=== PATIENT | male | born 1945 | race Caucasian/White ===

== ENCOUNTER 2017-04-07 12:24 | Emergency (ER) | payer MEDICARE, OTHER ==
[~2017-04-07] VITALS: Ht 180.3 cm; Wt 127.0 kg
[~2017-04-07 12:24] MED LIST: ASPIR 8181 MG PO; ASPIRIN325 MG PO; B COMPLEX1 EACH PO; BENICAR20 MG PO; CALCIUM600 MG PO; CARVEDILOL25 MG PO; CENTRUM SILVER1 EAC1 PO; COZAAR50 MG PO; DILTIAZEM 24HR180 M1 PO; ELIQUIS5 MG PO; FISH OIL500 MG PO; GLUCOSAM-CHOND1 EACH PO; GLUCOSAMINE &1 EAC1 PO; ISOSORBIDE MONO30 MG PO; LIPITOR40 MG PO; METHOCARBAMOL750 MG PO; MS CONTIN15 MG PO; NORCO 7.5-3251 EACH PO; OCUVITE TABLET1 EAC1 PO; OXYCODONE HCL10 MG PO; SAW PALMETTO450 MG PO; TRAMADOL HCL50 MG PO; ULTRAM50 MG PO; VITAMIN C1000 MG PO; ZETIA10 MG PO
== END 2017-04-07 14:58 | disposition home or self-care (01) ==
LOC: ED 12:24
DX: S63.92XA Sprain of unspecified part of left wrist and hand, initial encounter (principal); S00.91XA Abrasion of unspecified part of head, initial encounter; I10 Essential (primary) hypertension; E78.00 Pure hypercholesterolemia, unspecified; Z79.899 Other long term (current) drug therapy; Z98.890 Other specified postprocedural states; Z79.82 Long term (current) use of aspirin; W01.0XXA Fall on same level from slipping, tripping and stumbling without subsequent striking against object, initial encounter
CPT/HCPCS: 70450; 73110; 90471; 90715; 99284

== ENCOUNTER 2019-12-07 23:00 | Emergency (ER) | payer MEDICARE, OTHER ==
--- NOTE | 2019-12-08 07:51 | EKG ---
[facility] [address] [facility] [place] [address] Signed Accelerated Junctional rhythm with occasional premature ventricular complexes Low voltage QRS Cannot rule out Anterior infarct , age undetermined Abnormal ECG No previous ECGs available Confirmed by GRACE TATUM MD ([id number]) on 12/08/2019 7:51:31 AM Electronically Signed By: GRACE TATUM MD 12/08/19 0751 PATIENT NAME: GIOVANNI PEDERSEN AARON Electrocardiogram DATE OF : 47 PHYSICIAN: GRACE TATUM MD REPORT #: [id number] REPORT IS CONFIDENTIAL AND NOT TO BE RELEASED WITHOUT AUTHORIZATION
--- NOTE | 2019-12-08 07:51 | EKG ---
[facility] [address] [facility] [place] [address] Signed Undetermined rhythm Left axis deviation Nonspecific intraventricular conduction delay Marked ST abnormality, possible inferior subendocardial injury Marked ST abnormality, possible anterolateral subendocardial injury Abnormal ECG When compared with ECG of 07-DEC-2019 23:10, (Unconfirmed) Current undetermined rhythm precludes rhythm comparison, needs review Questionable change in QRS duration Confirmed by GRACE TATUM MD ([id number]) on 12/08/2019 7:51:42 AM Electronically Signed By: GRACE TATUM MD 12/08/19 0751 PATIENT NAME: GIOVANNI PEDERSEN Electrocardiogram DATE OF : 47 PHYSICIAN: GRACE TATUM MD REPORT #: [id number] REPORT IS CONFIDENTIAL AND NOT TO BE RELEASED WITHOUT AUTHORIZATION
--- NOTE | 2019-12-08 07:52 | EKG ---
[facility] [address] [place] [place] [address] Signed Atrial flutter with variable AV block with premature ventricular or aberrantly conducted complexes Low voltage QRS Cannot rule out Anterior infarct , age undetermined Abnormal ECG When compared with ECG of 07-DEC-2019 23:24, (Unconfirmed) Previous ECG has undetermined rhythm, needs review Questionable change in QRS duration Confirmed by GRACE TATUM MD ([id number]) on 12/08/2019 7:51:53 AM Electronically Signed By: GRACE TATUM MD 12/08/19 0752 PATIENT NAME: GIOVANNI PEDERSEN Electrocardiogram DATE OF : 47 PHYSICIAN: GRACE TATUM MD REPORT #: [id number] REPORT IS CONFIDENTIAL AND NOT TO BE RELEASED WITHOUT AUTHORIZATION
== END 2019-12-08 00:30 | disposition home or self-care (01) ==
LOC: ED 23:00
DX: I47.1 Supraventricular tachycardia (principal); I10 Essential (primary) hypertension; E78.00 Pure hypercholesterolemia, unspecified; Z88.8 Allergy status to other drugs, medicaments and biological substances; Z79.899 Other long term (current) drug therapy
CPT/HCPCS: 71045; 85610; 93005; 93010; 99285-25

== ENCOUNTER 2019-12-10 00:15 | Emergency (ER) | payer MEDICARE, OTHER ==
[~2019-12-10] VITALS: Ht 180.3 cm; Wt 115.7 kg
--- OUTSIDE RECORDS SUMMARY | ~2019-12-10 | XMS | Encounter Summary ---
Demographics + + + | Address | [address] | | | [place] [address] | + + + | Home Phone | | + + + | Preferred Language | Unknown | + + + | Marital Status | | + + + | Scientology Affiliation | 1041 | + + + | Race | Unknown | + + + | Ethnic Group | Unknown | + + + Author + + + | Author | [facility] | | | and [place] | + + + | Organization | [facility] | | | and [place] | + + + | Address | Unknown | + + + | Phone | Unavailable | + + + Support + + + + + | Name | Relationship | Address | Phone | + + + + + | Dax Yeboah | ECON | Unknown | | + + + + + | Sangeetha Yeboah | ECON | [address] | | | | | [place] | | | | | [address] | | + + + + + Care Team Providers + +------+ + | Care Signal Apprentice Name | Role | Phone | + +------+ + | No, Physician | PCP | Unavailable | + +------+ + Encounter Details +--------+ + + + + | Date | Type | Department | Care Team | Description | +--------+ + + + + | 12/21/ | Orders Only | [facility] | Juan Merritt MD | | | 2015 | | CARDIOLOGY [place] | [address] | | | | | [address] | [place] [address] | | | | | [place], [place] | [phone] | | | | | [address] | | | | | | [phone] | | | +--------+ + + + + Social History + +-------+ +--------+------+ | Tobacco Use | Types | Packs/Day | Years | Date | | | | | Used | | + +-------+ +--------+------+ | Never Assessed | | | | | + +-------+ +--------+------+ + + + | Sex Assigned at | Date Recorded | | | | + + + | Not on file | | + + + documented as of this encounter Plan of Treatment +--------+---------+ + + + | Date | Type | Specialty | Care Team | Description | +--------+---------+ + + + | 01/09/ | Office | Cardiology | Juan Merritt MD | | | 2019 | Visit | | [address] | | | | | | [place] [address] | | | | | | [phone] | | | | | | | | +--------+---------+ + + + documented as of this encounter Procedures + +--------+ + + + | Procedure Name | Priori | Date/Time | Associated Diagnosis | Comments | | | ty | | | | + +--------+ + + + | ECHO COMPLETE W | Routin | 12/21/2014 | | Results for this | | CONTRAST | e | 1:51 PM | | procedure are in the | | | | PDT | | results section. | + +--------+ + + + documented in this encounter Results ECHO Complete w Contrast (12/21/2014 1:51 PM PDT) + + | Specimen | + + | | + + + + + | Impressions | Performed At | + + + | 1. Atrial fibrillation. 2. Overall left ventricular systolic | | | function is mildly impaired with, an EF between 45 - 50 %. 3. There | | | is trace mitral regurgitation. 4. The right ventricular systolic | | | pressure (pulmonary artery systolic pressure), as measured by Doppler, | | | is 34.29mmHg. | | + + + + + + | Narrative | Performed At | + + + | Patient Name: GIOVANNI YEBOAH Date of : 1945 | | | Performing Physician: Juan Merritt MD | | | | | | INDICATIONS CAD with 2 stents, A-fib CONCLUSIONS | | | 1. Atrial fibrillation. 2. Overall left ventricular | | | systolic function is mildly impaired with, an EF between 45 - 50 %. | | | 3. There is trace mitral regurgitation. 4. The right ventricular | | | systolic pressure (pulmonary artery systolic pressure), as measured by | | | Doppler, is 34.29mmHg. FINDINGS -------- ECG rhythm: Atrial | | | fibrillation. Study: A 2-dimensional transthoracic echocardiogram | | | with m-mode, spectral and color flow Doppler was perfomed. Study: | | | Definity contrast agent was used to better delineate the left | | | ventricular wall segments. Study: This was a technically difficult | | | study with suboptimal views. Left Ventricle: Overall left ventricular | | | systolic function is mildly impaired with, an EF between 45 - 50 %. | | | Left Ventricle: The left ventricle cavity size is normal. Left | | | Ventricle: Left ventricular wall thickness is normal. Right | | | Ventricle: The right ventricle is normal in size. Right Ventricle: | | | The right ventricular systolic function is impaired. Left Atrium: The | | | left atrium is normal in size. Right Atrium: The right atrium is | | | mildly enlarged Right Atrium: , and the RA measures 5.7cm. Aortic | | | Valve: The aortic valve is trileaflet and appears structurally normal. | | | Aortic Valve: The aortic valve is mildly calcified. Aortic Valve: | | | There is no evidence of aortic regurgitation. Aortic Valve: There is | | | no evidence of aortic stenosis. Mitral Valve: The mitral valve is | | | normal. Mitral Valve: There is trace mitral regurgitation. Tricuspid | | | Valve: The tricuspid valve appears structurally normal. Tricuspid | | | Valve: Trace tricuspid regurgitation present. Tricuspid Valve: There | | | is no evidence of pulmonary hypertension. Tricuspid Valve: The right | | | ventricular systolic pressure (pulmonary artery systolic pressure), as | | | measured by Doppler, is 34.29mmHg. Pulmonic Valve: The pulmonic | | | valve is normal. Pulmonic Valve: Trace pulmonic regurgitation. | | | Pericardium: There is no pericardial effusion. IVC/Hepatic Veins: The | | | IVC is normal size (1.5-2.5cm) and collapses >50% with sniff, | | | consistent with central venous pressures of 5-10mmHg. Aorta: The | | | aortic root, ascending aorta and aortic arch are normal. Mass: No | | | mass visualized Thrombus: No clot visualized Thrombus: No vegetation | | | visualized. Septum: No ASD observed. Septum: No VSD observed. | | | MEASUREMENTS Ao asc: 3.79 cm IVC: 1.98 cm LA | | | Major: 5.06 cm EDV(Teich): 140.66 ml IVSd: 0.78 cm LVIDd: | | | 5.38 cm LVPWd: 0.92 cm LVOT Area: 4.85 cm2 LVOT Diam: | | | 2.48 cm %FS: 19.44 % EF(Teich): 39.59 % ESV(Teich): 84.96 | | | ml LVIDs: 4.34 cm SV(Teich): 55.70 ml RA Major: 5.72 cm | | | RVIDd: 3.25 cm LVEF MOD A2C: 36.54 % SV MOD A2C: 34.12 ml | | | LVEF MOD A4C: 44.13 % SV MOD A4C: 35.94 ml EF Biplane: | | | 40.48 % LVEDV MOD BP: 72.39 ml LVESV MOD BP: 43.08 ml LVEDV | | | MOD A2C: 93.38 ml LVLd A2C: 7.92 cm LVEDV MOD A4C: 81.43 ml | | | LVLd A4C: 7.62 cm LVESV MOD A2C: 59.25 ml LVLs A2C: 7.57 | | | cm LVESV MOD A4C: 45.48 ml LVLs A4C: 6.75 cm LAESV(A-L): | | | 66.17 ml LAESV Index (A-L): 27.68 ml/m2 LAAs A2C: 19.62 cm2 | | | LAESV A-L A2C: 63.90 ml LALs A2C: 5.11 cm LAAs A4C: 20.31 | | | cm2 LAESV A-L A4C: 67.40 ml LALs A4C: 5.19 cm Ao Diam: | | | 3.64 cm LA Diam: 4.64 cm LA/Ao: 1.27 AV maxP.14 mmHg | | | AV meanP.51 mmHg AV Vmax: 1.33 m/s AV Vmean: 0.87 m/s | | | AV VTI: 24.70 cm CAMILLE Vmax: 3.03 cm2 CAMILLE (VTI): 2.76 cm2 | | | LVOT maxP.78 mmHg LVOT meanP.18 mmHg LVSI Dopp: | | | 28.57 ml/m2 LVSV Dopp: 68.29 ml LVOT Vmax: 0.83 m/s LVOT | | | Vmean: 0.50 m/s LVOT VTI: 14.07 cm IVRT: 96.88 ms MV A | | | Terrell: 0.02 m/s MV Dec Baldwin: 5.99 m/s2 MV DecT: 188.02 ms | | | MV E Terrell: 1.12 m/s MV E/A Ratio: 48.40 MV PHT: 54.52 ms | | | MVA By PHT: 4.03 cm2 Septal e': 0.07 m/s Septal E/e': 15.39 | | | Lateral e': 0.10 m/s Lateral E/e': 11.23 RAP: 5 mmHg | | | RVSP: 34.29 mmHg TR maxP.29 mmHg TR Vmax: 2.70 m/s | | | Acid Bath Mixer: BABAR Authenticated by: Juan Merritt MD Report Date/Time: | | | 12-22-2014 17:02:08 | | + + + + + | Procedure Note | + + | Jerome, Rad Conversion - 01/21/2019 11:07 PM PDT Patient Name: Viviana YEBOAH of | | : 1945 Performing Physician: Juan Merrtit | | INDICATIONS C | | AD with 2 stents, A-fib CONCLUSIONS 1. Atrial fibrillation.2. Overall left | | ventricular systolic function is mildly impaired with, an EF between 45 - 50 %.3. There | | is trace mitral regurgitation.4. The right ventricular systolic pressure (pulmonary | | artery systolic pressure), as measured by Doppler, is 34.29mmHg. FINDINGS--------ECG | | rhythm: Atrial fibrillation.Study: A 2-dimensional transthoracic echocardiogram with | | m-mode, spectral and color flow Doppler was perfomed.Study: Definity contrast agent was | | used to better delineate the left ventricular wall segments.Study: This was a | | technically difficult study with suboptimal views.Left Ventricle: Overall left | | ventricular systolic function is mildly impaired with, an EF between 45 - 50 %.Left | | Ventricle: The left ventricle cavity size is normal.Left Ventricle: Left ventricular | | wall thickness is normal.Right Ventricle: The right ventricle is normal in size.Right | | Ventricle: The right ventricular systolic function is impaired.Left Atrium: The left | | atrium is normal in size.Right Atrium: The right atrium is mildly enlargedRight Atrium: | | , and the RA measures 5.7cm.Aortic Valve: The aortic valve is trileaflet and appears | | structurally normal.Aortic Valve: The aortic valve is mildly calcified.Aortic Valve: | | There is no evidence of aortic regurgitation.Aortic Valve: There is no evidence of | | aortic stenosis.Mitral Valve: The mitral valve is normal.Mitral Valve: There is trace | | mitral regurgitation.Tricuspid Valve: The tricuspid valve appears structurally | | normal.Tricuspid Valve: Trace tricuspid regurgitation present.Tricuspid Valve: There is | | no evidence of pulmonary hypertension.Tricuspid Valve: The right ventricular systolic | | pressure (pulmonary artery systolic pressure), as measured by Doppler, is | | 34.29mmHg.Pulmonic Valve: The pulmonic valve is normal.Pulmonic Valve: Trace pulmonic | | regurgitation.Pericardium: There is no pericardial effusion.IVC/Hepatic Veins: The IVC | | is normal size (1.5-2.5cm) and collapses >50% with sniff, consistent with central venous | | pressures of 5-10mmHg.Aorta: The aortic root, ascending aorta and aortic arch are | | normal.Mass: No mass visualizedThrombus: No clot visualizedThrombus: No vegetation | | visualized.Septum: No ASD observed.Septum: No VSD observed. MEASUREMENTS Ao | | asc: 3.79 cmIVC: 1.98 cmLA Major: 5.06 cmEDV(Teich): 140.66 mlIVSd: 0.78 | | cmLVIDd: 5.38 cmLVPWd: 0.92 cmLVOT Area: 4.85 np5TIVR Diam: 2.48 cm%FS: 19.44 | | %EF(Teich): 39.59 %ESV(Teich): 84.96 mlLVIDs: 4.34 cmSV(Teich): 55.70 mlRA | | Major: 5.72 cmRVIDd: 3.25 cmLVEF MOD A2C: 36.54 %SV MOD A2C: 34.12 mlLVEF MOD | | A4C: 44.13 %SV MOD A4C: 35.94 mlEF Biplane: 40.48 %LVEDV MOD BP: 72.39 mlLVESV | | MOD BP: 43.08 mlLVEDV MOD A2C: 93.38 mlLVLd A2C: 7.92 cmLVEDV MOD A4C: 81.43 | | mlLVLd A4C: 7.62 cmLVESV MOD A2C: 59.25 mlLVLs A2C: 7.57 cmLVESV MOD A4C: 45.48 | | mlLVLs A4C: 6.75 cmLAESV(A-L): 66.17 mlLAESV Index (A-L): 27.68 ml/m2LAAs A2C: | | 19.62 [id number] A-L A2C: 63.90 mlLALs A2C: 5.11 cmLAAs A4C: 20.31 [id number] A-L A4C: | | 67.40 mlLALs A4C: 5.19 cmAo Diam: 3.64 cmLA Diam: 4.64 cmLA/Ao: 1.27AV maxPG: | | 7.14 mmHgAV meanP.51 mmHgAV Vmax: 1.33 m/Carrie Vmean: 0.87 m/Carrie VTI: 24.70 | | cmAVA Vmax: 3.03 cm2AVA (VTI): 2.76 [id number] maxP.78 mmHgLVOT meanP.18 | | mmHgLVSI Dopp: 28.57 ml/m2LVSV Dopp: 68.29 mlLVOT Vmax: 0.83 m/sLVOT Vmean: 0.50 | | m/sLVOT VTI: 14.07 cmIVRT: 96.88 msMV A Terrell: 0.02 m/sMV Dec Baldwin: 5.99 m/s2MV | | DecT: 188.02 msMV E Terrell: 1.12 m/sMV E/A Ratio: 48.40MV PHT: 54.52 msMVA By PHT: | | 4.03 qf1Sdvvsw e': 0.07 m/sSeptal E/e': 15.39Lateral e': 0.10 m/sLateral E/e': | | 11.23RAP: 5 mmHgRVSP: 34.29 mmHgTR maxP.29 mmHgTR Vmax: 2.70 m/s | | Acid Bath Mixer: DHAuthenticated by: Juan [facility] Date/Time: 12-22-2014 17:02:08 | | IMPRESSION: 1. Atrial fibrillation.2. Overall left ventricular systolic function is | | mildly impaired with, an EF between 45 - 50 %.3. There is trace mitral regurgitation.4. | | The right ventricular systolic pressure (pulmonary artery systolic pressure), as | | measured by Doppler, is 34.29mmHg. | |Septum: No VSD observed. | | | |MEASUREMENTS | | | |Ao asc: 3.79 cm | |IVC: 1.98 cm | |LA Major: 5.06 cm | |EDV(Teich): 140.66 ml | |IVSd: 0.78 cm | |LVIDd: 5.38 cm | |LVPWd: 0.92 cm | |LVOT Area: 4.85 cm2 | |LVOT Diam: 2.48 cm | |%FS: 19.44 % | |EF(Teich): 39.59 % | |ESV(Teich): 84.96 ml | |LVIDs: 4.34 cm | |SV(Teich): 55.70 ml | |RA Major: 5.72 cm | |RVIDd: 3.25 cm | |LVEF MOD A2C: 36.54 % | |SV MOD A2C: 34.12 ml | |LVEF MOD A4C: 44.13 % | |SV MOD A4C: 35.94 ml | |EF Biplane: 40.48 % | |LVEDV MOD BP: 72.39 ml | |LVESV MOD BP: 43.08 ml | |LVEDV MOD A2C: 93.38 ml | |LVLd A2C: 7.92 cm | |LVEDV MOD A4C: 81.43 ml | |LVLd A4C: 7.62 cm | |LVESV MOD A2C: 59.25 ml | |LVLs A2C: 7.57 cm | |LVESV MOD A4C: 45.48 ml | |LVLs A4C: 6.75 cm | |LAESV(A-L): 66.17 ml | |LAESV Index (A-L): 27.68 ml/m2 | |LAAs A2C: 19.62 cm2 | |LAESV A-L A2C: 63.90 ml | |LALs A2C: 5.11 cm | |LAAs A4C: 20.31 cm2 | |LAESV A-L A4C: 67.40 ml | |LALs A4C: 5.19 cm | |Ao Diam: 3.64 cm | |LA Diam: 4.64 cm | |LA/Ao: 1.27 | |AV maxP.14 mmHg | |AV meanP.51 mmHg | |AV Vmax: 1.33 m/s | |AV Vmean: 0.87 m/s | |AV VTI: 24.70 cm | |CAMILLE Vmax: 3.03 cm2 | |CAMILLE (VTI): 2.76 cm2 | |LVOT maxP.78 mmHg | |LVOT meanP.18 mmHg | |LVSI Dopp: 28.57 ml/m2 | |LVSV Dopp: 68.29 ml | |LVOT Vmax: 0.83 m/s | |LVOT Vmean: 0.50 m/s | |LVOT VTI: 14.07 cm | |IVRT: 96.88 ms | |MV A Terrell: 0.02 m/s | |MV Dec Baldwin: 5.99 m/s2 | |MV DecT: 188.02 ms | |MV E Terrell: 1.12 m/s | |MV E/A Ratio: 48.40 | |MV PHT: 54.52 ms | |MVA By PHT: 4.03 cm2 | |Septal e': 0.07 m/s | |Septal E/e': 15.39 | |Lateral e': 0.10 m/s | |Lateral E/e': 11.23 | |RAP: 5 mmHg | |RVSP: 34.29 mmHg | |TR maxP.29 mmHg | |TR Vmax: 2.70 m/s | | | |Acid Bath Mixer: DH | |Authenticated by: Juan Merritt MD | |Report Date/Time: 12-22-2014 17:02:08 | | | |IMPRESSION: | |1. Atrial fibrillation. | |2. Overall left ventricular systolic function is mildly impaired with, an EF between 45 - 5 0 %. | |3. There is trace mitral regurgitation. | |4. The right ventricular systolic pressure (pulmonary artery systolic pressure), as measure d by Doppler, is 34.29mmHg. | + + documented in this encounter Visit Diagnoses Not on filedocumented in this encounter"
--- OUTSIDE RECORDS SUMMARY | ~2019-12-10 | XMS | Encounter Summary ---
Demographics + + + | Address | [address] | | | [place] [address] | + + + | Home Phone | | + + + | Preferred Language | Unknown | + + + | Marital Status | | + + + | Judaism Affiliation | 1041 | + + + | Race | Unknown | + + + | Ethnic Group | Unknown | + + + Author + + + | Author | [facility] | | | and [place] | + + + | Organization | [facility] | | | and [...] + | Sangeetha Yeboah | ECON | [address] | | | | | [place] | | | | | [address] | | + + + + + Care Team Providers + +------+ + | Care Cash Management Associate Name | Role | Phone | + [...] | | | [address] | [place] [address] | | | | | [place] [address] | | | | | | [phone] | | | +--------+ + + + [...] | Juan Merritt MD | | | 2020 | Visit | | [address] | | | | | | [place] [address] | | | | | | [phone] | | | | | | | | +--------+---------+ + + + documented as of this encounter Procedures + +--------+ + + + | Procedure Name | Priori | Date/Time | Associated Diagnosis | Comments | | | ty | | | | + +--------+ + + + | XR KNEE BILATERAL AP | Routin | 01/30/2018 | | Results for this | | STANDING | e | 9:25 AM | | procedure are in the | | | | PDT | | results section. | + +--------+ + + + documented in this encounter Results XR Knee Bilateral AP Standing (01/30/2018 9:25 AM PDT) + + | Specimen | [...]
--- OUTSIDE RECORDS SUMMARY | ~2019-12-10 | XMS | Encounter Summary ---
Demographics + + + | Address | [address] | | | [place] [address] | + + + | Home Phone | | + + + | Preferred Language | Unknown | + + + | Marital Status | | + + + | Uatsdin Affiliation | 1041 | + + + | Race | Unknown | + + + | Ethnic Group | Unknown | + + + Author + + + | Author | [facility] | | | and [place] | + + + | Organization | [facility] | | | and [...] + | Sangeetha Yeboah | ECON | [address] | | | | | [place] | | | | | [address] | | + + + + + Care Team Providers + +------+ + | Care Cop Breaker Name | Role | Phone | + [...] | | | [address] | [place] [address] | | | | | [place] [address] | | | | | | [phone] | | | +--------+ + + + [...] [address] | | | | | | [place] [address] | | | | | | [phone] | | | | | | | | +--------+---------+ + + + documented as of this encounter Procedures + +--------+ + + + | Procedure Name | Priori | Date/Time | Associated Diagnosis | Comments | | | ty | | | | + +--------+ + + + | MRI KNEE RIGHT WO | Routin | 02/10/2018 | | Results for this | | CONTRAST | e | 9:25 AM | | procedure are in the | | | | PDT | | results section. | + +--------+ + + + documented in this encounter Results MRI Knee Right wo Contrast (02/10/2018 9:25 AM PDT) + + | Specimen [...]
--- OUTSIDE RECORDS SUMMARY | ~2019-12-10 | XMS | Encounter Summary ---
Demographics + + + | Address | [address] | | | [place] [address] | + + + | Home Phone | | + + + | Preferred Language | Unknown | + + + | Marital Status | | + + + | Nondenominational Affiliation | 1041 | + + + | Race | Unknown | + + + | Ethnic Group | Unknown | + + + Author + + + | Author | [facility] | | | and [place] | + + + | Organization | [facility] | | [...] + | Sangeetha Yeboah | ECON | [address] | | | | | [place] | | | | | [address] | | + + + + + Care Team Providers + +------+ + | Care Principal Consulting Engineer Name | Role | Phone | + +------+ + | No, Physician | PCP | Unavailable | + +------+ + Reason for Visit + +--------+ + | Reason | Onset | Comments | | | Date | | + +--------+ + | Symptom Management | 08/22/ | | | | 2020 | | + +--------+ + Encounter Details +--------+ + + + + | Date | Type | Department | Care Team | Description | +--------+ + + + + | 08/22/ | Telephone | [facility] | Juan Merritt MD | Symptom Management | | 2019 | | CARDIOLOGY [place] | [address] | | | | | [address] | [place] [address] | | | | | [place], [place] | [phone] | | | | | [address] | | | | | | [phone] | | | +--------+ + + + + Social History + +-------+ +--------+------+ | Tobacco Use | Types | Packs/Day | Years | Date | | | | | Used | | + +-------+ +--------+------+ | Never Smoker | | | | | + +-------+ +--------+------+ + + + | Sex Assigned at | Date Recorded | | | | + + + | Not on file | | + + + documented as of this encounter Miscellaneous Notes Telephone Encounter - Gianfranco Jesus, Ethanol Quality Leader - 08/24/2019 1:57 PM PDTPt brantley d stating on 08/18/19 he woke up in the middle of the night having what he describes as anxi ety attack that start mild to extreme. He also was sweating profusely for about 5 minutes. H is decided to give him a nitro (even though he didn't have chest pain, tightness or pre ssure) and with in 3-4 minutes he felt better. He did have diarrhea the next day but no othe r episodes of this and he also has lost some weight. Per Dr. Merritt if he has another episode then he will need to have a follow up visit but if no more episodes then he wouldn't be overly worried about the 1 episode. I called pt and advised him of this and he will keep in touch if any other episodes or if h e's blood pressure starts to drop with his weight loss. documented in this encounter Plan of Treatment +--------+---------+ + + + | Date | Type | Specialty | Care Team | Description | +--------+---------+ + + + | 01/09/ | Office | Cardiology | Juan Merritt MD | | | 2020 | Visit | | [address] | | | | | | [place] [address] | | | | | | [phone] | | | | | | | | +--------+---------+ + + + documented as of this encounter Visit Diagnoses Not on filedocumented in this encounter"
--- OUTSIDE RECORDS SUMMARY | ~2019-12-10 | XMS | Clinical Summary ---
Demographics + + + | Address | [address] | | | [place] [address] | + + + | Home Phone | | + + + | Preferred Language | Unknown | + + + | Marital Status | | + + + | Synagogue Affiliation | 1041 | + + + | Race | Unknown | + + + | Ethnic Group | Unknown | + + + Author + + + | Author | [facility] | | | and [place] | + + + | Organization | [facility] | | | [...] + | Sangeetha Yeboah | ECON | [address] | | | | | [place] | | | | | [phone] | | + + + + + Care Team Providers + +------+ + | Care Medical Certification Specialist Name | Role | Phone | + +------+ + | No, Physician | PCP | Unavailable | + +------+ + Allergies No Known Allergies Medications + + + +---------+------+------+-------+ | Medication | Sig | Dispensed | Refills | Star | End | Statu | | | | | | t | Date | s | | | | | | Date | | | + + + +---------+------+------+-------+ | Ascorbic Acid | Take 1,000 mg by | | 0 | | | Activ | | (VITAMIN C) 1000 MG | mouth. | | | | | e | | tablet | | | | | | | + + + +---------+------+------+-------+ | aspirin 81 mg EC | Take 81 mg by mouth. | | 0 | | | Activ | | tablet | | | | | | e | + + + +---------+------+------+-------+ | atorvaSTATin | Take 80 mg by mouth. | | 0 | 09/0 | | Activ | | (LIPITOR) 80 MG | | | | 6/20 | | e | | tablet | | | | 18 | | | + + + +---------+------+------+-------+ | B complex vitamins | Take 1 tablet by | | 0 | | | Activ | | tablet | mouth. | | | | | e | + + + +---------+------+------+-------+ | carvedilol (COREG) | Take 25 mg by mouth. | | 0 | 09/0 | | Activ | | 25 mg tablet | | | | 6/20 | | e | | | | | | 18 | | | + + + +---------+------+------+-------+ | cholecalciferol | Take 1,000 Units by | | 0 | | | Activ | | (CHOLECALCIFEROL) | mouth. | | | | | e | | 1000 units TABS | | | | | | | + + + +---------+------+------+-------+ | Coenzyme Q10 | Take 1 capsule by | | 0 | | | Activ | | (COQ-10) 100 MG CAPS | mouth. | | | | | e | + + + +---------+------+------+-------+ | | Take 1 capsule by | | 0 | | | Activ | | Glucosamine-Chondroi | mouth. | | | | | e | | t-Vit C-Mn | | | | | | | | (GLUCOSAMINE 1500 | | | | | | | | COMPLEX) CAPS | | | | | | | + + + +---------+------+------+-------+ | Krill Oil 1000 MG | Take 1 capsule by | | 0 | | | Activ | | CAPS | mouth. | | | | | e | + + + +---------+------+------+-------+ | losartan (COZAAR) | Take 50 mg by mouth. | | 0 | 09/0 | | Activ | | 50 mg tablet | | | | 6/20 | | e | | | | | | 18 | | | + + + +---------+------+------+-------+ | MAGNESIUM PO | Take 1 capsule by | | 0 | | | Activ | | | mouth. | | | | | e | + + + +---------+------+------+-------+ | Multiple Vitamin | Take 1 tablet by | | 0 | | | Activ | | (MULTIVITAMIN) | mouth. | | | | | e | | tablet | | | | | | | + + + +---------+------+------+-------+ | Multiple | Take 1 tablet by | | 0 | | | Activ | | Vitamins-Minerals | mouth. | | | | | e | | (OCUVITE EXTRA) TABS | | | | | | | + + + +---------+------+------+-------+ | nitroglycerin | Place 0.4 mg under | | 0 | 03/1 | | Activ | | (NITROSTAT) 0.4 mg | the tongue. | | | 3/20 | | e | | SL tablet | | | | 18 | | | + + + +---------+------+------+-------+ | Beto Bowers 450 | Take 2 capsules by | | 0 | | | Activ | | MG CAPS | mouth. | | | | | e | + + + +---------+------+------+-------+ | Turmeric Curcumin | Take 1 capsule by | | 0 | | | Activ | | 500 MG CAPS | mouth. | | | | | e | + + + +---------+------+------+-------+ | | Take 2 tablets by | 40 | 0 | 09/2 | | Activ | | HYDROcodone-acetamin | mouth every 6 hours | tablet | | 0/20 | | e | | ophen (NORCO) 5-325 | as needed for Pain. | | | 18 | | | | mg per tablet | | | | | | | + + + +---------+------+------+-------+ | aspirin 325 mg | Take 1 tablet by | | 0 | | | Activ | | tablet | mouth daily (with | | | | | e | | | breakfast). | | | | | | + + + +---------+------+------+-------+ | Multiple | multivitamin | | 0 | | | Activ | | Vitamins-Minerals | 1 daily | | | | | e | | (MULTIVITAMIN ADULT | | | | | | | | PO) | | | | | | | + + + +---------+------+------+-------+ | Multiple | Ocuvite | | 0 | | | Activ | | Vitamins-Minerals | 1 po daily | | | | | e | | (OCUVITE PO) | | | | | | | + + + +---------+------+------+-------+ | [place]-3 Fatty | Take 1 capsule by | | 0 | | | Activ | | Acids (OMEGA-3 FISH | mouth Once a week. | | | | | e | | OIL PO) | omego-3 fatty | | | | | | | | acids-fish oil 300 | | | | | | | | mg-1,000 mg capsule | | | | | | + + + +---------+------+------+-------+ | atorvaSTATin | Take 1 tablet by | | 0 | | | Activ | | (LIPITOR) 80 MG | mouth every evening. | | | | | e | | tablet | | | | | | | + + + +---------+------+------+-------+ | carvedilol (COREG) | Take 2 tablets by | | 0 | | | Activ | | 25 mg tablet | mouth 2 times daily. | | | | | e | | | With meals | | | | | | + + + +---------+------+------+-------+ | Saw [place] 450 | 1 capsule Daily. | | 0 | | | Activ | | MG CAPS | | | | | | e | + + + +---------+------+------+-------+ | SAW PALMETTO, | Take 1 capsule by | | 0 | | | Activ | | SERENOA REPENS, PO | mouth 2 times daily. | | | | | e | + + + +---------+------+------+-------+ | apixaban (ELIQUIS) | Take 1 tablet by | 180 | 3 | 02/01 | | Activ | | 5 mg tablet | mouth 2 times daily. | tablet | | 10/19 | | e | | | | | | 19 | | | + + + +---------+------+------+-------+ Active Problems + + + | Problem | Noted Date | + + + | Coronary atherosclerosis | 12/29/2018 | + + + | Coronary arteriosclerosis | 12/29/2018 | + + + | HTN (hypertension) | 12/29/2018 | + + + | History of hypertension | 12/29/2018 | + + + | Hyperlipidemia | 12/29/2018 | + + + | Obesity | 12/29/2018 | + + + | Persistent atrial fibrillation | 11/27/2016 | + + + | Atrial tachycardia | 10/31/2014 | + + + | Sleep apnea | 10/14/2013 | + + + Family History + + +------+ + | Medical History | Relation | Name | Comments | + + +------+ + | Coronary artery | Maternal | | | | disease | Grandmoth | | | | | er | | | + + +------+ + + +------+ + + | Relation | Name | Status | Comments | + +------+ + + | Maternal Grandfather | | | | + +------+ + + | Maternal Grandmother | | | | + +------+ + + | Maternal Grandmother | | | | + +------+ + + | Mother | | | | + +------+ + + Social History + +-------+ +--------+------+ [...] on file | | + + + Last Filed Vital Signs + + + + + | Vital Sign | Reading | Time Taken | Comments | + + + + + | Blood Pressure | 108/68 | 01/14/2019 3:09 PM | | | | | PDT | | + + + + + | Pulse | 66 | 01/14/2019 3:09 PM | | | | | PDT | | + + + + + | Temperature | 36.9 C (98.4 F) | 02/19/2018 9:15 AM | | | | | PDT | | + + + + + | Respiratory Rate | 18 | 01/14/2019 3:09 PM | | | | | PDT | | + + + + + | Oxygen Saturation | 97% | 02/19/2018 10:45 AM | | | | | PDT | | + + + + + | Inhaled Oxygen | - | - | | | Concentration | | | | + + + + + | Weight | 128.8 kg (284 lb) | 01/14/2019 3:09 PM | | | | | PDT | | + + + + + | Height | 180.3 cm (5' 11") | 01/14/2019 3:09 PM | | | | | PDT | | + + + + + | Body Mass Index | 39.61 | 01/14/2019 3:09 PM | | | | | PDT | | + + + + + Plan of Treatment +--------+---------+ + + + | Date | Type | Specialty | Care Team | Description | +--------+---------+ + + + | 01/09/ | Office | Cardiology | Juan Merritt MD | | | 2020 | Visit | | [address] | | | | | | [place] [address] | | | | | | [phone] | | | | | | | | +--------+---------+ + + + + + +-------+ + | Health Maintenance | Due Date | Last | Comments | | | | Done | | + + +-------+ + | Hepatitis C | | | | | Screening | 7 | | | + + +-------+ + | Vaccine: | | | | | Dtap/Tdap/Td (1 - | 6 | | | | Tdap) | | | | + + +-------+ + | Colorectal Cancer | | | | | Screening | 7 | | | | (Colonoscopy) | | | | + + +-------+ + | Vaccine: Zoster (1 | | | | | of 2) | 7 | | | + + +-------+ + | Vaccine: | | | | | Pneumococcal 65+ (1 | 2 | | | | of 1 - PPSV23) | | | | + + +-------+ + | Adult Annual | | | | | Wellness Visit | 9 | | | + + +-------+ + | Vaccine: Influenza | | | | | (#1) | 0 | | | + + +-------+ + Results Not on filefrom Last 3 Months Insurance + +--------+ +--------+ +---------+--------+ | Payer | Benefi | Subscriber | Effect | Phone | Address | Type | | | t Plan | ID | isis | | | | | | / | | Dates | | | | | | Group | | | | | | + +--------+ +--------+ +---------+--------+ | [employer] [place] | [id number] | | | | Indemn | | | COMMUN | | 018-Pr | | | ity | | | ITY | | esent | | | | | | CARE | | | | | | + +--------+ +--------+ +---------+--------+ | MEDICARE | RAILRO | [id number] | 06/02/19 | [phone] | | Medica | | | AD | | 12-Pre | 5 | | re | | | MEDICA | | sent | | | | | | RE | | | | | | + +--------+ +--------+ +---------+--------+ | MEDICARE | [facility]ILRO | [id number] | 07/03/19 | [phone] | | Medica | | | AD | | 12-Pre | 5 | | re | | | MEDICA | | sent | | | | | | RE | | | | | | + +--------+ +--------+ +---------+--------+ | [employer] | MUTUAL | [id number] | 07/03/19 | [phone] | | Indemn | | | AND | | 18-Pre | 0 | | ity | | | [place] | | sent | | | | | | [employer] [place] | | | | | | | | MDCR | | | | | | | | SUPPL | | | | | | + +--------+ +--------+ +---------+--------+ + +--------+ +--------+ + + | Guarantor Name | Accoun | Relation to | Date | Phone | Billing Address | | | t Type | Patient | of | | | | | | | | | | + +--------+ +--------+ + + | Iain Yeboah | Person | Self | [birth year] | [address] | | | al/Fam | | 1946 | [phone] | [place], [place] | | | avni | | | 0 (Home) | [phone] | + +--------+ +--------+ + + | Iain Yeboah | Person | Self | [birth year] | [address] | | | al/Fam | | 1946 | [phone] | [place], [place] | | | avni | | | 7 (Home) | [phone] | + +--------+ +--------+ + + Advance Directives + + + + + | Type | Date Recorded | 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
--- OUTSIDE RECORDS SUMMARY | ~2019-12-10 | XMS | Encounter Summary ---
Demographics + + + | Address | [address] | | | [place] [address] | + + + | Home Phone | | + + + | Preferred Language | Unknown | + + + | Marital Status | | + + + | Taoism Affiliation | 1041 | + + + [...] + | [place]eth[place] | ECON | [address] | | | | | [place] | | | | | [address] | | + + + + + Care Team Providers + +------+ + | Care Natural Gas Shothole Driller Name | Role | Phone | + +------+ + | No, Physician | PCP | Unavailable | + +------+ + Encounter Details +--------+ + + + + | Date | Type | Department | Care Team | Description | +--------+ + + + + | 12/31/ | Orders Only | [facility] | Juan Merritt MD | | | 2017 | | CARDIOLOGY [facility] | [address] | | | | | [address] | [place] [address] | | | | | [place], [place] | [phone] | | | | | [address] | | | | | | [phone] | | | +--------+ + + + [...] [address] | | | | | | [place] [address] | | | | | | [phone] | | | | | | | [...] | maxP.63 mmHg TR Vmax: 3.02 m/s Chainer: MORE | | | Authenticated by: Juan Merritt MD Report Date/Time: 12-31-2016 | | | 20:10:08 | | + + + + + | Procedure Note | + + | Jerome, Rad Conversion - 01/21/2019 5:59 PM PDT Patient [...] cmLVPWd: | | 1.00 cmLVOT Area: 4.19 [id number] Diam: 2.31 cm%FS: 25.04 %EF(Teich): 48.77 | [...] 91.98 mlLVLs A4C: 8.23 cmLAAs A4C: 18.19 [id number] A-L A4C: | | 51.45 mlLALs A4C: 5.45 cmRAAs: 23.11 [id number] A-L: 78.41 mlRAESV MOD: 74.17 | | mlRALs: 5.78 cmTAPSE: 2.00 cmAV maxP.79 mmHgAV meanP.35 mmHgAV Vmax: | | 1.39 m/Carrie Vmean: 0.97 m/Carrie VTI: 28.91 cmAVA Vmax: 3.29 cm2AVA (VTI): 3.50 | | [id number] (Vmax): 0.00 cm2/m2AVAI (VTI): 0.00 cm2/m2LVOT maxP.80 [...] maxP.63 | | mmHgTR Vmax: 3.02 m/s Chainer: DBSAuthenticated by: Juan VENCESeport | | Date/Time: [...] |TR Vmax: 3.02 m/s | | | |Chainer: DBS | |Authenticated by: Juan Merritt MD [...]
--- OUTSIDE RECORDS SUMMARY | ~2019-12-10 | XMS | Encounter Summary ---
Demographics + + + | Address | [address] | | | [place] [address] | + + + | Home Phone | | + + + | Preferred Language | Unknown | + + + | Marital Status | | + + + | Buddhist Affiliation | 1041 | + + + | Race | Unknown | + + + | Ethnic Group | Unknown | + + + Author + + + | Author | [facility] | | | and [place] | + + + | Organization | [facility] | | | and [...] + | Sangeetha Yeboah | ECON | [address] | | | | | [place] | | | | | [address] | | + + + + + Care Team Providers + +------+ + | Care Twister Tender Paper Name | Role | Phone | + +------+ + | No, Physician | PCP | Unavailable | + +------+ + Reason for Visit Auth/Cert +--------+--------+ + + + + | Status | Reason | Specialty | Diagnoses / | Referred By | Referred To | | | | | Procedures | Contact | Contact | +--------+--------+ + + + + | | | | Diagnoses | | | | | | | | | | | | | | Degenerative | | | | | | | tear of | | | | | | | posterior | | | | | | | horn of | | | | | | | medial | | | | | | | meniscus of | | | | | | | right knee | | | | | | | Degenerative | | | | | | | tear of | | | | | | | posterior | | | | | | | horn of | | | | | | | medial | | | | | | | meniscus of | | | | | | | right knee | | | | | | | [M23.321] | | | | | | | Procedures | | | | | | | [facility] | | | | | | | KNE SURG | | | | | | | W/MENISCECTO | | | | | | | MY MED/LAT | | | | | | | W/SHVG | | | | | | | Right Knee | | | | | | | Scope, | | | | | | | Medial | | | | | | | Meniscectomy | | | +--------+--------+ + + + + Encounter Details +--------+ + + + + | Date | Type | Department | Care Team | Description | +--------+ + + + + | 02/19/ | Hospital | [facility] | Epi Gutierrez | | | 2018 | Encounter | [facility] | J, DO [address] | | | | | [address] | [address] [place], [place] | | | | | [place], [place] | [address] | | | | | [address] | [phone] | | | | | [phone] | | | +--------+ + + + [...] + + documented as of this encounter Last Filed Vital Signs + + + + + | Vital Sign | Reading | Time Taken | Comments | + + + + + | Blood Pressure | 122/70 | 02/19/2018 10:30 AM | | | | | PDT | | + + + + + | Pulse | 83 | 02/19/2018 10:45 AM | | | | | PDT | | + + + + + | Temperature | 36.9 C (98.4 F) | 02/19/2018 9:15 AM | | | | | PDT | | + + + + + | Respiratory Rate | 18 | 02/19/2018 10:45 AM | | | | | PDT | | + + + + + | Oxygen Saturation | 97% | 02/19/2018 10:45 AM | | | | | PDT | | + + + + + | Inhaled Oxygen | - | - | | | Concentration | | | | + + + + + | Weight | 133.1 kg (293 lb 6.9 | 02/19/2018 6:42 AM | | | | oz) | PDT | | + + + + + | Height | 180.3 cm (5' 11") | 02/19/2018 6:42 AM | | | | | PDT | | + + + + + | Body Mass Index | 40.93 | 02/19/2018 6:42 AM | | | | | PDT | | + + + + + documented in this encounter Discharge Instructions Instructions Nathalia Bond RN - 02/17/2018Formatting of this note might be different fr om the original. Your post-op appointment is scheduled for March 03 at 8:30 am After Knee Arthroscopy After surgery, your joint may be swollen, painful, and stiff. Your recovery time will depen d on what was done. Your surgeon will tell you when to resume activity and weight bearing. I f you had meniscal cartilage or loose bodies removed, you may be told to bear weight early o n. Discharge Instructions for Arthroscopic knee surgery You have undergone arthroscopic anterior cruciate ligament surgery. Here are some instructi ons to follow once at home: Home Care 1. Take your pain medicine as directed by your doctor. Generally a scheduled narcotic will be prescribed (such as Vicodin or Percocet) to be taken every 4-6 hours routinely as needed. These have acetomeniphen (tylenol or APAP) which limits their use to every 4 hours. 2. Please call the office for questions or if the narcotics are not helping. You may shower after 2 days but do not bathe or immerse the incision, carefully wash you r incision with soap and water. Rinse the incision well. Then gently pat it dry. Don t rub the incision, or apply creams or lotions. Do not get incision wet if there is any drainage. Take pain medication as directed by your doctor. Moving Safely Don t drive while you are taking narcotic pain medications as this can alter you padilla lity to think clearly. Other Precautions Avoid soaking your knee in water (no hot tubs, bathtubs, swimming pools) until your doct or says it s okay. Arrange your household to keep the items you need handy. Keep everything else out of the way. Remove items that may cause you to fall, such as throw rugs and electrical cords. Prevent infection. Ask your doctor for instructions if you haven t already received th em. Any infection will need to be treated immediately with antibiotics. Call your doctor rig ht away if you think you might have an infection Follow-Up You have a follow-up appointment already scheduled at [facility]. You will need to have your sutures removed at that visit. Please call if you have any question s. When to Seek Medical Attention Call [phone] right awayif you have: Chest pain. Shortness of breath. Any pain or tenderness in your calf. Otherwise, call your doctor immediately if you have: Fever of 100.4Fhigher, or shaking chills. Stiffness, or inability to move the knee. Increased swelling in your leg. Increased redness, tenderness, or swelling in or around the knee incision. Drainage from the knee incision. Increased knee pain. You may be told to ride an exercise bike daily. This will help restore your knee's motion a nd strength. At Home Follow your surgeon s guidelines for healing: Elevate your knee as much as possible and ice your knee frequently during the day. Keep your knee bandaged according to your surgeon's instructions. Take pain medication as directed. Contact your surgeon right away if you experience any of the following: Fever Chills Persistent warmth or redness around the kne Persistent or increased pain Significant swelling in your knee Increasing pain in your calf muscle These instructions supercede any instructions that you may receive from the hospital, nurse s, family members, friends, co-workers, clergy members, your video player mechanic, Dr. Dao, Gertrude, Dr. Nuñez, sports heroes or any other person. documented in this encounter Medications at Time of Discharge + + + +---------+ + + | Medication | Sig | Dispensed | Refills | Start | End Date | | | | | | Date | | + + + +---------+ + + | Ascorbic Acid | Take 1,000 mg by | | 0 | | | | (VITAMIN C) 1000 MG | mouth. | | | | | | tablet | | | | | | + + + +---------+ + + | aspirin 81 mg EC | Take 81 mg by mouth. | | 0 | | | | tablet | | | | | | + + + +---------+ + + | atorvaSTATin | Take 80 mg by mouth. | | 0 | 02/06/20 | | | (LIPITOR) 80 MG | | | | 18 | | | tablet | | | | | | + + + +---------+ + + | B complex vitamins | Take 1 tablet by | | 0 | | | | tablet | mouth. | | | | | + + + +---------+ + + | carvedilol (COREG) | Take 25 mg by mouth. | | 0 | 02/06/20 | | | 25 mg tablet | | | | 18 | | + + + +---------+ + + | cholecalciferol | Take 1,000 Units by | | 0 | | | | (CHOLECALCIFEROL) | mouth. | | | | | | 1000 units TABS | | | | | | + + + +---------+ + + | Coenzyme Q10 | Take 1 capsule by | | 0 | | | | (COQ-10) 100 MG CAPS | mouth. | | | | | + + + +---------+ + + | | Take 1 capsule by | | 0 | | | | Glucosamine-Chondroi | mouth. | | | | | | t-Vit C-Mn | | | | | | | (GLUCOSAMINE 1500 | | | | | | | COMPLEX) CAPS | | | | | | + + + +---------+ + + | | Take 2 tablets by | 40 | 0 | 09/20/20 | | | HYDROcodone-acetamin | mouth every 6 hours | tablet | | 18 | | | ophen (NORCO) 5-325 | as needed for Pain. | | | | | | mg per tablet | | | | | | + + + +---------+ + + | Krill Oil 1000 MG | Take 1 capsule by | | 0 | | | | CAPS | mouth. | | | | | + + + +---------+ + + | losartan (COZAAR) | Take 50 mg by mouth. | | 0 | 02/06/20 | | | 50 mg tablet | | | | 18 | | + + + +---------+ + + | MAGNESIUM PO | Take 1 capsule by | | 0 | | | | | mouth. | | | | | + + + +---------+ + + | Multiple Vitamin | Take 1 tablet by | | 0 | | | | (MULTIVITAMIN) | mouth. | | | | | | tablet | | | | | | + + + +---------+ + + | Multiple | Take 1 tablet by | | 0 | | | | Vitamins-Minerals | mouth. | | | | | | (OCUVITE EXTRA) TABS | | | | | | + + + +---------+ + + | nitroglycerin | Place 0.4 mg under | | 0 | 08/13/19 | | | (NITROSTAT) 0.4 mg | the tongue. | | | 18 | | | SL tablet | | | | | | + + + +---------+ + + | [place] 450 | Take 2 capsules by | | 0 | | | | MG CAPS | mouth. | | | | | + + + +---------+ + + | Turmeric Curcumin | Take 1 capsule by | | 0 | | | | 500 MG CAPS | mouth. | | | | | + + + +---------+ + + | apixaban (ELIQUIS) | Take 5 mg by mouth. | | 0 | | | | 5 mg tablet | | | | | 9 | + + + +---------+ + + documented as of this encounter H&P Notes Epi Gutierrez DO - 02/19/2018 8:13 AM PDTSURGICAL INTERIM HISTORY & PHYSICAL UPDATE Pt. Name/Age/: Giovanni Yeboah 72 y.o. 1945 Date of admission: 02/19/2018 The current H&P was reviewed. The patient was reexamined. Re-evaluation of the patient co nfirms the necessity for the scheduled procedure. No change has occurred in the patient s condition since the H&P was completed less than 30 days ago. VERIFICATION OF CONSENT (PARQ) The patient was counseled regarding the procedure, its indications, risks, potential compli cations and alternatives. Any questions were answered. Consent was obtained. Electronically signed by: Epi Gutierrez DO, 02/19/2018 8:13 [facility] DO at 0 02/19/2018 8:14 AM Matthew Davila PA-C - 02/17/2018 2:41 PM PDTSubjective F/u Right Knee; MRI Results [facility] History of Present Illness Giovanni is a 72 year old male,originally referred by the [facility] for right knee pain who I rece ntly evaluated and asked to have an MRI to further evaluate for a meniscus tear. He reminds me he initially injured his knee approximately 2 years ago when he stepped wrong. He was anni luated by Dr. Tim and given a knee brace to wear. He states his knee did improve and was fe eling good up until around the beginning of November 2017 when he was sitting in a car for a coco d trip with his knee bent for long periods of time. He complains of constant pain in the kne e, mostly localized to the medial aspect of the knee, that he describes as aching or burning . His pain can wake him from sleep at night. He is currently taking Aleve for pain. Aggravat ing factors include walking, moving from a sitting to a standing position, and laying on his left side, which applies pressure to the inside of the right knee. He states the knee feels like it wants to give out and he occasionally experiences catching in the knee. He has not had any therapeutic injections or physical therapy. He has not worn a knee brace since the i njury that occurred two years ago. He brought radiographic images on a disk with him from [facility] and a bilateral flexion weight bearing view was obtained at [facility]. He is retired. Here to day to discuss the results of his MRI. Review of Systems Constitutional: no fever and no chills. . The patient presents with complaints of right knee pain. Integumentary: no rashes and no skin lesions. 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) History of Coronary arteriosclerosis (I25.10) History of atrial fibrillation (Z86.79) History of diverticulosis (Z87.19) History of hearing loss (Z86.69) History of hyperlipidemia (Z86.39) History of myocardial infarction (I25.2) History of Hypertension, essential, benign (I10) Family History Mother Family history of lung cancer (Z80.1) Brother Family history of Back problem Family history of cerebrovascular accident (CVA) (Z82.3) Current Meds Ascorbic Acid 500 MG Oral Tablet; Therapy: (Recorded:[id number]) to Recorded Aspirin 81 MG TABS; Therapy: (Recorded:[id number]) to Recorded Atorvastatin Calcium 80 MG Oral Tablet; Therapy: (Recorded:[id number]) to Recorded Carvedilol 25 MG Oral Tablet; Therapy: (Recorded:17Apr2010) to Recorded Centrum Silver TABS; Therapy: (Recorded:[id number]) to Recorded Clear Eyes for Dry Eyes SOLN; Therapy: (Recorded:72Ohw2277) to Recorded Coenzyme Q-10 TABS; Therapy: (Recorded:10Gzt5563) to Recorded Eliquis 5 MG Oral Tablet; Therapy: (Recorded:58Xnp2108) to Recorded Glucosamine Chondroitin TABS; Therapy: (Recorded:[id number]) to Recorded Krill Oil CAPS; Therapy: (Recorded:93Oar9582) to Recorded Losartan Potassium 50 MG Oral Tablet; Therapy: (Recorded:04Epi9867) to Recorded Magnesium 500 MG Oral Tablet; Therapy: (Recorded:[id number]) to Recorded PreserVision AREDS CAPS; Therapy: (Recorded:16Gkd4744) to Recorded Turmeric CAPS; Therapy: (Recorded:25Wmh0133) to Recorded Vitamin B Complex CAPS; Therapy: (Recorded:[id number]) to Recorded Vitamin D3 2000 UNIT Oral Tablet; Therapy: (Recorded:20Tpl6053) to Recorded Allergies No Known Drug Allergies Physical Exam Giovanni remains obese 72yo male seen alone today Neurologic: Mental status:. the patient was oriented to person, place and time. Memory: short term memory intact and remote memory intact. Attention: the attention span was normal and normal concentrating ability. Observed mood and affect was appropriate. Cranial Nerves:. the cranial nerves were intact. Sensory exam:. the sensory exam was normal. light touch was intact. Coordination: balance was intact. gait abnormal. posture is normal. Biceps: right 2+, left 2+. Triceps: right 2+, left 2+. Brachioradialis: right 2+, left 2+. Patella: right 2+, left 2+. Ankle Jerk: right 2+, left 2+. RIGHT KNEE Appearance: no deformity, no ecchymosis, no erythema, no joint hypertrophy, swelling and no skin lesions Palpation/Tenderness undersurface of the patella, but effusion grade II, not over the later al joint line, medial joint line, not the popliteal fossa, no crepitus, warmth, no masses ROM: Full. Flexion: restricted active range of motion 120 deg, painful and 4/5 flexion. Extension: restricted active range of motion 10 deg, painful and 4/5 extension. Patellofemoral Joint: negative patellar grind and negative patellofemoral apprehension test . Meniscal: equivocal lateral Ned test, but positive Bounce Home test and positive media l Ned test. Ligamentous Laxity: negative Anterior Drawer sign, negative dial test, negative Finesse's t est, negative Posterior Drawer sign, no laxity on Valgus Stress and no laxity on Varus Stres s. Knee Society Score :. LEFT KNEE no deformity, erythema, ecchymosis, edema, or tenderness, flexion and extension within norm al limits, strength within normal limits in all planes and no evidence of laxity or instabil ity. HEART: Regular. LUNGS: Clear. ABDOMEN: Soft. Nontender, nondistended. Positive bowel tones x4. NEURO: Intact without lateralizing deficits. Results/Data Results [id number] 10:08AM MR - hip or knee or ankle w/o [id number] MR - Lower joint; hip or knee or ankle without: RADIOLOGY REPORT DATE OF EXAM: 02/10/2018 PATIENT NAME: GIOVANNI YEBOAH DATE OF : 1945 MR#: [id number] ORDERING PHYSICIAN: Epi Gutierrez CLINICAL INDICATION: Pain. TECHNIQUE: Multiplanar, multisequence MRI images of the rightknee were obtained. FINDINGS: MENISCI Medial meniscus: Tear within the posterior horn of the medial meniscus that extends to the inferior articular surface. Lateral meniscus: Normal. LIGAMENTS Cruciate ligaments: Normal anterior and posterior cruciate ligaments. Medial collateral ligament: Laxity within the medial collateral ligament complex, concerni ng for partial tear. Lateral collateral ligament complex: Intact. Posterolateral corner structures: Intact, without edema. EXTENSOR MECHANISM Extensor mechanism: The distal quadriceps and patellar tendons are intact. The patella is normally positioned within the femoral groove. There is no patellar retinacular disruption. FLUID: Small joint effusion. No popliteal cyst. OSSEOUS AND ARTICULAR STRUCTURES Bones, No fracture, stress reaction or osseous lesion is noted. There is a small area of b one marrow edema associated with the origin of the anterior cruciate ligament Patellofemoral compartment: Intact articular cartilage. Medial compartment: Findings concerning for Anterior Medial aspect of themedial femoral co ndyle. Best visualized sagittal image 24. Lateral compartment: Intact articular cartilage. [facility] [address] [facility] [place] [address] PH: 1 Other findings: None. IMPRESSION: Tear within the posterior horn of the medial meniscus that extends to the infe rior articular surface. Laxity within the medial collateral ligament complex, concerning for partial tear. Findings concerning for Anterior Medial aspect of themedial femoral condyle. Best visuali zed sagittal image 24. There is a small area of bone marrow edema associated with the origin of the anterior cruc iate ligament. ELECTRONICALLY SIGNED BY DELFINO MARTINEZ MD 02/10/2018 05:[address] [facility] [address] [facility] [place] [address] PH: 2 10Feb2018 09:12AM X-ray - Sinuses tobar view [id number] X-ray - Sinuses-partial (tobar): CLINICAL DATA: Encounter for screening for other disorde r EXAMINATION: TOBAR VW OF SINUSES TECHNIQUE: Leti' view of the sinuses was performed. COMPARISON: None. FINDINGS: No metallic foreign bodies project over the orbits. Visualized paranasal sinuses are clear. Osseous structures are intact. IMPRESSION: Cleared for MRI. ELECTRONICALLY SIGNED BY DELFINO MARTINEZ MD 02/10/2018 09:[address] [facility] RADIOLOGY REPORT [address] [place] [address] Exam Date: 02/10/2018 09:00:00 AM Referring Physician: EPI GUTIERREZ Views: complete shoulder series of both knees. mild joint space narrowing Findings: Exam description: right knee MRI. medial meniscus tear, medial compartment OA, moderate xrays and MRI reviewed again today Assessment Right knee pain (M25.561) Derangement of posterior horn of medial meniscus of right knee (M23.321) Osteoarthritis, localized, knee (M17.10) Plan Giovanni has asked that we perform knee scope with medial meniscectomy. He understands that th is will do nothing for the OA component of his knee pain This is scheduled for later this month Stop Eliquis and aspirin now and Losartan the day of surgery We discussed the risks and benefits of the surgery as well as alternatives to surgery. Thes e include, but are not limited to, bleeding; infection; blood clots; breathing difficulty; p ulmonary embolism; need for more surgery; damage to nerves, blood vessels, muscles and other anatomic structures; complications associated with anesthesia, up to and including . T he patient understands that orthopedic implants may be used during the surgery. The patient understands these risks and understands the proposed surgery and has had their questions ans wered. CS-Active Problems 1. Actinic keratosis (L57.0) 2. Benign neoplasm of neck (D36.7) 3. Benign neoplasm of skin of lower limb, including hip (D23.70) 4. 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 Encounter for imaging to screen for metal prior to MRI (Z13.89) 7. Lentigo (L81.4) 8. Right knee pain (M25.561) 9. Seborrheic keratosis (L82.1) 10. Tattoo (L81.8) 11. Telangiectasia 12. Xerosis cutis (L85.3) Signatures Electronically signed by : Epi Gutierrez D.O.; Feb 13 2018 10:19AM PST (Author) documented in this encounter Miscellaneous Notes Op Note - Epi Gutierrez DO - 02/19/2018 9:06 AM [facility] Epi Gutierrez Pt. Name/Age/: Giovanni Yeboah 72 y.o. 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 POSTOPERATIVE DIAGNOSIS: right Knee plica band rubbing on medial femoral condyle, medial a nd lateral meniscal tear and chondromalacia. PROCEDURE PERFORMED: right knee arthroscopy with plica resection, partial medial and later al menisectomies and shaving chondroplasty. ANESTHESIA: Choice DESCRIPTION OF PROCEDURE: Patient was brought to the Operating Room and placed supine on t he OR table. Anesthesia was administered by the Anesthesia staff. A well-padded tourniquet was placed on the right lower extremity. The extremity was placed in an arthroscopic leg ho lder. The extremity was then prepped and draped in the usual sterile manner. The Esmarch ban dage was utilized to exsanguinate the lower extremity and the tourniquet was inflated to 25 0 mm of mercury, at which point the arthroscopic portals were made with an #11 blade in the standard manner. The arthroscope was introduced into the knee and all compartments were sys tematically examined. 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 plica resection and chondroplasty was performed Next, the arthroscope was introduced into the intercondylar notch where the anterior cruciate ligament was noted to be normal The arthroscope was introduced into the lateral compartment where there was noted to be an anterior horn tear. The articular surface of the lateral compartment was noted to have chond romalacia of the lateral femoral condyle and tibial plateau Grade I. A partial lateral menis ectomy was performed leaving a smooth stable rim in the lateral compartment. The arthroscope was then introduced into the medial compartment where there was noted to be a complex tear of posterior horn. The articular surfaces of the medial compartment were no marisa to have chondromalacia of the medial tibial plateau Grade III-IV. A partial medial meni sectomy and shaving chondroplasty was performed in the medial compartment. There was a plica present. An excision of plica was performed. The knee was lavaged with fl uid. The procedure was terminated and the arthroscopic instruments were removed. The tourniquet was released, and the tourniquet time was 19 minutes. The arthroscopy wounds were closed wit h 4-0 vicryl and steri-strips. Portals were infiltrated with 10cc of 0.5% Marcaine without e pinephrine. The knee was injected intra-articularly with 20cc of 0.5% Marcaine with epinephr ine mixed with Morphine. A dry sterile dressing was applied. The patient was awakened and br ought to the Recovery Room in good condition, having tolerated the entire procedure well. SPECIMEN: None ESTIMATED BLOOD LOSS: Minimal COMPLICATION: 5ml Electronically Signed by: Epi Gutierrez, 02/19/2018 9:06 [facility] documented in this encounter Plan of Treatment +--------+---------+ + + + | Date | Type | Specialty | Care Team | Description | +--------+---------+ + + + | 01/09/ | Office | Cardiology | Juan Merritt MD | | | 2020 | Visit | | [address] | | | | | | [place] [address] | | | | | | [phone] | | | | | | | | +--------+---------+ + + + documented as of this encounter Procedures + +--------+ + + + | Procedure Name | Priori | Date/Time | Associated Diagnosis | Comments | | | ty | | | | + +--------+ + + + | ARTHROSCOPY KNEE | | 02/19/2018 | Degenerative tear | | | | | 8:36 AM | of posterior horn of | | | | | PDT | medial meniscus of | | | | | | right knee | | + +--------+ + + + | ECG 12 LEAD | Routin | 02/19/2018 | | Results for this | | | e | 8:03 AM | | procedure are in the | | | | PDT | | results section. | + +--------+ + + + | CBC WITH | Routin | 02/19/2018 | | Results for this | | DIFFERENTIAL | e | 7:46 AM | | procedure are in the | | | | PDT | | results section. | + +--------+ + + + | COMPREHENSIVE | Routin | 02/19/2018 | | Results for this | | METABOLIC PANEL | e | 7:46 AM | | procedure are in the | | | | PDT | | results section. | + +--------+ + + + | LABS - EXTERNAL SCAN | | 08/28/2017 | | Results for this | | | | 12:00 AM | | procedure are in the | | | | PDT | | results section. | + +--------+ + + + documented in this encounter Results ECG 12 lead (02/19/2018 8:03 AM PDT) + + + + + + | Component | Value | Ref Range | Performed | Pathologist | | | | | At | Signature | + + + + + + | VENTRICULAR | 77 | BPM | [facility] | | | RATE EKG | | | | | + + + + + + | ATRIAL RATE | 241 | BPM | [facility] | | + + + + + + | QRS | 82 | ms | [facility] | | | DURATION | | | | | + + + + + + | Q-T | 394 | ms | [facility] | | | INTERVAL | | | | | + + + + + + | Q-T | 445 | ms | [facility] | | | INTERVAL | | | | | | (CORRECTED) | | | | | + + + + + + | P WAVE AXIS | 99 | degrees | [facility] | | + + + + + + | QRS AXIS | 32 | degrees | [facility] | | + + + + + + | T AXIS | -38 | degrees | [facility] | | + + + + + + | INTERPRETAT | Atrial flutter with | | [facility] | | | ION TEXT | variable AV block with | | | | | | premature ventricular or | | | | | | aberrantly conducted | | | | | | complexesLow voltage | | | | | | QRSNonspecific ST | | | | | | abnormalityAbnormal | | | | | | ECGNo previous ECGs | | | | | | availableConfirmed by | | | | | | JULIO ULLOA MD ([id number]) | | | | | | on 02/19/2018 9:23:01 AM | | | | + + + + + + + + | Specimen | + + | | + + + + + | Narrative | Performed At | + + + | | | + + + + +---------+ + + | Performing | Address | City/State/Zipcode | Phone Number | | Organization | | | | + +---------+ + + | [facility] | | | | + +---------+ + + Comprehensive Metabolic Panel (02/19/2018 7:46 AM PDT) + + + + + + | Component | Value | Ref Range | Performed | Pathologist | | | | | At | Signature | + + + + + + | Na | 139 | 136 - 149 | [facility] | | | | | mmol/L | [facility] | | | | | | [facility] | | | | | | [facility] - | | | | | | LABORATORY | | + + + + + + | K | 4.2 | 3.5 - 5.1 | [facility] | | | | | mmol/L | [facility] | | | | | | [facility] | | | | | | [facility] - | | | | | | LABORATORY | | + + + + + + | Cl | 105 | 98 - 109 mmol/L | [facility] | | | | | | [facility] | | | | | | [facility] | | | | | | [facility] - | | | | | | LABORATORY | | + + + + + + | CO2 | 25 | 24 - 31 mmol/L | [facility] | | | | | | [facility] | | | | | | [facility] | | | | | | [facility] - | | | | | | LABORATORY | | + + + + + + | Anion Gap | 9 | 3 - 16 mmol/L | [facility] | | | | | | [facility] | | | | | | [facility] | | | | | | [facility] - | | | | | | LABORATORY | | + + + + + + | Glucose | 118 (H) | 70 - 109 mg/dL | [facility] | | | | | | [facility] | | | | | | [facility] | | | | | | [facility] - | | | | | | LABORATORY | | + + + + + + | BUN | 16 | 7 - 18 mg/dL | [facility] | | | | | | [facility] | | | | | | [facility] | | | | | | [facility] - | | | | | | LABORATORY | | + + + + + + | Creatinine | 1.03 | 0.60 - 1.30 | [facility] | | | | | mg/dL | [facility] | | | | | | [facility] | | | | | | [facility] - | | | | | | LABORATORY | | + + + + + + | eGFR if not | >60Comment: GLOMERULAR | >=60 | [facility] | | | | FILTRATION | mL/min/1.73m2 | [facility] | | | [place] | RATE,ESTIMATED | | MEDICAL | | | | mL/min/1.53y3Pvqs than | | CENTER - | | | | 60 Chronic kidney | | LABORATORY | | | | disease,if found over a | | | | | | 3-month period.Less than | | | | | | 15 Kidney failureFor | | | | | | | | | | | | Americans,multiply the | | | | | | calculated GFR by 1.21. | | | | | | | | | | + + + + + + | Calcium | 8.8 | 8.3 - 10.5 | [facility] | | | | | mg/dL | [facility] | | | | | | [facility] | | | | | | CENTER - | | | | | | LABORATORY | | + + + + + + | Albumin | 3.9 | 3.2 - 5.0 g/dL | [facility] | | | | | | [facility] | | | | | | [facility] | | | | | | CENTER - | | | | | | LABORATORY | | + + + + + + | Bilirubin | 1.1 | 0.1 - 1.5 mg/dL | [facility] | | | Total | | | [facility] | | | | | | [facility] | | | | | | CENTER - | | | | | | LABORATORY | | + + + + + + | Total | 7.0 | 6.0 - 7.8 g/dL | [facility] | | | Protein | | | [facility] | | | | | | [facility]ICAL | | | | | | CENTER - | | | | | | LABORATORY | | + + + + + + | AST | 31 | 10 - 42 U/L | [facility] | | | | | | [facility] | | | | | | [facility] | | | | | | CENTER - | | | | | | LABORATORY | | + + + + + + | ALT | 23 | 6 - 45 U/L | [facility] | | | | | | [facility] | | | | | | [facility] | | | | | | CENTER - | | | | | | LABORATORY | | + + + + + + | Alkaline | 65 | 40 - 110 U/L | [facility] | | | Phosphatase | | | [facility] | | | | | | [facility] | | | | | | CENTER - | | | | | | LABORATORY | | + + + + + + | Globulin | 3.1 | 2.1 - 3.8 g/dL | [facility] | | | | | | [facility] | | | | | | [facility] | | | | | | CENTER - | | | | | | LABORATORY | | + + + + + + | Albumin/Shelly | 1.3 | 0.8 - 2.0 | [facility] | | | bulin Ratio | | | [facility] | | | | | | [facility] | | | | | | CENTER - | | | | | | LABORATORY | | + + + + + + | BUN/Creatin | 15.5 | | [facility] | | | ine Ratio | | | [facility] | | | | | | [facility] | | | | | | CENTER - | | | | | | LABORATORY | | + + + + + + + + | Specimen | + + | Blood | + + + + + + + | Performing | Address | City/State/Zipcode | Phone Number | | Organization | | | | + + + + + | [facility] | [address] | [place] | [phone] | | [facility] | | [address] | | | - LABORATORY | | | | + + + + + CBC with Differential (02/19/2018 7:46 AM PDT) + +-------+ + + + | Component | Value | Ref Range | Performed | Pathologist | | | | | At | Signature | + +-------+ + + + | White Blood | 5.5 | 4.0 - 11.0 K/uL | [facility] | | | Cells | | | [facility] | | | | | | [facility] | | | | | | CENTER - | | | | | | LABORATORY | | + +-------+ + + + | Red Blood | 4.51 | 4.30 - 5.70 | [facility] | | | Cells | | M/uL | [facility] | | [facility] | | [facility] | | | | | | [facility] - | | | | | | LABORATORY | | + +-------+ + + + | Hemoglobin | 14.4 | 13.5 - 18.0 | [facility] | | | | | g/dL | [facility] | | | | | | MEDICAL | | | | | | CENTER - | | | | | | LABORATORY | | + +-------+ + + + | Hematocrit | 41.3 | 40.0 - 51.0 % | [facility] | | | | | | [facility] | | | | | | [facility] | | | | | | CENTER - | | | | | | LABORATORY | | + +-------+ + + + | MCV | 91.6 | 83.0 - 101.0 fL | [facility] | | | | | | [facility] | | | | | | [facility] | | | | | | CENTER - | | | | | | LABORATORY | | + +-------+ + + + | MCH | 31.9 | 28.0 - 35.0 pg | [facility] | | | | | | [facility] | | | | | | [facility] | | | | | | C[facility] - | | | | | | LABORATORY | | + +-------+ + + + | MCHC | 34.8 | 32.0 - 36.0 | [facility] | | | | | g/dL | [facility] | | | | | | MEDICAL | | | | | | CENTER - | | | | | | LABORATORY | | + +-------+ + + + | RDW-CV | 14.4 | <15.0 % | [facility] | | | | | | [facility] | | | | | | [facility] | | | | | | CENTER - | | | | | | LABORATORY | | + +-------+ + + + | Platelet | 208 | 140 - 440 K/uL | [facility] | | | Count | | | [facility] | | | | | | [facility] | | | | | | CENTER - | | | | | | LABORATORY | | + +-------+ + + + | MPV | 9.3 | fL | [facility] | | | | | | [facility] | | | | | | [facility] | | | | | | CENTER - | | | | | | LABORATORY | | + +-------+ + + + | % | 61.1 | 45.0 - 82.0 % | [facility] | | | Neutrophils | | | [facility] | | | | | | MEDICAL | | | | | | CENTER - | | | | | | LABORATORY | | + +-------+ + + + | % | 24.5 | 20.0 - 45.0 % | [facility] | | | Lymphocytes | | | [facility] | | | | | | [facility] | | | | | | CENTER - | | | | | | LABORATORY | | + +-------+ + + + | % Monocytes | 11.4 | 4.0 - 12.0 % | [facility] | | | | | | [facility] | | | | | | [facility] | | | | | | CENTER - | | | | | | LABORATORY | | + +-------+ + + + | % | 2.0 | 0.0 - 5.0 % | [facility] | | | Eosinophils | | | [facility] | | | | | | [facility] | | | | | | CENTER - | | | | | | LABORATORY | | + +-------+ + + + | % Basophils | 1.0 | 0.0 - 1.0 % | [facility] | | | | | | [facility] | | | | | | [facility] | | | | | | CENTER - | | | | | | LABORATORY | | + +-------+ + + + | Absolute | 3.40 | 1.80 - 8.50 | [facility] | | | Neutrophils | | K/uL | [facility] | | | | | [facility] | | | | | | C[facility] - | | | | | | LABORATORY | | + +-------+ + + + | Absolute | 1.40 | 0.60 - 3.20 | [facility] | | | Lymphocytes | | K/uL | [facility] | | | | | | [facility] | | | | | | CENTER - | | | | | | LABORATORY | | + +-------+ + + + | Absolute | 0.60 | 0.00 - 1.00 | [facility] | | | Monocytes | | K/uL | [facility] | | | | | | [facility] | | | | | | CENTER - | | | | | | LABORATORY | | + +-------+ + + + | Absolute | 0.10 | 0.00 - 0.40 | [facility] | | | Eosinophils | | K/uL | [facility] | | | | | | [facility] | | | | | | CENTER - | | | | | | LABORATORY | | + +-------+ + + + | Absolute | 0.10 | 0.00 - 0.10 | [facility] | | | Basophils | | K/uL | [facility] | [facility] | [facility] | | | | | | [facility] - | | | | | | LABORATORY | | + +-------+ + + + + + | Specimen | + + | Blood | + + + + + + + | Performing | Address | City/State/Zipcode | Phone Number | | Organization | | | | + + + + + | [facility] | [address] | [place] | [phone] | | [facility] | | [address] | | | - LABORATORY | | | | + + + + + LABS - EXTERNAL SCAN (08/28/2017 12:00 AM PDT) + + + | Narrative | Performed At | + + + | Ordered by an | | | unspecified provider. | | + + + documented in this encounter Visit Diagnoses Not on filedocumented in this encounter Administered Medications + +--------+ + +------+------+ | Medication Order | MAR | Action | Dose | Rate | Site | | | Action | Date | | | | + +--------+ + +------+------+ | acetaminophen (TYLENOL) tablet | Given | 02/20/20 | 1,000 mg | | | | 1,000 mg 1,000 mg, Oral, ONCE, | | 18 8:00 | | | | | Terra 02/19/18 at 0815, For 1 dose, | | AM PDT | | | | | Pre-op | | | | | | + +--------+ + +------+------+ + +---+ | | | + +---+ | albuterol 2.5 mg/3 mL nebulizer | | | solution 2.5 mg 2.5 mg, | | | Nebulization, ONCE PRN, Wheezing, | | | Starting Terra 02/19/18 at 0908, | | | For 1 dose, Notify anesthesia if | | | patient is wheezing and does not | | | have a history of asthma or COPD | | | or current smoking., | | | Recovery/Phase I | | + +---+ | | | + +---+ | albuterol-ipratropium 2.5-0.5 | | | mg/3 mL nebulizer solution 3 mL | | | 3 mL, Nebulization, ONCE PRN, | | | Wheezing, Starting Terra 02/19/18 at | | | 0745, For 1 dose, Pre-op | | + +---+ | | | + +---+ | dextrose 50% injection 12.5-25 | | | g 12.5-25 g, Intravenous, EVERY | | | 15 MIN PRN, Low Blood Sugar, Give | | | 12.5g (25 mL) IV if blood | | | glucose 50-69 mg/dL. Give 25g | | | (50 mL) IV if blood glucose < 50, | | | Starting Terra 02/19/18 at 0745, | | | Repeat in 15 min if blood glucose | | | remains < 70 mg/dL. Repeat | | | blood glucose in 30 min once | | | blood glucose > 70., Pre-op | | + +---+ | | | + +---+ | dextrose 50% injection 12.5-25 | | | g 12.5-25 g, Intravenous, EVERY | | | 15 MIN PRN, Low Blood Sugar, For | | | hypoglycemia. Give 12.5g (25ml) | | | IV if blood glucose 50-69 | | | mg/dL. Give 25g (50ml) IV if | | | blood glucose < 50, Starting Terra | | | 02/19/18 at 0908, Give over 2 min. | | | Repeat in 15 min if blood | | | glucose remains < 70 mg/dL. | | | Repeat blood glucose in 30 min | | | once blood glucose > 70., | | | Recovery/Phase I | | + +---+ | | | + +---+ | ePHEDrine 50 mg/mL injection 5 | | | mg 5 mg, Intravenous, EVERY 5 | | | MIN PRN, if SBP <90., Starting | | | Terra 02/19/18 at 0908, Hold if HR > | | | 100. Maximum total dose 20mg., | | | Recovery/Phase I | | + +---+ | | | + +---+ | fentaNYL (PF) injection 25-50 | | | mcg 25-50 mcg, Intravenous, | | | EVERY 5 MIN PRN, Pain, Starting | | | Terra 02/19/18 at 0908, Maximum | | | total dose 250 mcg. PACU IV | | | Narcotic Priority: Only use | | | fentanyl for immediate post-op | | | pain (one dose) or breakthrough | | | pain when any other IV narcotics | | | ordered have been ineffective (if | | | ordered). If both morphine and | | | hydromorphone are ordered, use | | | morphine first, and use | | | hydromorphone if morphine | | | ineffective., Recovery/Phase I | | + +---+ | | | + +---+ | hydrALAZINE (APRESOLINE) | | | injection 5 mg 5 mg, | | | Intravenous, EVERY 20 MINUTES | | | PRN, For SBP > 180, DBP > 100, | | | Starting Terra 02/19/18 at 0908, | | | Hold if HR > 100. Maximum total | | | dose 40 mg. Use labetalol first | | | if available., Recovery/Phase I | | + +---+ | | | + +---+ | HYDROmorphone (DILAUDID) | | | injection 0.2-0.5 mg 0.2-0.5 mg, | | | Intravenous, EVERY 5 MIN PRN, | | | Pain, Starting Terra 02/19/18 at | | | 0908, Maximum total dose 4 mg. | | | PACU IV Narcotic Priority: Only | | | use fentanyl for immediate | | | post-op pain (one dose) or | | | breakthrough pain when any other | | | IV narcotics ordered have been | | | ineffective (if ordered). If | | | both morphine and hydromorphone | | | are ordered, use morphine first, | | | and use hydromorphone if morphine | | | ineffective., Recovery/Phase I | | + +---+ | | | + +---+ | labetalol (TRANDATE) 5 mg/mL | | | injection 5 mg 5 mg, | | | Intravenous, EVERY 5 MIN PRN, For | | | SBP > 180, DBP > 100, Starting | | | Terra 02/19/18 at 0908, Hold if HR < | | | 60. Notify anesthesia if patient | | | requires more than 50mg., | | | Recovery/Phase I | | + +---+ | | | + +---+ + +---------+ +--------+ +---+ | lactated ringers (LR) infusion | New Bag | 02/20/20 | 1,000 | 25 mL/hr | | | at 25 mL/hr, Intravenous, | | 18 10:01 | mLs | | | | CONTINUOUS, Starting Terra 02/19/18 | | AM PDT | | | | | at 0830, Pre-op | | | | | | + +---------+ +--------+ +---+ +---------+ +---+ +---+ | New Bag | 02/20/20 | | | | | | 18 8:30 | | | | | | AM PDT | | | | +---------+ +---+ +---+ | New Bag | 02/20/20 | | 25 mL/hr | | | | 18 7:56 | | | | | | AM PDT | | | | +---------+ +---+ +---+ + +---+ | | | + +---+ | ondansetron (ZOFRAN) injection | | | 4 mg 4 mg, Intravenous, ONCE | | | PRN, Nausea, Starting Terra 02/19/18 | | | at 0908, For 1 dose, | | | Recovery/Phase I | | + +---+ | | | + +---+ + +-------+ +------+---+---+ | oxyCODONE (ROXICODONE) tablet | Given | 02/20/20 | 5 mg | | | | 2.5-10 mg 2.5-10 mg, Oral, EVERY | | 18 10:44 | | | | | 3 HOURS PRN, Pain, Starting Terra | | AM PDT | | | | | 02/19/18 at 1032, First dose must | | | | | | | be the lowest dose, can titrate | | | | | | | to effective dose by repeat of | | | | | | | lowest dose every 60 minutes prn | | | | | | | pain, may not exceed maximum dose | | | | | | | ordered per interval. Use Pasero | | | | | | | Sedation Scale., Post-op/Phase | | | | | | | II | | | | | | + +-------+ +------+---+---+ +---+---+ | | | +---+---+ documented in this encounter
--- OUTSIDE RECORDS SUMMARY | ~2019-12-10 | XMS | Encounter Summary ---
Demographics + + + | Address | [address] | | | [place] [address] | + + + | Home Phone | | + + + | Preferred Language | Unknown | + + + | Marital Status | | + + + | Rastafarian Affiliation | [id number] | + + + | Race | Unknown | + + + | Ethnic Group | Unknown | + + + Author + + + | Author | [facility] | | | and [place] | + + + | Organization | [facility] | | | and [...] + | [facility] | ECON | [address] | | | | | [place] | | | | | [address] | | + + + + + Care Team Providers + +------+ + | Care Warehouse Logistics Manager Name | Role | Phone | + +------+ + PCP | Unavailable | + +------+ + Encounter Details +--------+ + + + + | Date | Type | Department | Care Team | Description | +--------+ + + + + | 08/02/ | Hospital | [facility] | Juan Ferreira MD | Other Chest Pain | | 2009 | Encounter | [facility] | [address] | | | | | CLINICAL DECISION | [place] [address] | | | | | [address] | [phone] | | | | | [place], [place] | | | | | | [address] | | | | | | [phone] | | | +--------+ + + + [...] [address] | | | | | | [place] [address] | | | | | | [phone] | | | | | | | | +--------+---------+ + + + documented as of this encounter Procedures + +--------+ + + + | Procedure Name | Priori | Date/Time | Associated Diagnosis | Comments | | | ty | | | | + +--------+ + + + | CV CARDIAC PROCEDURE | Routin | 08/02/2009 | | Results for this | | | e | 12:35 PM | | procedure are in the | | | | PST | | results section. | + +--------+ + + + documented in this encounter Results CV CARDIAC PROCEDURE (08/02/2009 12:35 PM PST) + + | Specimen | + + | | + + + + + | Narrative | Performed At | + + + | [facility] | | | [facility] [address] | | | , | | | [id number]/[id number] Patient Name: GIOVANNI YEBOAH Date of : | | | 1945 Medical Record: [id number] Account: [id number] | | | OPS/CDU [id number]/ Exam Date/Time: 08/02/2009 | | | 11:30 A Ordering Provider: JUAN FERREIRA Order Detail: [id number] / / | | | HCL Exam Description: CCL HEART CATH LT RETRO PERC | | | | | | INDICATIONS This is a 64-year-old with coronary artery disease, | | | status post stenting of mid LAD when he presented with acute coronary | | | syndrome, who presented with recurrent chest discomfort and was | | | referred for repeated coronary angiography. For details regarding his | | | presentation, kindly refer to my H and P. PROCEDURES 1. Left | | | heart catheterization with left ventriculogram. 2. Selective coronary | | | angiography. ESTIMATED BLOOD LOSS Less than 50 mL. | | | DESCRIPTION OF PROCEDURE The patient was brought to the | | | catheterization lab in the fasting state. The patient was prepped and | | | draped in the usual sterile fashion. The right groin was | | | anesthetized with 1% lidocaine. A 6-Kuwaiti arterial sheath was placed | | | in the right femoral artery, and a 6-Kuwaiti JL4 catheter was | | | advanced under fluoroscopic guidance and engaged with the ostium of | | | the left main coronary artery, and multiple projections of the left | | | coronary system were done with the use of contrast injections. The | | | catheter was then exchanged for a 6-Kuwaiti JR4 catheter which was | | | engaged with the ostium of the right coronary artery, and multiple | | | projections of the right coronary system were obtained with the use of | | | contrast injections. The catheter was then exchanged for a 6-Kuwaiti | | | pigtail catheter which was advanced into the left ventricle, and | | | projections of left ventricular function were done with the use of | | | contrast injections. All equipment was then removed and hemostasis was | | | obtained by applying Perclose device. FINDINGS CORONARY | | | ANGIOGRAPHY The coronary system was codominant. 1. Left main | | | bifurcated into the LAD and left circumflex. Left main was short | | | and free of disease. 2. Left anterior descending artery had | | | jdqb-pc-owopettl atherosclerosis proximally before the implanted | | | stent. The stent itself was widely patent. After the stent there | | | is a segment of atherosclerosis with stenosis estimated to be | | | around 30% to 40%. 3. Left circumflex coronary artery was a | | | codominant vessel. It gives rise to 2 large marginal branches. | | | The first marginal branch has sequential 50% stenoses. The rest | | | of the vessel was free of disease. 4. Right coronary artery was a | | | codominant vessel as only PDA originated from the RCA. There is a | | | 50% mid-PDA stenosis. LEFT VENTRICULOGRAM Left ventriculogram in | | | the MCGUIRE view showed normally rosy left ventricle except for | | | mild hypokinesis of the anterior wall. Ejection fraction estimated to | | | be around 50%. CONCLUSION/RECOMMENDATIONS 1. Three-vessel | | | coronary artery disease, mild to moderate. 2. Widely patent stent in | | | the mid left anterior descending artery. 3. Mild hypokinesis of the | | | anterior wall with ejection fraction of 50%. 4. Recommend medical | | | therapy as his anatomy has not changed compared with his initial | | | presentation. Read by JUAN FERREIRA MD 08/02/2009 03:50 P | | | Electronically Signed by JUAN FERREIRA MD 08/08/2009 08:25 P DD: | | | 08/02/2009 03:50 P A GINA/evelina/[id number]/ cc: | | | MD SAVANNAH VACA MD | | + + + + + | Procedure Note | + + | Matthew Cano - 01/24/2019 7:51 PM PDT | | [facility] | | [facility] [address] | | , | | | | [id number]/CARDIOLOGY | | | | Patient Name: GIOVANNI YEBOAH | | Date of : 1945 | | Medical Record: [id number] | | Account: [id number] | | OPS/CDU [id number]/ | | | | | | Exam Date/Time: 08/02/2009 11:30 A | | Ordering Provider: JUAN FERREIRA | | Order Detail: [id number] / / HCL | | Exam Description: CCL HEART CATH LT RETRO PERC | | | | INDICATIONS | | This is a 64-year-old with coronary artery disease, status post stenting | | of mid LAD when he presented with acute coronary syndrome, who presented | | with recurrent chest discomfort and was referred for repeated coronary | | angiography. For details regarding his presentation, kindly refer to my | | H and P. | | | | PROCEDURES | | 1. Left heart catheterization with left ventriculogram. | | 2. Selective coronary angiography. | | | | ESTIMATED BLOOD LOSS | | Less than 50 mL. | | | | DESCRIPTION OF PROCEDURE | | The patient was brought to the catheterization lab in the fasting state. | | The patient was prepped and draped in the usual sterile fashion. The | | right groin was anesthetized with 1% lidocaine. A 6-Kuwaiti arterial | | sheath was placed in the right femoral artery, and a 6-Kuwaiti JL4 | | catheter was advanced under fluoroscopic guidance and engaged with the | | ostium of the left main coronary artery, and multiple projections of the | | left coronary system were done with the use of contrast injections. The | | catheter was then exchanged for a 6-Kuwaiti JR4 catheter which was | | engaged with the ostium of the right coronary artery, and multiple | | projections of the right coronary system were obtained with the use of | | contrast injections. The catheter was then exchanged for a 6-Kuwaiti | | pigtail catheter which was advanced into the left ventricle, and | | projections of left ventricular function were done with the use of | | contrast injections. All equipment was then removed and hemostasis was | | obtained by applying Perclose device. | | | | FINDINGS | | | | CORONARY ANGIOGRAPHY | | The coronary system was codominant. | | 1. Left main bifurcated into the LAD and left circumflex. Left main was | | short and free of disease. | | 2. Left anterior descending artery had ukvy-as-cajnztab atherosclerosis | | proximally before the implanted stent. The stent itself was widely | | patent. After the stent there is a segment of atherosclerosis with | | stenosis estimated to be around 30% to 40%. | | 3. Left circumflex coronary artery was a codominant vessel. It gives | | rise to 2 large marginal branches. The first marginal branch has | | sequential 50% stenoses. The rest of the vessel was free of disease. | | | | 4. Right coronary artery was a codominant vessel as only PDA originated | | from the RCA. There is a 50% mid-PDA stenosis. | | | | LEFT VENTRICULOGRAM | | Left ventriculogram in the MCGUIRE view showed normally rosy left | | ventricle except for mild hypokinesis of the anterior wall. Ejection | | fraction estimated to be around 50%. | | | | CONCLUSION/RECOMMENDATIONS | | 1. Three-vessel coronary artery disease, mild to moderate. | | 2. Widely patent stent in the mid left anterior descending artery. | | 3. Mild hypokinesis of the anterior wall with ejection fraction of 50%. | | | | 4. Recommend medical therapy as his anatomy has not changed compared | | with his initial presentation. | | | | | | Read by | | JUAN FERREIRA MD 08/02/2009 03:50 P | | Electronically Signed by | | JUAN FERREIRA MD 08/08/2009 08:25 P | | | | P | | A | | /[id number]/ | | cc: JUAN FERREIRA MD | | SAVANNAH TILLMAN MD | + + documented in this encounter Visit Diagnoses + + | Diagnosis | + + | Other chest pain | + + documented in this encounter"
--- OUTSIDE RECORDS SUMMARY | ~2019-12-10 | XMS | Encounter Summary ---
Demographics + + + | Address | [address] | | | [place] [address] | + + + | Home Phone | | + + + | Preferred Language | Unknown | + + + | Marital Status | | + + + | Jewish Affiliation | 1041 | + + + | Race | Unknown | + + + | Ethnic Group | Unknown | + + + Author + + + | Author | [facility] | | | and [place] | + + + | Organization | [facility] | | | and [...] + | Sangeetha Yeboah | ECON | [address] | | | | | [place] | | | | | [address] | | + + + + + Care Team Providers + +------+ + | Care Solar Project Engineer Name | Role | Phone | + +------+ + PCP | Unavailable | + +------+ + Encounter Details +--------+ + + + + | Date | Type | Department | Care Team | Description | +--------+ + + + + | 01/05/ | Hospital | [facility] | | | | 1996 - | Encounter | MED CTR GENERIC OP | | | | | | CONV DEPT [address] | | | | 05/29/ | | [place], | | | | 1996 | | [place] [address] | | | | | | [phone] | | | +--------+ + + + [...] [address] | | | | | | [place] [address] | | | | | | [phone] | | | | | | | | +--------+---------+ + + + documented as of this encounter Visit Diagnoses Not on filedocumented in this encounter"
--- OUTSIDE RECORDS SUMMARY | ~2019-12-10 | XMS | Encounter Summary ---
Demographics + + + | Address | [address] | | | [place] [address] | + + + | Home Phone | | + + + | Preferred Language | Unknown | + + + | Marital Status | | + + + | Anabaptism Affiliation | 1041 | + + + | Race | Unknown | + + + | Ethnic Group | Unknown | + + + Author + + + | Author | [facility] | | | and [place] | + + + | Organization | [facility] | | | [...] + | Sangeetha Yeboah | ECON | [address] | | | | | [place] | | | | | [address] | | + + + + + Care Team Providers + +------+ + | Care Electrical Line Mechanic Name | Role | Phone | + +------+ + | No, Physician | PCP | Unavailable | + +------+ + Reason for Visit + +--------+ + | Reason | Onset | Comments | | | Date | | + +--------+ + | Medication Refill | 02/24/ | | | | 2019 | | + +--------+ + Encounter Details +--------+--------+ + + + | Date | Type | Department | Care Team | Description | +--------+--------+ + + + | 02/24/ | Refill | [facility] | Juan Merritt MD | Medication Refill | | 2019 | | [facility] [place] | [address] | | | | | [address] | [place] [address] | | | | | [place], [place] | [phone] | | | | | [address] | | | | | | [phone] | | | +--------+--------+ + + + Social History + +-------+ [...] | | | | | [place] [address] | | | | | | [phone] | | | | | | | | +--------+---------+ + + + documented as of this encounter Visit Diagnoses Not on filedocumented in this encounter"
--- OUTSIDE RECORDS SUMMARY | ~2019-12-10 | XMS | Encounter Summary ---
Demographics + + + | Address | [address] | | | [place] [address] | + + + | Home Phone | | + + + | Preferred Language | Unknown | + + + | Marital Status | | + + + | Sabianism Affiliation | 1041 | + + + | Race | Unknown | + + + | Ethnic Group | Unknown | + + + Author + + + | Author | [facility] | | | and [place] | + + + | Organization | [facility] | | [...] + | Sangeetha Yeboah | ECON | [address] | | | | | [place] | | | | | [address] | | + + + + + Care Team Providers + +------+ + | Care Monorail Operator Name | Role | Phone | + +------+ + PCP | Unavailable | + +------+ + Encounter Details +--------+ + + + + | Date | Type | Department | Care Team | Description | +--------+ + + + + | 03/20/ | Hospital | [facility] | Juan Ferreira MD | 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 | | | | [address] | [place] [address] | | | 03/21/ | | [place], [place] | [phone] | | | 2010 | | [address] | | | | | | [phone] | | | +--------+ + + + [...] [address] | | | | | | [place] [address] | | | | | | [phone] | | | | | | | [...] Performed At | + + + | [facility] [id number] Ph: | | | Patient Name: GIOVANNI YEBOAH Date of : | | | 1945 Medical Record: [id number] Account: [id number] | | | Exam Date/Time: 03/20/2011 14:00 [...] groin was anesthetized with 1% lidocaine. A 6-Somali arterial | | | sheath was placed in the right femoral artery, and a 6-Somali JL4 | | | catheter was advanced under fluoroscopic guidance and engaged with the | | | ostium of the left main coronary artery, and multiple projections of | | | the left coronary system were done with the use of contrast | | | injections. The catheter was then exchanged for a 6-Somali JR4 | | | catheter which was engaged with the ostium of the right coronary | | | artery, and multiple projections of the right coronary system were | | | obtained with the use of contrast injections. The catheter was then | | | exchanged for a 6-Somali pigtail catheter which was advanced into the [...] | | started with advancing a pressure wire/[place] into the LAD after | | | [...] | | | 03/22/2011 08:56 A P GINA/[id number] | | | Read by JUAN FERREIRA MD 03/22/2011 08:56 A | | + + + + + | Procedure Note | + + | Matthew Cano Conversion - 01/23/2019 4:21 PM PDT | | [facility] | | [facility] [address] | | | | | | Patient Name: GIOVANNI YEBOAH | | Date of : 1945 | | Medical Record: [id number] | | Account: [id number] | | | | | | Exam [...] groin was anesthetized with 1% lidocaine. A 6-Somali arterial | | sheath was placed in the right femoral artery, and a 6-Somali JL4 | | catheter was advanced under fluoroscopic guidance and engaged with the | | ostium of the left main coronary artery, and multiple projections of the | | left coronary system were done with the use of contrast injections. The | | catheter was then exchanged for a 6-Somali JR4 catheter which was | | engaged with the ostium of the right coronary artery, and multiple | | projections of the right coronary system were obtained with the use of | | contrast injections. The catheter was then exchanged for a 6-Somali | | pigtail catheter which was advanced [...] given. I started with advancing a pressure wire/[place] into the LAD | | after normalizing [...] | A | | P | | [id number]//[id number]/ | | | | Read by | | JUAN FERREIRA MD 03/22/2011 08:56 A | | | | | + + CV CARDIAC PROCEDURE (03/20/2011 1:58 PM PDT) + + | Specimen | + + | | + + + + + | Narrative | Performed At | + + + | [facility] [id number] Ph: | | | Patient Name: GIOVANNI YEBOAH Date of : | | | 1945 Medical Record: [id number] Account: [id number] | | | Exam Date/Time: 03/20/2011 14:00 [...] groin was anesthetized with 1% lidocaine. A 6-Somali arterial | | | sheath was placed in the right femoral artery, and a 6-Somali JL4 | | | catheter was advanced under fluoroscopic guidance and engaged with the | | | ostium of the left main coronary artery, and multiple projections of | | | the left coronary system were done with the use of contrast | | | injections. The catheter was then exchanged for a 6-Somali JR4 | | | catheter which was engaged with the ostium of the right coronary | | | artery, and multiple projections of the right coronary system were | | | obtained with the use of contrast injections. The catheter was then | | | exchanged for a 6-Somali pigtail catheter which was advanced into the [...] | | started with advancing a pressure wire/[place] into the LAD after | | | [...] | | | 03/22/2011 08:56 A P //[id number]/ | | | Read by JUAN FERREIRA MD 03/22/2011 08:56 A | | + + + + + | Procedure Note | + + | Matthew Cano Conversion - 01/23/2019 4:21 PM PDT | | [facility] | | [facility] [address] | | | | | | Patient Name: GIOVANNI YEBOAH | | Date of : 1945 | | Medical Record: [id number] | | Account: [id number] | | | | | | Exam [...] groin was anesthetized with 1% lidocaine. A 6-Somali arterial | | sheath was placed in the right femoral artery, and a 6-Somali JL4 | | catheter was advanced under fluoroscopic guidance and engaged with the | | ostium of the left main coronary artery, and multiple projections of the | | left coronary system were done with the use of contrast injections. The | | catheter was then exchanged for a 6-Somali JR4 catheter which was | | engaged with the ostium of the right coronary artery, and multiple | | projections of the right coronary system were obtained with the use of | | contrast injections. The catheter was then exchanged for a 6-Somali | | pigtail catheter which was advanced [...] given. I started with advancing a pressure wire/[place] into the LAD | | after normalizing [...] | A | | P | | //[id number]/ | | | | Read by | | JUAN FERREIRA MD 03/22/2011 08:56 A | | | | | + + CV CARDIAC PROCEDURE (03/20/2011 1:58 PM PDT) + + | Specimen | + + | | + + + + + | Narrative | Performed At | + + + | [facility] [id number] Ph: | | | Patient Name: GIOVANNI YEBOAH Date of : | | | 1945 Medical Record: [id number] Account: [id number] | | | Exam Date/Time: 03/20/2011 10:30 Ordering | | | Physician: JUAN FERREIRA Order Detail: [id number] Exam Description: | | | [facility] CORONARY ANGIO | | | | [...] groin was anesthetized with 1% lidocaine. A 6-Somali arterial | | | sheath was placed in the right femoral artery, and a 6-Somali JL4 | | | catheter was advanced under fluoroscopic guidance and engaged with the | | | ostium of the left main coronary artery, and multiple projections of | | | the left coronary system were done with the use of contrast | | | injections. The catheter was then exchanged for a 6-Somali JR4 | | | catheter which was engaged with the ostium of the right coronary | | | artery, and multiple projections of the right coronary system were | | | obtained with the use of contrast injections. The catheter was then | | | exchanged for a 6-Somali pigtail catheter which was advanced into the [...] | | started with advancing a pressure wire/[place] into the LAD after | | | [...] | | | 03/22/2011 08:56 A P //[id number]/ | | | Read by JUAN FERREIRA MD 03/22/2011 08:56 A | | + + + + + | Procedure Note | + + | Matthew Cano - 01/23/2019 4:21 PM PDT | | [facility] | | [facility] [address] | | | | | | Patient Name: GIOVANNI YEBOAH | | Date of : 1945 | | Medical Record: [id number] | | Account: [id number] | | | | | | Exam Date/Time: 03/20/2011 10:30 | | Ordering Physician: JUAN FERREIRA | | Order Detail: [id number] | | Exam Description: [facility] CORONARY ANGIO | | | | [...] groin was anesthetized with 1% lidocaine. A 6-Somali arterial | | sheath was placed in the right femoral artery, and a 6-Somali JL4 | | catheter was advanced under fluoroscopic guidance and engaged with the | | ostium of the left main coronary artery, and multiple projections of the | | left coronary system were done with the use of contrast injections. The | | catheter was then exchanged for a 6-Somali JR4 catheter which was | | engaged with the ostium of the right coronary artery, and multiple | | projections of the right coronary system were obtained with the use of | | contrast injections. The catheter was then exchanged for a 6-Somali | | pigtail catheter which was advanced [...] given. I started with advancing a pressure wire/[place] into the LAD | | after normalizing [...] | A | | P | | //[id number]/ | | | | Read by | | JUAN FERREIRA MD 03/22/2011 08:56 A | | | | | + + CV CARDIAC PROCEDURE (03/20/2011 1:58 PM PDT) + + | Specimen | + + | | + + + + + | Narrative | Performed At | + + + | [facility] [id number] Ph: | | | Patient Name: GIOVANNI YEBOAH Date of : | | | 1945 Medical Record: [id number] Account: [id number] | | | Exam Date/Time: 03/20/2011 14:00 [...] groin was anesthetized with 1% lidocaine. A 6-Somali arterial | | | sheath was placed in the right femoral artery, and a 6-Somali JL4 | | | catheter was advanced under fluoroscopic guidance and engaged with the | | | ostium of the left main coronary artery, and multiple projections of | | | the left coronary system were done with the use of contrast | | | injections. The catheter was then exchanged for a 6-Somali JR4 | | | catheter which was engaged with the ostium of the right coronary | | | artery, and multiple projections of the right coronary system were | | | obtained with the use of contrast injections. The catheter was then | | | exchanged for a 6-Somali pigtail catheter which was advanced into the [...] | | started with advancing a pressure wire/[place] into the LAD after | | | [...] | | | 03/22/2011 08:56 A P //[id number]/ | | | Read by JUAN FERREIRA MD 03/22/2011 08:56 A | | + + + + + | Procedure Note | + + | Matthew Cano Conversion - 01/23/2019 4:21 PM PDT | | [facility] | | [facility] [address] | | | | | | Patient Name: GIOVANNI YEBOAH | | Date of : 1945 | | Medical Record: [id number] | | Account: [id number] | | | | | | Exam [...] groin was anesthetized with 1% lidocaine. A 6-Somali arterial | | sheath was placed in the right femoral artery, and a 6-Somali JL4 | | catheter was advanced under fluoroscopic guidance and engaged with the | | ostium of the left main coronary artery, and multiple projections of the | | left coronary system were done with the use of contrast injections. The | | catheter was then exchanged for a 6-Somali JR4 catheter which was | | engaged with the ostium of the right coronary artery, and multiple | | projections of the right coronary system were obtained with the use of | | contrast injections. The catheter was then exchanged for a 6-Somali | | pigtail catheter which was advanced [...] given. I started with advancing a pressure wire/[place] into the LAD | | after normalizing [...] | A | | P | | [id number]//[id number]/ | | | | Read by | | JUAN FERREIRA MD 03/22/2011 08:56 A | | | | | + + documented in this encounter Visit Diagnoses + + | Diagnosis | + + | Old myocardial infarct Old myocardial infarction | + + documented in this encounter"
--- OUTSIDE RECORDS SUMMARY | ~2019-12-10 | XMS | Encounter Summary ---
Demographics + + + | Address | [address] | | | [place] [address] | + + + | Home Phone | | + + + | Preferred Language | Unknown | + + + | Marital Status | | + + + | Yazidi Affiliation | 1041 | + + + | Race | Unknown | + + + | Ethnic Group | Unknown | + + + Author + + + | Author | [facility] | | | and [place] | + + + | Organization | [facility] | | | [...] + | Sangeetha Y[place] | ECON | [address] | | | | | [place] | | | | | [address] | | + + + + + Care Team Providers + +------+ + | Care Journeyman Level Acoustic Analyst Name | Role | Phone | [...] | | | [address] | [place] [address] | | | | | [place] [address] | | | | | | [phone] | | | +--------+ + + + [...] [address] | | | | | | [place] [address] | | | | | | [phone] | | | | | | | | +--------+---------+ + + + documented as of this encounter Procedures + +--------+ + + + | Procedure Name | Priori | Date/Time | Associated Diagnosis | Comments | | | ty | | | | + +--------+ + + + | XR KNEE RIGHT 3 VW | Routin | 01/12/2018 | | Results for this | | | e | 10:25 AM | | procedure are in the | | | | PDT | | results section. | + +--------+ + + + documented in this encounter Results XR Knee Right 3 Vw (01/12/2018 10:25 AM PDT) + + | Specimen | [...]
--- OUTSIDE RECORDS SUMMARY | ~2019-12-10 | XMS | Encounter Summary ---
Demographics + + + | Address | [address] | | | [place] [address] | + + + | Home Phone | | + + + | Preferred Language | Unknown | + + + | Marital Status | | + + + | Restoration Affiliation | 1041 | + + + | Race | Unknown | + + + | Ethnic Group | Unknown | + + + Author + + + | Author | [facility] | | | and [place] | + + + | Organization | [facility] | | [...] + | [place]eth[place] | ECON | [address] | | | | | [place] | | | | | [address] | | + + + + + Care Team Providers + +------+ + | Care Oyster Shipper Name | Role | Phone | + +------+ + | No, Physician | PCP | Unavailable | + +------+ + Encounter Details +--------+ + + + + | Date | Type | Department | Care Team | Description | +--------+ + + + + | 11/10/ | Orders Only | [facility] | Juan Merritt MD | | | 2019 | | [address] | [address] | | | | | [place], [place] | [place] [address] | | | | | [address] | [phone] | | | | | [phone] | | | +--------+ + + + [...] [address] | | | | | | [place] [address] | | | | | | [phone] | | | | | | | | +--------+---------+ + + + documented as of this encounter Procedures + +--------+ + + + | Procedure Name | Priori | Date/Time | Associated Diagnosis | Comments | | | ty | | | | + +--------+ + + + | EXTERNAL LAB: [facility] | Routin | 11/10/2018 | | Results for this | | | e | 8:35 AM | | procedure are in the | | | | PDT | | results section. | + +--------+ + + + | LIPID PANEL | Routin | 11/10/2018 | | Results for this | | | e | 8:35 AM | | procedure are in the | | | | PDT | | results section. | + +--------+ + + + | BASIC METABOLIC | Routin | 11/10/2018 | | Results for this | | PANEL | e | 8:35 AM | | procedure are in the | | | | PDT | | results section. | + +--------+ + + + documented in this encounter Results External Lab: [facility] (11/10/2018 8:35 AM PDT) + + + + + + | Component | Value | Ref Range | Performed | Pathologist | | | | | At | Signature | + + + + + + | WBC | 5.66 | 3.80 - 11.00 | EXTERNAL | | | | | 10*3/uL | LAB | | + + + + + + | Non- | 3.34 (L) | 4.20 - 5.70 | EXTERNAL | | | Red Blood | | 10*6/uL | LAB | | | Cells | | | | | | Counted | | | | | + + + + + + | Hemoglobin | 11.2 (L) | 13.2 - 17.0 | EXTERNAL | | | | | g/dL | LAB | | + + + + + + | Hematocrit, | 31.8 (L) | 39.0 - 50.0 % | EXTERNAL | | | POC | | | LAB | | + + + + + + | MCV | 95.3 | 80.0 - 100.0 fL | EXTERNAL | | | | | | LAB | | + + + + + + | MCH | 33.5 | 27.0 - 34.0 pg | EXTERNAL | | | | | | LAB | | + + + + + + | MCHC | 35.1 | 32.0 - 35.5 | EXTERNAL | | | | | g/dL | LAB | | + + + + + + | RDW-CV | 43.8 | 37 - 53 fL | EXTERNAL | | | | | | LAB | | + + + + + + | Platelet | 208 | 150 - 400 | EXTERNAL | | | Count | | 10*3/uL | LAB | | | Plasma | | | | | + + + + + + | MPV | 9.2 | fL | EXTERNAL | | | | | | LAB | | + + + + + + | Differentia | AUTOMATED | | EXTERNAL | | | l Type | | | LAB | | + + + + + + | % Segmented | 62.02 | % | EXTERNAL | | | | | | LAB | | | Neutrophils | | | | | + + + + + + | % | 25.36 | % | EXTERNAL | | | Lymphocytes | | | LAB | | + + + + + + | % Monocytes | 9.97 | % | EXTERNAL | | | | | | LAB | | + + + + + + | % | 1.79 | % | EXTERNAL | | | Eosinophils | | | LAB | | + + + + + + | % Basophils | 0.86 | % | EXTERNAL | | | | | | LAB | | + + + + + + | Absolute | 3.51 | 1.90 - 7.40 | EXTERNAL | | | Segmented | | 10*3/uL | LAB | | | Neutrophils | | | | | + + + + + + | Absolute | 1.44 | 1.00 - 3.90 | EXTERNAL | | | Lymphocytes | | 10*3/uL | LAB | | + + + + + + | Absolute | 0.56 | 0.00 - 0.80 | EXTERNAL | | | Monocytes | | 10*3/uL | LAB | | + + + + + + | Absolute | 0.10 | 0.00 - 0.50 | EXTERNAL | | | Eosinophils | | 10*3/uL | LAB | | + + + + + + | Absolute | 0.05 | 0.00 - 0.10 | EXTERNAL | | | Basophils | | 10*3/uL | LAB | | + + + + + + + + | Specimen | + + | Blood specimen | | (specimen) | + + + +---------+ + + | Performing | Address | City/State/Zipcode | Phone Number | | Organization | | | | + +---------+ + + | EXTERNAL LAB | | | | + +---------+ + + Lipid Panel (11/10/2018 8:35 AM PDT) + +---------+ + + + | Component | Value | Ref Range | Performed | Pathologist | | | | | At | Signature | + +---------+ + + + | Cholesterol | 126 | mg/dL | EXTERNAL | | | | | | LAB | | + +---------+ + + + | Triglycerid | 163 (H) | mg/dL | EXTERNAL | | | es | | | LAB | | + +---------+ + + + | HDL | 38 (L) | mg/dL | EXTERNAL | | | | | | LAB | | + +---------+ + + + | LDL, | 55 | mg/dL | EXTERNAL | | | Calculated | | | LAB | | + +---------+ + + + + + | Specimen | + + | Blood specimen | | (specimen) | + + + +---------+ + + | Performing | Address | City/State/Zipcode | Phone Number | | Organization | | | | + +---------+ + + | EXTERNAL LAB | | | | + +---------+ + + Basic Metabolic Panel (11/10/2018 8:35 AM PDT) + + + + + + | Component | Value | Ref Range | Performed | Pathologist | | | | | At | Signature | + + + + + + | Na | 142 | 135 - 145 | EXTERNAL | | | | | mmol/L | LAB | | + + + + + + | K | 4.5 | 3.5 - 4.9 | EXTERNAL | | | | | mmol/L | LAB | | + + + + + + | Cl | 108 | 99 - 109 mmol/L | EXTERNAL | | | | | | LAB | | + + + + + + | CO2 | 27 | 23 - 32 mmol/L | EXTERNAL | | | | | | LAB | | + + + + + + | Anion Gap | 12 | 5 - 20 mmol/L | EXTERNAL | | | | | | LAB | | + + + + + + | Glucose, | 100 (H) | 65 - 99 mg/dL | EXTERNAL | | | Fasting | | | LAB | | + + + + + + | BUN | 21 | 8 - 25 mg/dL | EXTERNAL | | | | | | LAB | | + + + + + + | Creatinine | 1.0 | 0.70 - 1.30 | EXTERNAL | | | | | mg/dL | LAB | | + + + + + + | BUN/Creatin | 21 | | EXTERNAL | | | ine Ratio | | | LAB | | + + + + + + | Calcium | 8.8 | 8.5 - 10.5 | EXTERNAL | | | | | mg/dL | LAB | | + + + + + + | Estimated | >60Comment: GFR <60: | mL/min/1.73_m2 | EXTERNAL | | | GFR | CHRONIC KIDNEY DISEASE, | | LAB | | | | IF FOUND OVER A 3 MONTH | | | | | | PERIOD. GFR <15: KIDNEY | | | | | | FAILURE. FOR | | | | | | AMERICANS, MULTIPLY THE | | | | | | CALCULATED GFR BY 1.210. | | | | | | This eGFR is calculated | | | | | | using the MDRD IDMS | | | | | | traceable equation. | | | | + + + + + + + + | Specimen | + + | Blood specimen | | (specimen) | + + + +---------+ + + | Performing | Address | City/State/Zipcode | Phone Number | | Organization | | | | + +---------+ + + | EXTERNAL LAB | | | | + +---------+ + + documented in this encounter Visit Diagnoses Not on filedocumented in this encounter"
--- OUTSIDE RECORDS SUMMARY | ~2019-12-10 | XMS | Encounter Summary ---
Demographics + + + | Address | [address] | | | [place] [address] | + + + | Home Phone | | + + + | Preferred Language | Unknown | + + + | Marital Status | | + + + | Congregational Affiliation | 1041 | + + + | Race | Unknown | + + + | Ethnic Group | Unknown | + + + Author + + + | Author | [facility] | | | and [place] | + + + | Organization | [facility] | | | [...] + | Sangeetha Yeboah | ECON | [address] | | | | | [place] | | | | | [address] | | + + + + + Care Team Providers + +------+ + | Care Leasing Assistant Name | Role | Phone | + [...] | | | | | | | MO ARTHRS | | | | | | [...] + + + + | 02/19/ | Anesthesia | SHAHID GARCIA | Sanjuan[place], | | | 2018 | Event | [facility] | Eron Temple MD | | | | | [address] | [address] | | | | | [place], [place] | [place], [place] | | | | | [address] | [id number] | | | | | [phone] | | | | | | | Aubrey Shultz, | | | | | | [address] | | | | | | [place], [place] | | | | | | [address] | | | | | | | | +--------+ + + + + Anesthesia Record + + + + + | Procedure Name | Responsible | Anesthesia Start | Anesthesia Stop Time | | | Anesthesiologist | Time | | + + + + + | right knee | Eron Temple | 02/19/1835 | 02/19/18 0918 | | arthrocopy, medial | Sanjuanita MD | | | | and lateral | | | | | meniscectomy, | | | | | synovectomy (Right | | | | | Knee) | | | | + + + + + +----+---+ + + | Da | T | Event | Comment | | te | i | | | | | m | | | | | e | | | +----+---+ + + | 09 | 0 | | | | /2 | 8 | | | | 0/ | 2 | | | | 20 | 7 | | | | 18 | | | | +----+---+ + + | | 0 | An Checkout | Pre-use anesthesia machine/equipment checkout. | | | 8 | | | | | 3 | | | | | 4 | | | +----+---+ + + | | 0 | An Start | Reassessment prior to anesthesia induction/procedure. | | | 8 | | | | | 3 | | | | | 6 | | | +----+---+ + + | | 0 | Preoxygenat | | | | 8 | ed | | | | 4 | | | | | 2 | | | +----+---+ + + | | 0 | Antibiotic | | | | 8 | Given | | | | 4 | | | | | 2 | | | +----+---+ + + | | 0 | An | | | | 8 | Induction | | | | 4 | | | | | 2 | | | +----+---+ + + | | 0 | An | | | | 8 | Intubation | | | | 4 | | | | | 2 | | | +----+---+ + + | | 0 | AN Bite | | | | 8 | Block | | | | 4 | | | | | 4 | | | +----+---+ + + | | 0 | an melvin now | Patient took his beta sushant in preop. | | | 8 | | | | | 4 | | | | | 7 | | | +----+---+ + + | | 0 | Pre-Procedu | | | | 8 | ral Timeout | | | | 4 | Completed | | | | 9 | | | +----+---+ + + | | 0 | [place] | | | | 8 | 43-degrees | | | | 4 | | | | | 9 | | | +----+---+ + + | | 0 | First | | | | 8 | Inc/Proc St | | | | 5 | | | | | 0 | | | +----+---+ + + | | 0 | An Tourn | | | | 8 | Inflated | | | | 5 | | | | | 0 | | | +----+---+ + + | | 0 | An Tourn | | | | 9 | Deflated | | | | 0 | | | | | 9 | | | +----+---+ + + | | 0 | [place] off | | | | 9 | | | | | 1 | | | | | 0 | | | +----+---+ + + | | 0 | Breathing | | | | 9 | Spontaneous | | | | 1 | ly | | | | 4 | | | +----+---+ + + | | 0 | an stop | | | | 9 | data | | | | 1 | | | | | 4 | | | +----+---+ + + | | 0 | An Stop | Patient handed off to recovery nurse. | | | 1 | | | | | 8 | | | +----+---+ + + +------+ | Meds | +------+ + + + | Name | Total | + + + | lidocaine 2% | 40 mg | + + + | fentaNYL | 200 mcg | + + + | propofol | 250 mg | + + + | propofol | 139.76 mg | + + + | ondansetron | 4 mg | + + + | dexamethasone (PF) injection 10 | 10 mg | | mg/mL | | + + + | ceFAZolin (ANCEF, KEFZOL) 100 | 2 g | | mg/mL IV syringe 2 g | | + + + | esmolol | 30 mg | + + + | lactated ringers (LR) infusion | 900 mL | + + + + + | Name | + + | N2O Flow Rate (L/Min) | + + | O2 Flow Rate (L/Min) | + + | Insp O2 | + + | Exp SEV | + + | Air Flow Rate (L/Min) | + + + + | No blood administrations on file. | + + +--------+ + + + | Type | Details | Placement | Removal | +--------+ + + + | Periph | 02/19/18; 0756; Left; Hand; | 02/19/18 0756 by | 02/19/18 1120 by | | eral | [id number] catheter system; | Sol Jack RN | Nathalia Bond RN | | IV | 20 gauge, 1 1/4 in length; | | | | | Hematology, Chemistry; | | | | | distraction, intradermal | | | | | injection, tolerated well; no | | | | | longer indicated; 02/19/18; 1120 | | | +--------+ + + + | Airway | Placement Date: 02/19/18; | 02/19/18841 by | 02/19/18 09 by | | | Placement Time: 841 (created via | Eron Temple | Kuldeep Conroy RN | | | procedure documentation); Mask | MD Sanjuanita | | | | Ventilation: EZ; Attempts: 1; | | | | | Airway Type: laryngeal mask; | | | | | Size: 4; Trauma: none; Placement | | | | | Check: bilateral chest rise, | | | | | breath sounds equal bilaterally; | | | | | Removal: per protocol, removed by | | | | | RN; Removal Date: 02/19/18; | | | | | Removal Time: 925 | | | +--------+ + + + | Read | 02/19/18; 0852; Right; leg; | 02/19/18 0852 by | 08/25/18 1342 by | | only - | 08/25/18 (Completed/Removed by | Den Sinclair RN | User Epic | | | Utility); 1342 (Completed/Removed | | | | Incisi | by Utility) | | | | on | | | | +--------+ + + + documented in this encounter Social History + +-------+ +--------+------+ | Tobacco [...] + + documented as of this encounter OR Notes Anesthesia Postprocedure Evaluation - Eron Gann MD - 02/19/2018 10:32 AM PDTF ormatting of this note might be different from the original. ANESTHESIA POSTANESTHESIA EVALUATION Iain Yeboah 72 y.o. male 1945 [id number] Procedure(s) right knee arthrocopy, medial and lateral meniscectomy, synovectomy (Right Kn ee) Cooperates? Yes Mental Status Performs simple tasks. Respiratory Satisfactory - Airway patent (self maintained). Cardiovascular Satisfactory - Blood pressure and heart rate acceptable Temperature Satisfactory Pain Satisfactory N/V Control Satisfactory Hydration Satisfactory - No signs of dehydration Complications None apparent Vitals: 02/19/18 0950 02/19/18 0955 02/19/18 1000 BP: 117/70 111/62 112/59 Pulse: 67 74 77 Temp: Resp: 12 16 16 SpO2: 98% 97% 93% Electronically signed by Eron Gann MD 02/19/2018 10:32 [facility] nesthesia Procedure Notes - Eron Gann MD - 02/20/20 8:49 AM PDTAssociated Order(s): ANE AIRWAY NOTEAnesthesia Airway Placement 02/19/2018 8:42 Preprocedure check: patient identified, suction, airway equipment checked, oxygen, airway a ssessed and patient reassessment prior to induction Mask ventilation: easy Attempts: 1 Airway type: laryngeal mask Size: 4 Cuffed: cuffed Route, reference point: center of mouth Tube secured with: adhesive tape Trauma: none Tube placement verification: bilateral chest rise and equal bilateral breath sounds Performing provider: ERON GANN Electronically Signed by: Eron Gann MD ESi date/t wilber: 02/19/2018 8:49 nesthesia Pre procedure Evaluation - Eron Gann MD - 02/18/2018 2:56 PM PDTFormatting of thi s note might be different from the original. ANESTHESIA PREANESTHESIA EVALUATION Iain Yeboah 72 y.o. male 1945 [id number] Procedure(s): Right Knee Scope, Medial Meniscectomy (Right Knee) Medical history, anesthesia, medications, allergy, NPO status verified histories reviewed. ECG reviewed. Labs reviewed. Review of Systems / Med History Anesthesia History No anesthesia complications. Cardiovascular TTE 2017 Result Impression 1. Atrial fibrillation. 2. This was a technically difficult study with suboptimal apical views. 3. Overall left ventricular systolic function is low-normal with, an EF between 50 - 55 %. CAD s/p stents afib on eliquis . (+) hypertension, CAD, past ID(-) angina (+) Dysrhythmias: atrial fibrillation , Exercise t olerance >4 METS Pulmonary (+) sleep apnea: known Neurology (-) seizures, TIA, CVA Endocrine (-) Diabetes.(+) obesity: Other (-) coagulopathy Physical Exam Airway MP III, TM >3 FB, Mouth opening >2 FB. Neck: full ROM, extends >30 degrees. Jaw protru vesna normal. CV Rhythm regular. (-) murmur. Pulm Clear to auscultation bilaterally. Anesthesia Plan ASA 3 (CAD, afib on anticoag) Type: General. Induction: Intravenous. Potential problems: None anticipated. Monitors: Standard ASA monitors. Consent statement:Anesthetic plan, alternatives, risks and benefits discussed with patient. Risks discussed included (but were not limited to): sore throat, perioperative CV events, r espiratory events, nausea, dental injury, pain, . Consenting person understands and agrees to proceed. PARQ. documented in this encounter Plan of Treatment +--------+---------+ + + + | Date | Type | Specialty | Care Team | Description | +--------+---------+ + + + | 01/09/ | Office | Cardiology | Juan Merritt MD | | | 2019 | Visit | | [address] | | | | | | [place] [address] | | | | | | [phone] | | | | | | | | +--------+---------+ + + + documented as of this encounter Procedures + +--------+ + + + | Procedure Name | Priori | Date/Time | Associated Diagnosis | Comments | | | ty | | | | + +--------+ + + + | ANE AIRWAY NOTE | Routin | 02/19/2018 | | Results for this | | | e | 8:49 AM | | procedure are in the | | | | PDT | | results section. | + +--------+ + + + documented in this encounter Results Anesthesia Airway Note (02/19/2018 8:49 AM PDT) + + + | Narrative | Performed At | + + + | Eron Gann MD 02/19/2018 8:49 Anesthesia Airway | | | Placement 02/19/2018 8:42 Preprocedure check: patient identified, | | | suction, airway equipment checked, oxygen, airway assessed and | | | patient reassessment prior to induction Mask ventilation: easy | | | Attempts: 1 Airway type: laryngeal mask Size: 4 Cuffed: cuffed | | | Route, reference point: center of mouth Tube secured with: adhesive | | | tape Trauma: none Tube placement verification: bilateral chest rise | | | and equal bilateral breath sounds Performing provider: Adeel GANN | Adeel Temple Electronically Signed by: Eron Gann | | Adeel MELVIN ESig date/time: | | | 02/19/2018 8:49 | | + + + + + | Procedure Note | + + | Eron Gann MD - 02/19/2018 8:49 AM PDT Anesthesia Airway | | Placement02/19/2018 8:42Preprocedure check: patient identified, suction, airway equipment | | checked, oxygen, airway assessed and patient reassessment prior to inductionMask | | ventilation: easyAttempts: 1Airway type: laryngeal maskSize: 4Cuffed: cuffedRoute, | | reference point: center of mouthTube secured with: adhesive tapeTrauma: noneTube | | placement verification: bilateral chest rise and equal bilateral breath soundsPerforming | | provider: ERON GANN LElectronically Signed by: Eron Gann MD | | ESig date/time: 02/19/2018 8:49 | |Cuffed: cuffed | |Route, reference point: center of mouth | |Tube secured with: adhesive tape | |Trauma: none | |Tube placement verification: bilateral chest rise and equal bilateral breath sounds | |Performing provider: ERON GANN | | | | | |Electronically Signed by: Eron Gann MD ESig date/t wilber: 02/19/2018 8:49 | | | + + documented in this encounter Visit Diagnoses Not on filedocumented in this encounter Administered Medications + +--------+ +------+------+------+ | Medication Order | MAR | Action | Dose | Rate | Site | | | Action | Date | | | | + +--------+ +------+------+------+ | ceFAZolin (ANCEF, KEFZOL) 100 | Given | 02/20/20 | 2 g | | | | mg/mL IV syringe 2 g 2 g, | | 18 8:42 | | | | | Intravenous, Administer over 30 | | AM PDT | | | | | Minutes, Prior to Incision, | | | | | | | Starting [facility] 02/19/18 at 0158, For | | | | | | | 1 dose, Give within one hour | | | | | | | prior to incision., Pre-op, | | | | | | | Indications: Surgical Prophylaxis | | | | | | + +--------+ +------+------+------+ +---+---+ | | | +---+---+ + +-------+ +-------+---+---+ | dexamethasone (PF) 10 mg/mL | Given | 02/20/20 | 10 mg | | | | injection Intravenous, PRN, | | 18 8:42 | | | | | Starting [facility] 02/19/18 at 0842, | | AM PDT | | | | | Anesthesia Intra-op | | | | | | + +-------+ +-------+---+---+ +---+---+ | | | +---+---+ + +-------+ +-------+---+---+ | esmolol (BREVIBLOC) 10 mg/mL | Given | 02/20/20 | 30 mg | | | | injection Intravenous, PRN, | | 18 8:47 | | | | | Starting [facility] 02/19/18 at 0847, | | AM PDT | | | | | Anesthesia Intra-op | | | | | | + +-------+ +-------+---+---+ +---+---+ | | | +---+---+ + +-------+ +--------+---+---+ | fentaNYL (PF) injection | Given | 02/20/20 | 50 mcg | | | | Intravenous, PRN, Pain, Starting | | 18 8:55 | | | | | [facility] 02/19/18 at 0842, Anesthesia | | AM PDT | | | | | Intra-op | | | | | | + +-------+ +--------+---+---+ +-------+ +--------+---+---+ | Given | 02/20/20 | 50 mcg | | | | | 18 8:50 | | | | | | AM PDT | | | | +-------+ +--------+---+---+ | Given | 02/20/20 | 50 mcg | | | | | 18 8:46 | | | | | | AM PDT | | | | +-------+ +--------+---+---+ +---+---+ | | | +---+---+ + +---------+ +--------+ +---+ | lactated ringers [...] | | | | +---------+ +---+ +---+ +---+---+ | | | +---+---+ + +-------+ +-------+---+---+ | lidocaine (PF) 2% injection | Given | 02/20/20 | 40 mg | | | | Intravenous, PRN, Starting [facility] | | 18 8:42 | | | | | 02/19/18 at 0842, Anesthesia | | AM PDT | | | | | Intra-op | | | | | | + +-------+ +-------+---+---+ +---+---+ | | | +---+---+ + +-------+ +------+---+---+ | ondansetron (ZOFRAN) injection | Given | 02/20/20 | 4 mg | | | | Intravenous, PRN, Nausea, | | 18 8:47 | | | | | Vomiting, Starting [facility] 02/19/18 at | | AM PDT | | | | | 0847, Anesthesia Intra-op | | | | | | + +-------+ +------+---+---+ +---+---+ | | | +---+---+ + +-------+ +--------+---+---+ | propofol (DIPRIVAN) injection | Given | 02/20/20 | 250 mg | | | | Intravenous, PRN, Starting [facility] | | 18 8:42 | | | | | 02/19/18 at 0842, Anesthesia | | AM PDT | | | | | Intra-op | | | | | | + +-------+ +--------+---+---+ +---+---+ | | | +---+---+ + +---------+ + +-------+---+ | propofol (DIPRIVAN) injection | New Bag | 02/20/20 | 50 | 39.9 | | | Intravenous, CONTINUOUS PRN, | | 18 8:46 | mcg/kg/m | mL/hr | | | Starting [facility] 02/19/18 at 0846, | | AM PDT | in | | | | Anesthesia Intra-op | | | | | | + +---------+ + +-------+---+ +---+---+ | | | +---+---+ documented in this encounter"
--- OUTSIDE RECORDS SUMMARY | ~2019-12-10 | XMS | Encounter Summary ---
Demographics + + + | Address | [address] | | | [place] [address] | + + + | Home Phone | | + + + | Preferred Language | Unknown | + + + | Marital Status | | + + + | Druze Affiliation | 1041 | + + + | Race | Unknown | + + + | Ethnic Group | Unknown | + + + Author + + + | Author | [facility] | | | and [place] | + + + | Organization | [facility] | | [...] + | Sangeetha Yeboah | ECON | [address] | | | | | [place] | | | | | [address] | | + + + + + Care Team Providers + +------+ + | Care Inventory Associate Name | Role | Phone | + +------+ + PCP | Unavailable | + +------+ + Encounter Details +--------+ + + + + | Date | Type | Department | Care Team | Description | +--------+ + + + + | 05/05/ | Hospital | [facility] | Juan Ferreira MD | AMI NOS, Unspecified | | 2008 - | Encounter | [facility] | [address] | ([facility]) | | | | CARE FLOOR [address] | [place] [address] | | | 05/07/ | | [address] | [phone] | | | 2008 | | [place], [place] | | | | | | [address] | | | | | | [phone] | | | +--------+ + + + [...] | Juan Ferreira MD | | | 2020 | Visit | | [address] | | | | | | [place] [address] | | | | | | [phone] | | | | | | | | +--------+---------+ + + + documented as of this encounter Procedures + +--------+ + + + | Procedure Name | Priori | Date/Time | Associated Diagnosis | Comments | | | ty | | | | + +--------+ + + + | CV CARDIAC PROCEDURE | Routin | 05/05/2009 | | Results for this | | | e | 4:43 PM | | procedure are in the | | | | PST | | results section. | + +--------+ + + + | CV CARDIAC PROCEDURE | Routin | 05/05/2009 | | Results for this | | | e | 4:43 PM | | procedure are in the | | | | PST | | results section. | + +--------+ + + + documented in this encounter Results CV CARDIAC PROCEDURE (05/05/2009 4:43 PM PST) + + | Specimen | + + | | + + + + + | Narrative | Performed At | + + + | [id number] | | | Page 1 CARDIOLOGY | | | INT [id number]/ | | | [facility] | | | CENTER NAME: [place] [address] | | | | | | | | | DATE OF : 1945 ORDER NUMBER: | | | [id number] EXAM DATE/TIME: 05/05/2009 04:45 P ORDERING PHYSICIAN: | | | JUAN FERREIRA ORDER DETAIL: [id number] / / HCL EXAM DESCRIPTION: CCL | | | DE STENT INSERTION INITIAL | | | | | | INDICATIONS This is a 63-year-old gentleman who presented | | | to [facility] with substernal chest discomfort of 20 | | | to 30 minutes of duration. EKG suggested mild ST elevation in the | | | anterior wall. He was heparinized and transferred to [facility] | | | [facility] for further care. For details regarding his | | | presentation, kindly refer to my history and physical. PROCEDURES | | | 1. Left heart catheterization with left ventriculogram. 2. | | | Selective coronary angiography. 3. Percutaneous transluminal coronary | | | angioplasty of mid left anterior descending with 3.0 x 12 mm | | | Rialto balloon. 4. Stenting of mid left anterior descending with 3.5 x | | | 16 mm Taxus Liberte stent. ESTIMATED BLOOD LOSS Less than 50 | | | mL. DESCRIPTION OF PROCEDURE The patient was brought to the | | | catheterization lab in the fasting state and was prepped and draped | | | in the usual sterile fashion. Arterial access was obtained via right | | | femoral artery and a 6-Singaporean arterial sheath was placed. A 6-Singaporean | | | JL4 catheter was then advanced under fluoroscopic guidance and | | | engaged with the ostium of the left main coronary artery, and | | | multiple projections of the left coronary system were obtained with | | | the use of contrast injections. The catheter was then exchanged to a | | | 6-Singaporean JR4 catheter, which was advanced under fluoroscopic guidance | | | and engaged with the ostium of the right coronary artery, and | | | multiple projections of the right coronary artery were obtained with | | | the use of contrast injections. The catheter was then exchanged to a | | | 6-Singaporean pigtail catheter which was advanced into the left ventricle, | | | and projections of left ventricular function in the MCGUIRE view were | | | done with contrast injections. All equipment was then removed. | | | FINDINGS HEMODYNAMICS Pressures: Aortic pressure 141/82 with a | | | mean of 110. LV 128/17. Gradient: There was no gradient between the | | | LV and aorta. CORONARY ANGIOGRAPHY The coronary system was right | | | dominant. 1. The left main bifurcated into the LAD and left | | | circumflex. Left main was free of disease. 2. Left anterior | | | descending artery was moderately calcified. Proximally there is a | | | moderate lesion estimated to be around 30%. However, in the mid | | | vessel right at the bifurcation of the first diagonal branch | | | there is severe subtotal occlusion of the left anterior descending | | | artery estimated to be around 99%. The rest of the vessel was free | | | of significant disease, although was mildly and diffusely | | | diseased. The diagonal branch was a relatively small vessel with | | | the ostium lesion estimated to be around 40% to 50%. 3. Left | | | circumflex coronary artery has minimal atherosclerosis; however, | | | there is a second marginal branch which has 60% to 70% tandem | | | lesions. 4. The right coronary artery was co-dominant vessel. The PDA | | | has a 60% mid stenosis. The DALE arises from the co-dominant | | | circumflex. LEFT VENTRICULOGRAM The left ventriculogram in MCGUIRE | | | view showed hypokinetic apex, ejection fraction estimated to be | | | around 50%. DESCRIPTION OF INTERVENTIONAL TECHNIQUE The patient | | | presents with threatened acute anterior IL and, although he did have | | | MAMIE-3 flow at the time of presentation at [facility] | | | [place], he had an unstable-looking lesion in the mid LAD. Therefore, | | | coronary intervention was recommended. JL4 guider catheter was | | | advanced and engaged with the ostium of the left main and extra dose | | | of heparin and 2 doses of Integrilin were given. The BMW guidewire was | | | then threaded into the LAD and placed distally, followed by | | | angioplasty of the lesion with 3.0 x 12 mm balloon. Stenting was then | | | done with 3.5 x 16 mm Taxus Liberte stent. Projection of the vessel | | | showed excellent result. The patient tolerated the procedure well and | | | there were no immediate complications. CONCLUSION AND | | | RECOMMENDATIONS 1. Threatened acute myocardial infarction. 2. | | | Three-vessel coronary artery disease. 3. Status post stenting of left | | | anterior descending artery. 4. The patient will need periodic stress | | | test to follow on his circumflex and posterior descending artery | | | lesions. Read by JUAN FERREIRA MD 05/06/2009 07:44 A | | | Electronically Signed by JUAN FERREIRA MD 05/10/2009 10:58 A DD: | | | 05/06/2009 07:44 A A GINA/mario/[id number]/ cc: | | | JUAN FERREIRA MD | | + + + + + | Procedure Note | + + | Matthew Cano - 01/24/2019 9:58 PM PDT | | [id number] Page 1 | | CARDIOLOGY INT [id number]/ | | I/P | | [facility] NAME: GIOVANNI YEBOAH | | [place] [address] | | | | DATE OF : 1945 | | | | ORDER NUMBER: [id number] | | EXAM DATE/TIME: 05/05/2009 04:45 P | | ORDERING PHYSICIAN: JUAN FERREIRA | | ORDER DETAIL: [id number] / / HCL | | EXAM DESCRIPTION: CCL DE STENT INSERTION INITIAL | | | | INDICATIONS | | This is a 63-year-old gentleman who presented to [place] | | [facility] with substernal chest discomfort of 20 to 30 minutes of | | duration. EKG suggested mild ST elevation in the anterior wall. He was | | heparinized and transferred to [facility] for | | further care. For details regarding his presentation, kindly refer to my | | history and physical. | | | | PROCEDURES | | 1. Left heart catheterization with left ventriculogram. | | 2. Selective coronary angiography. | | 3. Percutaneous transluminal coronary angioplasty of mid left anterior | | descending with 3.0 x 12 mm Rialto balloon. | | 4. Stenting of mid left anterior descending with 3.5 x 16 mm Taxus | | Liberte stent. | | | | ESTIMATED BLOOD LOSS | | Less than 50 mL. | | | | DESCRIPTION OF PROCEDURE | | The patient was brought to the catheterization lab in the fasting state | | and was prepped and draped in the usual sterile fashion. Arterial access | | was obtained via right femoral artery and a 6-Singaporean arterial sheath was | | placed. A 6-Singaporean JL4 catheter was then advanced under fluoroscopic | | guidance and engaged with the ostium of the left main coronary artery, | | and multiple projections of the left coronary system were obtained with | | the use of contrast injections. The catheter was then exchanged to a | | 6-Singaporean JR4 catheter, which was advanced under fluoroscopic guidance | | and engaged with the ostium of the right coronary artery, and multiple | | projections of the right coronary artery were obtained with the use of | | contrast injections. The catheter was then exchanged to a 6-Singaporean | | pigtail catheter which was advanced into the left ventricle, and | | projections of left ventricular function in the MCGUIRE view were done with | | contrast injections. All equipment was then removed. | | | | FINDINGS | | | | HEMODYNAMICS | | Pressures: Aortic pressure 141/82 with a mean of 110. LV 128/17. | | Gradient: There was no gradient between the LV and aorta. | | | | CORONARY ANGIOGRAPHY | | The coronary system was right dominant. | | 1. The left main bifurcated into the LAD and left circumflex. Left main | | was free of disease. | | 2. Left anterior descending artery was moderately calcified. Proximally | | there is a moderate lesion estimated to be around 30%. However, in | | the mid vessel right at the bifurcation of the first diagonal branch | | there is severe subtotal occlusion of the left anterior descending | | artery estimated to be around 99%. The rest of the vessel was free of | | significant disease, although was mildly and diffusely diseased. The | | diagonal branch was a relatively small vessel with the ostium lesion | | estimated to be around 40% to 50%. | | 3. Left circumflex coronary artery has minimal atherosclerosis; however, | | there is a second marginal branch which has 60% to 70% tandem | | lesions. | | 4. The right coronary artery was co-dominant vessel. The PDA has a 60% | | mid stenosis. The DALE arises from the co-dominant circumflex. | | | | LEFT VENTRICULOGRAM | | The left ventriculogram in MCGUIRE view showed hypokinetic apex, ejection | | fraction estimated to be around 50%. | | | | DESCRIPTION OF INTERVENTIONAL TECHNIQUE | | The patient presents with threatened acute anterior IL and, although he | | did have MAMIE-3 flow at the time of presentation at [facility] | [facility], he had an unstable-looking lesion in the mid LAD. | | Therefore, coronary intervention was recommended. JL4 guider catheter | | was advanced and engaged with the ostium of the left main and extra dose | | of heparin and 2 doses of Integrilin were given. The BMW guidewire was | | then threaded into the LAD and placed distally, followed by angioplasty | | of the lesion with 3.0 x 12 mm balloon. Stenting was then done with 3.5 | | x 16 mm Taxus Liberte stent. Projection of the vessel showed excellent | | result. The patient tolerated the procedure well and there were no | | immediate complications. | | | | CONCLUSION AND RECOMMENDATIONS | | 1. Threatened acute myocardial infarction. | | 2. Three-vessel coronary artery disease. | | 3. Status post stenting of left anterior descending artery. | | 4. The patient will need periodic stress test to follow on his | | circumflex and posterior descending artery lesions. | | | | | | | | Read by | | JUAN FERREIRA MD 05/06/2009 07:44 A | | Electronically Signed by | | JUAN FERREIRA MD 05/10/2009 10:58 A | | | | A | | A | | GINA/mario/[id number]/ | | cc: JUAN FERREIRA MD | + + CV CARDIAC PROCEDURE (05/05/2009 4:43 PM PST) + + | Specimen | + + | | + + + + + | Narrative | Performed At | + + + | [id number] | | | Page 1 CARDIOLOGY | | | INT [id number]/ | | | [facility] | | | CENTER NAME: [place] [address] | | | | | | | | | DATE OF : 1945 ORDER NUMBER: | | | [id number] EXAM DATE/TIME: 05/05/2009 03:57 P ORDERING PHYSICIAN: | | | JUAN FERREIRA ORDER DETAIL: [id number] / / HCL EXAM DESCRIPTION: CCL | | | HEART CATH LT RETRO PERC | | | | | | INDICATIONS This is a 63-year-old gentleman who presented | | | to [facility] with substernal chest discomfort of 20 | | | to 30 minutes of duration. EKG suggested mild ST elevation in the | | | anterior wall. He was heparinized and transferred to [facility] for further care. For details regarding his | | | presentation, kindly refer to my history and physical. PROCEDURES | | | 1. Left heart catheterization with left ventriculogram. 2. | | | Selective coronary angiography. 3. Percutaneous transluminal coronary | | | angioplasty of mid left anterior descending with 3.0 x 12 mm | | | Rialto balloon. 4. Stenting of mid left anterior descending with 3.5 x | | | 16 mm Taxus Liberte stent. ESTIMATED BLOOD LOSS Less than 50 | | | mL. DESCRIPTION OF PROCEDURE The patient was brought to the | | | catheterization lab in the fasting state and was prepped and draped | | | in the usual sterile fashion. Arterial access was obtained via right | | | femoral artery and a 6-Singaporean arterial sheath was placed. A 6-Singaporean | | | JL4 catheter was then advanced under fluoroscopic guidance and | | | engaged with the ostium of the left main coronary artery, and | | | multiple projections of the left coronary system were obtained with | | | the use of contrast injections. The catheter was then exchanged to a | | | 6-Singaporean JR4 catheter, which was advanced under fluoroscopic guidance | | | and engaged with the ostium of the right coronary artery, and | | | multiple projections of the right coronary artery were obtained with | | | the use of contrast injections. The catheter was then exchanged to a | | | 6-Singaporean pigtail catheter which was advanced into the left ventricle, | | | and projections of left ventricular function in the MCGUIRE view were | | | done with contrast injections. All equipment was then removed. | | | FINDINGS HEMODYNAMICS Pressures: Aortic pressure 141/82 with a | | | mean of 110. LV 128/17. Gradient: There was no gradient between the | | | LV and aorta. CORONARY ANGIOGRAPHY The coronary system was right | | | dominant. 1. The left main bifurcated into the LAD and left | | | circumflex. Left main was free of disease. 2. Left anterior | | | descending artery was moderately calcified. Proximally there is a | | | moderate lesion estimated to be around 30%. However, in the mid | | | vessel right at the bifurcation of the first diagonal branch | | | there is severe subtotal occlusion of the left anterior descending | | | artery estimated to be around 99%. The rest of the vessel was free | | | of significant disease, although was mildly and diffusely | | | diseased. The diagonal branch was a relatively small vessel with | | | the ostium lesion estimated to be around 40% to 50%. 3. Left | | | circumflex coronary artery has minimal atherosclerosis; however, | | | there is a second marginal branch which has 60% to 70% tandem | | | lesions. 4. The right coronary artery was co-dominant vessel. The PDA | | | has a 60% mid stenosis. The DALE arises from the co-dominant | | | circumflex. LEFT VENTRICULOGRAM The left ventriculogram in MCGUIRE | | | view showed hypokinetic apex, ejection fraction estimated to be | | | around 50%. DESCRIPTION OF INTERVENTIONAL TECHNIQUE The patient | | | presents with threatened acute anterior IL and, although he did have | | | MAMIE-3 flow at the time of presentation at [facility] | | | Center, he had an unstable-looking lesion in the mid LAD. Therefore, | | | coronary intervention was recommended. JL4 guider catheter was | | | advanced and engaged with the ostium of the left main and extra dose | | | of heparin and 2 doses of Integrilin were given. The BMW guidewire was | | | then threaded into the LAD and placed distally, followed by | | | angioplasty of the lesion with 3.0 x 12 mm balloon. Stenting was then | | | done with 3.5 x 16 mm Taxus Liberte stent. Projection of the vessel | | | showed excellent result. The patient tolerated the procedure well and | | | there were no immediate complications. CONCLUSION AND | | | RECOMMENDATIONS 1. Threatened acute myocardial infarction. 2. | | | Three-vessel coronary artery disease. 3. Status post stenting of left | | | anterior descending artery. 4. The patient will need periodic stress | | | test to follow on his circumflex and posterior descending artery | | | lesions. Read by JUAN FERREIRA MD 05/06/2009 07:44 A | | | Electronically Signed by JUAN FERREIRA MD 05/10/2009 10:58 A DD: | | | 05/06/2009 07:44 A A GINA/mario/[id number]/ cc: | | | MD SAVANNAH VACA MD | | + + + + + | Procedure Note | + + | Matthew Cano - 01/24/2019 9:58 PM PDT | | [id number] Page 1 | | CARDIOLOGY INT [id number]/ | | I/P | | [facility] NAME: GIOVANNI YEBOAH John | | [place] [address] | | | | DATE OF : 1945 | | | | ORDER NUMBER: [id number] | | EXAM DATE/TIME: 05/05/2009 03:57 P | | ORDERING PHYSICIAN: JUAN FERREIRA | | ORDER DETAIL: [id number] / / HCL | | EXAM DESCRIPTION: CCL HEART CATH LT RETRO PERC | | | | INDICATIONS | | This is a 63-year-old gentleman who presented to [place] | | [facility] with substernal chest discomfort of 20 to 30 minutes of | | duration. EKG suggested mild ST elevation in the anterior wall. He was | | heparinized and transferred to [facility] for | | further care. For details regarding his presentation, kindly refer to my | | history and physical. | | | | PROCEDURES | | 1. Left heart catheterization with left ventriculogram. | | 2. Selective coronary angiography. | | 3. Percutaneous transluminal coronary angioplasty of mid left anterior | | descending with 3.0 x 12 mm Rialto balloon. | | 4. Stenting of mid left anterior descending with 3.5 x 16 mm Taxus | | Liberte stent. | | | | ESTIMATED BLOOD LOSS | | Less than 50 mL. | | | | DESCRIPTION OF PROCEDURE | | The patient was brought to the catheterization lab in the fasting state | | and was prepped and draped in the usual sterile fashion. Arterial access | | was obtained via right femoral artery and a 6-Singaporean arterial sheath was | | placed. A 6-Singaporean JL4 catheter was then advanced under fluoroscopic | | guidance and engaged with the ostium of the left main coronary artery, | | and multiple projections of the left coronary system were obtained with | | the use of contrast injections. The catheter was then exchanged to a | | 6-Singaporean JR4 catheter, which was advanced under fluoroscopic guidance | | and engaged with the ostium of the right coronary artery, and multiple | | projections of the right coronary artery were obtained with the use of | | contrast injections. The catheter was then exchanged to a 6-Singaporean | | pigtail catheter which was advanced into the left ventricle, and | | projections of left ventricular function in the MCGUIRE view were done with | | contrast injections. All equipment was then removed. | | | | FINDINGS | | | | HEMODYNAMICS | | Pressures: Aortic pressure 141/82 with a mean of 110. LV 128/17. | | Gradient: There was no gradient between the LV and aorta. | | | | CORONARY ANGIOGRAPHY | | The coronary system was right dominant. | | 1. The left main bifurcated into the LAD and left circumflex. Left main | | was free of disease. | | 2. Left anterior descending artery was moderately calcified. Proximally | | there is a moderate lesion estimated to be around 30%. However, in | | the mid vessel right at the bifurcation of the first diagonal branch | | there is severe subtotal occlusion of the left anterior descending | | artery estimated to be around 99%. The rest of the vessel was free of | | significant disease, although was mildly and diffusely diseased. The | | diagonal branch was a relatively small vessel with the ostium lesion | | estimated to be around 40% to 50%. | | 3. Left circumflex coronary artery has minimal atherosclerosis; however, | | there is a second marginal branch which has 60% to 70% tandem | | lesions. | | 4. The right coronary artery was co-dominant vessel. The PDA has a 60% | | mid stenosis. The DALE arises from the co-dominant circumflex. | | | | LEFT VENTRICULOGRAM | | The left ventriculogram in MCGUIRE view showed hypokinetic apex, ejection | | fraction estimated to be around 50%. | | | | DESCRIPTION OF INTERVENTIONAL TECHNIQUE | | The patient presents with threatened acute anterior IL and, although he | | did have MAMIE-3 flow at the time of presentation at [facility] | [facility], he had an unstable-looking lesion in the mid LAD. | | Therefore, coronary intervention was recommended. JL4 guider catheter | | was advanced and engaged with the ostium of the left main and extra dose | | of heparin and 2 doses of Integrilin were given. The BMW guidewire was | | then threaded into the LAD and placed distally, followed by angioplasty | | of the lesion with 3.0 x 12 mm balloon. Stenting was then done with 3.5 | | x 16 mm Taxus Liberte stent. Projection of the vessel showed excellent | | result. The patient tolerated the procedure well and there were no | | immediate complications. | | | | CONCLUSION AND RECOMMENDATIONS | | 1. Threatened acute myocardial infarction. | | 2. Three-vessel coronary artery disease. | | 3. Status post stenting of left anterior descending artery. | | 4. The patient will need periodic stress test to follow on his | | circumflex and posterior descending artery lesions. | | | | | | | | Read by | | JUAN FERREIRA MD 05/06/2009 07:44 A | | Electronically Signed by | | JUAN FERREIRA MD 05/10/2009 10:58 A | | | | A | | A | | GINA/mario/[id number]/ | | cc: JUAN FERREIRA MD | | SAVANNAH TILLMAN MD | + + documented in this encounter Visit Diagnoses + + | Diagnosis | + + | Acute myocardial infarction, unspecified site, episode of care unspecified | + + documented in this encounter"
--- OUTSIDE RECORDS SUMMARY | ~2019-12-10 | XMS | Encounter Summary ---
Demographics + + + | Address | [address] | | | [place] [address] | + + + | Home Phone | | + + + | Preferred Language | Unknown | + + + | Marital Status | | + + + | Uatsdin Affiliation | 1041 | + + + | Race | Unknown | + + + | Ethnic Group | Unknown | + + + Author + + + | Author | [facility] | | | and [place] | + + + | Organization | [facility] | | [...] + | Sangeetha Yebo[address] | ECON | [address] | | | | | [place] | | | | | [address] | | + + + + + Care Team Providers + +------+ + | Care Wheel Mill Operator Name | Role | Phone | + +------+ + | No, Physician | PCP | Unavailable | + +------+ + Encounter Details +--------+ + + + + | Date | Type | Department | Care Team | Description | +--------+ + + + + | 12/29/ | Orders Only | [facility] | Provider, | | | 2018 | | [facility] GENER[facility] OP | [address] | | | | | CONVERSION [address] | [address] [place] | | | | | [address] [place], [place] | [place] [address] | | | | | [address] | | | | | | [phone] | | | +--------+ + + + [...] [address] | | | | | | [place] [address] | | | | | | [phone] | | | | | | | | +--------+---------+ + + + documented as of this encounter Visit Diagnoses Not on filedocumented in this encounter"
--- OUTSIDE RECORDS SUMMARY | ~2019-12-10 | XMS | Encounter Summary ---
Demographics + + + | Address | [address] | | | [place] [address] | + + + | Home Phone | | + + + | Preferred Language | Unknown | + + + | Marital Status | | + + + | Yarsanism Affiliation | 1041 | + + + | Race | Unknown | + + + | Ethnic Group | Unknown | + + + Author + + + | Author | [facility] | | | and [place] | + + + | Organization | [facility] | | | [...] + | Sangeetha Yeboah | ECON | [address] | | | | | [place] | | | | | [address] | | + + + + + Care Team Providers + +------+ + | Care Manager Gallery Name | Role | Phone | + +------+ + | No, Physician | PCP | Unavailable | + +------+ + Reason for Visit + +--------+ + | Reason | Onset | Comments | | | Date | | + +--------+ + | Medication Refill | 02/08/ | | | | 2019 | | + +--------+ + Encounter Details +--------+--------+ + + + | Date | Type | Department | Care Team | Description | +--------+--------+ + + + | 02/08/ | Refill | [facility] | Sarah, | Medication Refill | | 2019 | | CARDIOLOGY FARNER | [address] | | | | | [address] | [facility] | | | | | [place], [place] | [place], [place] | | | | | [address] | [address] | | | | | [phone] | | | +--------+--------+ + + + [...] | | | | | [place] [address] | | | | | | [phone] | | | | | | | | +--------+---------+ + + + documented as of this encounter Visit Diagnoses Not on filedocumented in this encounter"
--- OUTSIDE RECORDS SUMMARY | ~2019-12-10 | XMS | Encounter Summary ---
Demographics + + + | Address | [address] | | | [place] [address] | + + + | Home Phone | | + + + | Preferred Language | Unknown | + + + | Marital Status | | + + + | Tenriism Affiliation | 1041 | + + + [...] + | Sangeetha Yeboah | ECON | [address] | | | | | [place] | | | | | [address] | | + + + + + Care Team Providers + +------+ + | Care Tandem Mill Roller Name | Role | Phone | + +------+ + PCP | Unavailable | + +------+ + Encounter Details +--------+ + + + + | Date | Type | Department | Care Team | Description | +--------+ + + + + | 04/20/ | Hospital | [facility] | | | | 1999 | Encounter | MED CTR EMERGENCY | | | | | | CENTER [address] | | | | | | [place] | | | | | | [address] | | | | | | [phone] | | | +--------+ + + + [...] | 2020 | Visit | | [address] | | | | | | [facility] [address] | | | | | | [phone] | | | | | | | | +--------+---------+ + + + documented as of this encounter Visit Diagnoses Not on filedocumented in this encounter"
--- OUTSIDE RECORDS SUMMARY | ~2019-12-10 | XMS | Encounter Summary ---
Demographics + + + | Address | [address] | | | [place] [address] | + + + | Home Phone | | + + + | Preferred Language | Unknown | + + + | Marital Status | | + + + | Mandaen Affiliation | 1041 | + + + | Race | Unknown | + + + | Ethnic Group | Unknown | + + + Author + + + | Author | [facility] | | | and [place] | + + + | Organization | [facility] | | | [...] + | Sangeetha Y[place] | ECON | [address] | | | | | [place] | | | | | [address] | | + + + + + Care Team Providers + +------+ + | Care Hotbed Transfer Operator Name | Role | Phone | [...] | | | [address] [place] | [place] [address] | | | | | [place] [address] | | | | | | [phone] | | | +--------+ + + + [...] [address] | | | | | | [place] [address] | | | | | | [phone] | | | | | | | [...]
--- OUTSIDE RECORDS SUMMARY | ~2019-12-10 | XMS | Encounter Summary ---
Demographics + + + | Address | [address] | | | [place] [address] | + + + | Home Phone | | + + + | Preferred Language | Unknown | + + + | Marital Status | | + + + | Church Affiliation | 1041 | + + + [...] + | Sangeetha Yeboah | ECON | [address] | | | | | [place] | | | | | [address] | | + + + + + Care Team Providers + +------+ + | Care Rollway Man Name | Role | Phone | + +------+ + PCP | Unavailable | + +------+ + Encounter Details +--------+ + + + + | Date | Type | Department | Care Team | Description | +--------+ + + + + | 12/01/ | Hospital | [facility] | Uli Hernandez MD | | | 2007 | Encounter | MED CTR MP INTRA OP | [address] | | | | | [address] | [place], [place] | | | | | [place], [place] | [address] | | | | | [address] | [phone] | | | | | [phone] | | | +--------+ + + + [...] [address] | | | | | | [facility] [address] | | | | | | [phone] | | | | | | | | +--------+---------+ + + + documented as of this encounter Visit Diagnoses Not on filedocumented in this encounter"
--- OUTSIDE RECORDS SUMMARY | ~2019-12-10 | XMS | Encounter Summary ---
Demographics + + + | Address | [address] | | | [place] [address] | + + + | Home Phone | | + + + | Preferred Language | Unknown | + + + | Marital Status | | + + + | Sikh Affiliation | 1041 | + + + [...] + | Sangeeth[place] | ECON | [address] | | | | | [place] | | | | | [address] | | + + + + + Care Team Providers + +------+ + | Care Janitorial Tech Name | Role | Phone | + [...] | | | | | | | [facility] | | | | | | [...] medial | | | | [address] | [place], [place] | and lateral | | | | [place], [place] | [address] | meniscectomy, | | | | [address] | [phone] | synovectomy | | | | [phone] | | | +--------+---------+ + + + [...] have a follow-up appointment already scheduled at [facility]. You will need to have your sutures removed at that visit. Please call if you have any question s. When to Seek Medical Attention Call [phone] right awayif you have: Chest pain. Shortness [...] family members, friends, co-workers, clergy members, your heavy equipment engine mechanic, Dr. Dao, Gertrude, Dr. Nuñez, sports [...] + + +---------+ + + | Beto [address] | Take 2 capsules by | [...] by: Epi Gutierrez DO, 02/19/2018 8:13 [facility] Epi Gutierrez DO at 0 02/19/2018 8:14 AM Matthew Davila PA-C - 02/17/2018 2:41 PM PDTSubjective F/u Right Knee; MRI Results [facility] History of Present Illness Giovanni is [...] images on a disk with him from [facility] and a bilateral flexion weight bearing view was obtained at [facility]. He is retired. Here to day [...] Ascorbic Acid 500 MG Oral Tablet; Therapy: (Recorded:30Jan2018) to Recorded Aspirin 81 MG TABS; Therapy: (Recorded:93Zhq2763) to Recorded Atorvastatin Calcium 80 MG Oral Tablet; Therapy: (Recorded:69Mvy0165) to Recorded Carvedilol 25 MG Oral Tablet; Therapy: (Recorded:17Apr2010) to Recorded Centrum Silver TABS; Therapy: (Recorded:67Zqb2281) to Recorded Clear Eyes for Dry Eyes SOLN; Therapy: (Recorded:54Ues3698) to Recorded Coenzyme Q-10 TABS; Therapy: (Recorded:31Jeb8291) to Recorded Eliquis 5 MG Oral Tablet; Therapy: (Recorded:01Ygd1827) to Recorded Glucosamine Chondroitin TABS; Therapy: (Recorded:93Twv0500) to Recorded Krill Oil CAPS; Therapy: (Recorded:50Uek8577) to Recorded Losartan Potassium 50 MG Oral Tablet; Therapy: (Recorded:72Okm8529) to Recorded Magnesium 500 MG Oral Tablet; Therapy: (Recorded:23Fmq5509) to Recorded PreserVision AREDS CAPS; Therapy: (Recorded:40Irg4845) to Recorded Turmeric CAPS; Therapy: (Recorded:61Dgm2627) to Recorded Vitamin B Complex CAPS; Therapy: (Recorded:55Hpc4760) to Recorded Vitamin D3 2000 UNIT Oral Tablet; Therapy: (Recorded:95Fhv4807) to Recorded Allergies No Known Drug Allergies [...] NEURO: Intact without lateralizing deficits. Results/Data Results 10Feb2018 10:08AM MR - hip or knee or ankle w/o 26091 MR - Lower joint; hip or knee or ankle without: RADIOLOGY REPORT DATE OF EXAM: 02/10/2018 PATIENT NAME: GIOVANNI YEBOAH DATE OF : 1945 MR#: [id number] ORDERING PHYSICIAN: Epi Gutierrez CLINICAL INDICATION: Pain. [...] image 24. Lateral compartment: Intact articular cartilage. [facility] [address] [facility] [place] [address] PH: 1 Other findings: None. IMPRESSION: Tear [...] BY DELFINO MARTINEZ MD 02/10/2018 05:44 PM [facility] [address] [place] [place] [address] PH: 2 10Feb2018 09:12AM X-ray - Sinuses tobar view 30237 X-ray - Sinuses-partial (tobar): CLINICAL DATA: Encounter for screening for other disorde r EXAMINATION: TOBAR VW OF SINUSES TECHNIQUE: Leti' view of the sinuses was performed. COMPARISON: None. FINDINGS: No metallic foreign bodies project over the orbits. Visualized paranasal sinuses are clear. Osseous structures are intact. IMPRESSION: Cleared for MRI. ELECTRONICALLY SIGNED BY DELFINO MARTINEZ MD 02/10/2018 09:[address] [facility] RADIOLOGY REPORT [address] [place] [address] Exam Date: 02/10/2018 09:00:00 AM Referring Physician: [...] Gutierrez DO - 02/19/2018 9:06 AM [facility] Epi Gutierrez Pt. Name/Age/: Giovanni Yeboah 72 y.o. 1945 CSN: [id number] DATE OF SURGERY: 02/19/2018 ATTENDING PHYSICIAN: Epi Gutierrez PERFORMED BY: Epi Gutierrez DO CRA OFFICER: Matthew Castorena PA-C PREOPERATIVE DIAGNOSIS: right knee [...] Signed by: Epi Gutierrez, 02/19/2018 9:06 [facility] documented in this encounter Plan of Treatment +--------+---------+ + + + | Date | Type | Specialty | Care Team | Description | +--------+---------+ + + + | 01/09/ Office | Cardiology | Juan Merritt MD | | | 2020 | Visit | | [address] | | | | | | [place] [address] | | | | | | [phone] | | | | | | | [...] | | | | JULIO ULLOA MD ([id number]) | | | | | | on [...] | | | | | mg/dL | [facility] | | | | | | MEDICAL | | | | | | CENTER - | | | | | | LABORATORY | | + + + + + + | eGFR if not | >60Comment: GLOMERULAR | >=60 | [facility] | | | | FILTRATION | mL/min/1.73m2 | [facility] | | | [place] | RATE,ESTIMATED | | MEDICAL | | | | mL/min/1.72e2Fand than | | CENTER - | | [...] + | [address] | [address] | [place] | [phone] | | [facility] | | [address] | | | - LABORATORY | | [...] | | | Cells | | | [facility] | | | | | | MEDICAL | | | | | | CENTER - | | | | | | LABORATORY | | + +-------+ + + + | Red Blood | 4.51 | 4.30 - 5.70 | [facility] | | | Cells | | M/uL | [facility] | | | | | [...] | Neutrophils | | K/uL | [facility] | [...] [address] | [place] | [phone] | | [facility] | | [address] | | | - LABORATORY | | [...] 8:51 | | | | | Starting [facility] 02/19/18 at 0851, | | [...] glucose < 50, | | | Starting [facility] 02/19/18 at 0745, | | [...]
--- OUTSIDE RECORDS SUMMARY | ~2019-12-10 | XMS | Encounter Summary ---
Demographics + + + | Address | [address] | | | [place] [address] | + + + | Home Phone | | + + + | Preferred Language | Unknown | + + + | Marital Status | | + + + | Temple Affiliation | 1041 | + + + | Race | Unknown | + + + | Ethnic Group | Unknown | + + + Author + + + | Author | [facility] | | | and [place] | + + + | Organization | [facility] | | | [...] + | Sangeetha [place] | ECON | [address] | | | | | [place] | | | | | [address] | | + + + + + Care Team Providers + +------+ + | Care Infection Control Manager Name | Role | Phone | + +------+ + | No, Physician | PCP | Unavailable | + +------+ + Encounter Details +--------+ + + + + | Date | Type | Department | Care Team | Description | +--------+ + + + + | 11/23/ | Orders Only | [facility] | Juan Merritt MD | | | 2019 | | CARDIOLOGY WH[place]ER | [address] | | | | | [address] | [place] [address] | | | | | [address] | [phone] | | | | | [place], [place] | | | | | | [address] | | | | | | [phone] | | | +--------+ + + + [...] | 2019 | Visit | | [address] | | | | | | [place] [address] | | | | | | [phone] | | | | | | | | +--------+---------+ + + + documented as of this encounter Procedures + +--------+ + + + | Procedure Name | Priori | Date/Time | Associated Diagnosis | Comments | | | ty | | | | + +--------+ + + + | NM MYOCARDIAL | Routin | 11/23/2018 | | Results for this | | PERFUSION MULT SPECT | e | 11:39 AM | | procedure are in the | | | | PDT | | results section. | + +--------+ + + + documented in this encounter Results NM Myocardial Perfusion Mult SPECT (11/23/2018 11:39 AM PDT) + + | Specimen | + + | | + + + + + | Impressions | Performed At | + + + | Overall this is a low-risk stress test.. Juan Merritt MD, | | | [facility] | | + + + + + + | Narrative | Performed At | + + + | [facility] [address], [place], [place] | | | [phone] NUCLEAR TREADMILL TEST WITH LEXISCAN INTERVENTION | | | TEST DATE: 11/23/2018 NAME: Iain Yeboah : 1945 MRN: | | | [id number] ORDERING MD: Juan Merritt MD INDICATION FOR TEST: 73 | | | year old male being evaluated for coronary artery diastase, Atrial | | | Fibrillation RISK FACTORS: hyperlipidemia, hypertension, obesity | | | PROCEDURE: Wil protocol. Rest dose- 11.5 mCi of Tc-99m Cardiolite | | | given intravenously. Injected 0.4 mg of Lexiscan given intravenously | | | over 10 seconds due to failure of achieving adequate peak heart rate. | | | Stress dose- At 5:46 minutes 35.8 mCi of Tc-99m Cardiolite given | | | intravenously. Effective Dose Equivalent: 23.4 mSv. The predicted | | | exercise time was 6:00 minutes. Patient's Predicted Maximum HR: 148 | | | bpm. Patient's Predicted 85% Max HR: 126 bpm. REST DATA: HR: 103 | | | bpm BP: 120/87. Rest EKG shows irregular rhythm consistent with | | | either a typical atrial flutter or atrial tachycardia with controlled | | | ventricular rate STRESS DATA: Exercise Time: 4:51 minutes, HR | | | achieved: 129 bpm, Max BP: 126/64. RPP: 14268. METS: 7.00. Symptoms | | | none.The test was terminated due to Lexiscan intervention for fatigue, | | | Walked to 87 MPHR. Stress EKG showed tachycardia with more organized | | | regular rhythm most consistent with a typical atrial flutter versus | | | atrial tachycardia. GATED IMAGES: Stress EDV: 172 mL Stress ESV: | | | 90 mL. EJECTION FRACTION: STRESS EF: 48%. IMAGIN. The | | | quality of the study is equipped. 2. SPECT images showed no | | | perfusion defect. (SSS: 0 SRS: 0 SDS: 0 TID: 0.84). 3. Gated | | | SPECT images showed moderate decreased left ventricular systolic | | | function during exercise. Images could not be gated at rest secondary | | | to the irregular rhythm. 4. Gated SPECT images showed normal wall | | | thickening. 5. The RV function appears appears to be enlarged. 6. | | | The Anderson Treadmill Score is 5. 7. Comparison with previous Nuclear | | | stress test from 01/2011 showed that the function capacity has | | | decreased however there is no significant perfusion defect. | | + + + + + | Procedure Note | + + | Jerome, Rad Conversion - 01/21/2019 12:45 PM [facility] [id number] | | , [place], [phone] NUCLEAR TREADMILL TEST WITH LEXISCAN | | INTERVENTIONTEST DATE: 11/23/2018NAME: Margaret YeboahB: 1945MRN: [id number] | | MD: Juan Merritt MD INDICATION FOR TEST: 73 year old male being evaluated for coronary | | artery diastase, Atrial Fibrillation RISK FACTORS: hyperlipidemia, hypertension, obesity | | PROCEDURE: Wil protocol. Rest dose- 11.5 mCi of Tc-99m Cardiolite given | | intravenously. Injected 0.4 mg of Lexiscan given intravenously over 10 seconds due to | | failure of achieving adequate peak heart rate. Stress dose- At 5:46 minutes 35.8 mCi of | | Tc-99m Cardiolite given intravenously. Effective Dose Equivalent: 23.4 mSv. The | | predicted exercise time was 6:00 minutes. Patient's Predicted Maximum HR: 148 bpm. | | Patient's Predicted 85% Max HR: 126 bpm. REST DATA: HR: 103 bpm BP: 120/87. Rest EKG | | shows irregular rhythm consistent with either a typical atrial flutter or atrial | | tachycardia with controlled ventricular rate STRESS DATA: Exercise Time: 4:51 minutes, | | HR achieved: 129 bpm, Max BP: 126/64. RPP: 98115. METS: 7.00. Symptoms none.The test was | | terminated due to Lexiscan intervention for fatigue, Walked to 87 MPHR. Stress EKG | | showed tachycardia with more organized regular rhythm most consistent with a typical | | atrial flutter versus atrial tachycardia. GATED IMAGES: Stress EDV: 172 mL Stress ESV: | | 90 mL. EJECTION FRACTION: STRESS EF: 48%. IMAGIN. The quality of the study is | | equipped.2. SPECT images showed no perfusion defect. (SSS: 0 SRS: 0 SDS: 0 TID: | | 0.84).3. Gated SPECT images showed moderate decreased left ventricular systolic | | function during exercise. Images could not be gated at rest secondary to the irregular | | rhythm.4. Gated SPECT images showed normal wall thickening.5. The RV function appears | | appears to be enlarged.6. The Anderson Treadmill Score is 5.7. Comparison with previous | | Nuclear stress test from 01/2011 showed that the function capacity has decreased | | however there is no significant perfusion defect. IMPRESSION: Overall this is a | | low-risk stress test.. Juan Merritt MD, FACC | |EJECTION FRACTION: STRESS EF: 48%. | | | |IMAGING: | |1. The quality of the study is equipped. | |2. SPECT images showed no perfusion defect. (SSS: 0 SRS: 0 SDS: 0 TID: 0.84). | |3. Gated SPECT images showed moderate decreased left ventricular systolic function during exercise. Images could not be gated at rest secondary to the irregular rhythm. | |4. Gated SPECT images showed normal wall thickening. | |5. The RV function appears appears to be enlarged. | |6. The Anderson Treadmill Score is 5. | |7. Comparison with previous Nuclear stress test from 01/2011 showed that the function guru rodriguez has decreased however there is no significant perfusion defect. | | | | | |IMPRESSION: | |Overall this is a low-risk stress test.. | | | | | |Juan Merritt MD, [facility] | | | | | + + documented in this encounter Visit Diagnoses Not on filedocumented in this encounter"
--- OUTSIDE RECORDS SUMMARY | ~2019-12-10 | XMS | Encounter Summary ---
Demographics + + + | Address | [address] | | | [place] [address] | + + + | Home Phone | | + + + | Preferred Language | Unknown | + + + | Marital Status | | + + + | Anglican Affiliation | 1041 | + + + | Race | Unknown | + + + | Ethnic Group | Unknown | + + + Author + + + | Author | [facility] | | | and [place] | + + + | Organization | [facility] | | | [...] + | S[place]eth[place] | ECON | [address] | | | | | [place] | | | | | [address] | | + + + + + Care Team Providers + +------+ + | Care Rural Route Carrier Name | Role | Phone | + +------+ + PCP | Unavailable | + +------+ + Encounter Details +--------+ + + + + | Date | Type | Department | Care Team | Description | +--------+ + + + + | 11/30/ | Hospital | [facility] | Ju Nguyen | | | 2007 | Encounter | MED CTR EMERGENCY | MD [address] | | | | | [place] [address] | [facility], | | | | | [place], [place] | [place] [address] | | | | | [address] | [phone] | | | | | [phone] | | | +--------+ + + + [...] [address] | | | | | | [place] [address] | | | | | | [phone] | | | | | | | | +--------+---------+ + + + documented as of this encounter Visit Diagnoses Not on filedocumented in this encounter"
--- OUTSIDE RECORDS SUMMARY | ~2019-12-10 | XMS | Encounter Summary ---
Demographics + + + | Address | [address] | | | [place] [address] | + + + | Home Phone | | + + + | Preferred Language | Unknown | + + + | Marital Status | | + + + | Gnosticism Affiliation | 1041 | + + + | Race | Unknown | + + + | Ethnic Group | Unknown | + + + Author + + + | Author | [facility] | | | and [place] | + + + | Organization | [facility] | | [...] + | Sangeetha Y[place]oah | ECON | [address] | | | | | [place] | | | | | [address] | | + + + + + Care Team Providers + +------+ + | Care Compressor Station Operator Name | Role | Phone | + +------+ + PCP | Unavailable | + +------+ + Encounter Details +--------+ + + + + | Date | Type | Department | Care Team | Description | +--------+ + + + + | 12/16/ | Hospital | [facility] | | | | 2008 | Encounter | MED CTR XRAY [address] | | | | | | [address] [place] | | | | | | [place] [address] | | | | | | [phone] | | | +--------+ + + + [...] [address] | | | | | | [place] [address] | | | | | | [phone] | | | | | | | | +--------+---------+ + + + documented as of this encounter Visit Diagnoses Not on filedocumented in this encounter"
[~2019-12-10 00:15] MED LIST changes: +SOTALOL AF120 MG PO
--- OUTSIDE RECORDS SUMMARY | 2019-12-10 00:18 | XMS ---
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 Norma has no Care Guidelines for this patient. William VISIT COUNT (12 MO.) [facility] TOTAL 2 NOTE: Visits indicate total known visits. ED/[facility] VISIT TRACKING (12 MO.) 12/10/2019 00:16 [facility] [place] TYPE: Emergency COMPLAINT: - RAPID HEART RATE 12/07/2019 23:00 [facility] [place] TYPE: Emergency COMPLAINT: - HIGH BP/ELEVATED HR INPATIENT VISIT TRACKING (12 MO.) No inpatient visits to display in this time frame [email or web address]
--- NOTE | 2019-12-11 09:12 | EKG ---
[facility] [address] [facility] [place] [address] Signed Atrial fibrillation with occasional premature ventricular complexes Nonspecific ST abnormality Abnormal ECG When compared with ECG of 07-DEC-2019 23:43, Sinus rhythm has replaced Atrial flutter Nonspecific T wave abnormality now evident in Inferior leads Confirmed by ALEISHA ALEXANDER MD ([id number]) on 12/11/2019 9:12:32 AM Electronically Signed By: ALEISHA ALEXANDER MD 12/11/19911 PATIENT NAME: NUVIAGIOVANNI AARON Electrocardiogram DATE OF : [birth year] PHYSICIAN: ALEISHA ALEXANDER MD REPORT #: [id number] REPORT IS CONFIDENTIAL AND NOT TO BE RELEASED WITHOUT AUTHORIZATION
== END 2019-12-10 03:07 | disposition short-term general hospital (02) ==
LOC: ED 00:15
DX: I48.92 Unspecified atrial flutter (principal); I10 Essential (primary) hypertension; E78.00 Pure hypercholesterolemia, unspecified; Z88.8 Allergy status to other drugs, medicaments and biological substances; Z79.899 Other long term (current) drug therapy
CPT/HCPCS: 71045; 80053; 83735; 84484; 85025; 85610; 93005; 93010; 96360; 99285-25; J7030

== ENCOUNTER 2019-12-13 12:35 | Emergency (ER) | payer MEDICARE, OTHER ==
[~2019-12-13] VITALS: Ht 180.3 cm; Wt 115.7 kg
--- OUTSIDE RECORDS SUMMARY | ~2019-12-13 | XMS | Encounter Summary ---
Demographics + + + | Address | [address] | | | [place] [address] | + + + | Home Phone | | + + + | Preferred Language | Unknown | + + + | Marital Status | | + + + | Restoration Affiliation | 1041 | + + + | Race | Unknown | + + + | Ethnic Group | Unknown | + + + Author + + + | Author | [facility] | | | and [place] | + + + | Organization | [facility] | | | and [...] + | Sangeeth[place] | ECON | [address] | | | | | [place] | | | | | [address] | | + + + + + Care Team Providers + +------+ + | Care Epoxy Coatings Installer Name | Role | Phone | + +------+ + PCP | Unavailable | + +------+ + Encounter Details +--------+ + + + + | Date | Type | Department | Care Team | Description | +--------+ + + + + | 02/16/ | Imaging | [facility] | Provider, | | | 2018 | Exam | [facility] | MD [address] | | | | | IMAGING [address] | [address]ie [address]reira. [place] | | | | | [address] | [place] [address] | | | | | [place] [address] | | | | | | [phone] | | | +--------+ + + + [...] as of this encounter Plan of Treatment +--------+ + + + + | Date | Type | Specialty | Care Team | Description | +--------+ + + + + | 12/15/ | Clinical | Cardiology | | | | 2019 | Support | | | | +--------+ + + + + | 01/09/ | Office | Cardiology | Juan Merritt MD | | | 2019 | Visit | | [address] | | | | | | [place] [address] | | | | | | [phone] | | | | | | | | +--------+ + + + + documented as of this encounter Procedures + +--------+ + + + | Procedure Name | Priori | Date/Time | Associated Diagnosis | Comments | | | ty | | | | + +--------+ + + + | XR SINUSES < 3 VW | Routin | 02/10/2018 | | Results for this | | | e | 9:05 AM | | procedure are in the | | | | PDT | | results section. | + +--------+ + + + documented in this encounter Results XR Sinuses < 3 Vw (02/10/2018 9:05 AM PDT) + + | Specimen | + + | | + + + + + | Narrative | Performed At | + + + | External films for comparison only | [facility] | | | | | No results will be in the chart. | | + + + + +---------+ + + | Performing | Address | City/State/Zipcode | Phone Number | | Organization | | | | + +---------+ + + | [facility] | | | | + +---------+ + + documented in this encounter Visit Diagnoses Not on filedocumented in this encounter"
--- OUTSIDE RECORDS SUMMARY | ~2019-12-13 | XMS | Encounter Summary ---
Demographics + + + | Address | [address] | | | [place] [address] | + + + | Home Phone | | + + + | Preferred Language | Unknown | + + + | Marital Status | | + + + | Cheondoism Affiliation | 1041 | + + + | Race | Unknown | + + + | Ethnic Group | Unknown | + + + Author + + + | Author | [facility] | | | and [place] | + + + | Organization | [facility] | | | and [...] + | [place] | ECON | [address] | | | | | [place] | | | | | [address] | | + + + + + Care Team Providers + +------+ + | Care Technology Support Analyst Name | Role | Phone | + +------+ + | No, Physician | PCP | Unavailable | + +------+ + Encounter Details +--------+ + + + + | Date | Type | Department | Care Team | Description | +--------+ + + + + | 12/31/ | Orders Only | [facility] | Juan Merritt MD | | | 2016 | | CARDIOLOGY [place] | [address] | | | | | ECHO [address] | [place] [address] | | | | | [place], [place] | [phone] | | | | | [address] | | | | | | [phone] | | | +--------+ + + + [...] Clinical | Cardiology | | | | 2020 | Support | | | | +--------+ + + + + | 01/09/ | Office | Cardiology | Juan Merritt MD | | | 2019 | Visit | | [address] | | | | | | [place] [address] | | | | | | [phone] | | | | | | | | +--------+ + + + + documented as of this encounter Procedures + +--------+ + + + | Procedure Name | Priori | Date/Time | Associated Diagnosis | Comments | | | ty | | | | + +--------+ + + + | ECHO COMPLETE W | Routin | 12/31/2016 | | Results for this | | CONTRAST | e | 3:49 PM | | procedure are in the | | | | PDT | | results section. | + +--------+ + + + documented in this encounter Results ECHO Complete w Contrast (12/31/2016 3:49 PM PDT) + + | Specimen | + + | | + + + + + | Impressions | Performed At | + + + | 1. Atrial fibrillation. 2. This was a technically difficult study | | | with suboptimal apical views. 3. Overall left ventricular systolic | | | function is low-normal with, an EF between 50 - 55 %. | | + + + + + + | Narrative | Performed At | + + + | Patient Name: GIOVANNI YEBOAH Date of : 1945 | | | Performing Physician: Juan Merritt MD | | | | | | INDICATIONS CAD S/P STENTS LAD, LT CIRC, PERSISTENT AFIB | | | CONCLUSIONS 1. Atrial fibrillation. 2. This was a | | | technically difficult study with suboptimal apical views. 3. Overall | | | left ventricular systolic function is low-normal with, an EF between | | | 50 - 55 %. FINDINGS -------- ECG rhythm: Atrial fibrillation. | | | Study: A 2-dimensional transthoracic echocardiogram with m-mode, | | | spectral and color flow Doppler was perfomed. Study: Definity | | | contrast agent was used to better delineate the left ventricular wall | | | segments. Study: This was a technically difficult study with | | | suboptimal apical views. Left Ventricle: Overall left ventricular | | | systolic function is low-normal with, an EF between 50 - 55 %. Left | | | Ventricle: The left ventricle cavity size is normal. Left Ventricle: | | | Left ventricular wall thickness is normal. Right Ventricle: The RV | | | was not well visualized. Left Atrium: The left atrium is mildly | | | enlarged. Right Atrium: The right atrium is mildly enlarged. Aortic | | | Valve: Aortic valve is trileaflet and is mildly thickened. Aortic | | | Valve: There is no evidence of aortic regurgitation. Aortic Valve: | | | There is no evidence of aortic stenosis. Mitral Valve: Mild mitral | | | regurgitation is present. Mitral Valve: Mild mitral annular | | | calcification present. Tricuspid Valve: The tricuspid valve was not | | | well visualized. Tricuspid Valve: Mild tricuspid regurgitation | | | present. Tricuspid Valve: The right ventricular systolic pressure | | | (pulmonary artery systolic pressure), as measured by Doppler, is | | | 41.63mmHg. Pulmonic Valve: Pulmonic valve appears structurally | | | normal. Pulmonic Valve: Trace pulmonic regurgitation. Pericardium: | | | There is no pericardial effusion. IVC/Hepatic Veins: The inferior | | | vena cava is normal in size and collapses > 50 % with sniff, | | | indicating normal central venous pressures. Aorta: The aortic root, | | | ascending aorta and aortic arch are normal. Contrast: Poor | | | visualization. Definity was used to opacify the left ventricular | | | chamber and improve delineation of the endocardial border. | | | MEASUREMENTS Ao sinus: 3.72 cm IVC: 1.65 cm LA | | | Diam: 3.74 cm EDV(Teich): 172.26 ml IVSd: 0.82 cm LVIDd: | | | 5.88 cm LVPWd: 1.00 cm LVOT Area: 4.19 cm2 LVOT Diam: | | | 2.31 cm %FS: 25.04 % EF(Teich): 48.77 % ESV(Teich): 88.24 | | | ml LVIDs: 4.41 cm SV(Teich): 84.01 ml LVEF MOD A2C: 48.45 | | | % SV MOD A2C: 54.68 ml LVEF MOD A4C: 49.49 % SV MOD A4C: | | | 90.15 ml EF Biplane: 49.96 % LVEDV MOD BP: 150.16 ml LVESV | | | MOD BP: 75.12 ml LVEDV MOD A2C: 112.87 ml LVLd A2C: 8.50 cm | | | LVEDV MOD A4C: 182.13 ml LVLd A4C: 9.42 cm LVESV MOD A2C: | | | 58.18 ml LVLs A2C: 7.71 cm LVESV MOD A4C: 91.98 ml LVLs A4C: | | | 8.23 cm LAAs A4C: 18.19 cm2 LAESV A-L A4C: 51.45 ml LALs | | | A4C: 5.45 cm RAAs: 23.11 cm2 RAESV A-L: 78.41 ml RAESV | | | MOD: 74.17 ml RALs: 5.78 cm TAPSE: 2.00 cm AV maxPG: | | | 7.79 mmHg AV meanP.35 mmHg AV Vmax: 1.39 m/s AV Vmean: | | | 0.97 m/s AV VTI: 28.91 cm CAMILLE Vmax: 3.29 cm2 CAMILLE (VTI): | | | 3.50 cm2 AVAI (Vmax): 0.00 cm2/m2 AVAI (VTI): 0.00 cm2/m2 | | | LVOT maxP.80 mmHg LVOT meanP.29 mmHg LVSI Dopp: | | | 41.08 ml/m2 LVSV Dopp: 101.47 ml LVOT Vmax: 1.09 m/s LVOT | | | Vmean: 0.88 m/s LVOT VTI: 24.20 cm MV E Terrell: 1.01 m/s MV | | | DecT: 203.89 ms Septal e': 0.06 m/s Septal E/e': 16.38 | | | Lateral e': 0.09 m/s Lateral E/e': 10.86 PV maxP.85 | | | mmHg PV Vmax: 0.84 m/s RAP: 5 mmHg RVSP: 41.63 mmHg TR | | | maxP.63 mmHg TR Vmax: 3.02 m/s Investor Relations Associate: MORE | | | Authenticated by: Juan Merritt MD Report Date/Time: 12-31-2016 | | | 20:10:08 | | + + + + + | Procedure Note | + + | Matthew Cano Conversion - 01/21/2019 5:59 PM PDT Patient Name: Viviana YEBOAH of | | : 1945 Performing Physician: Juan Merritt | | INDICATIONS C | | AD S/P STENTS LAD, LT CIRC, PERSISTENT AFIB CONCLUSIONS 1. Atrial | | fibrillation.2. This was a technically difficult study with suboptimal apical views.3. | | Overall left ventricular systolic function is low-normal with, an EF between 50 - 55 %. | | FINDINGS--------ECG rhythm: Atrial fibrillation.Study: A 2-dimensional transthoracic | | echocardiogram with m-mode, spectral and color flow Doppler was perfomed.Study: Definity | | contrast agent was used to better delineate the left ventricular wall segments.Study: | | This was a technically difficult study with suboptimal apical views.Left Ventricle: | | Overall left ventricular systolic function is low-normal with, an EF between 50 - 55 | | %.Left Ventricle: The left ventricle cavity size is normal.Left Ventricle: Left | | ventricular wall thickness is normal.Right Ventricle: The RV was not well | | visualized.Left Atrium: The left atrium is mildly enlarged.Right Atrium: The right | | atrium is mildly enlarged.Aortic Valve: Aortic valve is trileaflet and is mildly | | thickened.Aortic Valve: There is no evidence of aortic regurgitation.Aortic Valve: There | | is no evidence of aortic stenosis.Mitral Valve: Mild mitral regurgitation is | | present.Mitral Valve: Mild mitral annular calcification present.Tricuspid Valve: The | | tricuspid valve was not well visualized.Tricuspid Valve: Mild tricuspid regurgitation | | present.Tricuspid Valve: The right ventricular systolic pressure (pulmonary artery | | systolic pressure), as measured by Doppler, is 41.63mmHg.Pulmonic Valve: Pulmonic valve | | appears structurally normal.Pulmonic Valve: Trace pulmonic regurgitation.Pericardium: | | There is no pericardial effusion.IVC/Hepatic Veins: The inferior vena cava is normal in | | size and collapses > 50 % with sniff, indicating normal central venous pressures.Aorta: | | The aortic root, ascending aorta and aortic arch are normal.Contrast: Poor | | visualization. Definity was used to opacify the left ventricular chamber and improve | | delineation of the endocardial border. MEASUREMENTS Ao sinus: 3.72 cmIVC: | | 1.65 cmLA Diam: 3.74 cmEDV(Teich): 172.26 mlIVSd: 0.82 cmLVIDd: 5.88 cmLVPWd: | | 1.00 cmLVOT Area: 4.19 [id number] Diam: 2.31 cm%FS: 25.04 %EF(Teich): 48.77 | | %ESV(Teich): 88.24 mlLVIDs: 4.41 cmSV(Teich): 84.01 mlLVEF MOD A2C: 48.45 %SV | | MOD A2C: 54.68 mlLVEF MOD A4C: 49.49 %SV MOD A4C: 90.15 mlEF Biplane: 49.96 | | %LVEDV MOD BP: 150.16 mlLVESV MOD BP: 75.12 mlLVEDV MOD A2C: 112.87 mlLVLd A2C: | | 8.50 cmLVEDV MOD A4C: 182.13 mlLVLd A4C: 9.42 cmLVESV MOD A2C: 58.18 mlLVLs A2C: | | 7.71 cmLVESV MOD A4C: 91.98 mlLVLs A4C: 8.23 cmLAAs A4C: 18.19 [id number] A-L A4C: | | 51.45 mlLALs A4C: 5.45 cmRAAs: 23.11 [id number] A-L: 78.41 mlRAESV MOD: 74.17 | | mlRALs: 5.78 cmTAPSE: 2.00 cmAV maxP.79 mmHgAV meanP.35 mmHgAV Vmax: | | 1.39 m/Carrie Vmean: 0.97 m/Carrie VTI: 28.91 cmAVA Vmax: 3.29 cm2AVA (VTI): 3.50 | | dt2ZPVQ (Vmax): 0.00 cm2/m2AVAI (VTI): 0.00 cm2/m2LVOT maxP.80 mmHgLVOT | | meanP.29 mmHgLVSI Dopp: 41.08 ml/m2LVSV Dopp: 101.47 mlLVOT Vmax: 1.09 | | m/sLVOT Vmean: 0.88 m/sLVOT VTI: 24.20 cmMV E Terrell: 1.01 m/sMV DecT: 203.89 | | msSeptal e': 0.06 m/sSeptal E/e': 16.38Lateral e': 0.09 m/sLateral E/e': 10.86PV | | maxP.85 mmHgPV Vmax: 0.84 m/sRAP: 5 mmHgRVSP: 41.63 mmHgTR maxP.63 | | mmHgTR Vmax: 3.02 m/s Investor Relations Associate: DBSAuthenticated by: Juan VENCESeport | | Date/Time: 12-31-2016 20:10:08 IMPRESSION: 1. Atrial fibrillation.2. This was a | | technically difficult study with suboptimal apical views.3. Overall left ventricular | | systolic function is low-normal with, an EF between 50 - 55 %. | | | |Ao sinus: 3.72 cm | |IVC: 1.65 cm | |LA Diam: 3.74 cm | |EDV(Teich): 172.26 ml | |IVSd: 0.82 cm | |LVIDd: 5.88 cm | |LVPWd: 1.00 cm | |LVOT Area: 4.19 cm2 | |LVOT Diam: 2.31 cm | |%FS: 25.04 % | |EF(Teich): 48.77 % | |ESV(Teich): 88.24 ml | |LVIDs: 4.41 cm | |SV(Teich): 84.01 ml | |LVEF MOD A2C: 48.45 % | |SV MOD A2C: 54.68 ml | |LVEF MOD A4C: 49.49 % | |SV MOD A4C: 90.15 ml | |EF Biplane: 49.96 % | |LVEDV MOD BP: 150.16 ml | |LVESV MOD BP: 75.12 ml | |LVEDV MOD A2C: 112.87 ml | |LVLd A2C: 8.50 cm | |LVEDV MOD A4C: 182.13 ml | |LVLd A4C: 9.42 cm | |LVESV MOD A2C: 58.18 ml | |LVLs A2C: 7.71 cm | |LVESV MOD A4C: 91.98 ml | |LVLs A4C: 8.23 cm | |LAAs A4C: 18.19 cm2 | |LAESV A-L A4C: 51.45 ml | |LALs A4C: 5.45 cm | |RAAs: 23.11 cm2 | |RAESV A-L: 78.41 ml | |RAESV MOD: 74.17 ml | |RALs: 5.78 cm | |TAPSE: 2.00 cm | |AV maxP.79 mmHg | |AV meanP.35 mmHg | |AV Vmax: 1.39 m/s | |AV Vmean: 0.97 m/s | |AV VTI: 28.91 cm | |CAMILLE Vmax: 3.29 cm2 | |CAMILLE (VTI): 3.50 cm2 | |AVAI (Vmax): 0.00 cm2/m2 | |AVAI (VTI): 0.00 cm2/m2 | |LVOT maxP.80 mmHg | |LVOT meanP.29 mmHg | |LVSI Dopp: 41.08 ml/m2 | |LVSV Dopp: 101.47 ml | |LVOT Vmax: 1.09 m/s | |LVOT Vmean: 0.88 m/s | |LVOT VTI: 24.20 cm | |MV E Terrell: 1.01 m/s | |MV DecT: 203.89 ms | |Septal e': 0.06 m/s | |Septal E/e': 16.38 | |Lateral e': 0.09 m/s | |Lateral E/e': 10.86 | |PV maxP.85 mmHg | |PV Vmax: 0.84 m/s | |RAP: 5 mmHg | |RVSP: 41.63 mmHg | |TR maxP.63 mmHg | |TR Vmax: 3.02 m/s | | | |Investor Relations Associate: DBS | |Authenticated by: Juan Merritt MD | |Report Date/Time: 12-31-2016 20:10:08 | | | |IMPRESSION: | |1. Atrial fibrillation. | |2. This was a technically difficult study with suboptimal apical views. | |3. Overall left ventricular systolic function is low-normal with, an EF between 50 - 55 %. | + + documented in this encounter Visit Diagnoses Not on filedocumented in this encounter"
--- OUTSIDE RECORDS SUMMARY | ~2019-12-13 | XMS | Encounter Summary ---
Demographics + + + | Address | [address] | | | [place] [address] | + + + | Home Phone | | + + + | Preferred Language | Unknown | + + + | Marital Status | | + + + | Yarsani Affiliation | 1041 | + + + | Race | Unknown | + + + | Ethnic Group | Unknown | + + + Author + + + | Author | [facility] | | | and [place] | + + + | Organization | [facility] | | | [...] + | [place] | ECON | [address] | | | | | [place] | | | | | [address] | | + + + + + Care Team Providers + +------+ + | Care Assembly Repairer Name | Role | Phone | + +------+ + | No, Physician | PCP | Unavailable | + +------+ + Reason for Visit + +--------+ + | Reason | Onset | Comments | | | Date | | + +--------+ + | Symptom Management | 08/22/ | | | | 2019 | | + +--------+ + Encounter Details +--------+ + + + + | Date | Type | Department | Care Team | Description | +--------+ + + + + | 08/22/ | Telephone | [facility] | Juan Merritt MD | Symptom Management | | 2020 | | CARDIOLOGY [place] | [address] | | | | | [address] | [place] [address] | | | | | [place], [place] | [phone] | | | | | [address] | | | | | | [phone] | | | +--------+ + + + [...] Miscellaneous Notes Telephone Encounter - Gianfranco Jesus, Cnc Machinist 2Nd Shift - 08/24/2019 1:57 PM PDTPt brantley d [...] documented in this encounter Plan of Treatment +--------+ + [...] | | | | | [place] [address] | | | | | | [phone] | | | | | | | | +--------+ + + + + documented as of this encounter Visit Diagnoses Not on filedocumented in this encounter"
--- OUTSIDE RECORDS SUMMARY | ~2019-12-13 | XMS | Encounter Summary ---
Demographics + + + | Address | [address] | | | [place] [address] | + + + | Home Phone | | + + + | Preferred Language | Unknown | + + + | Marital Status | | + + + | Protestant Affiliation | 1041 | + + + | Race | Unknown | + + + | Ethnic Group | Unknown | + + + Author + + + | Author | [facility] | | | and [place] | + + + | Organization | [facility] | | | and [...] + | [place] | ECON | [address] | | | | | [place] | | | | | [address] | | + + + + + Care Team Providers + +------+ + | Care [employer] Team Member Name | Role | Phone | + +------+ + PCP | Unavailable | + +------+ + Encounter Details +--------+ + + + + | Date | Type | Department | Care Team | Description | +--------+ + + + + | 12/01/ | Hospital | [facility] | Uli Hernandez MD | | | 2007 | Encounter | [facility] | [address] | | | | | [address] | [place], [place] | | | | | [place], [place] | [address] | | | | | [address] | [phone] | | | | | [phone] | | | +--------+ + + + [...] | | | | | [place] [address] | | | | | | [phone] | | | | | | | | +--------+ + + + + documented as of this encounter Visit Diagnoses Not on filedocumented in this encounter"
--- OUTSIDE RECORDS SUMMARY | ~2019-12-13 | XMS | Encounter Summary ---
Demographics + + + | Address | [address] | | | [place] [address] | + + + | Home Phone | | + + + | Preferred Language | Unknown | + + + | Marital Status | | + + + | Protestant Affiliation | 1041 | + + + | Race | Unknown | + + + | Ethnic Group | Unknown | + + + Author + + + | Author | [facility] | | | and [place] | + + + | Organization | [facility] | | | and [place] | + + + | Address | Unknown | + + + | Phone | Unavailable | + + + Support + + + + + | Name | Relationship | Address | Phone | + + + + + | Dax Yebaoh | ECON | Unknown | | + + + + + | Sangeetha Yeboah | ECON | [address] | | | | | [place] | | | | | [address] | | + + + + + Care Team Providers + +------+ + | Care Horticulture Instructor Name | Role | Phone | + [...] | | | | | | | ME ARTHRS | | | | | | [...] +--------+--------+ + + + + Encounter Details +--------+---------+ + + + | Date | Type | Department | Care Team | Description | +--------+---------+ + + + | 02/19/ | Surgery | [facility] | Epi Gutierrez | right knee | | 2018 | | [facility] | J, DO [address] | arthrocopy, medial | | | | [address] | [address] [place], [place] | and lateral | | | | [place], [place] | [address] | meniscectomy, | | | | [address] | [phone] | synovectomy | | | | [phone] | | | +--------+---------+ + + + Social History + +-------+ [...] + + + + | Pulse | 97 | 02/19/2018 10:30 AM | | | | | PDT | | + + + + + | Temperature | 36.9 C (98.4 F) | 02/19/2018 9:15 AM | | | | | PDT | | + + + + + | Respiratory Rate | 16 | 02/19/2018 10:30 AM | | | | | PDT | | + + + + + | Oxygen Saturation | 96% | 02/19/2018 10:30 AM | | | [...] have a follow-up appointment already scheduled at [facility]. You will need to have your sutures removed at that visit. Please call if you have any question s. When to Seek Medical Attention Call [phone] right awayif you have: Chest pain. 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 Dao, Gertrude, Dr. Nuñez, sports [...] tablets by | 40 | 0 | 02/20/20 | | | HYDROcodone-acetamin | mouth every 6 hours | tablet | | 18 | | | ophen (NORCO) 5-325 | as needed for Pain. | | | | | | mg per tablet | | | | | | + + + +---------+ + + | losartan (COZAAR) | Take 50 mg by mouth | | 0 | 02/06/20 | | | 50 mg tablet | Daily . | | | 18 | | + + + +---------+ + + | MAGNESIUM PO | Take 400 mg by mouth | | 0 | | | | | Daily . | | | | | + + [...] MG | | | | 18 | 0 | | tablet | | | | | | + + + +---------+ + + | B complex vitamins | Take 1 tablet by | | 0 | | | | tablet | mouth. | | | | 0 | + + + +---------+ + + | carvedilol (COREG) | Take 25 mg by mouth. | | 0 | 02/06/20 | | | 25 mg tablet | | | | 18 | 0 | + + + +---------+ + + | Coenzyme Q10 | Take 2 capsules by | | 0 | | | | (COQ-10) 100 MG CAPS | mouth . | | | | 0 | + + + +---------+ + + | | Take 1 capsule by | | 0 | | | | Glucosamine-Chondroi | mouth. | | | | 0 | | t-Vit C-Mn | | | | | | | (GLUCOSAMINE 1500 | | | | | | | COMPLEX) CAPS | | | | | | + + + +---------+ + + | Krill Oil 1000 MG | Take 1 capsule by | | 0 | | | | CAPS | mouth. | | | | 0 | + + + +---------+ + + | Multiple Vitamin | Take 1 tablet by | | 0 | | | | (MULTIVITAMIN) | mouth. | | | | 0 | | tablet | | | | | | + + + +---------+ + + | Multiple | Take 1 tablet by | | 0 | | | | Vitamins-Minerals | mouth. | | | | 0 | | (OCUVITE EXTRA) TABS | | | | | | + + + +---------+ + + | Beto Bowers 450 | Take 2 capsules by | | 0 | | | | MG CAPS | mouth. | | | | 0 | + + + +---------+ + + | Turmeric Curcumin | Take 1 capsule by | | 0 | | | | 500 MG CAPS | mouth. | | | | 0 | + + + +---------+ + + [...] signed by: Epi Gutierrez DO, 02/19/2018 8:13 [facility] by Epi Gutierrez DO at 0 02/19/2018 8:14 AM Matthew Davila PA-C - 02/17/2018 2:41 PM PDTSubjective F/u Right Knee; MRI Results [facility] History of Present Illness Giovanni is a [...] images on a disk with him from [facility] and a bilateral flexion weight bearing view was obtained at [facility]. He is retired. Here to day to [...] Ascorbic Acid 500 MG Oral Tablet; Therapy: (Recorded:[id number]) to Recorded Aspirin 81 MG TABS; Therapy: (Recorded:87Mph5606) to Recorded Atorvastatin Calcium 80 MG Oral Tablet; Therapy: (Recorded:34Lpd0762) to Recorded Carvedilol 25 MG Oral Tablet; Therapy: (Recorded:17Apr2010) to Recorded Centrum Silver TABS; Therapy: (Recorded:75Rir2632) to Recorded Clear Eyes for Dry Eyes SOLN; Therapy: (Recorded:49Cbv3000) to Recorded Coenzyme Q-10 TABS; Therapy: (Recorded:58Tjn0031) to Recorded Eliquis 5 MG Oral Tablet; Therapy: (Recorded:06Qll4563) to Recorded Glucosamine Chondroitin TABS; Therapy: (Recorded:85Lbh7883) to Recorded Krill Oil CAPS; Therapy: (Recorded:55Oue8660) to Recorded Losartan Potassium 50 MG Oral Tablet; Therapy: (Recorded:42Iuh5984) to Recorded Magnesium 500 MG Oral Tablet; Therapy: (Recorded:24Vjd9399) to Recorded PreserVision AREDS CAPS; Therapy: (Recorded:53Upx1410) to Recorded Turmeric CAPS; Therapy: (Recorded:34Rbs0681) to Recorded Vitamin B Complex CAPS; Therapy: (Recorded:90Ewd2179) to Recorded Vitamin D3 2000 UNIT Oral Tablet; Therapy: (Recorded:67Uwr3633) to Recorded Allergies No Known Drug Allergies [...] NEURO: Intact without lateralizing deficits. Results/Data Results [id number] 10:08AM MR - hip or knee or ankle w/o [id number] MR - Lower joint; hip or knee or ankle without: RADIOLOGY REPORT DATE OF EXAM: 02/10/2018 PATIENT NAME: GIOVANNI YEBOAH DATE OF : 1945 MR#: [id number] ORDERING PHYSICIAN: Epi Gutierrez CLINICAL INDICATION: Pain. [...] image 24. Lateral compartment: Intact articular cartilage. [facility] [address] [place] [address] PH: 1 Other findings: None. IMPRESSION: Tear [...] BY DELFINO MARTINEZ MD 02/10/2018 05:44 PM [facility] [address] [place] [address] PH: 2 [id number] 09:12AM X-ray - Sinuses landeros view [id number] X-ray - Sinuses-partial (landeros): CLINICAL DATA: Encounter for screening for other disorde r EXAMINATION: LANDEROS VW OF SINUSES TECHNIQUE: Landeros' view of the sinuses was performed. COMPARISON: None. FINDINGS: No metallic foreign bodies project over the orbits. Visualized paranasal sinuses are clear. Osseous structures are intact. IMPRESSION: Cleared for MRI. ELECTRONICALLY SIGNED BY DELFINO MARTINEZ MD 02/10/2018 09:15 AM [facility] RADIOLOGY REPORT [address] [place] [address] Exam Date: 02/10/2018 09:00:00 AM Referring Physician: [...] Gutierrez DO - 02/19/2018 9:06 AM [facility] Epi Gutierrez Pt. Name/Age/: Giovanni Yeboah 72 y.o. 1945 CSN: [id number] DATE OF SURGERY: 02/19/2018 ATTENDING PHYSICIAN: Epi Gutierrez PERFORMED BY: Epi Gutierrez DO TOWBOAT ENGINEER: Matthew Castorena PA-C PREOPERATIVE DIAGNOSIS: right knee [...] Electronically Signed by: Epi Gutierrez, 02/19/2018 9:06 [facility] documented in this encounter Plan of Treatment [...] | 2019 | Visit | | [address] | | | | | | [place] [address] | | | | | | [phone] | | | | | | | [...] | | | | JULIO ULLOA MD ([id number]) | | | | | | on [...] [facility] | | [facility] - | | | | | | LABORATORY | | + + + + + + | Anion Gap | 9 | 3 - 16 mmol/L | [facility] | | [facility] | [facility] | | | [facility] - | | | | | | LABORATORY | | + + + + + + | Glucose | 118 (H) | 70 - 109 mg/dL | [facility] | [facility] | [facility] | | | | | | [facility] - | | | | | | LABORATORY | | + + + + + + | BUN | 16 | 7 - 18 mg/dL | [facility] | [facility] | | | | | | [facility] | | | | | | [facility] - | | | | | | LABORATORY | | + + + + + + | Creatinine | 1.03 | 0.60 - 1.30 | [facility] | | | | | mg/dL | [facility] | | | | | | [facility] | | | | | | CENTER - | | | | | | LABORATORY | | + + + + + + | eGFR if not | >60Comment: GLOMERULAR | >=60 | [facility] | | | | FILTRATION | mL/min/1.73m2 | [facility] | | | [place] | RATE,ESTIMATED | | MEDICAL | | | | mL/min/1.42q2Rtdt than | | CENTER - | | [...] | 8.8 | 8.3 - 10.5 | [facility] | | | | | mg/dL | [facility] | | [facility] | | | [facility] | | | | | | C[facility] - | | | | | | LABORATORY | | + + + + + + | Albumin | 3.9 | 3.2 - 5.0 g/dL | [facility] | | | | [...] | + + + + + | [facility] | [address] | [place] | [phone] | | [facility] | | [address] | | | - LABORATORY | | [...] | | | Cells | | | [facility] | | | | | | [facility] | | | | | | CENTER - | | | | | | LABORATORY | | + +-------+ + + + | Red Blood | 4.51 | 4.30 - 5.70 | [facility] | | | Cells | | M/uL | [facility] | | | | | | MEDICAL | | | | | | CENTER - | | | | | | LABORATORY | | + +-------+ + + + | Hemoglobin | 14.4 | 13.5 - 18.0 | [facility] | | | | | g/dL | [facility] | | | | [...] | | Neutrophils | | K/uL | [facility] | | | | | | MEDICAL | | | | | | CENTER - | | | | | | LABORATORY | | + +-------+ + + + | Absolute | 1.40 | 0.60 - 3.20 | [facility] | | | Lymphocytes | | K/uL | [facility] | | | | | | MEDICAL | | | | | | CENTER - | | | | | | LABORATORY | | + +-------+ + + + | Absolute | 0.60 | 0.00 - 1.00 | [facility] | | | Monocytes | | K/uL | [facility] | | | | | | MEDICAL | | | | | | CENTER - | | | | | | LABORATORY | | + +-------+ + + + | Absolute | 0.10 | 0.00 - 0.40 | [facility] | | | Eosinophils | | K/uL | [facility] | | | | | | MEDICAL | | | | | | CENTER - | | | | | | LABORATORY | | + +-------+ + + + | Absolute | 0.10 | 0.00 - 0.10 | [facility] | | | Basophils | | K/uL | [facility] | [...] + + | [facility] | [address] | [place] | [phone] | | [facility] | | [address] | | | - LABORATORY | | | | + + + + + LABS - EXTERNAL SCAN (08/28/2017 12:00 AM PDT) + + + | Narrative | Performed At | + + + | Ordered by an | | | unspecified provider. 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 02/19/18 at 0908, | | | For [...] ONCE PRN, | | | Wheezing, Starting [facility] 02/19/18 at | | | 0745, For 1 dose, Pre-op | | + +---+ | | | + +---+ + +-------+ +--------+---+---+ | bupivacaine 0.5%-EPINEPHrine | Given | 02/20/20 | 30 mLs | | | | 1:200,000 injection PRN, | | 18 8:51 | | | | | Starting [facility] 02/19/18 at 0851, | | AM PDT | | | | | Intra-op | | | | | | + +-------+ +--------+---+---+ + +---+ | | | + +---+ | dextrose 50% injection 12.5-25 | | | g 12.5-25 g, Intravenous, EVERY | | | 15 MIN PRN, Low Blood Sugar, Give | | | 12.5g (25 mL) IV if blood | | | glucose 50-69 mg/dL. Give 25g | | | (50 mL) IV if blood glucose < 50, | | | Starting [facility] 02/19/18 at 0745, | | | Repeat [...]
--- OUTSIDE RECORDS SUMMARY | ~2019-12-13 | XMS | Encounter Summary ---
Demographics + + + | Address | [address] | | | [place] [address] | + + + | Home Phone | | + + + | Preferred Language | Unknown | + + + | Marital Status | | + + + | Druze Affiliation | [id number] | + + + | Race | Unknown | + + + | Ethnic Group | Unknown | + + + Author + + + | Author | [facility] | | | and [place] | + + + | Organization | [facility] | | | [...] + | Sangeetha Yeboah | ECON | [address] | | | | | [place] | | | | | [phone] | | + + + + + Care Team Providers + +------+ + | Care Real Estate Assessor Name | Role | Phone | + +------+ + PCP | Unavailable | + +------+ + Encounter Details +--------+ + + + + | Date | Type | Department | Care Team | Description | +--------+ + + + + | 03/20/ | Hospital | [facility] | Juan Ferreira MD | 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 | | | | [address] | [place] [address] | | | 03/21/ | | [place], [place] | [phone] | | | 2010 | | [address] | | | | | | [phone] | | | +--------+ + + + [...] 01/09/ | Office | Cardiology | Juan Ferreira MD | | | 2019 | Visit | | [address] | | | | | | [place] [address] | | | | | | [phone] | | | | | | | | +--------+ + + + + documented as of this encounter Procedures + +--------+ + + + | Procedure Name | Priori | Date/Time | Associated Diagnosis | Comments | | | ty | | | | + +--------+ + + + | CV CARDIAC PROCEDURE | Routin | 03/20/2011 | | Results for this | | | e | 1:58 PM | | procedure are in the | | | | PDT | | results section. | + +--------+ + + + | CV CARDIAC PROCEDURE | Routin | 03/20/2011 | | Results for this | | | e | 1:58 PM | | procedure are in the | | | | PDT | | results section. | + +--------+ + + + | CV CARDIAC PROCEDURE | Routin | 03/20/2011 | | Results for this | | | e | 1:58 PM | | procedure are in the | | | | PDT | | results section. | + +--------+ + + + | CV CARDIAC PROCEDURE | Routin | 03/20/2011 | | Results for this | | | e | 1:58 PM | | procedure are in the | | | | PDT | | results section. | + +--------+ + + + documented in this encounter Results CV CARDIAC PROCEDURE (03/20/2011 1:58 PM PDT) + + | Specimen | + + | | + + + + + | Narrative | Performed At | + + + | [place] [id number] Ph: | | | Patient Name: GIOVANNI YEBOAH Date of : | | | 1945 Medical Record: [id number] Account: [id number] | | | Exam Date/Time: 03/20/2011 14:00 Ordering | | | Physician: JUAN FERREIRA Order Detail: [id number] Exam Description: | | | CCL WAVEMAP PRESS INITIAL VESSEL | | | | | | PROCEDURES 1. Left heart catheterization with left ventriculogram. | | | 2. Selective coronary angiography. 3. Fractional flow reserve study | | | on the left anterior descending artery. 4. Fractional flow reserve | | | study on the second marginal branch. 5. Intravascular ultrasound | | | study on the left anterior descending artery. 6. Stenting of mid | | | left circumflex with 2.75 x 24 mm Ion drug-eluting stent. 7. | | | Post-stenting intravascular ultrasound study on the left anterior | | | descending artery. ESTIMATED BLOOD LOSS Less than 50 mL. | | | INDICATIONS This is a 65-year-old gentleman with a history | | | of coronary artery disease and chest discomfort as well as | | | cardiomyopathy who was referred for coronary angiography and possible | | | coronary intervention. For details regarding his presentation, | | | kindly refer to my H and P. DESCRIPTION OF PROCEDURE The patient | | | was brought to the catheterization lab in the fasting state. The | | | patient was prepped and draped in the usual sterile fashion. The | | | right groin was anesthetized with 1% lidocaine. A 6-Cameroonian arterial | | | sheath was placed in the right femoral artery, and a 6-Cameroonian JL4 | | | catheter was advanced under fluoroscopic guidance and engaged with the | | | ostium of the left main coronary artery, and multiple projections of | | | the left coronary system were done with the use of contrast | | | injections. The catheter was then exchanged for a 6-Cameroonian JR4 | | | catheter which was engaged with the ostium of the right coronary | | | artery, and multiple projections of the right coronary system were | | | obtained with the use of contrast injections. The catheter was then | | | exchanged for a 6-Cameroonian pigtail catheter which was advanced into the | | | left ventricle, and projections of left ventricular function were | | | done with the use of contrast injections. FINDINGS | | | HEMODYNAMICS Pressures: Aortic pressure 136/82 with a mean of 107. LV | | | 136/16. Gradient: There was no gradient between the LV and aorta. | | | CORONARY ANGIOGRAPHY The coronary system was codominant with the | | | DALE branch coming from the circumflex but the PDA branch coming from | | | the RCA. 1. Left main bifurcated into the LAD and left circumflex. | | | Left main was free of disease. 2. Left anterior descending | | | artery has a moderate lesion proximally. There is after that a | | | stented segment with widely patent stent. Following the stent | | | there is 2 tandem lesions which appear to be moderate | | | angiographically. The LAD after that was mildly diseased. The | | | first diagonal branch was pinched with the stent but was very | | | small vessel. 3. Left circumflex coronary artery was codominant | | | vessel. The circumflex was free of significant disease. However, | | | the second marginal branch appears to have 2 tandem lesions of at | | | least moderate severity. 4. Right coronary artery was codominant | | | vessel with the PDA branch coming out it. There is only mild | | | disease in the RCA. LEFT VENTRICULOGRAM Left ventriculogram in | | | the MCGUIRE view showed moderate LV dysfunction with ejection fraction of | | | 40%. CORONARY INTERVENTION The patient has what appears to be | | | diffuse disease in the left anterior descending artery with at least | | | moderate lesions and widely patent stent. Furthermore there is a | | | large marginal branch which has 2 lesions which appear again to be at | | | least moderate and maybe severe. With that I sought further | | | studies of the LAD and the circumflex lesions to assure the need of | | | revascularization. Therefore a JL4 guider catheter was advanced and | | | engaged with the ostium of the left main and Angiomax was given. I | | | started with advancing a pressure wire/[place] into the LAD after | | | normalizing it in left main. Adenosine at 140 mcg/kg per minute was | | | started for 3 to 4 minutes. The distal FFR after the most distal | | | lesion dropped to 0.78. The pullback was then done and after passing | | | these 2 distal lesions, the FFR jumped to 0.91 including prior to the | | | more proximal LAD lesion. Therefore it appears that the 2 distal | | | lesions in the LAD were hemodynamically significant and not the more | | | proximal lesion. I then re-sent the wire into the second marginal | | | branch and placed it distally. The FFR in the marginal branch after | | | restarting adenosine at the same does was only 0.94, and therefore | | | the marginal branches lesions were thought not to be hemodynamically | | | significant. At that point I decided to proceed with stenting the | | | mid LAD and the pressure wire was re-sent into the LAD and placed | | | distally. IVUS study was then done to evaluate the lesions in the mid | | | LAD morphologically. There appears indeed to be a severe stenosis in | | | the mid LAD with fibrotic plaque. Although there appears to be also | | | lesion again in the proximal LAD, this lesion pressure wire study | | | showed a ratio of 0.91. Therefore I proceeded by stenting the mid | | | LAD and in a way overlapped with the previous stent with a 2.75 x 24 | | | mm Ion drug-eluting stent which was deployed with 14 atmospheres. The | | | new minimum surface area was 4.5 mm sq as studied again by the IVUS | | | catheter. There was no edge dissection and the position of the stent | | | was deemed to be adequate. There was a moderate lesion distal to the | | | new stent. All equipment were therefore removed. | | | CONCLUSION/RECOMMENDATIONS 1. Diffuse coronary artery disease | | | primarily in the left anterior descending artery and the second | | | marginal branch. 2. Ischemic cardiomyopathy with an ejection fraction | | | of 40%. 3. Widely patent stent in the mid left anterior descending | | | but the new distal lesions status post stenting with Ion | | | drug-eluting stent. 4. Status post fractional flow reserve study of | | | the proximal left anterior descending and the marginal branch | | | showing hemodynamically insignificant lesions. 5. The patient | | | will continue to need aggressive medical therapy. DD: | | | 03/22/2011 08:56 A P //[id number] | | | Read by JUAN FERREIRA MD 03/22/2011 08:56 A | | + + + + + | Procedure Note | + + | Matthew Cano Conversion - 01/23/2019 4:21 PM PDT | | [facility] | | [facility] [address] | | | | | | Patient Name: GIOVANNI YEBOAH | | Date of : 1945 | | Medical Record: [id number] | | Account: [id number] | | | | | | Exam Date/Time: 03/20/2011 14:00 | | Ordering Physician: JUAN FERREIRA | | Order Detail: [id number] | | Exam Description: CCL WAVEMAP PRESS INITIAL VESSEL | | | | PROCEDURES | | 1. Left heart catheterization with left ventriculogram. | | 2. Selective coronary angiography. | | 3. Fractional flow reserve study on the left anterior descending artery. | | | | 4. Fractional flow reserve study on the second marginal branch. | | 5. Intravascular ultrasound study on the left anterior descending | | artery. | | 6. Stenting of mid left circumflex with 2.75 x 24 mm Ion drug-eluting | | stent. | | 7. Post-stenting intravascular ultrasound study on the left anterior | | descending artery. | | | | ESTIMATED BLOOD LOSS | | Less than 50 mL. | | | | INDICATIONS | | This is a 65-year-old gentleman with a history of coronary | | artery disease and chest discomfort as well as cardiomyopathy who was | | referred for coronary angiography and possible coronary intervention. | | For details regarding his presentation, kindly refer to my H and P. | | | | DESCRIPTION OF PROCEDURE | | The patient was brought to the catheterization lab in the fasting state. | | The patient was prepped and draped in the usual sterile fashion. The | | right groin was anesthetized with 1% lidocaine. A 6-Cameroonian arterial | | sheath was placed in the right femoral artery, and a 6-Cameroonian JL4 | | catheter was advanced under fluoroscopic guidance and engaged with the | | ostium of the left main coronary artery, and multiple projections of the | | left coronary system were done with the use of contrast injections. The | | catheter was then exchanged for a 6-Cameroonian JR4 catheter which was | | engaged with the ostium of the right coronary artery, and multiple | | projections of the right coronary system were obtained with the use of | | contrast injections. The catheter was then exchanged for a 6-Cameroonian | | pigtail catheter which was advanced into the left ventricle, and | | projections of left ventricular function were done with the use of | | contrast injections. | | | | FINDINGS | | | | HEMODYNAMICS | | Pressures: Aortic pressure 136/82 with a mean of 107. LV 136/16. | | Gradient: There was no gradient between the LV and aorta. | | | | CORONARY ANGIOGRAPHY | | The coronary system was codominant with the DALE branch coming from the | | circumflex but the PDA branch coming from the RCA. | | 1. Left main bifurcated into the LAD and left circumflex. Left main was | | free of disease. | | 2. Left anterior descending artery has a moderate lesion proximally. | | There is after that a stented segment with widely patent stent. | | Following the stent there is 2 tandem lesions which appear to be | | moderate angiographically. The LAD after that was mildly diseased. | | The first diagonal branch was pinched with the stent but was very | | small vessel. | | 3. Left circumflex coronary artery was codominant vessel. The circumflex | | was free of significant disease. However, the second marginal branch | | appears to have 2 tandem lesions of at least moderate severity. | | 4. Right coronary artery was codominant vessel with the PDA branch | | coming out it. There is only mild disease in the RCA. | | | | LEFT VENTRICULOGRAM | | Left ventriculogram in the MCGUIRE view showed moderate LV dysfunction with | | ejection fraction of 40%. | | | | CORONARY INTERVENTION | | The patient has what appears to be diffuse disease in the left anterior | | descending artery with at least moderate lesions and widely patent | | stent. Furthermore there is a large marginal branch which has 2 lesions | | which appear again to be at least moderate and maybe severe. | | | | With that I sought further studies of the LAD and the circumflex lesions | | to assure the need of revascularization. Therefore a JL4 guider catheter | | was advanced and engaged with the ostium of the left main and Angiomax | | was given. I started with advancing a pressure wire/[place] into the LAD | | after normalizing it in left main. Adenosine at 140 mcg/kg per minute | | was started for 3 to 4 minutes. The distal FFR after the most distal | | lesion dropped to 0.78. The pullback was then done and after passing | | these 2 distal lesions, the FFR jumped to 0.91 including prior to the | | more proximal LAD lesion. Therefore it appears that the 2 distal lesions | | in the LAD were hemodynamically significant and not the more proximal | | lesion. | | | | I then re-sent the wire into the second marginal branch and placed it | | distally. The FFR in the marginal branch after restarting adenosine at | | the same does was only 0.94, and therefore the marginal branches lesions | | were thought not to be hemodynamically significant. | | | | At that point I decided to proceed with stenting the mid LAD and the | | pressure wire was re-sent into the LAD and placed distally. IVUS study | | was then done to evaluate the lesions in the mid LAD morphologically. | | There appears indeed to be a severe stenosis in the mid LAD with | | fibrotic plaque. Although there appears to be also lesion again in the | | proximal LAD, this lesion pressure wire study showed a ratio of 0.91. | | | | Therefore I proceeded by stenting the mid LAD and in a way overlapped | | with the previous stent with a 2.75 x 24 mm Ion drug-eluting stent which | | was deployed with 14 atmospheres. The new minimum surface area was 4.5 | | mm sq as studied again by the IVUS catheter. There was no edge | | dissection and the position of the stent was deemed to be adequate. | | There was a moderate lesion distal to the new stent. All equipment were | | therefore removed. | | | | CONCLUSION/RECOMMENDATIONS | | 1. Diffuse coronary artery disease primarily in the left anterior | | descending artery and the second marginal branch. | | 2. Ischemic cardiomyopathy with an ejection fraction of 40%. | | 3. Widely patent stent in the mid left anterior descending but the new | | distal lesions status post stenting with Ion drug-eluting stent. | | 4. Status post fractional flow reserve study of the proximal left | | anterior descending and the marginal branch showing hemodynamically | | insignificant lesions. | | 5. The patient will continue to need aggressive medical therapy. | | | | | | | | | | A | | P | | [id number] | | | | Read by | | JUAN FERREIRA MD 03/22/2011 08:56 A | | | | | + + CV CARDIAC PROCEDURE (03/20/2011 1:58 PM PDT) + + | Specimen | + + | | + + + + + | Narrative | Performed At | + + + | [facility] [address] Ph: | | | Patient Name: GIOVANNI YEBOHA Date of : | | | 1945 Medical Record: [id number] Account: [id number] | | | Exam Date/Time: 03/20/2011 14:00 Ordering | | | Physician: JUAN FERREIRA Order Detail: [id number] Exam Description: | | | CCL IVUS INITIAL VESSEL | | | | | | PROCEDURES 1. Left heart catheterization with left ventriculogram. | | | 2. Selective coronary angiography. 3. Fractional flow reserve study | | | on the left anterior descending artery. 4. Fractional flow reserve | | | study on the second marginal branch. 5. Intravascular ultrasound | | | study on the left anterior descending artery. 6. Stenting of mid | | | left circumflex with 2.75 x 24 mm Ion drug-eluting stent. 7. | | | Post-stenting intravascular ultrasound study on the left anterior | | | descending artery. ESTIMATED BLOOD LOSS Less than 50 mL. | | | INDICATIONS This is a 65-year-old gentleman with a history | | | of coronary artery disease and chest discomfort as well as | | | cardiomyopathy who was referred for coronary angiography and possible | | | coronary intervention. For details regarding his presentation, | | | kindly refer to my H and P. DESCRIPTION OF PROCEDURE The patient | | | was brought to the catheterization lab in the fasting state. The | | | patient was prepped and draped in the usual sterile fashion. The | | | right groin was anesthetized with 1% lidocaine. A 6-Cameroonian arterial | | | sheath was placed in the right femoral artery, and a 6-Cameroonian JL4 | | | catheter was advanced under fluoroscopic guidance and engaged with the | | | ostium of the left main coronary artery, and multiple projections of | | | the left coronary system were done with the use of contrast | | | injections. The catheter was then exchanged for a 6-Cameroonian JR4 | | | catheter which was engaged with the ostium of the right coronary | | | artery, and multiple projections of the right coronary system were | | | obtained with the use of contrast injections. The catheter was then | | | exchanged for a 6-Cameroonian pigtail catheter which was advanced into the | | | left ventricle, and projections of left ventricular function were | | | done with the use of contrast injections. FINDINGS | | | HEMODYNAMICS Pressures: Aortic pressure 136/82 with a mean of 107. LV | | | 136/16. Gradient: There was no gradient between the LV and aorta. | | | CORONARY ANGIOGRAPHY The coronary system was codominant with the | | | DALE branch coming from the circumflex but the PDA branch coming from | | | the RCA. 1. Left main bifurcated into the LAD and left circumflex. | | | Left main was free of disease. 2. Left anterior descending | | | artery has a moderate lesion proximally. There is after that a | | | stented segment with widely patent stent. Following the stent | | | there is 2 tandem lesions which appear to be moderate | | | angiographically. The LAD after that was mildly diseased. The | | | first diagonal branch was pinched with the stent but was very | | | small vessel. 3. Left circumflex coronary artery was codominant | | | vessel. The circumflex was free of significant disease. However, | | | the second marginal branch appears to have 2 tandem lesions of at | | | least moderate severity. 4. Right coronary artery was codominant | | | vessel with the PDA branch coming out it. There is only mild | | | disease in the RCA. LEFT VENTRICULOGRAM Left ventriculogram in | | | the MCGUIRE view showed moderate LV dysfunction with ejection fraction of | | | 40%. CORONARY INTERVENTION The patient has what appears to be | | | diffuse disease in the left anterior descending artery with at least | | | moderate lesions and widely patent stent. Furthermore there is a | | | large marginal branch which has 2 lesions which appear again to be at | | | least moderate and maybe severe. With that I sought further | | | studies of the LAD and the circumflex lesions to assure the need of | | | revascularization. Therefore a JL4 guider catheter was advanced and | | | engaged with the ostium of the left main and Angiomax was given. I | | | started with advancing a pressure wire/[place] into the LAD after | | | normalizing it in left main. Adenosine at 140 mcg/kg per minute was | | | started for 3 to 4 minutes. The distal FFR after the most distal | | | lesion dropped to 0.78. The pullback was then done and after passing | | | these 2 distal lesions, the FFR jumped to 0.91 including prior to the | | | more proximal LAD lesion. Therefore it appears that the 2 distal | | | lesions in the LAD were hemodynamically significant and not the more | | | proximal lesion. I then re-sent the wire into the second marginal | | | branch and placed it distally. The FFR in the marginal branch after | | | restarting adenosine at the same does was only 0.94, and therefore | | | the marginal branches lesions were thought not to be hemodynamically | | | significant. At that point I decided to proceed with stenting the | | | mid LAD and the pressure wire was re-sent into the LAD and placed | | | distally. IVUS study was then done to evaluate the lesions in the mid | | | LAD morphologically. There appears indeed to be a severe stenosis in | | | the mid LAD with fibrotic plaque. Although there appears to be also | | | lesion again in the proximal LAD, this lesion pressure wire study | | | showed a ratio of 0.91. Therefore I proceeded by stenting the mid | | | LAD and in a way overlapped with the previous stent with a 2.75 x 24 | | | mm Ion drug-eluting stent which was deployed with 14 atmospheres. The | | | new minimum surface area was 4.5 mm sq as studied again by the IVUS | | | catheter. There was no edge dissection and the position of the stent | | | was deemed to be adequate. There was a moderate lesion distal to the | | | new stent. All equipment were therefore removed. | | | CONCLUSION/RECOMMENDATIONS 1. Diffuse coronary artery disease | | | primarily in the left anterior descending artery and the second | | | marginal branch. 2. Ischemic cardiomyopathy with an ejection fraction | | | of 40%. 3. Widely patent stent in the mid left anterior descending | | | but the new distal lesions status post stenting with Ion | | | drug-eluting stent. 4. Status post fractional flow reserve study of | | | the proximal left anterior descending and the marginal branch | | | showing hemodynamically insignificant lesions. 5. The patient | | | will continue to need aggressive medical therapy. DD: | | | 03/22/2011 08:56 A P //[id number]/ | | | Read by JUAN FERREIRA MD 03/22/2011 08:56 A | | + + + + + | Procedure Note | + + | JeromeMatthew Conversion - 01/23/2019 4:21 PM PDT | | [facility] | | [facility] [address] | | | | | | Patient Name: GIOVANNI YEBOAH | | Date of : 1945 | | Medical Record: [id number] | | Account: [id number] | | | | | | Exam Date/Time: 03/20/2011 14:00 | | Ordering Physician: JUAN FERREIRA | | Order Detail: [id number] | | Exam Description: CCL IVUS INITIAL VESSEL | | | | PROCEDURES | | 1. Left heart catheterization with left ventriculogram. | | 2. Selective coronary angiography. | | 3. Fractional flow reserve study on the left anterior descending artery. | | | | 4. Fractional flow reserve study on the second marginal branch. | | 5. Intravascular ultrasound study on the left anterior descending | | artery. | | 6. Stenting of mid left circumflex with 2.75 x 24 mm Ion drug-eluting | | stent. | | 7. Post-stenting intravascular ultrasound study on the left anterior | | descending artery. | | | | ESTIMATED BLOOD LOSS | | Less than 50 mL. | | | | INDICATIONS | | This is a 65-year-old gentleman with a history of coronary | | artery disease and chest discomfort as well as cardiomyopathy who was | | referred for coronary angiography and possible coronary intervention. | | For details regarding his presentation, kindly refer to my H and P. | | | | DESCRIPTION OF PROCEDURE | | The patient was brought to the catheterization lab in the fasting state. | | The patient was prepped and draped in the usual sterile fashion. The | | right groin was anesthetized with 1% lidocaine. A 6-Cameroonian arterial | | sheath was placed in the right femoral artery, and a 6-Cameroonian JL4 | | catheter was advanced under fluoroscopic guidance and engaged with the | | ostium of the left main coronary artery, and multiple projections of the | | left coronary system were done with the use of contrast injections. The | | catheter was then exchanged for a 6-Cameroonian JR4 catheter which was | | engaged with the ostium of the right coronary artery, and multiple | | projections of the right coronary system were obtained with the use of | | contrast injections. The catheter was then exchanged for a 6-Cameroonian | | pigtail catheter which was advanced into the left ventricle, and | | projections of left ventricular function were done with the use of | | contrast injections. | | | | FINDINGS | | | | HEMODYNAMICS | | Pressures: Aortic pressure 136/82 with a mean of 107. LV 136/16. | | Gradient: There was no gradient between the LV and aorta. | | | | CORONARY ANGIOGRAPHY | | The coronary system was codominant with the DALE branch coming from the | | circumflex but the PDA branch coming from the RCA. | | 1. Left main bifurcated into the LAD and left circumflex. Left main was | | free of disease. | | 2. Left anterior descending artery has a moderate lesion proximally. | | There is after that a stented segment with widely patent stent. | | Following the stent there is 2 tandem lesions which appear to be | | moderate angiographically. The LAD after that was mildly diseased. | | The first diagonal branch was pinched with the stent but was very | | small vessel. | | 3. Left circumflex coronary artery was codominant vessel. The circumflex | | was free of significant disease. However, the second marginal branch | | appears to have 2 tandem lesions of at least moderate severity. | | 4. Right coronary artery was codominant vessel with the PDA branch | | coming out it. There is only mild disease in the RCA. | | | | LEFT VENTRICULOGRAM | | Left ventriculogram in the MCGUIRE view showed moderate LV dysfunction with | | ejection fraction of 40%. | | | | CORONARY INTERVENTION | | The patient has what appears to be diffuse disease in the left anterior | | descending artery with at least moderate lesions and widely patent | | stent. Furthermore there is a large marginal branch which has 2 lesions | | which appear again to be at least moderate and maybe severe. | | | | With that I sought further studies of the LAD and the circumflex lesions | | to assure the need of revascularization. Therefore a JL4 guider catheter | | was advanced and engaged with the ostium of the left main and Angiomax | | was given. I started with advancing a pressure wire/[place] into the LAD | | after normalizing it in left main. Adenosine at 140 mcg/kg per minute | | was started for 3 to 4 minutes. The distal FFR after the most distal | | lesion dropped to 0.78. The pullback was then done and after passing | | these 2 distal lesions, the FFR jumped to 0.91 including prior to the | | more proximal LAD lesion. Therefore it appears that the 2 distal lesions | | in the LAD were hemodynamically significant and not the more proximal | | lesion. | | | | I then re-sent the wire into the second marginal branch and placed it | | distally. The FFR in the marginal branch after restarting adenosine at | | the same does was only 0.94, and therefore the marginal branches lesions | | were thought not to be hemodynamically significant. | | | | At that point I decided to proceed with stenting the mid LAD and the | | pressure wire was re-sent into the LAD and placed distally. IVUS study | | was then done to evaluate the lesions in the mid LAD morphologically. | | There appears indeed to be a severe stenosis in the mid LAD with | | fibrotic plaque. Although there appears to be also lesion again in the | | proximal LAD, this lesion pressure wire study showed a ratio of 0.91. | | | | Therefore I proceeded by stenting the mid LAD and in a way overlapped | | with the previous stent with a 2.75 x 24 mm Ion drug-eluting stent which | | was deployed with 14 atmospheres. The new minimum surface area was 4.5 | | mm sq as studied again by the IVUS catheter. There was no edge | | dissection and the position of the stent was deemed to be adequate. | | There was a moderate lesion distal to the new stent. All equipment were | | therefore removed. | | | | CONCLUSION/RECOMMENDATIONS | | 1. Diffuse coronary artery disease primarily in the left anterior | | descending artery and the second marginal branch. | | 2. Ischemic cardiomyopathy with an ejection fraction of 40%. | | 3. Widely patent stent in the mid left anterior descending but the new | | distal lesions status post stenting with Ion drug-eluting stent. | | 4. Status post fractional flow reserve study of the proximal left | | anterior descending and the marginal branch showing hemodynamically | | insignificant lesions. | | 5. The patient will continue to need aggressive medical therapy. | | | | | | | | | | A | | P | | [id number] | | | | Read by | | JUAN FERREIRA MD 03/22/2011 08:56 A | | | | | + + CV CARDIAC PROCEDURE (03/20/2011 1:58 PM PDT) + + | Specimen | + + | | + + + + + | Narrative | Performed At | + + + | [facility] [address] Ph: | | | Patient Name: GIOVANNI YEBOAH Date of : | | | 1945 Medical Record: [id number] Account: [id number] | | | Exam Date/Time: 03/20/2011 10:30 Ordering | | | Physician: JUAN FERREIRA Order Detail: [id number] Exam Description: | | | [facility] CORONARY ANGIO | | | | | | PROCEDURES 1. Left heart catheterization with left ventriculogram. | | | 2. Selective coronary angiography. 3. Fractional flow reserve study | | | on the left anterior descending artery. 4. Fractional flow reserve | | | study on the second marginal branch. 5. Intravascular ultrasound | | | study on the left anterior descending artery. 6. Stenting of mid | | | left circumflex with 2.75 x 24 mm Ion drug-eluting stent. 7. | | | Post-stenting intravascular ultrasound study on the left anterior | | | descending artery. ESTIMATED BLOOD LOSS Less than 50 mL. | | | INDICATIONS This is a 65-year-old gentleman with a history | | | of coronary artery disease and chest discomfort as well as | | | cardiomyopathy who was referred for coronary angiography and possible | | | coronary intervention. For details regarding his presentation, | | | kindly refer to my H and P. DESCRIPTION OF PROCEDURE The patient | | | was brought to the catheterization lab in the fasting state. The | | | patient was prepped and draped in the usual sterile fashion. The | | | right groin was anesthetized with 1% lidocaine. A 6-Cameroonian arterial | | | sheath was placed in the right femoral artery, and a 6-Cameroonian JL4 | | | catheter was advanced under fluoroscopic guidance and engaged with the | | | ostium of the left main coronary artery, and multiple projections of | | | the left coronary system were done with the use of contrast | | | injections. The catheter was then exchanged for a 6-Cameroonian JR4 | | | catheter which was engaged with the ostium of the right coronary | | | artery, and multiple projections of the right coronary system were | | | obtained with the use of contrast injections. The catheter was then | | | exchanged for a 6-Cameroonian pigtail catheter which was advanced into the | | | left ventricle, and projections of left ventricular function were | | | done with the use of contrast injections. FINDINGS | | | HEMODYNAMICS Pressures: Aortic pressure 136/82 with a mean of 107. LV | | | 136/16. Gradient: There was no gradient between the LV and aorta. | | | CORONARY ANGIOGRAPHY The coronary system was codominant with the | | | DALE branch coming from the circumflex but the PDA branch coming from | | | the RCA. 1. Left main bifurcated into the LAD and left circumflex. | | | Left main was free of disease. 2. Left anterior descending | | | artery has a moderate lesion proximally. There is after that a | | | stented segment with widely patent stent. Following the stent | | | there is 2 tandem lesions which appear to be moderate | | | angiographically. The LAD after that was mildly diseased. The | | | first diagonal branch was pinched with the stent but was very | | | small vessel. 3. Left circumflex coronary artery was codominant | | | vessel. The circumflex was free of significant disease. However, | | | the second marginal branch appears to have 2 tandem lesions of at | | | least moderate severity. 4. Right coronary artery was codominant | | | vessel with the PDA branch coming out it. There is only mild | | | disease in the RCA. LEFT VENTRICULOGRAM Left ventriculogram in | | | the MCGUIRE view showed moderate LV dysfunction with ejection fraction of | | | 40%. CORONARY INTERVENTION The patient has what appears to be | | | diffuse disease in the left anterior descending artery with at least | | | moderate lesions and widely patent stent. Furthermore there is a | | | large marginal branch which has 2 lesions which appear again to be at | | | least moderate and maybe severe. With that I sought further | | | studies of the LAD and the circumflex lesions to assure the need of | | | revascularization. Therefore a JL4 guider catheter was advanced and | | | engaged with the ostium of the left main and Angiomax was given. I | | | started with advancing a pressure wire/[place] into the LAD after | | | normalizing it in left main. Adenosine at 140 mcg/kg per minute was | | | started for 3 to 4 minutes. The distal FFR after the most distal | | | lesion dropped to 0.78. The pullback was then done and after passing | | | these 2 distal lesions, the FFR jumped to 0.91 including prior to the | | | more proximal LAD lesion. Therefore it appears that the 2 distal | | | lesions in the LAD were hemodynamically significant and not the more | | | proximal lesion. I then re-sent the wire into the second marginal | | | branch and placed it distally. The FFR in the marginal branch after | | | restarting adenosine at the same does was only 0.94, and therefore | | | the marginal branches lesions were thought not to be hemodynamically | | | significant. At that point I decided to proceed with stenting the | | | mid LAD and the pressure wire was re-sent into the LAD and placed | | | distally. IVUS study was then done to evaluate the lesions in the mid | | | LAD morphologically. There appears indeed to be a severe stenosis in | | | the mid LAD with fibrotic plaque. Although there appears to be also | | | lesion again in the proximal LAD, this lesion pressure wire study | | | showed a ratio of 0.91. Therefore I proceeded by stenting the mid | | | LAD and in a way overlapped with the previous stent with a 2.75 x 24 | | | mm Ion drug-eluting stent which was deployed with 14 atmospheres. The | | | new minimum surface area was 4.5 mm sq as studied again by the IVUS | | | catheter. There was no edge dissection and the position of the stent | | | was deemed to be adequate. There was a moderate lesion distal to the | | | new stent. All equipment were therefore removed. | | | CONCLUSION/RECOMMENDATIONS 1. Diffuse coronary artery disease | | | primarily in the left anterior descending artery and the second | | | marginal branch. 2. Ischemic cardiomyopathy with an ejection fraction | | | of 40%. 3. Widely patent stent in the mid left anterior descending | | | but the new distal lesions status post stenting with Ion | | | drug-eluting stent. 4. Status post fractional flow reserve study of | | | the proximal left anterior descending and the marginal branch | | | showing hemodynamically insignificant lesions. 5. The patient | | | will continue to need aggressive medical therapy. DD: | | | 03/22/2011 08:56 A P //[id number] | | | Read by JUAN FERREIRA MD 03/22/2011 08:56 A | | + + + + + | Procedure Note | + + | Matthew Cano - 01/23/2019 4:21 PM PDT | | [facility] | | [facility] [address] | | | | | | Patient Name: GIOVANNI YEBOAH | | Date of : 1945 | | Medical Record: [id number] | | Account: [id number] | | | | | | Exam Date/Time: 03/20/2011 10:30 | | Ordering Physician: JUAN FERREIRA | | Order Detail: [id number] | | Exam Description: [facility] CORONARY ANGIO | | | | PROCEDURES | | 1. Left heart catheterization with left ventriculogram. | | 2. Selective coronary angiography. | | 3. Fractional flow reserve study on the left anterior descending artery. | | | | 4. Fractional flow reserve study on the second marginal branch. | | 5. Intravascular ultrasound study on the left anterior descending | | artery. | | 6. Stenting of mid left circumflex with 2.75 x 24 mm Ion drug-eluting | | stent. | | 7. Post-stenting intravascular ultrasound study on the left anterior | | descending artery. | | | | ESTIMATED BLOOD LOSS | | Less than 50 mL. | | | | INDICATIONS | | This is a 65-year-old gentleman with a history of coronary | | artery disease and chest discomfort as well as cardiomyopathy who was | | referred for coronary angiography and possible coronary intervention. | | For details regarding his presentation, kindly refer to my H and P. | | | | DESCRIPTION OF PROCEDURE | | The patient was brought to the catheterization lab in the fasting state. | | The patient was prepped and draped in the usual sterile fashion. The | | right groin was anesthetized with 1% lidocaine. A 6-Cameroonian arterial | | sheath was placed in the right femoral artery, and a 6-Cameroonian JL4 | | catheter was advanced under fluoroscopic guidance and engaged with the | | ostium of the left main coronary artery, and multiple projections of the | | left coronary system were done with the use of contrast injections. The | | catheter was then exchanged for a 6-Cameroonian JR4 catheter which was | | engaged with the ostium of the right coronary artery, and multiple | | projections of the right coronary system were obtained with the use of | | contrast injections. The catheter was then exchanged for a 6-Cameroonian | | pigtail catheter which was advanced into the left ventricle, and | | projections of left ventricular function were done with the use of | | contrast injections. | | | | FINDINGS | | | | HEMODYNAMICS | | Pressures: Aortic pressure 136/82 with a mean of 107. LV 136/16. | | Gradient: There was no gradient between the LV and aorta. | | | | CORONARY ANGIOGRAPHY | | The coronary system was codominant with the DALE branch coming from the | | circumflex but the PDA branch coming from the RCA. | | 1. Left main bifurcated into the LAD and left circumflex. Left main was | | free of disease. | | 2. Left anterior descending artery has a moderate lesion proximally. | | There is after that a stented segment with widely patent stent. | | Following the stent there is 2 tandem lesions which appear to be | | moderate angiographically. The LAD after that was mildly diseased. | | The first diagonal branch was pinched with the stent but was very | | small vessel. | | 3. Left circumflex coronary artery was codominant vessel. The circumflex | | was free of significant disease. However, the second marginal branch | | appears to have 2 tandem lesions of at least moderate severity. | | 4. Right coronary artery was codominant vessel with the PDA branch | | coming out it. There is only mild disease in the RCA. | | | | LEFT VENTRICULOGRAM | | Left ventriculogram in the MCGUIRE view showed moderate LV dysfunction with | | ejection fraction of 40%. | | | | CORONARY INTERVENTION | | The patient has what appears to be diffuse disease in the left anterior | | descending artery with at least moderate lesions and widely patent | | stent. Furthermore there is a large marginal branch which has 2 lesions | | which appear again to be at least moderate and maybe severe. | | | | With that I sought further studies of the LAD and the circumflex lesions | | to assure the need of revascularization. Therefore a JL4 guider catheter | | was advanced and engaged with the ostium of the left main and Angiomax | | was given. I started with advancing a pressure wire/[place] into the LAD | | after normalizing it in left main. Adenosine at 140 mcg/kg per minute | | was started for 3 to 4 minutes. The distal FFR after the most distal | | lesion dropped to 0.78. The pullback was then done and after passing | | these 2 distal lesions, the FFR jumped to 0.91 including prior to the | | more proximal LAD lesion. Therefore it appears that the 2 distal lesions | | in the LAD were hemodynamically significant and not the more proximal | | lesion. | | | | I then re-sent the wire into the second marginal branch and placed it | | distally. The FFR in the marginal branch after restarting adenosine at | | the same does was only 0.94, and therefore the marginal branches lesions | | were thought not to be hemodynamically significant. | | | | At that point I decided to proceed with stenting the mid LAD and the | | pressure wire was re-sent into the LAD and placed distally. IVUS study | | was then done to evaluate the lesions in the mid LAD morphologically. | | There appears indeed to be a severe stenosis in the mid LAD with | | fibrotic plaque. Although there appears to be also lesion again in the | | proximal LAD, this lesion pressure wire study showed a ratio of 0.91. | | | | Therefore I proceeded by stenting the mid LAD and in a way overlapped | | with the previous stent with a 2.75 x 24 mm Ion drug-eluting stent which | | was deployed with 14 atmospheres. The new minimum surface area was 4.5 | | mm sq as studied again by the IVUS catheter. There was no edge | | dissection and the position of the stent was deemed to be adequate. | | There was a moderate lesion distal to the new stent. All equipment were | | therefore removed. | | | | CONCLUSION/RECOMMENDATIONS | | 1. Diffuse coronary artery disease primarily in the left anterior | | descending artery and the second marginal branch. | | 2. Ischemic cardiomyopathy with an ejection fraction of 40%. | | 3. Widely patent stent in the mid left anterior descending but the new | | distal lesions status post stenting with Ion drug-eluting stent. | | 4. Status post fractional flow reserve study of the proximal left | | anterior descending and the marginal branch showing hemodynamically | | insignificant lesions. | | 5. The patient will continue to need aggressive medical therapy. | | | | | | | | | | A | | P | | [id number] | | | | Read by | | JUAN FERREIRA MD 03/22/2011 08:56 A | | | | | + + CV CARDIAC PROCEDURE (03/20/2011 1:58 PM PDT) + + | Specimen | + + | | + + + + + | Narrative | Performed At | + + + | [facility] [address] Ph: | | | Patient Name: GIOVANNI YEBOAH Date of : | | | 1945 Medical Record: [id number] Account: [id number] | | | Exam Date/Time: 03/20/2011 14:00 Ordering | | | Physician: JUAN FERREIRA Order Detail: [id number] Exam Description: | | | CCL DE STENT INSERTION INITIAL | | | | | | PROCEDURES 1. Left heart catheterization with left ventriculogram. | | | 2. Selective coronary angiography. 3. Fractional flow reserve study | | | on the left anterior descending artery. 4. Fractional flow reserve | | | study on the second marginal branch. 5. Intravascular ultrasound | | | study on the left anterior descending artery. 6. Stenting of mid | | | left circumflex with 2.75 x 24 mm Ion drug-eluting stent. 7. | | | Post-stenting intravascular ultrasound study on the left anterior | | | descending artery. ESTIMATED BLOOD LOSS Less than 50 mL. | | | INDICATIONS This is a 65-year-old gentleman with a history | | | of coronary artery disease and chest discomfort as well as | | | cardiomyopathy who was referred for coronary angiography and possible | | | coronary intervention. For details regarding his presentation, | | | kindly refer to my H and P. DESCRIPTION OF PROCEDURE The patient | | | was brought to the catheterization lab in the fasting state. The | | | patient was prepped and draped in the usual sterile fashion. The | | | right groin was anesthetized with 1% lidocaine. A 6-Cameroonian arterial | | | sheath was placed in the right femoral artery, and a 6-Cameroonian JL4 | | | catheter was advanced under fluoroscopic guidance and engaged with the | | | ostium of the left main coronary artery, and multiple projections of | | | the left coronary system were done with the use of contrast | | | injections. The catheter was then exchanged for a 6-Cameroonian JR4 | | | catheter which was engaged with the ostium of the right coronary | | | artery, and multiple projections of the right coronary system were | | | obtained with the use of contrast injections. The catheter was then | | | exchanged for a 6-Cameroonian pigtail catheter which was advanced into the | | | left ventricle, and projections of left ventricular function were | | | done with the use of contrast injections. FINDINGS | | | HEMODYNAMICS Pressures: Aortic pressure 136/82 with a mean of 107. LV | | | 136/16. Gradient: There was no gradient between the LV and aorta. | | | CORONARY ANGIOGRAPHY The coronary system was codominant with the | | | DALE branch coming from the circumflex but the PDA branch coming from | | | the RCA. 1. Left main bifurcated into the LAD and left circumflex. | | | Left main was free of disease. 2. Left anterior descending | | | artery has a moderate lesion proximally. There is after that a | | | stented segment with widely patent stent. Following the stent | | | there is 2 tandem lesions which appear to be moderate | | | angiographically. The LAD after that was mildly diseased. The | | | first diagonal branch was pinched with the stent but was very | | | small vessel. 3. Left circumflex coronary artery was codominant | | | vessel. The circumflex was free of significant disease. However, | | | the second marginal branch appears to have 2 tandem lesions of at | | | least moderate severity. 4. Right coronary artery was codominant | | | vessel with the PDA branch coming out it. There is only mild | | | disease in the RCA. LEFT VENTRICULOGRAM Left ventriculogram in | | | the MCGUIRE view showed moderate LV dysfunction with ejection fraction of | | | 40%. CORONARY INTERVENTION The patient has what appears to be | | | diffuse disease in the left anterior descending artery with at least | | | moderate lesions and widely patent stent. Furthermore there is a | | | large marginal branch which has 2 lesions which appear again to be at | | | least moderate and maybe severe. With that I sought further | | | studies of the LAD and the circumflex lesions to assure the need of | | | revascularization. Therefore a JL4 guider catheter was advanced and | | | engaged with the ostium of the left main and Angiomax was given. I | | | started with advancing a pressure wire/[place] into the LAD after | | | normalizing it in left main. Adenosine at 140 mcg/kg per minute was | | | started for 3 to 4 minutes. The distal FFR after the most distal | | | lesion dropped to 0.78. The pullback was then done and after passing | | | these 2 distal lesions, the FFR jumped to 0.91 including prior to the | | | more proximal LAD lesion. Therefore it appears that the 2 distal | | | lesions in the LAD were hemodynamically significant and not the more | | | proximal lesion. I then re-sent the wire into the second marginal | | | branch and placed it distally. The FFR in the marginal branch after | | | restarting adenosine at the same does was only 0.94, and therefore | | | the marginal branches lesions were thought not to be hemodynamically | | | significant. At that point I decided to proceed with stenting the | | | mid LAD and the pressure wire was re-sent into the LAD and placed | | | distally. IVUS study was then done to evaluate the lesions in the mid | | | LAD morphologically. There appears indeed to be a severe stenosis in | | | the mid LAD with fibrotic plaque. Although there appears to be also | | | lesion again in the proximal LAD, this lesion pressure wire study | | | showed a ratio of 0.91. Therefore I proceeded by stenting the mid | | | LAD and in a way overlapped with the previous stent with a 2.75 x 24 | | | mm Ion drug-eluting stent which was deployed with 14 atmospheres. The | | | new minimum surface area was 4.5 mm sq as studied again by the IVUS | | | catheter. There was no edge dissection and the position of the stent | | | was deemed to be adequate. There was a moderate lesion distal to the | | | new stent. All equipment were therefore removed. | | | CONCLUSION/RECOMMENDATIONS 1. Diffuse coronary artery disease | | | primarily in the left anterior descending artery and the second | | | marginal branch. 2. Ischemic cardiomyopathy with an ejection fraction | | | of 40%. 3. Widely patent stent in the mid left anterior descending | | | but the new distal lesions status post stenting with Ion | | | drug-eluting stent. 4. Status post fractional flow reserve study of | | | the proximal left anterior descending and the marginal branch | | | showing hemodynamically insignificant lesions. 5. The patient | | | will continue to need aggressive medical therapy. DD: | | | 03/22/2011 08:56 A P //[id number] | | | Read by JUAN FERREIRA MD 03/22/2011 08:56 A | | + + + + + | Procedure Note | + + | Matthew Cano Conversion - 01/23/2019 4:21 PM PDT | | [facility] | | [facility] [address] | | | | | | Patient Name: GIOVANNI YEBOAH | | Date of : 1945 | | Medical Record: [id number] | | Account: [id number] | | | | | | Exam Date/Time: 03/20/2011 14:00 | | Ordering Physician: JUAN FERREIRA | | Order Detail: [id number] | | Exam Description: CCL DE STENT INSERTION INITIAL | | | | PROCEDURES | | 1. Left heart catheterization with left ventriculogram. | | 2. Selective coronary angiography. | | 3. Fractional flow reserve study on the left anterior descending artery. | | | | 4. Fractional flow reserve study on the second marginal branch. | | 5. Intravascular ultrasound study on the left anterior descending | | artery. | | 6. Stenting of mid left circumflex with 2.75 x 24 mm Ion drug-eluting | | stent. | | 7. Post-stenting intravascular ultrasound study on the left anterior | | descending artery. | | | | ESTIMATED BLOOD LOSS | | Less than 50 mL. | | | | INDICATIONS | | This is a 65-year-old gentleman with a history of coronary | | artery disease and chest discomfort as well as cardiomyopathy who was | | referred for coronary angiography and possible coronary intervention. | | For details regarding his presentation, kindly refer to my H and P. | | | | DESCRIPTION OF PROCEDURE | | The patient was brought to the catheterization lab in the fasting state. | | The patient was prepped and draped in the usual sterile fashion. The | | right groin was anesthetized with 1% lidocaine. A 6-Cameroonian arterial | | sheath was placed in the right femoral artery, and a 6-Cameroonian JL4 | | catheter was advanced under fluoroscopic guidance and engaged with the | | ostium of the left main coronary artery, and multiple projections of the | | left coronary system were done with the use of contrast injections. The | | catheter was then exchanged for a 6-Cameroonian JR4 catheter which was | | engaged with the ostium of the right coronary artery, and multiple | | projections of the right coronary system were obtained with the use of | | contrast injections. The catheter was then exchanged for a 6-Cameroonian | | pigtail catheter which was advanced into the left ventricle, and | | projections of left ventricular function were done with the use of | | contrast injections. | | | | FINDINGS | | | | HEMODYNAMICS | | Pressures: Aortic pressure 136/82 with a mean of 107. LV 136/16. | | Gradient: There was no gradient between the LV and aorta. | | | | CORONARY ANGIOGRAPHY | | The coronary system was codominant with the DALE branch coming from the | | circumflex but the PDA branch coming from the RCA. | | 1. Left main bifurcated into the LAD and left circumflex. Left main was | | free of disease. | | 2. Left anterior descending artery has a moderate lesion proximally. | | There is after that a stented segment with widely patent stent. | | Following the stent there is 2 tandem lesions which appear to be | | moderate angiographically. The LAD after that was mildly diseased. | | The first diagonal branch was pinched with the stent but was very | | small vessel. | | 3. Left circumflex coronary artery was codominant vessel. The circumflex | | was free of significant disease. However, the second marginal branch | | appears to have 2 tandem lesions of at least moderate severity. | | 4. Right coronary artery was codominant vessel with the PDA branch | | coming out it. There is only mild disease in the RCA. | | | | LEFT VENTRICULOGRAM | | Left ventriculogram in the MCGUIRE view showed moderate LV dysfunction with | | ejection fraction of 40%. | | | | CORONARY INTERVENTION | | The patient has what appears to be diffuse disease in the left anterior | | descending artery with at least moderate lesions and widely patent | | stent. Furthermore there is a large marginal branch which has 2 lesions | | which appear again to be at least moderate and maybe severe. | | | | With that I sought further studies of the LAD and the circumflex lesions | | to assure the need of revascularization. Therefore a JL4 guider catheter | | was advanced and engaged with the ostium of the left main and Angiomax | | was given. I started with advancing a pressure wire/[place] into the LAD | | after normalizing it in left main. Adenosine at 140 mcg/kg per minute | | was started for 3 to 4 minutes. The distal FFR after the most distal | | lesion dropped to 0.78. The pullback was then done and after passing | | these 2 distal lesions, the FFR jumped to 0.91 including prior to the | | more proximal LAD lesion. Therefore it appears that the 2 distal lesions | | in the LAD were hemodynamically significant and not the more proximal | | lesion. | | | | I then re-sent the wire into the second marginal branch and placed it | | distally. The FFR in the marginal branch after restarting adenosine at | | the same does was only 0.94, and therefore the marginal branches lesions | | were thought not to be hemodynamically significant. | | | | At that point I decided to proceed with stenting the mid LAD and the | | pressure wire was re-sent into the LAD and placed distally. IVUS study | | was then done to evaluate the lesions in the mid LAD morphologically. | | There appears indeed to be a severe stenosis in the mid LAD with | | fibrotic plaque. Although there appears to be also lesion again in the | | proximal LAD, this lesion pressure wire study showed a ratio of 0.91. | | | | Therefore I proceeded by stenting the mid LAD and in a way overlapped | | with the previous stent with a 2.75 x 24 mm Ion drug-eluting stent which | | was deployed with 14 atmospheres. The new minimum surface area was 4.5 | | mm sq as studied again by the IVUS catheter. There was no edge | | dissection and the position of the stent was deemed to be adequate. | | There was a moderate lesion distal to the new stent. All equipment were | | therefore removed. | | | | CONCLUSION/RECOMMENDATIONS | | 1. Diffuse coronary artery disease primarily in the left anterior | | descending artery and the second marginal branch. | | 2. Ischemic cardiomyopathy with an ejection fraction of 40%. | | 3. Widely patent stent in the mid left anterior descending but the new | | distal lesions status post stenting with Ion drug-eluting stent. | | 4. Status post fractional flow reserve study of the proximal left | | anterior descending and the marginal branch showing hemodynamically | | insignificant lesions. | | 5. The patient will continue to need aggressive medical therapy. | | | | | | | | | | A | | P | | [id number]/ | | | | Read by | | JUAN FERREIRA MD 03/22/2011 08:56 A | | | | | + + documented in this encounter Visit Diagnoses + + | Diagnosis | + + | Old myocardial infarct Old myocardial infarction | + + documented in this encounter"
--- OUTSIDE RECORDS SUMMARY | ~2019-12-13 | XMS | Encounter Summary ---
Demographics + + + | Address | [address] | | | [place] [address] | + + + | Home Phone | | + + + | Preferred Language | Unknown | + + + | Marital Status | | + + + | [employer] Affiliation | [id number] | + + + | Race | Unknown | + + + | Ethnic Group | Unknown | + + + Author + + + | Author | [facility] | | | and [place] | + + + | Organization | [facility] | | | [...] + | [facility] | ECON | [address] | | | | | [place] | | | | | [phone] | | + + + + + Care Team Providers + +------+ + | Care Instructional Systems Designer Name | Role | Phone | + +------+ + PCP | Unavailable | + +------+ + Encounter Details +--------+ + + + + | Date | Type | Department | Care Team | Description | +--------+ + + + + | 11/30/ | Hospital | [facility] | [facility] | | | 2007 | Encounter | [facility] | MD [address] | | | | | [place] [address] | [facility], | | | | | [place] | [place] [address] | | | | | [address] | [phone] | | | | | [phone] | | | +--------+ + + + [...] | | | | | [place] [address] | | | | | | [phone] | | | | | | | | +--------+ + + + + documented as of this encounter Visit Diagnoses Not on filedocumented in this encounter"
--- OUTSIDE RECORDS SUMMARY | ~2019-12-13 | XMS | Encounter Summary ---
Demographics + + + | Address | [address] | | | [place] [address] | + + + | Home Phone | | + + + | Preferred Language | Unknown | + + + | Marital Status | | + + + | Methodist Affiliation | 1041 | + + + | Race | Unknown | + + + | Ethnic Group | Unknown | + + + Author + + + | Author | [facility] | | | and [place] | + + + | Organization | [facility] | | | [...] + | Sangeetha Yeboah | ECON | [address] | | | | | [place] | | | | | [address] | | + + + + + Care Team Providers + +------+ + | Care Branch Director Name | Role | Phone | + [...] | | | | | | | aflutter | | | +--------+--------+ + + + + Encounter Details +--------+ + + + + | Date | Type | Department | Care Team | Description | +--------+ + + + + | 12/09/ | Hospital | [facility] | Hercrenzo, Sallie, DO | [place] (ventricular | | 2020 - | Encounter | [facility] | [address] | tachycardia) (HCC) | | | | CARE FLOOR [address] | [place] [address] | (Primary Dx); Class | | 12/11/ | [address] | [phone] | II obesity; | | 2019 | | [place], [place] | | Paroxysmal atrial | | | | [phone] | Starr Allen MD | fibrillation (HCC); | | | | [phone] | [address] | 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 | | | | | | angina pectoris | | | | | | ([facility]); Atypical | | | | | | atrial flutter | | | | | | ([facility]); [place] | | | | | | (ventricular | | | | | | tachycardia) ([facility]) | +--------+ + + + + Social [...] + + + | Blood Pressure | 148/83 | 12/12/2019 11:46 AM | | | | | PDT | | + + + + + | Pulse | 54 | 12/12/2019 11:46 AM | | | | | PDT | | + + + + + | Temperature | 36.9 C (98.5 F) | 12/12/2019 11:46 AM | | | | | PDT | | + + + + + | Respiratory Rate | 16 | 12/12/2019 11:46 AM | | | | | PDT | | + + + + + | Oxygen Saturation | 96% | 12/12/2019 11:46 AM | | | | | PDT | | + + + + + | Inhaled Oxygen | - | - | | | Concentration | | | | + + + + + | Weight | 115.7 kg (255 lb) | 12/10/2019 4:13 AM | | | | | PDT | | + + + + + | Height | 180.3 cm (5' 11") | 12/10/2019 4:13 AM | | | | | PDT | | + + + + + | Body Mass Index | 35.57 | 12/10/2019 4:13 AM | | | | | PDT | | + + + + + documented in this encounter Discharge Instructions Instructions Akash Steele RN - 12/12/2019Stop diltiazem and carvedilol Sotalol 120 mg twice/day Avoid caffeine and alcohol ICD Discharge Instructions For Dr. Kenroy Gerardo You have just received an internal cardioverter defibrillator (ICD). You probably have a lo t of questions concerning your new implanted device. There are several things that you need to know and a few things that you must do that are very important, especially over the next four weeks. FOLLOW-UP APPOINTMENTS First, be sure to come for all of your post-operative check-ups. The first visit is usually to check that your incision is healing properly. You will be seen by the Nurse or Nurse Pra ctitioner in approximately 7-10 days after ICD implantation. The next visits are to check th at your ICD is functioning properly. You will be seen by a Nurse or Device Expert for these follow-up device clinic checks. At each visit, you will be instructed on how often your ICD will need to be checked either in the office or via your home monitoring system. During your check-ups, your ICD will be checked for proper functioning, battery status and optimized to settings that will best suit your heart. You can expect that your ICD battery (sometimes kn own as the generator ) will last from 7-10 years, depending on usage. Your appointments will be at the [facility] in [place] across from the formerly [facility]. The address is [address] [place] [address]. The office is located on the 3rd floor. This appointment should already be scheduled for you, but if not, please call [phone] to schedule your appointm ent. INCISION SITE CARE You may have a small to moderate amount of pain over the next 48 hours. You may take Tyleno l 650 mg every 4 hours for the first 24 hours while awake, then every 4-6 hours as needed fo r pain. DO NOT GET THIS INCISION OR THE DERMABOND WET FOR 7 DAYS AFTER SURGERY. Then, it is OK to take showers only. The Dermabond may start to peel and curl along the edges, but shoul d not be removed prior to your incision check with the Nurse. This aids in healing the incis ion properly. There are no stitches to be removed. There are stitches internally that will b e naturally absorbed by your body over time. FOR ALL INCISIONS After you go home from the hospital, you may sponge around the shoulder/ICD incision site w ith soap and water or a baby wipe. Please make sure that you DO NOT GET THE INCISION SITE WE T. Also, do not touch your incision directly or apply any creams, lotions, ointments, salves , alcohol or powder to the incision line. If you want to shower in the first seven days afte r the procedure, please cover the incision line with "Press and Seal" by GLAD prior to showe ring. Please remove this immediately after showering and pat the area dry with a towel. WHEN TO CALL OUR OFFICE If you have any questions about how the incision is healing or you are worried that the in cision is not healing properly, please call our office and ask to speak with the nurse at . There are certain signs of infection to watch for as your incision line is heali ng. Please call the office if your notice any green drainage, redness, splitting along the i ncision line, significant swelling or a bruise bigger than the palm of your hand, or if you start running a fever greater than 100.4 degrees. If you develop symptoms similar to those you had prior to ICD insertion (ie. Unusual fatigu e, dizziness, fainting or near fainting, palpitations, chest pain or difficulty breathing), please call our office. WHAT TO EXPECT You can expect the incision line and insertion site to be sore for the next 1-2 weeks. This is normal. You may take pain medicine, as needed. Women may wish to pad the incision site w ith a clean washcloth or handkerchief to keep the bra strap from irritating the incision. WHAT TO DO/WHAT NOT TO DO Do not lift anything heavier than 10 pounds with the arm on the side of your ICD insertion site for the next 1 WEEK. Do not lift your arm above your head or past shoulder height for t he next 1 WEEK. These two activity limitations are exceptionally important as the leads of t he ICD heal and secure into the heart tissue. Any excessive activity could dislodge the lead (or leads) that is in your heart connected to your ICD. DO NOT IMMOBILIZE YOUR ARM OR SHOUL ARYAN. Increase your activities slowly to return to your normal level of activity. Do not become h omebound. Try to live your life as normally as possible. Strenuous activity should be limite d for 1 week. You should be able to resume sexual activity when the incisions are healed in 2-4 days. Intimacy is a normal part of life. Although it is rare, your ICD could deliver a s hock during sexual activity. This will not hurt your partner. Driving restrictions will be determined based on the symptoms that you experienced and the stability of your heart rhythm prior to receiving your ICD. Some people continue to pass out during ICD shocks. If you are driving during this time, you are a potential risk to yoursel f and others. You should not drive until your doctor has specifically told you that it is sa fe to resume driving. You may use all of the appliances in your home, including microwaves, electric blankets, co mputers, TV/DVD players, and drills. Now that you have an ICD, singh hammering should be avoi ded. You should avoid the usage of arc welders. There may be interference with your ICD at the entrance/exit to most stores with surveillan ce equipment to prevent shoplifting. This equipment can temporarily disable the ICD. The bes t way to avoid interference is to not stand for a prolonged time in these entryways. Before you go home from the hospital, you will receive a temporary ID card and manual that has information about your new ICD and the physician who implanted it. You will receive a pe rmanent ID card in the mail, in approximately 4-6 weeks from the company that manufactured y our device. It is very important that you keep this card with you at ALL TIMES, especially i n the case of an emergency. You can travel and fly without restriction. You can go through [employer] detectors in the airpo rt; however, your ICD may trigger alarms. You should show your ID card to security personnel before going through the metal detector. SHOCKS FROM THE ICD The first time that your device gives you a shock, you should notify the office. Go to the Emergency Department after a shock IF you have severe chest pain, shortness of breath, dizzi ness, lightheadedness of loss of consciousness. If you have two or more shocks in one day, [place] call our office. If you receive a shock and become unconscious, bystanders should call 911 and immediately start CPR. We encourage all family members to learn CPR. We do recommend that you wear a Medic Alert bracelet or necklace disclosing that you have a n ICD. If you have any questions about your ICD once you are at home, please call the office at [phone]. Interim Guidance for Preventing the Spread of Coronavirus Disease 2019 (COVID-19) in Homes and Residential Communities Update: August 07, 2019 (This guidance provides clarification regarding evaluation for home isolation and a new sec tion with information regarding preventative steps for household members, intimate partners, and caregivers in a nonhealthcare setting of a person with symptomatic, laboratory-confirme d COVID-19.) This interim guidance is based on what is currently known about the epidemiology of COVID-1 9 and the transmission of other viral respiratory diseases. CDC will update this interim maritza dance as needed and as additional information becomes available. Coronaviruses are a large family of viruses, some causing illness in people and others that circulate among animals, including camels, cats, and bats. Rarely, animal coronaviruses can infect people exposed to infected animals, and then spread among people, as has been seen w ith MERS-CoV and SARS-CoV, and likely now with SARS-CoV-2, the virus that causes COVID-19. T his interim guidance may help prevent this virus from spreading among people in their homes and in other residential communities. Prevention steps for People with confirmed or suspected COVID-19 (including persons under investigation) who do not need to be hospitalized and People with confirmed COVID-19 who were hospitalized and determined to be medically stable to go home Your healthcare provider and public health staff will evaluate whether you can be cared for at home. If it is determined that you do not need to be hospitalized and can be isolated at home, you will be monitored by staff from your local or state health department. You should follow the prevention steps below until a healthcare provider or local or state health depa rtment says you can return to your normal activities. Stay home except to get medical care You should restrict activities outside your home, except for getting medical care. Do not g o to work, school, or public areas. Avoid using public transportation, ride-sharing, or taxi s. Separate yourself from other people and animals in your home People: As much as possible, you should stay in a specific room and away from other people in your home. Also, you should use a separate bathroom, if available. Animals: You should restrict contact with pets and other animals while you are sick with CO VID-19, just like you would around other people. Although there have not been reports of pet s or other animals becoming sick with COVID-19, it is still recommended that people sick wit h COVID-19 limit contact with animals until more information is known about the virus. When possible, have another member of your household care for your animals while you are sick. If you are sick with COVID-19, avoid contact with your pet, including petting, snuggling, bein g kissed or licked, and sharing food. If you must care for your pet or be around animals whi le you are sick, wash your hands before and after you interact with pets and wear a facemask . Call ahead before visiting your doctor If you have a medical appointment, call the healthcare provider and tell them that you have or may have COVID-19. This will help the healthcare provider s office take steps to keep other people from getting infected or exposed. Wear a facemask You should wear a facemask when you are around other people (e.g., sharing a room or vehicl e) or pets and before you enter a healthcare provider s office. If you are not able to wea r a facemask (for example, because it causes trouble breathing), then people who live with y ou should not stay in the same room with you, or they should wear a facemask if they enter y our room. Cover your coughs and sneezes Cover your mouth and nose with a tissue when you cough or sneeze. Throw used tissues in a l ined trash can; immediately wash your hands with soap and water for at least 20 seconds or c lean your hands with an alcohol-based hand tour operator that contains 60 to 95% alcohol, coveri ng all surfaces of your hands and rubbing them together until they feel dry. Soap and water should be used preferentially if hands are visibly dirty. Clean your hands often Wash your hands often with soap and water for at least 20 seconds or clean your hands with an alcohol-based hand tour operator that contains 60 to 95% alcohol, covering all surfaces of yo ur hands and rubbing them together until they feel dry. Soap and water should be used prefer entially if hands are visibly dirty. Avoid touching your eyes, nose, and mouth with unwashed hands. Avoid sharing personal household items You should not share dishes, drinking glasses, cups, eating utensils, towels, or bedding wi th other people or pets in your home. After using these items, they should be washed thoroug hly with soap and water. Clean all high-touch surfaces everyday High touch surfaces include counters, tabletops, doorknobs, bathroom fixtures, toilets, jian vinnie, keyboards, tablets, and bedside tables. Also, clean any surfaces that may have blood, s tool, or body fluids on them. Use a household cleaning spray or wipe, according to the label instructions. Labels contain instructions for safe and effective use of the cleaning produc t including precautions you should take when applying the product, such as wearing gloves an d making sure you have good ventilation during use of the product. Monitor your symptoms Seek prompt medical attention if your illness is worsening (e.g., difficulty breathing). Be fore seeking care, call your healthcare provider and tell them that you have, or are being e valuated for, COVID-19. Put on a facemask before you enter the facility. These steps will he lp the healthcare provider s office to keep other people in the office or waiting room fro m getting infected or exposed. Ask your healthcare provider to call the local health departm ent at [phone]. Persons who are placed under active monitoring or facilitated self-nicolas toring should follow instructions provided by their local health department or occupational health professionals, as appropriate. If you have a medical emergency and need to call 911, notify the dispatch personnel that yo u have, or are being evaluated for COVID-19. If possible, put on a facemask before emergency medical services arrive. Discontinuing home isolation Patients with confirmed COVID-19 should remain under home isolation precautions until the r isk of secondary transmission to others is thought to be low. The decision to discontinue ho me isolation precautions should be made on a [id number] basis, in consultation with health care providers and [facility] and local health departments. As of the current time, this require s confirmation negative results from both throat and nasopharyngeal swabs on two consecutive collections at least 24 hours apart. Recommended precautions for household members, intimate partners, and caregivers in a nonhe althcare setting1 of A patient with symptomatic laboratory-confirmed COVID-19 or A patient under investigation Household members, intimate partners, and caregivers in a nonhealthcare setting may have cl ose contact2 with a person with symptomatic, laboratory-confirmed COVID-19 or a person under investigation. Close contacts should monitor their health; they should call their healthcar e provider right away if they develop symptoms suggestive of COVID-19 (e.g., fever, cough, s hortness of breath) Close contacts should also follow these recommendations: ? Stay home unless otherwise directed by the local health department. ? Make sure that you understand and can help the patient follow their healthcare provider s instructions for medication(s) and care. You should help the patient with basic needs in the home and provide support for getting groceries, prescriptions, and other personal needs. ? Monitor the patient s symptoms. If the patient is getting sicker, call his or her [facility] provider and tell them that the patient has laboratory-confirmed COVID-19. This will h elp the healthcare provider s office take steps to keep other people in the office or wait ing room from getting infected. Ask the healthcare provider to call the local or [facility] hospital department for additional guidance. If the patient has a medical emergency and you need to call 911, notify the dispatch personnel that the patient has, or is being evaluated for COV ID-19. ? Household members should stay in another room or be from the patient as much as possible. Household members should use a separate bedroom and bathroom, if available. ? Prohibit visitors who do not have an essential need to be in the home. ? Household members should care for any pets in the home. Do not handle pets or other anima ls while sick. For more information, see COVID-19 and Animals. ? Make sure that shared spaces in the home have good air flow, such as by an air conditione r or an opened window, weather permitting. ? Perform hand hygiene frequently. Wash your hands often with soap and water for at least 2 0 seconds or use an alcohol-based hand tour operator that contains 60 to 95% alcohol, covering a ll surfaces of your hands and rubbing them together until they feel dry. Soap and water shou ld be used preferentially if hands are visibly dirty. ? Avoid touching your eyes, nose, and mouth with unwashed hands. ? You and the patient should wear a facemask if you are in the same room. ? Wear a disposable facemask and gloves when you touch or have contact with the patient s blood, stool, or body fluids, such as saliva, sputum, nasal mucus, vomit, urine. o Throw out disposable facemasks and gloves after using them. Do not reuse. o When removing personal protective equipment, first remove and dispose of gloves. Then, im mediately clean your hands with soap and water or alcohol-based hand tour operator. Next, remove and dispose of facemask, and immediately clean your hands again with soap and water or alco hol-based hand tour operator. ? Avoid sharing household items with the patient. You should not share dishes, drinking gla sses, cups, eating utensils, towels, bedding, or other items. After the patient uses these i tems, you should wash them thoroughly (see below Wash laundry thoroughly ). ? Clean all high-touch surfaces, such as counters, tabletops, doorknobs, bathroom fix tures, toilets, phones, keyboards, tablets, and bedside tables, every day. Also, clean any s urfaces that may have blood, stool, or body fluids on them. o Use a household cleaning spray or wipe, according to the label instructions. Labels conta in instructions for safe and effective use of the cleaning product including precautions you should take when applying the product, such as wearing gloves and making sure you have good ventilation during use of the product. ? Wash laundry thoroughly. o Immediately remove and wash clothes or bedding that have blood, stool, or body fluids on them. o Wear disposable gloves while handling soiled items and keep soiled items away from your b ian. Clean your hands (with soap and water or an alcohol-based hand tour operator) immediately a fter removing your gloves. o Read and follow directions on labels of laundry or clothing items and detergent. In gener al, using a normal laundry detergent according to washing machine instructions and dry thoro ughly using the warmest temperatures recommended on the clothing label. ? Place all used disposable gloves, facemasks, and other contaminated items in a lined cont ainer before disposing of them with other household waste. Clean your hands (with soap and w ater or an alcohol-based hand tour operator) immediately after handling these items. Soap and wa ter should be used preferentially if hands are visibly dirty. ? Discuss any additional questions with your state or local health department or healthcare provider. For more helpful tips visit our Coronavirus site Stay Informed [facility] and [employer] Techn[employer] [facility] documented in this encounter Medications at Time of Discharge + + + +---------+ + + | Medication | Sig | Dispensed | Refills | Start | End Date | | | | | | Date | | + + + +---------+ + + | apixaban (ELIQUIS) | Take 1 tablet by | 180 | 3 | 02/25/20 | | | 5 mg tablet | mouth 2 times daily. | tablet | | 19 | | + + + +---------+ + [...] | atorvaSTATin | Take 80 mg by mouth | | 0 | | | | (LIPITOR) 80 MG | every evening . | | | | | | tablet [...] + +---------+ + + | Multiple | multivitamin | | 0 | | | | Vitamins-Minerals | 1 daily | | | | | | (MULTIVITAMIN ADULT | | | | | | | PO) | | | | | | + + + +---------+ + + | nitroglycerin | Place 0.4 mg under | | 0 | 08/13/19 | | | (NITROSTAT) 0.4 mg | the tongue. | | | 18 | | | SL tablet | | | | | | + + + +---------+ + + | Benwood-3 Fatty | Take 1 capsule by | | 0 | | | | Acids (OMEGA-3 FISH | mouth Once a week. | | | | | | OIL PO) | omego-3 fatty | | | | | | | acids-fish oil 300 | | | | | | | mg-1,000 mg capsule | | | | | + + + +---------+ + + | pantoprazole | Take 1 tablet by | 30 | 0 | 12/13/19 | | | (PROTONIX) 40 mg | mouth every morning | tablet | | 20 | 0 | | tablet | (before breakfast) | | | | | | | for 30 days. | | | | | + + + +---------+ + + | sotalol (BETAPACE) | Take 1 tablet by | 60 | 0 | 12/12/19 | | | 120 mg tablet | mouth every 12 hours | tablet | | 20 | 0 | | | for 30 days. | | | | | + + + +---------+ + + documented as of this encounter Progress Notes Yarelis Asencio MD - 12/12/2019 8:44 AM PDTFormatting of this note might be different f rom the original. [facility] Service: Cardiology Progress Note Name of Ship'S Captain: Yarelis Asencio MD I have seen the patient on 12/12/2019, states post [facility] defibrillator implantation sec ondary to ventricular tachycardia. No shortness of breath on room air. SUBJECTIVE Denies any chest pain. Current Facility-Administered Medications: acetaminophen (TYLENOL) tablet 650 mg, 650 mg, Oral, Q4H PRN, Kenroy Gerardo MD acetaminophen (TYLENOL) tablet 650 mg, 650 mg, Oral, Q4H, Kenroy Gerardo MD, Stopped at 12/12/19 0000 aspirin EC tablet 81 mg, 81 mg, Oral, Daily, Kenroy Gerardo MD, 81 mg at 12/11/19 08 27 atorvaSTATin (LIPITOR) tablet 80 mg, 80 mg, Oral, Nightly, Kenroy Gerardo MD, 80 mg at 12/11/192011 calcium carbonate (TUMS) chewable tablet 1,000 mg, 1,000 mg, Oral, Q4H PRN, Kenroy Gerardo MD losartan (COZAAR) tablet 50 mg, 50 mg, Oral, BID, eKnroy Gerardo MD, 50 mg at 2011 nitroglycerin (NITROSTAT) SL tablet 0.4 mg, 0.4 mg, Sublingual, Q5 Min PRN, Kenroy Gerardo MD ondansetron (ZOFRAN) injection 4 mg, 4 mg, Intravenous, Q6H PRN, Kenroy Gerardo MD ondansetron (ZOFRAN) injection 4-8 mg, 4-8 mg, Intravenous, Q6H PRN, Kenroy Gerardo MD pantoprazole (PROTONIX) DR tablet 40 mg, 40 mg, Oral, QAM AC, Kenroy Gerardo MD, 40 mg at 12/11/19 0825 senna (SENOKOT) tablet 8.6 mg, 8.6 mg, Oral, BID PRN, Kenroy Gerardo MD sodium chloride 0.9% (NS) infusion, , Intravenous, Tubing Drier, Kenroy Gerardo MD sotalol (BETAPACE) tablet 120 mg, 120 mg, Oral, Q12H, Kenroy Gerardo MD, 120 mg at 0 12/11/192011 OBJECTIVE Vital Signs: BP 116/69 | Pulse 55 | Temp 36.8 C (98.2 F) (Oral) | Resp 16 | Ht 1.803 m (5' 11") | Wt 115.7 kg (255 lb) | SpO2 96% | BMI 35.57 kg/m Intake/Output Summary (Last 24 hours) at 12/12/2019 0844 Last data filed at 12/12/2019 0500 Gross per 24 hour Intake 450 ml Output Net 450 ml Cardiovascular: Regular rhythm, S1 normal and S2 normal. No murmur heard. Pulses: Radial pulses are 2+ on the right side, and 2+ on the left side. Pulmonary/Chest: Effort normal and breath sounds normal. No wheezes. No rales. Abdominal: Soft. No tenderness. Musculoskeletal: No edema. Neurological: Alert. No cranial nerve deficit. Skin: Warm and dry. DATA Recent Labs Lab 12/11/19 0517 NA 142 K 4.3 CO2 23 BUN 20 CREA 1.00 EGFR >60 CALCIUM 8.8 Recent Labs Lab 12/11/19 0517 WBC 6.91 HGB 13.7 HCT 41.6 MCV 91.2 PLT 177 No results for input(s): CKMB, TROPONINT, TSH, INR in the last 168 hours. Invalid input(s): CKTOTAL, CKMBINDEX, BRAIN NATRIURETIC PEPTIDE Lab Results Component Value Date CHOL 141 12/10/2019 CHOL 126 11/10/2018 TRIG 92 12/10/2019 LDL 81 12/10/2019 HDL 42 12/10/2019 GLUF 100 (H) 11/10/2018 EK12/10/2019 EKG is reviewed, noted to have atrial fibrillation, atrial tachycardia, supraventricular ta chycardia. Last Echo: 12/10/2019 Last stress test: 11/23/2018 Reported with normal perfusion however decreased ventricular function during exercise. Last cath: Carotid US: AAA screening: Lower extremity US: OTHERS ASSESSMENT & PLAN Patient is 74 y.o. the following medical problems: 1. Recurrent atrial arrhythmia currently flutter. CHADSVASc score of 3. 2. Wide-complex tachycardia evaluated by EP, ventricular tachycardia. 3. History of coronary artery disease previous PCI to LAD and mid left circumflex. 4. Obstructive sleep apnea on CPAP. 5. Mixed dyslipidemia. 6. Obesity. 7. Essential hypertension. Recommendations: Status post ICD defibrillator for ventricular tachycardia. Carvedilol was stopped and patient was started on sotalol 120 mg twice daily. Continue losartan 50 mg twice daily. Consider changing to ARNI with Sacubitril/Valsartan as an outpatient. Continue with anticoagulation with apixaban. Currently in normal sinus rhythm. Coronary angiogram to evaluate any obstructive disease will be discussed as an outpatient. Medical management by the hospitalist team. Code Status: Full Code Yarelis Asencio MD 12/12/2019 Starr Phoenix MD - 12/11/2019 7:59 PM PDT Service: Hospitalist Progress Note Hospital Day: LOS: 1 day Post-Op Day: 1 Day Post-Op Procedure: Procedure(s) (LRB): CV EP ICD SYSTEM IMPLANT (Bilateral) SUBJECTIVE Patient is status post ICD placement yesterday for ventricular tachycardia. Cardiology a nd Electro-physiology has been on board. On telemetry. Scheduled Medications acetaminophen 650 mg Oral Q4H aspirin 81 mg Oral Daily atorvaSTATin 80 mg Oral Nightly losartan 50 mg Oral BID pantoprazole 40 mg Oral QAM AC sotalol 120 mg Oral Q12H OBJECTIVE Vital Signs: Vitals with Comments 12/11/2019 12/11/2019 12/11/2019 12/11/2019 SYSTOLIC 119 123 - 125 DIASTOLIC 66 67 - 72 Pulse 52 51 54 56 Temp 97.9 97.4 - 97.7 Resp 16 16 - 18 Weight - - - - Height - - - - SPO2 99 100 99 95 BMI - - - - Patient is awake, alert, oriented to time, place and person Skin: Warm and supple Neck: No JVD Chest: Normal vesicular breath sounds, good air entry bilaterally CVS: S1S2 audible, no murmurs heard Abdomen: Soft, non tender, normal bowel sounds, no organomegaly Extremities: No pedal edema, clubbing or cyanosis Neurologic examination: No focal sensory or motor deficits Back examination: No CVA tenderness, no spinal tenderness REVIEW OF SYSTEMS: Denies any chest pain, shortness of breath, nausea, vomiting, diarrhea, dysuria. DATA CBC: Lab Results Component Value Date WBC 6.91 12/11/2019 RBC 4.56 12/11/2019 HGB 13.7 12/11/2019 HCT 41.6 12/11/2019 MCV 91.2 12/11/2019 PLT 177 12/11/2019 BMP: Lab Results Component Value Date NA 142 12/11/2019 K 4.3 12/11/2019 CL 111 (H) 12/11/2019 CO2 23 12/11/2019 BUN 20 12/11/2019 LABCREA 1.0 11/10/2018 CREA 1.00 12/11/2019 EGFR >60 12/11/2019 GLU 112 (H) 12/11/2019 Chest x-ray shows the following: *Cardiomegaly with mild pulmonary venous congestion. ICD device in-situ. *A thin white line along inferior aspect of the 4th rib appears bilaterally symmetric, similar to radiographs from earlier the same day, probably costal grooves. Differential consideration include small left apical pneumothorax, considered less likely. PROBLEM LIST Principal Problem: Paroxysmal atrial fibrillation Active Problems: Class II obesity Coronary atherosclerosis Essential hypertension Hyperlipidemia Sleep apnea Wide-complex tachycardia VT (ventricular tachycardia) Resolved Problems: * No resolved hospital problems. * ASSESSMENT & PLAN Principal problem: Paroxysmal atrial fibrillation With ventricular wide complex tachycardia status post ICD pl acement. Questionable small apical pneumothorax. Patient not hypoxic at this time. Vitals stable. Continue to monitor. Started on sotalol. Cardiology and EP on board. Secondary diagnosis: Hypertension: Continue with losartan. Hyperlipidemia: Continue with baby aspirin and statin. Morbid obesity due to excess calorie intake: Lifestyle modification and outpatient follow-u p recommended. PPI for GERD. SCDs for DVT prophylaxis. ANNA on CPAP. May need to stay of CPAP for a few days because of small pneumothorax. Disposition: Possible discharge in the next day or 2 if stable. Spoke with brother Jamie Roberts [phone] Code Status: Full Code Starr Allen MD 12/11/2019 7:59 PM PDT urry, Kenroy Deshpande MD - 12/11/2019 11:00 AM PDT [facility] PATIENT NAME: Giovanni Yeboah : 1945: AGE: 74 y.o. ADMISSION DATE: 12/10/2019 Hospital Day # 1 Date of Service: 12/11/2019 Principal Hospital Problem: Paroxysmal atrial fibrillation (HCC) Code Status: Full Code PRIMARY CARE: No Physician on file ELECTROPHYSIOLOGY HOSPITAL FOLLOW UP Events since last note: A tiny pneumothorax was noted postoperatively following his ICD imp lant. This morning, the chest x-ray shows that the pneumothorax is still very small but rivera ewhat bigger. Probably less than 5%. The PVCs have decreased in frequency. He feels "grea t". Denies any specific complaints. The ICD site looks good. Summary of EP Recommendations: Have discussed the case with Drs. Merritt and Artur Ball. He will be kept overnight, so the pneumothorax can be followed and the heart rhythm can also be followed. Hopefully he will t olerate the current dose of sotalol but if he becomes too bradycardic, the dose will be decr eased or it will be switched to amiodarone or dofetilide. He will be placed on high flow oxygen and a repeat chest x-ray will be performed at 4 PM. If he develops symptoms from the pneumothorax, a chest tube would be needed. Hopefully that will not be necessary however. Discharge instructions were reviewed with the patient. Continue Tylenol every 4 hours for the first 24 hours, then as needed after that. Problem Paroxysmal Atrial Fibrillation (Hcc) An ablation was performed by 10 years ago in [place] for what sounds like A. f ib, but he has been in A. fib for many years. On carvedilol 50 mg twice daily and diltiazem 120 mg/day for rate control. Anticoagulated with apixaban. His chads 2 vascular score is 3. A rate control strategy has been employed. Left atrial enlargement seen on prior echo a long with mild LV systolic dysfunction and he has been treated for sleep apnea with CPAP for the past 5 years. 12/11/2019: Sinus rhythm was restored during the ICD implant yesterday. Sotalol was started at 120 mg twice per day and has maintained sinus rhythm with sinus bradycardia in the 50s. Hopefully he will tolerate this dose of sotalol but if he does not, it will be decreased to 80 mg twic e per day or possibly switched to dofetilide or amiodarone. Vt (Ventricular Tachycardia) (Hcc) Now on sotalol. Continue 120 mg twice daily for now. If the sinus node does not allow th at dose, will probably recommend switching to amiodarone. Dofetilide is another option. Th e PVCs are much less since sotalol was added. He has had 2 doses now. History of Hypertension The blood pressure is controlled on current therapy. SCHEDULED MEDS acetaminophen 650 mg Oral Q4H aspirin 81 mg Oral Daily atorvaSTATin 80 mg Oral Nightly losartan 50 mg Oral BID pantoprazole 40 mg Oral QAM AC sotalol 120 mg Oral Q12H IV INFUSIONS Laboratory values which I reviewed 12/11/2019 are as follows: LABS Recent Labs Lab 12/11/19 0517 WBC 6.91 RBC 4.56 HGB 13.7 HCT 41.6 MCV 91.2 MCH 30.0 MCHC 32.9 PLT 177 MPV 11.2 Recent Labs Lab 12/11/19 0517 12/10/19 0557 WBC 6.91 -- HGB 13.7 -- HCT 41.6 -- NA 142 -- K 4.3 -- CL 111* -- CO2 23 -- BUN 20 -- CREA 1.00 -- GLU 112* -- CALCIUM 8.8 -- BNP -- 186.67* OBJECTIVE LATEST VITALS: BP 129/77 | Pulse 55 | Temp 36.6 C (97.9 F) (Oral) | Resp 16 | Ht 1 .803 m (5' 11") | Wt 115.7 kg (255 lb) | SpO2 96% | BMI 35.57 kg/m I/O s (this shift): No intake/output data recorded. REVIEW OF SYSTEMS A 10-point review of systems was performed and is negative except for the pertinent positiv es noted in the HPI. PHYSICAL EXAM Admit Weight: Weight: 115.7 kg (255 lb) Current weight: Weight: 115.7 kg (255 lb) General Appearance: Alert, oriented, cooperative, no distress, appears stated age. The ICD site looks good. HEENT: Extraocular movements intact. Pupils round and reactive. No jaundice. NECK: No JVD, No lymphadenopathy. Trachea is at midline. CARDIAC: Normal S1 and S2 heart sounds. No murmurs, rubs, or gallops. Non-displaced, non-driscoll stained apical impulse. CHEST: Normal symmetrical chest excursion. Good bilateral air entry with no crackles or whe ezing. ABDOMEN: Non tender, non distended, bowel sounds present, no organomegaly. EXTREMITIES: 2+ pulses radial and pedal, symmetric. No edema. NEURO: No focal deficits. Normal bulk, power, and tone. SKIN: No bruises or rash. Warm and dry. Signed by: Kenroy Gerardo MD 12/11/2019, 11:01 AM PDT A M Yarelis Livingston MD - 12/11/2019 9:27 AM PDTFormatting of this note might be differe nt from the original. [facility] Service: Cardiology Progress Note Name of Ship'S Captain: Yarelis Asencio MD I have seen the patient on 12/11/2019, states post [employer] defibrillator implantation sec ondary to ventricular tachycardia. SUBJECTIVE Denies any chest pain. Current Facility-Administered Medications: acetaminophen (TYLENOL) tablet 650 mg, 650 mg, Oral, Q4H PRN, Kenroy Gerardo MD acetaminophen (TYLENOL) tablet 650 mg, 650 mg, Oral, Q4H, Kenroy Gerardo MD, 650 mg at 12/11/19 0825 aspirin EC tablet 81 mg, 81 mg, Oral, Daily, Kenroy Gerardo MD, 81 mg at 12/11/19 08 27 atorvaSTATin (LIPITOR) tablet 80 mg, 80 mg, Oral, Nightly, Kenroy Gerardo MD, 80 mg at 12/10/19 2200 calcium carbonate (TUMS) chewable tablet 1,000 mg, 1,000 mg, Oral, Q4H PRN, Kenroy Gerardo MD losartan (COZAAR) tablet 50 mg, 50 mg, Oral, BID, Kenroy Gerardo MD, 50 mg at 0825 nitroglycerin (NITROSTAT) SL tablet 0.4 mg, 0.4 mg, Sublingual, Q5 Min PRN, Kenroy Gerardo MD ondansetron (ZOFRAN) injection 4 mg, 4 mg, Intravenous, Q6H PRN, Kenroy Gerardo MD ondansetron (ZOFRAN) injection 4-8 mg, 4-8 mg, Intravenous, Q6H PRN, Kenroy Gerardo MD pantoprazole (PROTONIX) DR tablet 40 mg, 40 mg, Oral, QAM AC, Kenroy Gerardo MD, 40 mg at 12/11/19 0825 senna (SENOKOT) tablet 8.6 mg, 8.6 mg, Oral, BID PRN, Kenroy Gerardo MD sotalol (BETAPACE) tablet 120 mg, 120 mg, Oral, Q12H, Kenroy Gerardo MD, 120 mg at 0 12/11/19 0827 OBJECTIVE Vital Signs: BP 129/77 | Pulse 55 | Temp 36.6 C (97.9 F) (Oral) | Resp 16 | Ht 1.803 m (5' 11") | Wt 115.7 kg (255 lb) | SpO2 96% | BMI 35.57 kg/m No intake or output data in the 24 hours ending 12/11/19926 Cardiovascular: Regular rhythm, S1 normal and S2 normal. No murmur heard. Pulses: Radial pulses are 2+ on the right side, and 2+ on the left side. Pulmonary/Chest: Effort normal and breath sounds normal. No wheezes. No rales. Abdominal: Soft. No tenderness. Musculoskeletal: No edema. Neurological: Alert. No cranial nerve deficit. Skin: Warm and dry. DATA Recent Labs Lab 12/11/19516 NA 142 K 4.3 CO2 23 BUN 20 CREA 1.00 EGFR >60 CALCIUM 8.8 Recent Labs Lab 12/11/19516 WBC 6.91 HGB 13.7 HCT 41.6 MCV 91.2 PLT 177 No results for input(s): CKMB, TROPONINT, TSH, INR in the last 168 hours. Invalid input(s): CKTOTAL, CKMBINDEX, BRAIN NATRIURETIC PEPTIDE Lab Results Component Value Date CHOL 141 12/10/2019 CHOL 126 11/10/2018 TRIG 92 12/10/2019 LDL 81 12/10/2019 HDL 42 12/10/2019 GLUF 100 (H) 11/10/2018 EK12/10/2019 EKG is reviewed, noted to have atrial fibrillation, atrial tachycardia, supraventricular ta chycardia. Last Echo: 12/10/2019 Last stress test: 11/23/2018 Reported with normal perfusion however decreased ventricular function during exercise. Last cath: Carotid US: AAA screening: Lower extremity US: OTHERS ASSESSMENT & PLAN Patient is 74 y.o. the following medical problems: 1. Recurrent atrial arrhythmia currently flutter. CHADSVASc score of 3. 2. Wide-complex tachycardia evaluated by EP, ventricular tachycardia. 3. History of coronary artery disease previous PCI to LAD and mid left circumflex. 4. Obstructive sleep apnea on CPAP. 5. Mixed dyslipidemia. 6. Obesity. 7. Essential hypertension. Recommendations: Reviewed EKGs with the patient. Status post ICD defibrillator for ventricular tachycardia. Carvedilol was stopped and patient was started on sotalol 120 mg twice daily. Continue losartan 50 mg twice daily. Need to be restarted on anticoagulation with apixaban. Currently in normal sinus rhythm. Pending echocardiogram evaluation to evaluate left ventricular function. Further discussion in regard to patient medication versus further evaluation based on his L V function. Medical management by the hospitalist team. Code Status: Full Code Yarelis Asencio MD 12/11/2019 documented in this encounter H&P Notes Sallie Greco, DO - 12/10/2019 2:56 AM PDTFormatting of this note might be different from t he original. [facility] Service: Hospitalist Admission History & Physical Date of Admission: 12/10/2019 Primary Care Physician: No Physician on file Reason for Admission: Atrial fibrillation/? Atrial flutter, hypertension, dyslipidemia, co ronary artery disease, class II obesity, sleep apnea History obtained chart review and the patient. CHIEF COMPLAINT: Arrhythmia HISTORY OF PRESENT ILLNESS The patient is a 74 y.o. male with significant past medical history of coronary atheroscler osis, stenting of the left anterior descending artery and mid left circumflex with moderate disease in the marginal branch, atrial tachycardia with subsequent ablation but recurrence, dyslipidemia, hypertension, sleep apnea, osteoarthritis of the knee who presents as a transf er from [facility] for atrial flutter, patient in need of higher level of care and non profit financial controller evaluation. Patient presented to the outside facility with a chief complai ns of palpitations. The symptoms are of severe severity, intermittent and lasting 30 minute s per episode. Patient has history of palpitations/atrial tachycardia but has been well-con trolled until July this year. He reports compliance with his medications. Associated sign s and symptoms: chest pressure/discomfort, dyspnea and diaphoresis. Patient took an extra do se of Dialtazem prior going to the ER at [facility] Per patient, he also was seen at [facility]'s emergency room few days earlier with the same complaint of palpitation. At that time, telemetry showed possible SVT at a rate of 204. ED physician recommended to double his dose of diltiazem from 120 to 240 daily, but he wanted to wait until he saw Dr Merritt Similar episodes a week ago and one in August 2019 Data from [facility] Recorded HR 109 - 114 WBC 5.5, hemoglobin 14.7, hematocrit 43.9, platelets 186, sodium 140, potassium 3.7, chlori de 104, CO2 26, BUN 20, creatinine 1.10, magnesium 2.0, glucose 112, PT 14.8, INR 1.1, tropo jhoana less than 0.01. Chest x-ray read as no acute process evident EKG at 0020 shows sinus tachycardia with first-degree AV block, with PVCs. Nonspecific T w ave abnormalities, ventricular rate 102, QTc 487. ED MEDS 1 L of normal saline Active comorbid conditions include: - dysrhythmias - CAD - hypertension - past [place] - PVD - sleep apnea; obstructive - diverticular disease - obesity; due to excess calories Review of Systems Constitutional: Positive for diaphoresis. Respiratory: Positive for chest tightness and shortness of breath. Cardiovascular: Positive for palpitations. Gastrointestinal: Negative for constipation, diarrhea, nausea and vomiting. Endocrine: Negative for polyphagia and polyuria. Genitourinary: Negative for dysuria and frequency. Musculoskeletal: Positive for arthralgias. Negative for gait problem and joint swelling. Neurological: Negative for dizziness and headaches. Psychiatric/Behavioral: Anxiety with palpitations PAST MEDICAL HISTORY Past Medical History: Diagnosis Date Atrial fibrillation (HCC) Atrial tachycardia (HCC) CAD (coronary artery disease) Coronary arteriosclerosis Derangement of posterior horn of medial meniscus of right knee Diverticulosis Hearing loss HTN (hypertension) Hyperlipemia Hyperlipidemia Myocardial infarction (HCC) Obesity Osteoarthritis, localized, knee Persistent atrial fibrillation (HCC) Sleep apnea PAST SURGICAL HISTORY Past Surgical History: Procedure Laterality Date ATRIAL ABLATION SURGERY CARDIAC CATHERIZATION CORONARY ANGIOPLASTY WITH STENT PLACEMENT KNEE ARTHROSCOPY Right 02/19/2018 Procedure: right knee arthrocopy, medial and lateral meniscectomy, synovectomy; Surgeon: Sahil Gutierrez DO; Location: [facility] MAIN OR ALLERGIES Allergies Allergen Reactions Lisinopril Shortness Of Breath HOME MEDICATIONS Prior to Admission medications Medication Sig Start Date End Date Taking? Authorizing Provider apixaban (ELIQUIS) 5 mg tablet Take 1 tablet by mouth 2 times daily. 02/24/19 Yes Juan weathers MD Ascorbic Acid (VITAMIN C) 1000 MG tablet Take 1,000 mg by mouth. Yes Historical Provider, aspirin 325 mg tablet Take 1 tablet by mouth daily (with breakfast). Historical Provider , aspirin 81 mg EC tablet Take 81 mg by mouth. Yes Historical Provider, atorvaSTATin (LIPITOR) 40 mg tablet Take 40 mg by mouth every evening . Yes Historical Pr MD faiza B complex vitamins tablet Take 1 tablet by mouth. Yes Historical Provider, carvedilol (COREG) 25 mg tablet Take 2 tablets by mouth 2 times daily. With meals Yes His torical Provider, cholecalciferol (CHOLECALCIFEROL) 1000 units TABS Take 1,000 Units by mouth. Historical Provider, Coenzyme Q10 (COQ-10) 100 MG CAPS Take 1 capsule by mouth. Yes Historical Provider, dilTIAZem (CARDIZEM) 120 MG tablet Take 120 mg by mouth Daily . Yes Historical Provider, Mifkclecfwc-Poaihjtue-Chk C-Mn (GLUCOSAMINE 1500 COMPLEX) CAPS Take 1 capsule by mouth. Y es Historical Provider, HYDROcodone-acetaminophen (NORCO) 5-325 mg per tablet Take 2 tablets by mouth every 6 hours as needed for Pain. Patient not taking: Reported on 12/10/2019. 02/19/18 Sahil Gutierrez, Krill Oil 1000 MG CAPS Take 1 capsule by mouth. Historical Provider, losartan (COZAAR) 50 mg tablet Take 50 mg by mouth Daily . 02/05/18 Yes Historical Provider, MAGNESIUM PO Take 1 capsule by mouth. Historical Provider, Multiple Vitamin (MULTIVITAMIN) tablet Take 1 tablet by mouth. Historical Provider, Multiple Vitamins-Minerals (MULTIVITAMIN ADULT PO) multivitamin 1 daily Historical ProviderMD Multiple Vitamins-Minerals (OCUVITE EXTRA) TABS Take 1 tablet by mouth. Historical Viridiana guillaume MD Multiple Vitamins-Minerals (OCUVITE PO) Ocuvite 1 po daily Historical Provider, nitroglycerin (NITROSTAT) 0.[address] 0.4 mg under the tongue. 08/12/17 Yes Hist orical Provider, [place]-3 Fatty Acids (OMEGA-3 FISH OIL PO) Take 1 capsule by mouth Once a week. omego-3 fatt y acids-fish oil 300 mg-1,000 mg capsule Historical Provider, MD Pérez [place] 450 MG CAPS 1 capsule Daily. Historical Provider, MD Pérez [place] 450 MG CAPS Take 2 capsules by mouth. Historical Provider, MD VALERIE PALM, SERENOA REPENS, PO Take 1 capsule by mouth 2 times daily. Historical Viridiana guillaume MD Turmeric Curcumin 500 MG CAPS Take 1 capsule by mouth. Historical Provider, SOCIAL HISTORY reports that he has never smoked. He does not have any smokeless tobacco history on file. FAMILY HISTORY family history includes Coronary artery disease in his maternal grandmother. PHYSICAL EXAM BP 116/64 | Pulse 56 | Temp 36.4 C (97.6 F) (Oral) | Resp 20 | Ht 1.803 m (5' 11") | SpO2 97% | BMI 39.61 kg/m Physical Exam Constitutional: General: He is not in acute distress. Appearance: He is well-developed. He is not diaphoretic. HENT: Head: Normocephalic and atraumatic. Right Ear: External ear normal. Left Ear: External ear normal. Nose: Nose normal. Mouth/Throat: Pharynx: No oropharyngeal exudate. Eyes: General: No scleral icterus. Right eye: No discharge. Left eye: No discharge. Conjunctiva/sclera: Conjunctivae normal. Pupils: Pupils are equal, round, and reactive to light. Neck: Musculoskeletal: Normal range of motion and neck supple. Cardiovascular: Rate and Rhythm: Normal rate. Rhythm irregular. Heart sounds: Normal heart sounds. No murmur. Pulmonary: Effort: Pulmonary effort is normal. No respiratory distress. Breath sounds: Normal breath sounds. No wheezing or rales. Chest: Chest wall: No tenderness. Abdominal: General: Bowel sounds are normal. There is no distension. Palpations: Abdomen is soft. Tenderness: There is no abdominal tenderness. Musculoskeletal: Normal range of motion. General: No tenderness or deformity. Skin: General: Skin is warm and dry. Findings: No erythema or rash. Neurological: Mental Status: He is alert and oriented to person, place, and time. Cranial Nerves: No cranial nerve deficit. Sensory: No sensory deficit. Motor: No abnormal muscle tone. Coordination: Coordination normal. Psychiatric: Behavior: Behavior normal. Thought Content: Thought content normal. Judgment: Judgment normal. DATA No results found for this or any previous visit (from the past 24 hour(s)). ASSESSMENT & PLAN Principal Problem: Paroxysmal atrial fibrillation: -Unclear it was flutter last night -Associated with chest tightness and profuse diaphoresis -Telemetry now showing Afib in the 50 - 60 range -History of atrial tachycardia / ablation / recurrence -EKG order -Will trend troponin -Dr Asencio contacted prior to the transfer, patient sees Dr Merritt -Consult written for Dr Asencio, please call him. I was unable to reach him this morning t o verify -We will continue home dose aspirin and Eliquis -We will continue Coreg and Cardizem with parameters at this time heart rates in the 50s -Telemetry Active Problems: Coronary atherosclerosis: -Continue home dose of statin -Follow-up with Dr. Merritt -Records reviewed, stenting of the left anterior descending artery and mid left circumflex with moderate disease in the marginal branch HTN (hypertension): -Continue Cozaar Class II obesity + Sleep apnea: -CPAP per RT -High risk of and comorbid conditions -Encourage LSM Hyperlipidemia: -Continue statin GI and DVT prophylaxis Code Status: Full Code Dictation software, [employer], used which may contain errors for similar sounding words even a fter reviewed. Personal communication requested for any clarification Sallie Greco DO 12/10/2019 6:01 AM PDT documented in this encou nter Consult Notes Kenroy Gerardo MD - 12/10/2019 2:26 PM PDTFormatting of this note might be different fr om the original. [facility] PATIENT NAME: Giovanni Yeboah : 1945: AGE: 74 y.o. ADMISSION DATE: 12/10/2019 Hospital Day # 0 Principal Hospital Problem: Longstanding persistent atrial fibrillation (HCC) Code Status: Full Code PRIMARY CARE: No Physician on file ELECTROPHYSIOLOGY HOSPITAL CONSULT Reason for Consultation: Wide-complex tachycardia Dr. Merritt Attending Physician: Starr Allen MD SUMMARY OF EP RECOMMENDATIONS: Stop diltiazem, given LV systolic dysfunction Proceed with an electrophysiology study afternoon and probable secondary prevention ICD I think the wide-complex tachycardia is probably ventricular tachycardia. Add digoxin, or switch to metoprolol succinate, if additional rate control is needed Significant weight loss is essential ASSESSMENT AND PLAN: EP PROBLEMS ADDRESSED TODAY Problem List Atrial flutter Class II obesity Overview Weight loss is essential. He needs to lose at least 60 pounds and probably 75 pounds of weight. Coronary atherosclerosis Overview Prior PCI to the circumflex and LAD [address] Merritt Nuclear stress test from October 2018 revealed the following: The RV function appears appears to be enlarged. 6. The Anderson Treadmill Score is 5. 7. Comparison with previous Nuclear stress test from 01/2011 showed that the function [facility] has decreased however there is no significant perfusion defect. IMPRESSION: Overall this is a low-risk stress test.. Essential hypertension Overview Chronic hypertension. The blood pressure has been controlled on current therapy. Hyperlipidemia * (Principal) Longstanding persistent atrial fibrillation Overview An ablation was performed by 10 years ago in [place] for what sounds like A. fib, but he has been in A. fib for many years. On carvedilol 50 mg twice daily and diltiaze m 120 mg/day for rate control. Anticoagulated with apixaban. His chads 2 vascular score is 3. A rate control strategy has been employed. Left atrial enlargement seen on prior echo along with mild LV systolic dysfunction and he has been treated for sleep apnea with CPAP fo r the past 5 years. Sleep apnea Overview Sees Dr Ventura- on cpap for 5 yrs Wide-complex tachycardia Overview He has had several episodes of tachycardia, with very fast heart rates over 200 bpm lasti ng for up to 10 minutes, since August 2019. Scribes "extremely fast heart rates", and the he art rate 3 days ago was 203 bpm with a right bundle branch block left axis deviation morphol ogy. He has underlying atrial fibrillation which has been present chronically. Frequent PV Cs seen on telemetry. The ejection fraction was 45 to 50% on last echo and he has had 2 hoang nts in the past. A nuclear stress test was negative for ischemia within the last year. Had no symptoms of angina. I think this is probably ventricular tachycardia and have therefore recommended an electrophysiology study followed by single-chamber ICD if in fact he has ind ucible VT. The risks benefits and rationale were discussed in detail with the patient and h e is keen to proceed. The electrophysiology study will be performed via the right arm and i f needed, the ICD will be placed via the left prepectoral route. COMPREHENSIVE PROBLEM LIST Problem Class II Obesity Weight loss is essential. He needs to lose at least 60 pounds and probably 75 pounds of w eight. Longstanding Persistent Atrial Fibrillation (Hcc) An ablation was performed by 10 years ago in [place] for what sounds like A. f ib, but he has been in A. fib for many years. On carvedilol 50 mg twice daily and diltiazem 120 mg/day for rate control. Anticoagulated with apixaban. His chads 2 vascular score is 3. A rate control strategy has been employed. Left atrial enlargement seen on prior echo a long with mild LV systolic dysfunction and he has been treated for sleep apnea with CPAP for the past 5 years. Wide-Complex Tachycardia (Hcc) He has had several episodes of tachycardia, with very fast heart rates over 200 bpm lastin g for up to 10 minutes, since August 2019. Scribes "extremely fast heart rates", and the hea rt rate 3 days ago was 203 bpm with a right bundle branch block left axis deviation morpholo gy. He has underlying atrial fibrillation which has been present chronically. Frequent PVC s seen on telemetry. The ejection fraction was 45 to 50% on last echo and he has had 2 sten ts in the past. A nuclear stress test was negative for ischemia within the last year. Had no symptoms of angina. I think this is probably ventricular tachycardia and have therefore recommended an electrophysiology study followed by single-chamber ICD if in fact he has chris cible VT. The risks benefits and rationale were discussed in detail with the patient and he is keen to proceed. The electrophysiology study will be performed via the right arm and if needed, the ICD will be placed via the left prepectoral route. Coronary Atherosclerosis Prior PCI to the circumflex and LAD 11 [address] Merritt Nuclear stress test from October 2018 revealed the following: The RV function appears appears to be enlarged. 6. The Anderson Treadmill Score is 5. 7. Comparison with previous Nuclear stress test from 01/2011 showed that the function [place] has decreased however there is no significant perfusion defect. IMPRESSION: Overall this is a low-risk stress test.. Essential Hypertension Chronic hypertension. The blood pressure has been controlled on current therapy. Sleep Apnea Sees Dr Ventura- on cpap for 5 yrs This 74-year-old gentleman was referred because of a wide-complex tachycardia. A very fast heart rate was noted in August 2019 when he was in [place] an park. It lasted for 1 0 minutes and was going "extremely fast". He felt very poorly and dizzy. 1 week ago, he ag ain had a fast heart rate which was "less extreme" and again lasted for 10 minutes. 3 days ago, he went to the emergency room in [place] with a fast heart rate of 205 bpm and it con verted spontaneously in the emergency room. Last night, he again had a very fast heart rate and therefore presented to the emergency room and was transferred here for further evaluati on and treatment. He has known two-vessel coronary disease, with stents in the circumflex 1 1 years ago and to the LAD 10 years ago. Is had no symptoms of angina or CHF. The LV systo lic function was mildly impaired on a nuclear stress test last year. He has longstanding pe rsistent A. fib and an ablation was performed by Dr. Ching in [place] 10 years ago. He i s anticoagulated with apixaban 5 mg twice daily. PAST MEDICAL HISTORY Past Medical History: Diagnosis Date Atrial fibrillation (HCC) Atrial tachycardia (HCC) CAD (coronary artery disease) Coronary arteriosclerosis Derangement of posterior horn of medial meniscus of right knee Diverticulosis Hearing loss HTN (hypertension) Hyperlipemia Hyperlipidemia Myocardial infarction (HCC) Obesity Osteoarthritis, localized, knee Persistent atrial fibrillation (HCC) Sleep apnea PAST SURGICAL HISTORY (INCLUDING PROCEDURES) Past Surgical History: Procedure Laterality Date KNEE ARTHROSCOPY Right 02/19/2018 Procedure: right knee arthrocopy, medial and lateral meniscectomy, synovectomy; Surgeon: Sahil Gutierrez DO; Location: [facility] MAIN OR ATRIAL ABLATION SURGERY CARDIAC CATHERIZATION CORONARY ANGIOPLASTY WITH STENT PLACEMENT FAMILY HISTORY Family History Problem Relation Age of Onset Coronary artery disease Maternal Grandmother SOCIAL HISTORY Social History Socioeconomic History Marital status: Spouse name: Not on file Number of children: Not on file Years of education: GED Highest education level: Not on file Occupational History Not on file Social Needs Financial resource strain: Not on file Food insecurity Worry: Not on file Inability: Not on file Transportation needs Medical: Not on file Non-medical: Not on file Tobacco Use Smoking status: Never Smoker Substance and Sexual Activity Alcohol use: Not on file Comment: Alcoholic Drinks/day: 3 to 4 glasses of wine a week average Drug use: Not on file Comment: Drug use: No Sexual activity: Not on file Lifestyle Physical activity Days per week: Not on file Minutes per session: Not on file Stress: Not on file Relationships Social connections Talks on phone: Not on file Gets together: Not on file Attends taoism service: Not on file Active member of club or organization: Not on file Attends meetings of clubs or organizations: Not on file Relationship status: Not on file Intimate partner violence Fear of current or ex partner: Not on file Emotionally abused: Not on file Physically abused: Not on file Forced sexual activity: Not on file Other Topics Concern Not on file Social History Narrative Not on file TOBACCO HISTORY Social History Tobacco Use Smoking Status Never Smoker OUTPATIENT MEDICATIONS Medications Prior to Admission Medication Sig Dispense Refill apixaban (ELIQUIS) 5 mg tablet Take 1 tablet by mouth 2 times daily. 180 tablet 3 Ascorbic Acid (VITAMIN C) 1000 MG tablet Take 1,000 mg by mouth. aspirin 325 mg tablet Take 1 tablet by mouth daily (with breakfast). aspirin 81 mg EC tablet Take 81 mg by mouth. atorvaSTATin (LIPITOR) 80 MG tablet Take 80 mg by mouth every evening . B complex vitamins tablet Take 1 tablet by mouth. carvedilol (COREG) 25 mg tablet Take 2 tablets by mouth 2 times daily. With meals cholecalciferol (CHOLECALCIFEROL) 1000 units TABS Take 1,000 Units by mouth. Coenzyme Q10 (COQ-10) 100 MG CAPS Take 2 capsules by mouth . dilTIAZem (CARDIZEM) 120 MG tablet Take 120 mg by mouth Daily . Pisxgronwje-Ukbenpbbq-Kig C-Mn (GLUCOSAMINE 1500 COMPLEX) CAPS Take 1 capsule by mouth. HYDROcodone-acetaminophen (NORCO) 5-325 mg per tablet Take 2 tablets by mouth every 6 h ours as needed for Pain. (Patient not taking: Reported on 12/10/2019.) 40 tablet 0 Krill Oil 1000 MG CAPS Take 1 capsule by mouth. losartan (COZAAR) 50 mg tablet Take 50 mg by mouth Daily . MAGNESIUM PO Take 400 mg by mouth Daily . Multiple Vitamin (MULTIVITAMIN) tablet Take 1 tablet by mouth. Multiple Vitamins-Minerals (MULTIVITAMIN ADULT PO) multivitamin 1 daily Multiple Vitamins-Minerals (OCUVITE EXTRA) TABS Take 1 tablet by mouth. nitroglycerin (NITROSTAT) 0.[address] 0.4 mg under the tongue. Benwood-3 Fatty Acids (OMEGA-3 FISH OIL PO) Take 1 capsule by mouth Once a week. omego-3 fatty acids-fish oil 300 mg-1,000 mg capsule [place] 450 MG CAPS 1 capsule Daily. Turmeric Curcumin 500 MG CAPS Take 1 capsule by mouth. ALLERGIES Allergies Allergen Reactions Lisinopril Shortness Of Breath SCHEDULED MEDS aspirin 81 mg Oral Daily atorvaSTATin 80 mg Oral Nightly carvedilol 50 mg Oral BID carvedilol 50 mg Oral Once lidocaine (PF) 80 mL Infiltration Once losartan 50 mg Oral Daily pantoprazole 40 mg Oral QAM AC vancomycin (VANCOCIN) 50 mg/mL irrigation syringe 1,000 mg Irrigation Once vancomycin 1.5 g Intravenous Prior to Incision REVIEW OF SYSTEMS Negative except for pertinent items noted in HPI. Review of Systems Constitutional: Negative for fatigue. HENT: Negative for nosebleeds. Eyes: Negative for visual disturbance. Respiratory: Negative for cough and shortness of breath. Cardiovascular: Negative for chest pain. He has had palpitations, as outlined above. No l eg swelling. Gastrointestinal: Negative for nausea, vomiting, abdominal pain and blood in stool. Genitourinary: Negative for hematuria. Musculoskeletal: Negative for myalgias, back pain and arthralgias. Skin: Negative for color change. Neurological: Positive for dizziness but no syncope or numbness. Hematological: Does not bruise/bleed easily. Psychiatric/Behavioral: The patient is not nervous/anxious. PHYSICAL EXAM BP 126/64 | Pulse 65 | Temp 36.8 C (98.2 F) (Oral) | Resp 18 | Ht 1.803 m (5' 11") | Wt 115.7 kg (255 lb) | SpO2 96% | BMI 35.57 kg/m General Appearance: Alert, oriented, cooperative, no distress, appears stated age. He is o bese. Pleasant. Has an irregular heartbeat. HEENT: Extraocular movements intact. Pupils round and reactive. No jaundice. NECK: No JVD, No lymphadenopathy. Trachea is at midline. CARDIAC: Normal S1 and S2 heart sounds. No murmurs, rubs, or gallops. Non-displaced, non-driscoll stained apical impulse. CHEST: Normal symmetrical chest excursion. Good bilateral air entry with no crackles or whe ezing. ABDOMEN: Non tender, non distended, bowel sounds present, no organomegaly. EXTREMITIES: 2+ pulses radial and pedal, symmetric. No edema. NEURO: No focal deficits. Normal bulk, power, and tone. SKIN: No bruises or rash. Warm and dry. Signed by: Kenroy Gerardo MD 12/10/2019, 2:26 PM PDT Yarelis Livingston M D - 12/10/2019 7:10 AM PDT [facility] Service: Cardiology Initial Consult Note Name of Ship'S Captain: Yarelis Asencio MD Reason for Consultation: Atrial arrhythmia Requesting Physician: [place], Hospitalist History Obtained From: Patient and chart review Primary Retail Event And Sales Assistant: René CHIEF COMPLAINT: Palpitations. HISTORY OF PRESENT ILLNESS: Patient is 74-year-old male with multiple comorbidities. Transferred from [facility] secondary to atrial arrhythmia. Symptoms started earlier this year multiple episodes, was evaluated more than once in [facility] emergency room. His medication were adjusted by increasing diltiazem, con tinues to be on high-dose carvedilol 50 mg twice daily. Again presented yesterday for simil ar symptoms of palpitation was found to be in atrial arrhythmia/flutter with variable AV blo ck. On a previous evaluation reported to have a heart rate around 200 bpm which thought to be supraventricular tachycardia, converted spontaneously to normal sinus rhythm. Patient has history of coronary artery disease PCI to LAD and mid left circumflex follows u p with . REVIEW OF SYSTEMS Constitutional: Positive for fatigue. HENT: Negative for nosebleeds. Eyes: Negative for visual disturbance. Respiratory: Negative for cough and shortness of breath. Cardiovascular: As HPI. Gastrointestinal: Negative for nausea, vomiting, abdominal pain and blood in stool. Genitourinary: Negative for hematuria or dysuria. Musculoskeletal: Chronic arthritic pain. Skin: Negative for color change. Neurological: Negative for dizziness, syncope and numbness. Hematological: Does not bruise/bleed easily. Psychiatric/Behavioral: The patient is not nervous/anxious. PAST MEDICAL & SURGICAL HISTORY Past Medical History: Diagnosis Date Atrial fibrillation (HCC) Atrial tachycardia (HCC) CAD (coronary artery disease) Coronary arteriosclerosis Derangement of posterior horn of medial meniscus of right knee Diverticulosis Hearing loss HTN (hypertension) Hyperlipemia Hyperlipidemia Myocardial infarction (HCC) Obesity Osteoarthritis, localized, knee Persistent atrial fibrillation (HCC) Sleep apnea Past Surgical History: Procedure Laterality Date ATRIAL ABLATION SURGERY CARDIAC CATHERIZATION CORONARY ANGIOPLASTY WITH STENT PLACEMENT KNEE ARTHROSCOPY Right 02/19/2018 Procedure: right knee arthrocopy, medial and lateral meniscectomy, synovectomy; Surgeon: Sahil Gutierrez DO; Location: [facility] MAIN OR MEDICATIONS Home Medications Medications Prior to Admission Medication Sig Dispense Refill apixaban (ELIQUIS) 5 mg tablet Take 1 tablet by mouth 2 times daily. 180 tablet 3 Ascorbic Acid (VITAMIN C) 1000 MG tablet Take 1,000 mg by mouth. aspirin 325 mg tablet Take 1 tablet by mouth daily (with breakfast). aspirin 81 mg EC tablet Take 81 mg by mouth. atorvaSTATin (LIPITOR) 80 MG tablet Take 80 mg by mouth every evening . B complex vitamins tablet Take 1 tablet by mouth. carvedilol (COREG) 25 mg tablet Take 2 tablets by mouth 2 times daily. With meals cholecalciferol (CHOLECALCIFEROL) 1000 units TABS Take 1,000 Units by mouth. Coenzyme Q10 (COQ-10) 100 MG CAPS Take 2 capsules by mouth . dilTIAZem (CARDIZEM) 120 MG tablet Take 120 mg by mouth Daily . Tnvsummypuz-Phinoshgr-Shy C-Mn (GLUCOSAMINE 1500 COMPLEX) CAPS Take 1 capsule by mouth. HYDROcodone-acetaminophen (NORCO) 5-325 mg per tablet Take 2 tablets by mouth every 6 h ours as needed for Pain. (Patient not taking: Reported on 12/10/2019.) 40 tablet 0 Krill Oil 1000 MG CAPS Take 1 capsule by mouth. losartan (COZAAR) 50 mg tablet Take 50 mg by mouth Daily . MAGNESIUM PO Take 400 mg by mouth Daily . Multiple Vitamin (MULTIVITAMIN) tablet Take 1 tablet by mouth. Multiple Vitamins-Minerals (MULTIVITAMIN ADULT PO) multivitamin 1 daily Multiple Vitamins-Minerals (OCUVITE EXTRA) TABS Take 1 tablet by mouth. nitroglycerin (NITROSTAT) 0.[address] 0.4 mg under the tongue. [place]-3 Fatty Acids (OMEGA-3 FISH OIL PO) Take 1 capsule by mouth Once a week. omego-3 fatty acids-fish oil 300 mg-1,000 mg capsule [place] 450 MG CAPS 1 capsule Daily. Turmeric Curcumin 500 MG CAPS Take 1 capsule by mouth. Inhospital Medications apixaban 5 mg Oral BID aspirin 81 mg Oral Daily atorvaSTATin 80 mg Oral Nightly carvedilol 50 mg Oral BID dilTIAZem 120 mg Oral Daily losartan 50 mg Oral Daily pantoprazole 40 mg Oral QAM AC Allergies Allergies Allergen Reactions Lisinopril Shortness Of Breath FAMILY HISTORY Family History Problem Relation Age of Onset Coronary artery disease Maternal Grandmother SOCIAL HISTORY Social History Socioeconomic History Marital status: Spouse name: Not on file Number of children: Not on file Years of education: GED Highest education level: Not on file Occupational History Not on file Social Needs Financial resource strain: Not on file Food insecurity Worry: Not on file Inability: Not on file Transportation needs Medical: Not on file Non-medical: Not on file Tobacco Use Smoking status: Never Smoker Substance and Sexual Activity Alcohol use: Not on file Comment: Alcoholic Drinks/day: 3 to 4 glasses of wine a week average Drug use: Not on file Comment: Drug use: No Sexual activity: Not on file Lifestyle Physical activity Days per week: Not on file Minutes per session: Not on file Stress: Not on file Relationships Social connections Talks on phone: Not on file Gets together: Not on file Attends taoism service: Not on file Active member of club or organization: Not on file Attends meetings of clubs or organizations: Not on file Relationship status: Not on file Intimate partner violence Fear of current or ex partner: Not on file Emotionally abused: Not on file Physically abused: Not on file Forced sexual activity: Not on file Other Topics Concern Not on file Social History Narrative Not on file PHYSICAL EXAM Vital Signs: BP 116/64 | Pulse 56 | Temp 36.4 C (97.6 F) (Oral) | Resp 20 | Ht 1.803 m (5' 11") | Wt 115.7 kg (255 lb) | SpO2 97% | BMI 35.57 kg/m No intake or output data in the 24 hours ending 12/10/19 0710 Constitutional: Well-developed. Neck: No JVD present. No thyromegaly present. Cardiovascular: Regular rhythm, S1 normal and S2 normal. No murmur heard. Pulses: Carotid pulses are 2+ on the right side, and 2+ on the left side. Radial pulses are 2+ on the right side, and 2+ on the left side. Pulmonary/Chest: Effort normal and breath sounds normal. No wheezes. No rales. Abdominal: Soft. No tenderness. Musculoskeletal: No edema. Neurological: Alert. No cranial nerve deficit. Skin: Warm and dry. DATA No results for input(s): NA, K, CO2, BUN, CREA, GLUCOSE, CALCIUM, MG in the last 168 hours. Invalid input(s): BUNCREARATIO, EGFR No results for input(s): CKMB, TROPONINT, TSH in the last 168 hours. Invalid input(s): CKTOTAL, CKMBINDEX Lab Results Component Value Date ALT 23 02/19/2018 AST 31 02/19/2018 ALKPHOS 65 02/19/2018 No results for input(s): WBC, HGB, HCT, MCV, PLT in the last 168 hours. Lab Results Component Value Date CHOL 126 11/10/2018 TRIG 163 (H) 11/10/2018 HDL 38 (L) 11/10/2018 GLUF 100 (H) 11/10/2018 EK12/10/2019 EKG is reviewed, noted to have atrial fibrillation, atrial tachycardia, supraventricular ta chycardia. Last Echo: 12/10/2019 Last stress test: 11/23/2018 Reported with normal perfusion however decreased ventricular function during exercise. Last cath: Carotid US: AAA screening: Lower extremity US: OTHERS ASSESSMENT & PLAN Patient is 74 y.o. the following medical problems: 1. Recurrent atrial arrhythmia currently flutter. CHADSVASc score of 3. 2. Supraventricular tachycardia. 3. History of coronary artery disease previous PCI to LAD and mid left circumflex. 4. Obstructive sleep apnea on CPAP. 5. Mixed dyslipidemia. 6. Obesity. 7. Essential hypertension. Recommendations: Reviewed EKGs with the patient. We will discuss with electrophysiology. Currently on high dosage of carvedilol 50 mg twice daily and diltiazem 120 mg daily. Also patient has different origin of arrhythmias including atypical atrial flutter, atrial tachycardia and also supraventricular tachycardia. At this time he is with atypical atrial flutter however controlled ventricular rate. Has been on anticoagulation. May benefit from supraventricular tachycardia and flutter ablation. Continue with carvedilol and diltiazem at this time. Continue with anticoagulation. Further recommendation upon EP evaluation. Medical management by the hospitalist team. Thank you for allowing me to participate in the care of this patient. Code Status: Full Code Primary Care Physician: No Physician on file Yarelis Asencio MD 12/10/2019 documented in this encounter Miscellaneous Notes Plan of Care - Akash Steele RN - 12/12/2019 11:41 AM PDTSite CDI, BOBBY. Tele SB w/o ect opy. Pt receiving clerarance to D/C by EP, cardio, and hospitalist. Pt agreeable. Printed AV S provided to pt with new Rx. No questions or concerns. Pt discharging to home with spouse.E lectronically signed by Akash Steele RN at 12/12/2019 11:42 AM PDTPlan of Deepika Allred RN - 12/12/2019 4:14 AM PDT Problem: Wound Goal: Optimal Wound Healing Outcome: Ongoing, progressing Pt's incision looks dry and clean. Pt denies any pain at this time. lan of Lissett Miramontes RN - 12/11/2019 3:04 PM PDT Problem: Adult Inpatient Plan of Care Goal: Plan of Care Review 12/11/2019 1500 by iLssett Jeffrey RN Outcome: Ongoing, progressing Note: Pt is medium risk for falls on risk assessment. A/O x4. Independent in room. Call lig ht within reach. Bed in low position; wheels locked. Nonskid socks with ambulation. Safe, un cluttered environment maintained. 12/11/2019 1500 by Lissett Jeffrey RN Outcome: Ongoing, progressing Flowsheets (Taken 12/11/2019 1500) Plan of Care Reviewed With: patient Goal: Patient-Specific Goal 12/11/2019 1500 by Lissett Jeffrey RN Outcome: Ongoing, progressing 12/11/2019 1500 by Lissett Jeffrey RN Outcome: Ongoing, progressing Goal: Absence of Hospital-Acquired Illness or Injury 12/11/2019 1500 by Lissett Jeffrey RN Outcome: Ongoing, progressing 12/11/2019 1500 by Lissett Jeffrey RN Outcome: Ongoing, progressing Goal: Optimal Comfort and Wellbeing 12/11/2019 1500 by Lissett Jeffrey RN Outcome: Ongoing, progressing 12/11/2019 1500 by Lissett Jeffrey RN Outcome: Ongoing, progressing Goal: Readiness for Transition of Care 12/11/2019 1500 by Lissett Jeffrey RN Outcome: Ongoing, progressing 12/11/2019 1500 by Lissett Jeffrey RN Outcome: Ongoing, progressing Goal: Rounds/Family Conference 12/11/2019 1500 by Lissett Jeffrey RN Outcome: Ongoing, progressing 12/11/2019 1500 by Lissett Jeffrey RN Outcome: Ongoing, progressing Problem: Arrhythmia (Acute Coronary Syndrome) Goal: Normalized Cardiac Rhythm 12/11/2019 1500 by Lissett Jeffrey RN Outcome: Ongoing, progressing 12/11/2019 1500 by iLssett Jeffrey RN Outcome: Ongoing, progressing Intervention: Monitor and Manage Cardiac Rhythm Effects Note: Pt being monitored on tele. POD #1 AICD placement. Sotalol initiated. 3 beats vtach t elena. Problem: Pain (Acute Coronary Syndrome) Goal: Absence of Cardiac-Related Pain 12/11/2019 1500 by Lissett Jeffrey RN Outcome: Ongoing, progressing 12/11/2019 1500 by Lissett Jeffrey RN Outcome: Ongoing, progressing Pt denies pain. Problem: Wound Goal: Optimal Wound Healing 12/11/2019 1500 by Lissett Jeffrey RN Outcome: Ongoing, progressing 12/11/2019 1500 by Lissett Jeffrey RN Outcome: Ongoing, progressing Intervention: Promote Effective Wound Healing Note: Left upper chest incision is clean and dry. Well approximated with dermabond. No drai nage or bleeding. lan of Lissett Smart RN - 12/11/2019 8:31 AM PDTPat, pt's , updated on plan via telephone by p t's request. lan of Breann Guzman RN - 12/11/2019 2:29 AM PDT Problem: Pain (Acute Coronary Syndrome) Goal: Absence of Cardiac-Related Pain Outcome: Ongoing, progressing Pt denies any chest pain. At start of shift, pt occasionally having 3-5 beats of vtach. Pt asymptomatic. Dr. Gerardo made aware by day shift RN. No runs of vtach after 2099 this evenin g. Problem: Wound Goal: Optimal Wound Healing Outcome: Ongoing, progressing Incision site remains clean, dry, and intact. Pt educated on acceptable arm movement statu s post device implantation. Pt states understanding. lan of Kenroy Perez MD - 12/10/2019 7:31 P M PDTI was notified that this patient has a very tiny pneumothorax on the left apex. The pl an will be to get a follow-up chest x-ray tomorrow morning and if all is stable, he can be s ent home. If he becomes symptomatic, another chest x-ray will be obtained tonight. Sotalol was started to help treat atrial tach and PVCs and VT. If he has sustained VT tonight, lid ocaine intravenously should be given, starting with 75 mg intravenously followed by 75 mg in 6 minutes followed by 2 mg/min infusion. The potassium will be replaced. Need to keep it greater than 4.0. lan of Lorena Gee RN - 12/10/2019 6:[address] Gerardo. Notified of chest xray result very tiny pneumo, and also 4 then 6 beat runs of vtach. Pt asymptomati c throughout. No new orders received, Dr Gerardo did clarify that pt had received previously o rdered potassium and sotalol this afternoon, this RN informed him pt had received. Mark contrerasy signed by Lorena Fair RN at 12/10/2019 6:50 PM PDTPlan of Clifton De Los Santos RN - 12/10/2019 5:58 PM PDTPt back from ICD procedure, left arm straight for 3 hours, on tele, chest xray being completed, vital signs are stable, pt denies pain at this time, s ite is unchanged, no s/s of infection, will continue to monitor. p Note - Kenroy Gerardo MD - 12/10/2019 4:35 PM [facility] OPERATIVE REPORT KENROY GERARDO MD Patient: GIOVANNI YEBOAH Admitting: SALLIE GRECO MR #: [id number] LOC: PT TYPE: Adm Date: 12/10/2019 : 1945 DATE OF PROCEDURE: 12/10/2019. PROCEDURE: Electrophysiology study and single chamber implantable defibrillator placement with intraoperative evaluation of the defibrillator and lead system (defibrillation testing) . SURGEON: Kenroy Gerardo MD HISTORY: This 74-year-old gentleman has had several episodes of very fast tachycardia sinc e July of this year. He presented with a wide complex tachycardia,with a heart rate of 205 beats per minute to [facility] 3 days ago. 4 months ago, had a heart rate so fa st that it scared him. Most episodes last for 10 minutes or less. He does have coronary ar israel disease, with prior stents to the LAD and circumflex many years ago. The LV systolic f unction was mildly impaired on a previous nuclear stress test. An echo is pending this adm ission. He presented this admission with another fast heart rate. An electrophysiology kendall dy was therefore recommended, because this was suspicious for ventricular tachycardia. He h as sleep apnea and is moderately obese. He had an ablation by Dr. Ching 10 years ago and has had persistent atrial fibrillation. PROCEDURE NOTE: The patient was brought to the electrophysiology laboratory in the post-ab sorptive, nonsedated state. He did receive a dose of apixaban this morning and has been on that chronically. The left arm was prepped and draped in the usual sterile fashion and loca lly anesthetized with 1-percent Xylocaine. A previously placed IV in the left antecubital f betty was exchanged over a guidewire sterilely for a 6-Gabonese introducer. Through that, a 6-F rench steerable decapolar pacing catheter was advanced into the right ventricle. Stimulatio n was performed using paced single, double and triple ventricular extrastimuli from the rig t ventricular inflow region. Pacing was performed following drive trains of 500 and 400 mil liseconds, followed by single ventricular extrastimuli, followed by double ventricular extr astimuli. Paced triple extrastimuli using a short long short coupling protocol using [address] train followed by PVCs 600, 220 and 190 milliseconds were next introduced. Finally, pacing with a [address] followed by paced triple extrastimuli, starting at 280 milliseconds were introduced. While drive pacing at 500 milliseconds, foll owed by PVCs 240, 230 and 220 milliseconds later, sustained monomorphic ventricular tachycar william was induced, which had a ventricular rate of 187 beats per minute. As we were getting ready to pace terminate this after approximately 15-20 seconds, the VT terminated spontaneou brit. Given his clinical tachycardias, I elected not to reinduce. It was felt this was prob ably his clinical tachycardia. The catheter was therefore removed and the sheath was left i n place for the implantable defibrillator. Vancomycin was started (1.5 grams),in preparatio n for an ICD. The catheter was removed and the sheath was kept in place with a Tegaderm dressing. The est was prepped and draped in the usual sterile fashion and locally anesthetized with 1-perc ent Xylocaine. The left subclavian vein was accessed with an 18-gauge needle and a guidewir e was placed into the vessel. A pacer pocket was fashioned using sharp and blunt dissection and electrocautery. No sedation was given for the electrophysiology study; however, he di d get 50 mcg of fentanyl, followed by another 50 mcg followed by 0.5 mg of intravenous Verse d for the implantable defibrillator. His oxygen and CO2 were monitored continuously through out the case and I supervised the sedation. There were no problems. Once the pocket was ma de, a 7-Gabonese introducer was placed into the subclavian vein and through that, a [employer]htaq m taty [id number]-[id number] #[id number] lead was placed into the apex of the right ventricle and screwed into position. The lead was anchored with two #1 Ethibond sutures. There was no diaphragm atic pacing at 10 volts. The final pacing threshold was 0.5 volts at 0.5 milliseconds with an impedance of 520 ohms and R waves of 9.8 millivolts. The lead was attached to a [employer]aq model, #[id number], serial #[id number] implantable defibrillator. That device was placed into the pocket and anchored with a #1 Ethibond suture. The pocket was closed with 4 layers, u sing 2-0 Vicryl for the deep 2 layers, 3-0 Vicryl for the next layer and 4-0 Monocryl for th e superficial layer. An Octyl dressing was placed over the incision. Device based testing was performed. The heart was fibrillated with a 50 Hz burst of right ventricular pacing and on the first induction, a 14 joules biphasic shock restored sinus rhy thm promptly. I elected not to reinduce. The patient was given 5 mg of intravenous metoprolol midway through the case because of kiara quent PVCs. He was also given 4 mg of Zofran before the fentanyl was infused. There were no complications. The patient was transferred to his room in stable condition a fter the device was programmed to the final desired settings. There were no complications. FINAL SETTINGS FOR THE DEVICE: Mode for pacing: VVI with rate of 50 beats per minute and hysteresis of 40 beats per minute. The ventricular tachycardia detection rate will be 175 beats per minute and ventricular fib rillation detection rate will be 216 beats per minute. The first therapies for ventricular tachycardia will be 2 attempts at antitachycardia pacin g starting at 88 percent of the baseline rate, followed by 84 percent for 2 attempts, follow ed by 33 joules first shock and all subsequent shocks will be 42 joules. For ventricular fibrillation, the first shock will be 33 joules, followed by 42 joules shoc ks (6 of them). FINAL IMPRESSION: Good pacing, sensing and defibrillation thresholds. Appropriate device functions seen. RECOMMENDATIONS: 1. Add sotalol 120 mg twice daily and stop carvedilol for now (sinus rhythm was restored b y the defibrillator shock). 2. Resume apixaban probably tomorrow, depending on how the pocket looks. 3. Stop diltiazem ,given the left ventricular systolic dysfunction. 4. Increase losartan to 50 mg twice daily. 5. Resume carvedilol, if the blood pressure is elevated or the heart rate is elevated desp ite sotalol alone. 6. Consider adding spironolactone to his regimen, if the potassium remains somewhat subthe rapeutic or the blood pressure remains elevated despite the above treatment. 7. Replace the potassium and keep that greater than 4.0. KENROY GERARDO MD Dictated by KENROY GERARDO MD 12/10/2019 16:35:03 Transcribed on 12/10/2019 20:43:07 by олег job# [id number] Confirmation #: [id number] cc: JUAN ASENCIO MD rief Op Note - Kenroy Canales MD - 12/10/2019 4:18 PM [facility] Service: Electrophysiology Brief Op Note Pre-operative Diagnosis: Wide-complex tachycardia Post-operative Diagnosis: Ventricular tachycardia Procedure(s): Electrophysiology testing and single-chamber secondary prevention [employer]aq implantable defibrillator in the left arm and left subclavian vein and induction of ventricu lar tachycardia for testing of the defibrillator and lead system Surgeon: Kenroy Gerardo MD Core Drill Operator Helper(s): Naomi Anesthesia: Moderate sedation 100 mics of intravenous fentanyl and 0.5 mg intravenous Ve rsed plus lidocaine local Estimated Blood Loss: 20 cc Other: The defibrillation threshold was less than or equal to 14 J. Appropriate device fun ction was seen, with good pacing and sensing thresholds. Indications: See pre-operative history and physical Findings: Sustained monomorphic VT was induced with paced triple ventricular extrastimuli. The heart rate VT was 187 bpm. It terminated spontaneously. I elected not to reinduce. S inus rhythm was restored by the 14 J implantable defibrillator shock. Complications: None Condition: stable See dictated operative report for full details. The diltiazem will be stopped. Carvedilol will be stopped for now. Add sotalol starting with 120 mg twice daily and increase losarta n to 50 mg twice daily. If additional beta-sushant is needed, resume carvedilol. The apixa ban will be held tonight and in the morning and may be resumed tomorrow night or the next y, depending on how he is pacer pocket looks. Hopefully, he can be sent home tomorrow. I w ill see him tomorrow morning. Potassium will be replaced (3.7 yesterday). Consider adding spironolactone to his regimen if blood pressure remains elevated. Increase losartan to 50 mg twice daily for now. Kenroy Gerardo MD 12/10/2019 4:18 PM PDT lan of Katie - Tiffany Posada RN - 12/10/2019 1:18 PM PDTDr Tiffany notified that pt HR dropped to 40s per tele, pt asymptomatic and did not sustain low HR. lan of Katie - Singh Mayo MSW - 12/10/2019 10:56 AM PDTCare Management Initial Assessment Readmission Risk: Low Status Prior to Admission or Illness Arrival From: home or self-care Lives With: spouse Living Arrangements: mobile home Caregiver For: no one Patient s Caregiver: (no one) Functional Status: Caregiving Concerns: Home Accessibility: stairs to enter home Transportation Available: family or friend will provide Able to return to prior living: yes Care Management Concerns Last discharge date: Readmission Within Last 30 Days: no previous admission in last 30 days Is Readmission Diagnosis Related to or Same As: Previous Discharging Facility: Previous Discharge Destination From: PCP: No Physician on file Contact Information Family Contact Information: Name: Dax Yeboah (brother) Pager: none Fax: none DC Needs Assessment Current Outpt/Agency/Support Groups: none Community Agency Name: none Anticipated Changes Related to Illness: none Concerns to be Addressed: no discharge needs identified Services Anticipated at Discharge: none Equipment Used at Home: none Equipment Needed after Discharge: none Durable Medical Equipment Provider: none Pharmacy/Medication Needs: no authorization required Transportation Needs: family or friend will provide Initial Plan Anticipated Discharge Disposition: home Expected DC Date: yes Steps Taken Toward Discharge: Initial assessment Next Steps: none Notes: CM met with pt for discharge planning. Pt is74 years old and lives with his in a mobile home. Pt has 4 stairs at the main entrance. Pt is independent with ambulation. Pt has no difficulty obtaining his medications and had no resource concerns at this time. CM wi ll continue to follow as needed. Electronically signed: ANA M BOWDEN 12/10/2019 10:56 AM PDT lan of Tiffany De Los Santos RN - 12/10/2019 9:49 AM PDTPlan of care discussed with ptDr rivera to discuss plan with pt. Vital signs are stable, denies pain at this time, will continue to monitor. Problem: Adult Inpatient Plan of Care Goal: Plan of Care Review Outcome: Ongoing, progressing Problem: Arrhythmia (Acute Coronary Syndrome) Goal: Normalized Cardiac Rhythm Outcome: Ongoing, progressing Problem: Pain (Acute Coronary Syndrome) Goal: Absence of Cardiac-Related Pain Outcome: Ongoing, progressing lan of Care - Rebecca acevedo, Anna Villa RN - 12/10/2019 6:04 AM PDTPt doing well. Pt VSS and remains in Aflutter wi th PVCs with HR in 50's. Pt had 6 beats V-tach at 0647. Pt denies any chest pain or pressure . Pt denies any dizziness or lightheadedness with ambulation. Pt able to ambulate with stead y gait. This RN spoke with Pt's Sangeetha ([phone]) regarding pt current medication list and current plan of care. Pt educated on plan of care including labs, tele, and cardio logy consult. All questions answered. Anna Batista RN Problem: Adult Inpatient Plan of Care Goal: Plan of Care Review Outcome: Ongoing, progressing Goal: Patient-Specific Goal Outcome: Ongoing, progressing Goal: Absence of Hospital-Acquired Illness or Injury Outcome: Ongoing, progressing Goal: Optimal Comfort and Wellbeing Outcome: Ongoing, progressing Problem: Arrhythmia/Dysrhythmia Goal: Normalized Cardiac Rhythm Outcome: Ongoing, progressing documented in thi s encounter Plan of Treatment +--------+ + + + + | Date | Type | Specialty | Care Team | Description | +--------+ + + + + | 12/15/ | Clinical | Cardiology | | | 2019 | Support | | | | +--------+ + + + + | 01/09/ | Office | Cardiology | Juan Merritt MD | | | 2019 | Visit | | [address] | | | | | | [place] [address] | | | | | | [phone] | | | | | | | | +--------+ + + + + + + +--------+ + + | Name | Type | Priori | Associated Diagnoses | Date/Time | | | | ty | | | + + +--------+ + + | CV EP Procedure | Electrophys | Routin | VT (ventricular | 12/10/2019 4:15 PM | | | iology | e | tachycardia) (HCC) | PDT | + + +--------+ + + documented as of this encounter Procedures + +--------+ + + + | Procedure Name | Priori | Date/Time | Associated Diagnosis | Comments | | | ty | | | | + +--------+ + + + | XR CHEST PA AND | Routin | 12/11/2019 | | Results for this | | LATERAL | e | 4:13 PM | | procedure are in the | | | | PDT | | results section. | + +--------+ + + + | ECHO COMPLETE W | Routin | 12/11/2019 | | Results for this | | CONTRAST | e | 10:30 AM | | procedure are in the | | | | PDT | | results section. | + +--------+ + + + | XR CHEST PA AND | Routin | 12/11/2019 | | Results for this | | LATERAL | e | 7:31 AM | | procedure are in the | | | | PDT | | results section. | + +--------+ + + + | CBC NO DIFFERENTIAL | Routin | 12/11/2019 | | Results for this | | | e | 5:17 AM | | procedure are in the | | | | PDT | | results section. | + +--------+ + + + | COMPREHENSIVE | Routin | 12/11/2019 | | Results for this | | METABOLIC PANEL | e | 5:17 AM | | procedure are in the | | | | PDT | | results section. | + +--------+ + + + | XR CHEST PA AND | Routin | 12/10/2019 | | Results for this | | LATERAL | e | 6:08 PM | | procedure are in the | | | | PDT | | results section. | + +--------+ + + + | CV EP PROCEDURE | Routin | 12/10/2019 | VT (ventricular | | | | e | 4:15 PM | tachycardia) (HCC) | | | | | PDT | | | + +--------+ + + + | TROPONIN I | Routin | 12/10/2019 | | Results for this | | | e | 8:27 AM | | procedure are in the | | | | PDT | | results section. | + +--------+ + + + | B TYPE NATRIURETIC | STAT | 12/10/2019 | | Results for this | | PEPTIDE | | 5:57 AM | | procedure are in the | | | | PDT | | results section. | + +--------+ + + + | LIPID PANEL | Routin | 12/10/2019 | | Results for this | | | e | 5:55 AM | | procedure are in the | | | | PDT | | results section. | + +--------+ + + + | TROPONIN I | Routin | 12/10/2019 | | Results for this | | | e | 5:55 AM | | procedure are in the | | | | PDT | | results section. | + +--------+ + + + documented in this encounter Results XR Chest PA and Lateral (12/11/2019 4:13 PM PDT) + + | Specimen | + + | | + + + + + | Impressions | Performed At | + + + | *Cardiomegaly with mild pulmonary venous congestion. ICD device | [facility] | | in-situ. *A thin white line along inferior aspect of the 4th rib | | | appears bilaterally symmetric, similar to radiographs from earlier | | | the same day, probably costal grooves. Differential consideration | | | include small left apical pneumothorax, considered less likely. | | | Final Report Signed by: Pelon Bae, Nannetteder Sign | | | Date/Time: 12/11/2019 5:10 PM | | + + + + + + | Narrative | Performed At | + + + | CHEST PA AND LATERAL CLINICAL INFORMATION: Pneumothorax. | [facility] | | COMPARISON: XR CHEST PA AND LATERAL (12/11/2019); XR CHEST PA AND | | | LATERAL (12/10/2019); CHEST AP OR MU (12/10/2019); CHEST AP OR MU | | | (12/07/2019); [facility] W CORONARY ANGIO W GRAFTS (03/20/2011); | | | FINDINGS: Cardiomegaly with mild pulmonary venous congestion. | | | Single lead ICD device in-situ. A thin white line along | | | inferior aspect of the 4th rib appears bilaterally symmetric, | | | corresponding to the pleural line questioned on radiographs from | | | earlier the same day. Pulmonary vascular markings are visualized | | | peripheral to the line. No pleural effusion. No acute osseous | | | abnormality. Mild thoracic spondylosis. | | + + + + + | Procedure Note | + + | Jerome, [id number] - 12/11/2019 5:14 PM PDT | | CHEST PA AND LATERAL | | | | CLINICAL INFORMATION: | | Pneumothorax. | | | | COMPARISON: | | XR CHEST PA AND LATERAL (12/11/2019); XR CHEST PA AND LATERAL | | (12/10/2019); CHEST AP OR MU (12/10/2019); CHEST AP OR MU (12/07/2019); [facility] | | [facility] W CORONARY ANGIO W GRAFTS (03/20/2011); | | | | FINDINGS: | | Cardiomegaly with mild pulmonary venous congestion. Single lead ICD | | device in-situ. | | | | A thin white line along inferior aspect of the 4th rib appears | | bilaterally symmetric, corresponding to the pleural line questioned on | | radiographs from earlier the same day. Pulmonary vascular markings are | | visualized peripheral to the line. | | | | No pleural effusion. No acute osseous abnormality. Mild thoracic | | spondylosis. | | | | IMPRESSION: | | *Cardiomegaly with mild pulmonary venous congestion. ICD device | | in-situ. | | *A thin white line along inferior aspect of the 4th rib appears | | bilaterally symmetric, similar to radiographs from earlier the same | | day, probably costal grooves. Differential consideration include small | | left apical pneumothorax, considered less likely. | | | | | | | | | | | | Final Report Signed by: Pelon Bae Pushpender | | Sign Date/Time: 12/11/2019 5:10 PM | + + + +---------+ + + | Performing | Address | City/State/Zipcode | Phone Number | | Organization | | | | + +---------+ + + | [facility] | | | | + +---------+ + + ECHO Complete w Contrast (12/11/2019 10:30 AM PDT) + +--------+ + + + | Component | Value | Ref Range | Performed | Pathologist | | | | | At | Signature | + +--------+ + + + | Inferior | 2.45 | cm | [facility] | | | Vena Cava | | | | | | Diameter at | | | | | | Expiration | | | | | + +--------+ + + + | LVIDd | 5.58 | cm | [facility] | | + +--------+ + + + | FS | 10 | % | [facility] | | + +--------+ + + + | LA volume | 110.47 | mL | [facility] | | + +--------+ + + + | Ascending | 4.24 | cm | [facility] | | | aorta | | | | | + +--------+ + + + | AV mean | 2.11 | mmHg | [facility] | | | gradient | | | | | + +--------+ + + + | Aortic | 2.14 | cm2 | [facility] | | | Valve Area | | | | | | by | | | | | | Continuity | | | | | | VTI | | | | | + +--------+ + + + | PV peak | 0.66 | mmHg | [facility] | | | gradient | | | | | + +--------+ + + + | LVOT | 2.05 | cm | [facility] | | | diameter | | | | | + +--------+ + + + | LVOT peak | 64.85 | cm/s | [facility] | | | harleen | | | | | + +--------+ + + + | LVOT peak | 13.63 | cm | [facility] | | | VTI | | | | | + +--------+ + + + | AV peak harleen | 97.45 | cm/s | [facility] | | + +--------+ + + + | AV VTI | 21.03 | cm | [facility] | | + +--------+ + + + | AV peak | 3.8 | mmHg | [facility] | | | gradient | | | | | + +--------+ + + + | PV mean | 0.36 | mmHg | [facility] | | | gradient | | | | | + +--------+ + + + | LA Volume | 47 | mL/m2 | [facility] | | | Index | | | | | + +--------+ + + + | AV LVOT | 1.68 | mmHg | [facility] | | | Peak | | | | | | Gradient | | | | | + +--------+ + + + | AV LVOT | 0.81 | mmHg | [facility] | | | Mean | | | | | | Gradient | | | | | + +--------+ + + + | TR Peak | 48 | mmHg | [facility] | | | Gradient | | | | | + +--------+ + + + | TR Velocity | 346.89 | cm/s | [facility] | | + +--------+ + + + | PI Peak | 40.77 | cm/s | [facility] | | | Velocity | | | | | + +--------+ + + + | LV | 8.72 | cm | [facility] | | | Diastolic | | | | | | Length 4C | | | | | + +--------+ + + + | RV | 4.63 | cm | [facility] | | | Diastolic | | | | | | Basal | | | | | | Diameter | | | | | + +--------+ + + + | LV | 47 | % | [facility] | | | Arthur's | | | | | | Biplane EF | | | | | + +--------+ + + + | LV ED | 126.07 | ml | [facility] | | | Volume | | | | | | (Arthur's) | | | | | + +--------+ + + + | LV ED | 54 | ml/m2 | [facility] | | | Volume | | | | | | Index | | | | | + +--------+ + + + | LV ES | 66.74 | ml | [facility] | | | Volume | | | | | + +--------+ + + + | LVOT Mean | 42.62 | cm/s | [facility] | | | Velocity | | | | | + +--------+ + + + | MV | 199.17 | msec | [facility] | | | Deceleratio | | | | | | n Time | | | | | + +--------+ + + + | MV E/A | 2.05 | | [facility] | | | Ratio | | | | | + +--------+ + + + | MV Peak | 48.36 | cm/s | [facility] | | | A-Wave | | | | | + +--------+ + + + | MV Peak | 99.27 | cm/s | [facility] | | | E-Wave | | | | | + +--------+ + + + | PV Mean | 28.09 | cm/s | [facility] | | | Velocity | | | | | + +--------+ + + + | AV Mean | 69.52 | cm/s | [facility] | | | Velocity | | | | | + +--------+ + + + | LA Area | 29.81 | cm2 | [facility] | | + +--------+ + + + | LA Major | 0.2103 | cm | [facility] | | + +--------+ + + + | LV ES | 29 | ml/m2 | [facility] | | | Volume | | | | | | Index | | | | | + +--------+ + + + | Vitals | 73 | | [facility] | | | Heart Rate | | | | | | Rest | | | | | + +--------+ + + + | Vitals | 180.0 | | [facility] | | | Height | | | | | + +--------+ + + + | Vitals | 116.00 | | [facility] | | | Weight | | | | | + +--------+ + + + | IVS | 1.01 | cm | [facility] | | | Diastolic | | | | | | Thickness | | | | | | MM | | | | | + +--------+ + + + | LVPW | 1.1 | cm | [facility] | | | Diastolic | | | | | | Thickness | | | | | | MM | | | | | + +--------+ + + + | IVS | 1.19 | cm | [facility] | | | Systolic | | | | | | Thickness | | | | | | MM | | | | | + +--------+ + + + | LV Systolic | 5.05 | cm | [facility] | | | Diameter | | | | | | MM | | | | | + +--------+ + + + | LVPW | 1.31 | cm | [facility] | | | Systolic | | | | | | Thickness | | | | | | MM | | | | | + +--------+ + + + | TAPSE | 1.6 | cm | [facility] | | + +--------+ + + + | LVEF-TTE | 35 | % | [facility] | | | TRANSTHORAC | | | | | | IC ECHO | | | | | + +--------+ + + + | RA PRESSURE | 15 | mmHg | [facility] | | + +--------+ + + + | RVSP | 63 | mmHg | [facility] | | | Estimated | | | | | + +--------+ + + + + + | Specimen | + + | | + + + + + | Narrative | Performed At | + + + | Technically | [facility] | | difficult study.Left ventricle appears normal in size, wall thickness | | | and moderately reduced systolic function EF 35-40%.Right ventricle is | | | dilated with mildly reduced systolic function. Mild tricuspid | | | regurgitation and severe pulmonary hypertension RVSP 63 mmHg.No | | | pericardial effusion. | | |No pericardial effusion. | | | | | + + + + +---------+ + + | Performing | Address | City/State/Zipcode | Phone Number | | Organization | | | | + +---------+ + + | [facility] | | | | + +---------+ + + XR Chest PA and Lateral (12/11/2019 7:31 AM PDT) + + | Specimen | + + | | + + + + + | Impressions | Performed At | + + + | Left apical pneumothorax persists and is slightly increased in | [facility] | | volume compared with yesterday's study. No other significant | | | findings in the chest. Final Report Signed by: Pelon Sow, | | | Ranjith Sign Date/Time: 12/11/2019 7:41 AM | | + + + + + + | Narrative | Performed At | + + + | CHEST PA AND LATERAL CLINICAL INFORMATION: Follow up left | [facility] | | pneumothorax. COMPARISON: XR CHEST PA AND LATERAL (12/10/2019); | | | CHEST AP OR MU (12/10/2019); CHEST AP OR MU (12/07/2019); FINDINGS: | | | Unipolar AICD is in stable position. Left apical pneumothorax | | | persists and is slightly increased in volume compared with | | | yesterday's study. No pneumothorax on the right. Lungs are clear. | | | Cardiomediastinal contours are stable. No pleural effusion. | | + + + + + | Procedure Note | + + | Jerome, [id number] - 12/11/2019 7:45 AM PDT | | CHEST PA AND LATERAL | | | | CLINICAL INFORMATION: | | Follow up left pneumothorax. | | | | COMPARISON: | | XR CHEST PA AND LATERAL (12/10/2019); CHEST AP OR MU (12/10/2019); CHEST | | AP OR MU (12/07/2019); | | | | FINDINGS: | | Unipolar AICD is in stable position. Left apical pneumothorax persists | | and is slightly increased in volume compared with yesterday's study. | | No pneumothorax on the right. Lungs are clear. Cardiomediastinal | | contours are stable. No pleural effusion. | | | | IMPRESSION: | | Left apical pneumothorax persists and is slightly increased in volume | | compared with yesterday's study. No other significant findings in the | | chest. | | | | | | | | Final Report Signed by: Pelon Sow Robin | | Sign Date/Time: 12/11/2019 7:41 AM | + + + +---------+ + + | Performing | Address | City/State/Zipcode | Phone Number | | Organization | | | | + +---------+ + + | [facility] | | | | + +---------+ + + Comprehensive Metabolic Panel (12/11/2019 5:17 AM PDT) + + + + + + | Component | Value | Ref Range | Performed | Pathologist | | | | | At | Signature | + + + + + + | Na | 142 | 135 - 145 | [facility] | | | | | mmol/L | LABORATORY | | + + + + + + | K | 4.3 | 3.5 - 4.9 | [facility] | | | | | mmol/L | LABORATORY | | + + + + + + | Cl | 111 (H) | 99 - 109 mmol/L | [facility] | | | | | | LABORATORY | | + + + + + + | CO2 | 23 | 23 - 32 mmol/L | [facility] | | | | | | LABORATORY | | + + + + + + | Anion Gap | 12 | 5 - 20 mmol/L | [facility] | | | | | | LABORATORY | | + + + + + + | Glucose | 112 (H) | 65 - 99 mg/dL | [facility] | | | | | | LABORATORY | | + + + + + + | BUN | 20 | 8 - 25 mg/dL | [facility] | | | | | | LABORATORY | | + + + + + + | Creatinine | 1.00 | 0.70 - 1.30 | [facility] | | | | | mg/dL | LABORATORY | | + + + + + + | BUN/Creatin | 20 | | [facility] | | | ine Ratio | | | LABORATORY | | + + + + + + | Calcium | 8.8 | 8.5 - 10.5 | [facility] | | | | | mg/dL | LABORATORY | | + + + + + + | Protein, | 6.9 | 6.3 - 8.2 g/dL | [facility] | | | Total | | | LABORATORY | | + + + + + + | Albumin | 3.4 | 3.3 - 4.8 g/dL | [facility] | | | | | | LABORATORY | | + + + + + + | Globulin | 3.5 | 1.3 - 4.9 g/dL | [facility] | | | | | | LABORATORY | | + + + + + + | A/G Ratio | 1.0 | 1.0 - 2.4 | [facility] | | | | | | LABORATORY | | + + + + + + | BILIRUBIN, | 0.8 | 0.1 - 1.5 mg/dL | [facility] | | | TOTAL | | | LABORATORY | | + + + + + + | ALK PHOS | 68 | 35 - 115 U/L | [facility] | | | | | | LABORATORY | | + + + + + + | AST | 20 | 10 - 45 U/L | [facility] | | | | | | LABORATORY | | + + + + + + | ALT | 45 | 10 - 65 U/L | [facility] | | | | | | LABORATORY | | + + + + + + | Estimated | >60Comment: GFR <60: | >60 | [facility] | | | GFR | CHRONIC KIDNEY DISEASE, | mL/min/1.73m2 | LABORATORY | | | | IF FOUND OVER A 3 MONTH | | | | | | PERIOD.GFR <15: KIDNEY | | | | | | FAILURE.FOR | | | | | | AMERICANS, MULTIPLY THE | | | | | | CALCULATED GFR BY | | | | | | 1.210.This eGFR is | | | | | | calculated using the | | | | | | MDRD IDMS traceable | | | | | | equation.Testing | | | | | | performed at [facility], [address] | | | | | | [facility], | | | | | | [place] [address] | | | | + + + + + + + + | Specimen | + + | Blood | + + + + + + + | Performing | Address | City/State/Zipcode | Phone Number | | Organization | | | | + + + + + | [facility] | [address] | [place] [address] | [phone] | + + + + + CBC no Differential (12/11/2019 5:17 AM PDT) + + + + + + | Component | Value | Ref Range | Performed | Pathologist | | | | | At | Signature | + + + + + + | WBC | 6.91 | 3.80 - 11.00 | [facility] | | | | | K/uL | LABORATORY | | + + + + + + | Red Blood | 4.56 | 4.20 - 5.70 | [facility] | | | Cells | | M/uL | LABORATORY | | + + + + + + | Hemoglobin | 13.7 | 13.2 - 17.0 | [facility] | | | | | g/dL | LABORATORY | | + + + + + + | Hematocrit | 41.6 | 39.0 - 50.0 % | [facility] | | | | | | LABORATORY | | + + + + + + | MCV | 91.2 | 80.0 - 100.0 fl | [facility] | | | | | | LABORATORY | | + + + + + + | MCH | 30.0 | 27.0 - 34.0 pg | [facility] | | | | | | LABORATORY | | + + + + + + | MCHC | 32.9 | 32.0 - 35.5 | [facility] | | | | | g/dL | LABORATORY | | + + + + + + | RDW-SD | 46.8 | 37 - 53 fl | [facility] | | | | | | LABORATORY | | + + + + + + | Platelet | 177 | 150 - 400 K/uL | [facility] | | | Count | | | LABORATORY | | + + + + + + | MPV | 11.2Comment: NO NORMAL | fl | [facility] | | | | RANGE ESTABLISHEDTesting | | LABORATORY | | | | performed at [facility], [address], | | | | | | [place] [address] | | | | + + + + + + + + | Specimen | + + | Blood | + + + + + + + | Performing | Address | City/State/Zipcode | Phone Number | | Organization | | | | + + + + + | [facility] | [address] | [place] [address] | [phone] | + + + + + XR Chest PA and Lateral (12/10/2019 6:08 PM PDT) + + | Specimen | + + | | + + + + + | Impressions | Performed At | + + + | Placement of right ventricular left subclavian approach | [facility] | | defibrillator lead. Very tiny left apical pneumothorax. | | | Final Report Signed by: Pelon Beatty, Hazel Baumann Date/Time: | | | 12/10/2019 6:18 PM | | + + + + + + | Narrative | Performed At | + + + | CHEST PA AND LATERAL CLINICAL INFORMATION: Post cardiac | [facility] | | device procedure, document lead position. COMPARISON: None | | | FINDINGS: A left subclavian right ventricular defibrillator lead is | | | present. Heart size is upper normal. No focal infiltrate or | | | effusion is apparent. Monitoring leads are seen. There is a very | | | tiny left apical pneumothorax. Osseous structures are unremarkable. | | | | | + + + + + | Procedure Note | + + | Jerome, [id number] - 12/10/2019 6:22 PM PDT | | CHEST PA AND LATERAL | | | | CLINICAL INFORMATION: | | Post cardiac device procedure, document lead position. | | | | COMPARISON: | | None | | | | FINDINGS: | | A left subclavian right ventricular defibrillator lead is present. | | Heart size is upper normal. No focal infiltrate or effusion is | | apparent. Monitoring leads are seen. There is a very tiny left apical | | pneumothorax. Osseous structures are unremarkable. | | | | IMPRESSION: | | Placement of right ventricular left subclavian approach defibrillator | | lead. | | Very tiny left apical pneumothorax. | | | | | | | | Final Report Signed by: Pelon Beatty Leslie | | Sign Date/Time: 12/10/2019 6:18 PM | + + + +---------+ + + | Performing | Address | City/State/Zipcode | Phone Number | | Organization | | | | + +---------+ + + | [facility] | | | | + +---------+ + + Troponin I (12/10/2019 8:27 AM PDT) + + + + + + | Component | Value | Ref Range | Performed | Pathologist | | | | | At | Signature | + + + + + + | Troponin I | 0.03Comment: 0.04 | 0.00 - 0.04 | [facility] | | | | ng/mL or less | ng/mL | LABORATORY | | | | Negative, repeat | | | | | | testing in four to six | | | | | | hour ifclinically | | | | | | indicted0.05 to 0.77 | | | | | | ng/mL | | | | | | Suspicious for | | | | | | myocardial injury. | | | | | | Serial measurementsmay | | | | | | be necessary to confirm | | | | | | or exclude the diagnosis | | | | | | of acute | | | | | | coronarysyndrome. Repeat | | | | | | testing in four to six | | | | | | hours if indicated.0.78 | | | | | | or greater ng/mL | | | | | | Consistent with | | | | | | myocardial injury. | | | | | | Clinical andlaboratory | | | | | | correlation recommended. | | | | | | Testing performed at | | | | | | [facility];[address] | | | | | | [address];[place] [address] | | | | + + + + + + + + | Specimen | + + | Blood | + + + + + + + | Performing | Address | City/State/Zipcode | Phone Number | | Organization | | | | + + + + + | [facility] | [address] | [place] [address] | [phone] | + + + + + B Type Natriuretic Peptide (12/10/2019 5:57 AM PDT) + + + + + + | Component | Value | Ref Range | Performed | Pathologist | | | | | At | Signature | + + + + + + | BNP | 186.67 (H)Comment: | 0 - 100 pg/mL | [facility] | | | | Testing performed at | | LABORATORY | | | | [facility];[address] | | | | | [address];[place] [address] | | | | + + + + + + + + | Specimen | + + | Blood | + + + + + + + | Performing | Address | City/State/Zipcode | Phone Number | | Organization | | | | + + + + + | [facility] | [address] | [place] [address] | [phone] | + + + + + Lipid Panel (12/10/2019 5:55 AM PDT) + + + + + + | Component | Value | Ref Range | Performed | Pathologist | | | | | At | Signature | + + + + + + | Cholesterol | 141 | <200 mg/dL | [facility] | | | | | | LABORATORY | | + + + + + + | Triglycerid | 92 | <150 mg/dL | [facility] | | | es | | | LABORATORY | | + + + + + + | HDL | 42 | >40 mg/dL | [facility] | | | | | | LABORATORY | | + + + + + + | LDL, | 81Comment: Testing | <100 mg/dL | [facility] | | | Calculated | performed at [facility], [address] | | LABORATORY | | | | [address], | | | | | | [place] [address] | | | | + + + + + + + + | Specimen | + + | Blood | + + + + + + + | Performing | Address | City/State/Zipcode | Phone Number | | Organization | | | | + + + + + | [facility] | [address] | [place] [address] | [phone] | + + + + + Troponin I (12/10/2019 5:55 AM PDT) + + + + + + | Component | Value | Ref Range | Performed | Pathologist | | | | | At | Signature | + + + + + + | Troponin I | 0.032Comment: 0.04 | 0.00 - 0.04 | [facility] | | | | ng/mL or less | ng/mL | LABORATORY | | | | Negative, repeat | | | | | | testing in four to six | | | | | | hour ifclinically | | | | | | indicted0.05 to 0.77 | | | | | | ng/mL | | | | | | Suspicious for | | | | | | myocardial injury. | | | | | | Serial measurementsmay | | | | | | be necessary to confirm | | | | | | or exclude the diagnosis | | | | | | of acute | | | | | | coronarysyndrome. Repeat | | | | | | testing in four to six | | | | | | hours if indicated.0.78 | | | | | | or greater ng/mL | | | | | | Consistent with | | | | | | myocardial injury. | | | | | | Clinical andlaboratory | | | | | | correlation recommended. | | | | | | Testing performed at | | | | | | [facility];[address] | | | | | | [address];[place] [address] | | | | + + + + + + + + | Specimen | + + | Blood | + + + + + + + | Performing | Address | City/State/Zipcode | Phone Number | | Organization | | | | + + + + + | [facility] | [address] | [place] [address] | [phone] | + + + + + documented in this encounter Visit Diagnoses + + | Diagnosis | + + | Paroxysmal atrial fibrillation (HCC) - Primary Atrial fibrillation | + + | Class II obesity | + + | Atherosclerosis of [place] coronary artery of [place] heart with stable angina pectoris | | (HCC) | + + | Atypical atrial flutter (HCC) Atrial flutter | + + | VT (ventricular tachycardia) (HCC) Paroxysmal ventricular tachycardia | + + | Sleep apnea Unspecified sleep apnea | + + | Essential hypertension Unspecified essential hypertension | + + | Hyperlipidemia Other and unspecified hyperlipidemia | + + | Wide-complex tachycardia (HCC) Paroxysmal ventricular tachycardia | + + documented in this encounter Admitting Diagnoses + + | Diagnosis | + + | VT (ventricular tachycardia) (HCC) Paroxysmal ventricular tachycardia | + + documented in this encounter Administered Medications + +--------+ +--------+------+------+ | Medication Order | MAR | Action | Dose | Rate | Site | | | Action | Date | | | | + +--------+ +--------+------+------+ | acetaminophen (TYLENOL) tablet | Given | 12/12/19 | 650 mg | | | | 650 mg 650 mg, Oral, EVERY 4 | | 20 11:03 | | | | | HOURS, First dose on Fri12/10/19 | | AM PDT | | | | | at 1715, Post-op/Phase II | | | | | | + +--------+ +--------+------+------+ +-------+ +--------+---+---+ | Given | 12/11/19 | 650 mg | | | | | 20 9:44 | | | | | | PM PDT | | | | +-------+ +--------+---+---+ | Given | 12/11/19 | 650 mg | | | | | 20 8:25 | | | | | | AM PDT | | | | +-------+ +--------+---+---+ +---+---+ | | | +---+---+ + +-------+ +------+---+---+ | apixaban (ELIQUIS) tablet 5 mg | Given | 12/10/19 | 5 mg | | | | 5 mg, Oral, 2 TIMES DAILY, First | | 20 8:19 | | | | | dose on Fri12/10/19 at 0900 | | AM PDT | | | | + +-------+ +------+---+---+ +---+---+ | | | +---+---+ + +-------+ +-------+---+---+ | aspirin EC tablet 81 mg 81 mg, | Given | 12/12/19 | 81 mg | | | | Oral, DAILY, First dose on Fri | | 20 11:02 | | | | | 12/10/19 at 0900, Do not cut or | | AM PDT | | | | | crush., | | | | | | + +-------+ +-------+---+---+ +-------+ +-------+---+---+ | Given | 12/11/19 | 81 mg | | | | | 20 8:27 | | | | | | AM PDT | | | | +-------+ +-------+---+---+ | Given | 12/10/19 | 81 mg | | | | | 20 8:19 | | | | | | AM PDT | | | | +-------+ +-------+---+---+ +---+---+ | | | +---+---+ + +-------+ +-------+---+---+ | atorvaSTATin (LIPITOR) tablet | Given | 12/11/19 | 80 mg | | | | 80 mg 80 mg, Oral, NIGHTLY, | | 20 8:12 | | | | | First dose on Fri12/10/19 at 0445 | | PM PDT | | | | + +-------+ +-------+---+---+ +-------+ +-------+---+---+ | Given | 12/10/19 | 80 mg | | | | | 20 10:00 | | | | | | PM PDT | | | | +-------+ +-------+---+---+ +---+---+ | | | +---+---+ + +-------+ +-------+---+---+ | losartan (COZAAR) tablet 50 mg | Given | 12/12/19 | 50 mg | | | | 50 mg, Oral, 2 TIMES DAILY, | | 20 11:02 | | | | | First dose (after last | | AM PDT | | | | | modification) on Fri12/10/19 at | | | | | | | 2100 | | | | | | + +-------+ +-------+---+---+ +-------+ +-------+---+---+ | Given | 12/11/19 | 50 mg | | | | | 20 8:12 | | | | | | PM PDT | | | | +-------+ +-------+---+---+ | Given | 12/11/19 | 50 mg | | | | | 20 8:25 | | | | | | AM PDT | | | | +-------+ +-------+---+---+ +---+---+ | | | +---+---+ + +-------+ +-------+---+---+ | pantoprazole (PROTONIX) DR | Given | 12/12/19 | 40 mg | | | | tablet 40 mg 40 mg, Oral, DAILY | | 20 11:03 | | | | | BEFORE BREAKFAST, First dose on | | AM PDT | | | | | Fri12/10/19 at 0730, Do not cut | | | | | | | or crush., Indication: GERD | | | | | | + +-------+ +-------+---+---+ +-------+ +-------+---+---+ | Given | 12/11/19 | 40 mg | | | | | 20 8:25 | | | | | | AM PDT | | | | +-------+ +-------+---+---+ | Given | 12/10/19 | 40 mg | | | | | 20 8:19 | | | | | | AM PDT | | | | +-------+ +-------+---+---+ +---+---+ | | | +---+---+ + +-------+ +-------+---+---+ | perflutren lipid microspheres | Given | 12/11/19 | 2 mLs | | | | (DEFINITY) injection 2 mL 2 mL, | | 20 10:06 | | | | | Intravenous, ONCE PRN, Other, | | AM PDT | | | | | Starting 12/11/19 at 1006, For | | | | | | | 1 dose, Echo | | | | | | + +-------+ +-------+---+---+ +---+---+ | | | +---+---+ + +-------+ +--------+---+---+ | potassium chloride (KLOR-CON) | Given | 12/10/19 | 20 mEq | | | | ER tablet 20 mEq 20 mEq, Oral, | | 20 5:48 | | | | | ONCE, Fri12/10/19 at 1830, For 1 | | PM PDT | | | | | dose, May take with food to | | | | | | | decrease GI upset., | | | | | | + +-------+ +--------+---+---+ +---+---+ | | | +---+---+ + +-------+ +--------+---+---+ | potassium chloride (KLOR-CON) | Given | 12/10/19 | 40 mEq | | | | ER tablet 40 mEq 40 mEq, Oral, | | 20 5:12 | | | | | ONCE, Fri12/10/19 at 1715, For 1 | | PM PDT | | | | | dose, May take with food to | | | | | | | decrease GI upset., | | | | | | + +-------+ +--------+---+---+ + +---+ | | | + +---+ | sodium chloride 0.9% (NS) | | | infusion at 10 mL/hr, | | | Intravenous, [employer], Starting | | | 12/12/19 at 0757, For 1 dose, | | | Pre-op | | + +---+ | | | + +---+ + +-------+ +--------+---+---+ | sotalol (BETAPACE) tablet 120 | Given | 12/12/19 | 120 mg | | | | mg 120 mg, Oral, EVERY 12 HOURS, | | 20 11:03 | | | | | First dose on Fri12/10/19 at | | AM PDT | | | | | 1800 | | | | | | + +-------+ +--------+---+---+ +-------+ +--------+---+---+ | Given | 12/11/19 | 120 mg | | | | | 20 8:12 | | | | | | PM PDT | | | | +-------+ +--------+---+---+ | Given | 12/11/19 | 120 mg | | | | | 20 8:27 | | | | | | AM PDT | | | | +-------+ +--------+---+---+ +---+---+ | | | +---+---+ + +---------+ +-------+--------+---+ | vancomycin in NS (VANCOCIN) | New Bag | 12/10/19 | 1.5 g | 166.7 | | | IVPB 1.5 g 1.5 g, Intravenous, | | 20 3:32 | | mL/hr | | | Administer over 90 Minutes, Prior | | PM PDT | | | | | to Incision, Starting Fri | | | | | | | 12/10/19 at 1416, For 1 dose, Keep | | | | | | | in refrigerator., Pre-op, | | | | | | | Indications: Surgical Prophylaxis | | | | | | + +---------+ +-------+--------+---+ +---+---+ | | | +---+---+ documented in this encounter
--- OUTSIDE RECORDS SUMMARY | ~2019-12-13 | XMS | Encounter Summary ---
Demographics + + + | Address | [address] | | | [place] [address] | + + + | Home Phone | | + + + | Preferred Language | Unknown | + + + | Marital Status | | + + + | Jewish Affiliation | 1041 | + + + | Race | Unknown | + + + | Ethnic Group | Unknown | + + + Author + + + | Author | [facility] | | | and [place] | + + + | Organization | [facility] | | [...] + | [place] | ECON | [address] | | | | | [place] | | | | | [address] | | + + + + + Care Team Providers + +------+ + | Care Receptionist Name | Role | Phone | + +------+ + PCP | Unavailable | + +------+ + Encounter Details +--------+ + + + + | Date | Type | Department | Care Team | Description | +--------+ + + + + | 12/16/ | Hospital | [facility] | | | | 2007 | Encounter | MED CTR XRAY [address] | | | | | | [address] [place] | | | | | | [place] [address] | | | | | | [phone] | | | +--------+ + + + [...] [place] | | | | | | [place] [address] | | | | | | [phone] | | | | | | | | +--------+ + + + + documented as of this encounter Visit Diagnoses Not on filedocumented in this encounter"
--- OUTSIDE RECORDS SUMMARY | ~2019-12-13 | XMS | Encounter Summary ---
Demographics + + + | Address | [address] | | | [place] [address] | + + + | Home Phone | | + + + | Preferred Language | Unknown | + + + | Marital Status | | + + + | Jain Affiliation | 1041 | + + + | Race | Unknown | + + + | Ethnic Group | Unknown | + + + Author + + + | Author | [facility] | | | and [place] | + + + | Organization | [facility] | | | [...] + | [place] | ECON | [address] | | | | | [place] | | | | | [phone] | | + + + + + Care Team Providers + +------+ + | Care Behavioral Health Case Manager Name | Role | Phone | + +------+ + PCP | Unavailable | + +------+ + Encounter Details +--------+ + + + + | Date | Type | Department | Care Team | Description | +--------+ + + + + | 04/20/ | Hospital | [facility] | | | | 1999 | Encounter | [facility] | | | | | | CENTER [address] | | | | | | [place] | | | | | | [address] | | | | | | [phone] | | | +--------+ + + + [...] [place] | | | | | | [place] [address] | | | | | | [phone] | | | | | | | | +--------+ + + + + documented as of this encounter Visit Diagnoses Not on filedocumented in this encounter"
--- OUTSIDE RECORDS SUMMARY | ~2019-12-13 | XMS | Encounter Summary ---
Demographics + + + | Address | [address] [address] | | | [place] [address] | + + + | Home Phone | | + + + | Preferred Language | Unknown | + + + | Marital Status | | + + + | Taoism Affiliation | [id number] | + + + | Race | Unknown | + + + | Ethnic Group | Unknown | + + + Author + + + | Author | [facility] | | | and [place] | + + + | Organization | [facility] | | [...] + | Sangeetha Yeboah | ECON | [address] | | | | | [place] | | | | | [address] | | + + + + + Care Team Providers + +------+ + | Care Hospital Monitor Name | Role | Phone | + [...] Description | +--------+---------+ + + + | 12/09/ | Surgery | [facility] | Kenroy Gerardo, | CV EP ICD SYSTEM | | 2020 | | [facility] | [address] | IMPLANT | | | | LAB [address] | [place], | | | | | [place] | [place] [address] | | | | | [address] | [phone] | | | | | [phone] | | | +--------+---------+ + + + [...] + + + | Blood Pressure | 159/88 | 12/10/2019 4:00 PM | | | | | PDT | | + + + + + | Pulse | 54 | 12/10/2019 4:00 PM | | | | | PDT | | + + + + + | Temperature | 36.8 C (98.2 F) | 12/10/2019 11:08 AM | | | | | PDT | | + + + + + | Respiratory Rate | 16 | 12/10/2019 4:00 PM | | | | | PDT | | + + + + + | Oxygen Saturation | 100% | 12/10/2019 4:00 PM | | | | | PDT [...] usage. Your appointments will be at the [facility] in [place] across from the [facility]. The address is [address] [place] [address]. The office is located on the 3rd floor. This appointment should already be scheduled for you, but if not, please call [phone] to schedule your appointm ent. INCISION SITE [...] at the entrance/exit to most stores with [employer] ce equipment to prevent shoplifting. This equipment [...] implanted it. You will receive a pe [employer] ID card in the mail, in approximately 4-6 weeks from the company that manufactured y our device. It is very important that you keep this card with you at ALL TIMES, especially i n the case of an emergency. You can travel and fly without restriction. You can go through metal detectors in the airpo rt; however, your [...] at home, please call the office at [phone]. Interim Guidance for Preventing the Spread of [...] lean your hands with an alcohol-based hand mattress weaver that contains 60 to 95% alcohol, coveri ng all surfaces of your hands and rubbing them together until they feel dry. Soap and water should be used preferentially if hands are visibly dirty. Clean your hands often Wash your hands often with soap and water for at least 20 seconds or clean your hands with an alcohol-based hand mattress weaver that contains 60 to 95% alcohol, covering [...] healthcare provider to call the local health [facility] ent at [phone]. Persons who are placed under active monitoring [...] isolation precautions should be made on a uyqw-zj-naer basis, in consultation with health care providers and state and local health departments. As of the [...] monitor their health; they should call their [facility] provider right away if they develop [...] is getting sicker, call his or her [facility] provider and tell them that the patient has laboratory-confirmed COVID-19. This will h elp the healthcare provider s office take steps to keep other people in the office or wait ing room from getting infected. Ask the healthcare provider to call the local or [facility] department for additional guidance. If the [...] 0 seconds or use an alcohol-based hand mattress weaver that contains 60 to 95% alcohol, covering [...] with soap and water or alcohol-based hand mattress weaver. Next, remove and dispose of facemask, and immediately clean your hands again with soap and water or alco hol-based hand mattress weaver. ? Avoid sharing household items with the [...] soap and water or an alcohol-based hand mattress weaver) immediately a fter removing your gloves. o [...] and w ater or an alcohol-based hand mattress weaver) immediately after handling these items. Soap and wa ter should be used preferentially if hands are visibly dirty. ? Discuss any additional questions with your state or local health department or healthcare provider. For more helpful tips visit our Coronavirus site Stay Informed formerly [facility] and Professional Security Officer [facility] Services [facility] documented in this encounter Medications at Time [...] + + + +---------+ + + | Broxton-3 Fatty | Take 1 capsule by | [...] might be different f rom the original. Service: Cardiology Progress Note Name of Research Chemist: Yarelis Asencio MD I have seen the [...] BID, Kenroy Gerardo MD, 50 mg at 2011 nitroglycerin [...] sodium chloride 0.9% (NS) infusion, , Intravenous, Door Fitter, Kenroy Gerardo MD sotalol (BETAPACE) tablet 120 [...] if stable. Spoke with brother Jamie Roberts [phone] Code Status: Full Code Starr Allen MD 12/11/2019 7:59 PM PDT urry, Kenroy Deshpande MD - 12/11/2019 11:00 AM PDT PATIENT NAME: Giovanni Yeboah : 1945: AGE: [...] was performed by 10 years ago in [place] for what sounds like A. f ib, [...] are as follows: LABS Recent Labs Lab 12/11/19516 WBC 6.91 RBC 4.56 HGB 13.7 HCT 41.6 MCV 91.2 MCH 30.0 MCHC 32.9 PLT 177 MPV 11.2 Recent Labs Lab 12/11/1951612/10/19 0557 WBC 6.91 -- HGB 13.7 -- [...] might be differe nt from the original. Service: Cardiology Progress Note Name of Research Chemist: Yarelis Asencio MD I have seen the [...] BID, Kenroy Gerardo MD, 50 mg at 08 nitroglycerin (NITROSTAT) SL tablet 0.4 mg, 0.4 mg, Sublingual, Q5 Min PRN, Kenroy Gerarod MD ondansetron (ZOFRAN) injection 4 mg, 4 [...] Gerardo MD, 120 mg at 0 12/11/19 08 OBJECTIVE Vital Signs: BP 129/77 | Pulse [...] in this encounter H&P Notes Sallie Greco, - 12/10/2019 2:56 AM PDTFormatting of this note might be different from t luba original. Service: Hospitalist Admission History & Physical Date [...] who presents as a transf er from [facility] for atrial flutter, patient in need of higher level of care and color corrector evaluation. Patient presented to the outside facility [...] Dialtazem prior going to the ER at [facility] Per patient, he also was seen at [facility] emergency room few days earlier with the same complaint of palpitation. At that time, telemetry showed possible SVT at a rate of 204. ED physician recommended to double his dose of diltiazem from 120 to 240 daily, but he wanted to wait until he saw Dr Merritt Similar episodes a week ago and one in August 2019 Data from [facility] Recorded HR 109 - 114 WBC 5.5, [...] dysrhythmias - CAD - hypertension - past MT - PVD - sleep apnea; obstructive - [...] meniscectomy, synovectomy; Surgeon: Sahil Gutierrez DO; Location: [facility] MAIN OR ALLERGIES Allergies Allergen Reactions Lisinopril [...] by mouth Daily . Yes Historical Provider, Vukztuvtfnv-Kudfyigsr-Ewi C-Mn (GLUCOSAMINE 1500 COMPLEX) CAPS Take 1 capsule by mouth. Y es Historical Provider, HYDROcodone-acetaminophen (NORCO) 5-325 mg per tablet Take 2 tablets by mouth every 6 hours as needed for Pain. Patient not taking: Reported on 12/10/2019. 02/19/18 Sahil Gutierrez DO Krill Oil 1000 MG CAPS Take 1 capsule by mouth. Historical ProviderMD losartan (COZAAR) 50 mg tablet Take 50 mg by mouth Daily . 02/05/18 Yes Historical ProviderMD MAGNESIUM PO Take 1 capsule by mouth. Historical ProviderMD Multiple Vitamin (MULTIVITAMIN) tablet Take 1 tablet by mouth. Historical ProviderMD Multiple Vitamins-Minerals (MULTIVITAMIN ADULT PO) multivitamin 1 daily Historical ProviderMD Multiple Vitamins-Minerals (OCUVITE EXTRA) TABS Take 1 tablet by mouth. Historical Viridiana guillaume MD Multiple Vitamins-Minerals (OCUVITE PO) Ocuvite 1 po daily Historical ProviderMD nitroglycerin (NITROSTAT) 0.[address] 0.4 mg under the tongue. 08/12/17 Yes Hist orical ProviderMD Broxton-3 Fatty Acids (OMEGA-3 FISH OIL PO) Take 1 capsule by mouth Once a week. omego-3 fatt y acids-fish oil 300 mg-1,000 mg capsule Historical ProviderMD Padilla Barrow 450 MG CAPS 1 capsule Daily. Historical ProviderMD Padilla Barrow 450 MG CAPS Take 2 capsules by mouth. Historical ProviderMD PADILLA PALMGENIAO, SERENOA REPENS, PO Take 1 capsule by mouth 2 times daily. Historical Viridiana guillaume MD Turmeric Curcumin 500 MG CAPS Take 1 capsule by mouth. Historical ProviderMD SOCIAL HISTORY reports that he has never [...] prophylaxis Code Status: Full Code Dictation software, Wapp[employer], used which may contain errors for similar sounding words even a fter reviewed. Personal communication requested for any clarification Sallie Greco DO 12/10/2019 6:01 AM PDT documented in this encou nter Consult Notes Kenroy Gerardo MD - 12/10/2019 2:26 PM PDTFormatting of this note might be different fr om the original. PATIENT NAME: Giovanni Yeboah : 1945: AGE: [...] was performed by 10 years ago in [place] for what sounds like A. fib, but [...] discussed in detail with the patient and shana rodriguez is keen to proceed. The electrophysiology study [...] was performed by 10 years ago in [place] for what sounds like A. f ib, [...] in August 2019 when he was in [place] at an park. It lasted for 1 0 minutes and was going "extremely fast". He felt very poorly and dizzy. 1 week ago, he ag ain had a fast heart rate which was "less extreme" and again lasted for 10 minutes. 3 days ago, he went to the emergency room in [place] with a fast heart rate of 205 [...] ablation was performed by Dr. Ching in [place] 10 years ago. He i s anticoagulated [...] meniscectomy, synovectomy; Surgeon: Sahil Gutierrez DO; Location: [facility] MAIN OR ATRIAL ABLATION SURGERY CARDIAC CATHERIZATION [...] file Gets together: Not on file Attends amish service: Not on file Active member of [...] Take 120 mg by mouth Daily . Jzclspwivbu-Gkhmphtft-Mjp C-Mn (GLUCOSAMINE 1500 COMPLEX) CAPS Take 1 [...] tablet Place 0.4 mg under the tongue. Broxton-3 Fatty Acids (OMEGA-3 FISH OIL PO) Take 1 capsule by mouth Once a week. omego-3 fatty acids-fish oil 300 mg-1,000 mg capsule Saw Barrow 450 MG CAPS 1 capsule Daily. Turmeric [...] M D - 12/10/2019 7:10 AM PDT Service: Cardiology Initial Consult Note Name of Research Chemist: Yarelis Asencio MD Reason for Consultation: Atrial arrhythmia Requesting Physician: Leon Greco History Obtained From: Patient and chart review Primary Bottom Filler: René CHIEF COMPLAINT: Palpitations. HISTORY OF PRESENT ILLNESS: Patient is 74-year-old male with multiple comorbidities. Transferred from [facility] secondary to atrial arrhythmia. Symptoms started earlier this year multiple episodes, was evaluated more than once in [facility] emergency room. His medication were adjusted by increasing diltiazem, cesar quigleyues to be on high-dose carvedilol 50 mg [...] meniscectomy, synovectomy; Surgeon: Sahil Gutierrez DO; Location: [facility] MAIN OR MEDICATIONS Home Medications Medications Prior [...] Take 120 mg by mouth Daily . Efzvwpvkilb-Jlcmrpivb-Kuj C-Mn (GLUCOSAMINE 1500 COMPLEX) CAPS Take 1 [...] tablet Place 0.4 mg under the tongue. Broxton-3 Fatty Acids (OMEGA-3 FISH OIL PO) Take 1 capsule by mouth Once a week. omego-3 fatty acids-fish oil 300 mg-1,000 mg capsule Saw Barrow 450 MG CAPS 1 capsule Daily. Turmeric [...] file Gets together: Not on file Attends amish service: Not on file Active member of [...] RN - 12/12/2019 11:41 AM PDTSite CDI, MANAGER REVIEW. Tele SB w/o ect opy. Pt receiving clerarance to D/C by EP, cardio, and hospitalist. Pt agreeable. Printed AV S provided to pt with new Rx. No questions or concerns. Pt discharging to home with spouse.E lectronically signed by Akash Steele RN at 12/12/2019 11:42 AM PDTPlan of Care - Deepika Thomas RN - 12/12/2019 4:14 AM PDT Problem: Wound Goal: Optimal Wound Healing Outcome: Ongoing, progressing Pt's incision looks dry and clean. Pt denies any pain at this time. lan of Care - Lissett Jeffrey RN - 12/11/2019 3:04 PM PDT Problem: Adult Inpatient Plan of Care Goal: Plan of Care Review 12/11/2019 1500 by Lissett Jeffrey RN Outcome: Ongoing, progressing Note: Pt [...] Lissett Jeffrey RN Outcome: Ongoing, progressing Intervention: Monitor [...] keep it greater than 4.0. lan of Katie Fair, Lorena Gann RN - 12/10/2019 6:45 PM PDTPhone call [...] RN at 12/10/2019 6:50 PM PDTPlan of Katie Laura, Clifton Angulo RN - 12/10/2019 5:58 PM PDTPt back from ICD procedure, left arm straight for 3 hours, on tele, chest xray being completed, vital signs are stable, pt denies pain at this time, s ite is unchanged, no s/s of infection, will continue to monitor. p Note - Kenroy Gerardo MD - 12/10/2019 4:35 PM [facility] OPERATIVE REPORT KENROY GERARDO MD Patient: GIOVANNI YEBOAH Admitting: SALLIE GRECO MR #: [id number] LOC: PT TYPE: Adm Date: 12/10/2019 : 1945 DATE OF PROCEDURE: 12/10/2019. PROCEDURE: Electrophysiology study and single chamber implantable defibrillator placement with intraoperative evaluation of the defibrillator and lead system (defibrillation testing) . SURGEON: Kenroy Gerardo MD HISTORY: This 74-year-old gentleman has had several episodes of very fast tachycardia [facility] e July of this year. He presented with a wide complex tachycardia,with a heart rate of 205 beats per minute to [facility] 3 days ago. 4 months ago, had [...] exchanged over a guidewire sterilely for a 6-Italian introducer. Through that, a 6-F rench steerable decapolar pacing catheter was advanced into the right ventricle. Stimulatio n was performed using paced single, double and triple ventricular extrastimuli from the [facility] t ventricular inflow region. Pacing was performed [...] approximately 15-20 seconds, the VT terminated spontaneou sly. Given his clinical tachycardias, I elected not [...] Once the pocket was ma de, a 7-Italian introducer was placed into the subclavian vein and through that, a St. Mushtaq m taty [id number] #[id number] lead was placed into the apex of the right ventricle and screwed into position. The lead was anchored with two #1 Ethibond sutures. There was no diaphragm atic pacing at 10 volts. The final pacing threshold was 0.5 volts at 0.5 milliseconds with an impedance of 520 ohms and R waves of 9.8 millivolts. The lead was attached to a St. Mushtaq model, #[id number], serial #[id number] implantable defibrillator. That device was placed into [...] be 33 joules, followed by 42 joules [facility] (6 of them). FINAL IMPRESSION: Good [...] Transcribed on 12/10/2019 20:43:07 by олег job# [id number] Confirmation #: [id number] cc: JUAN ASENCIO MD rief Op Note - Kenroy Canales MD - 12/10/2019 4:18 PM [facility]: Electrophysiology Brief Op Note Pre-operative Diagnosis: Wide-complex tachycardia Post-operative Diagnosis: Ventricular tachycardia Procedure(s): Electrophysiology testing and single-chamber secondary prevention [place] Mushtaq implantable defibrillator in the left arm and left subclavian vein and induction of ventricu lar tachycardia for testing of the defibrillator and lead system Surgeon: Kenroy Gerardo MD Bleaching Machine Operator(s): Naomi Anesthesia: Moderate sedation 100 mics of [...] be resumed tomorrow night or the next da y, depending on how he is pacer pocket looks. Hopefully, he can be sent home tomorrow. I w ill see him tomorrow morning. Potassium will be replaced (3.7 yesterday). Consider adding spironolactone to his regimen if blood pressure remains elevated. Increase losartan to 50 mg twice daily for now. Kenroy Gerardo MD 12/10/2019 4:18 PM PDT lan of Tiffany Varela RN - 12/10/2019 1:18 PM PDTDr Tiffany notified that pt HR dropped to 40s per tele, pt asymptomatic and did not sustain low HR. lan of Singh Cruz MSW - 12/10/2019 10:56 AM PDTCare Management [...] BOWDEN 12/10/2019 10:56 AM PDT lan of Care - Tiffany Laura RN - 12/10/2019 9:49 AM PDTPlan of care discussed with ptDr in to discuss plan with pt. Vital signs are stable, denies pain at this time, will continue to monitor. Problem: Adult Inpatient Plan of Care Goal: Plan of Care Review Outcome: Ongoing, progressing Problem: Arrhythmia (Acute Coronary Syndrome) Goal: Normalized Cardiac Rhythm Outcome: Ongoing, progressing Problem: Pain (Acute Coronary Syndrome) Goal: Absence of Cardiac-Related Pain Outcome: Ongoing, progressing lan of Care - Anna Van RN - 12/10/2019 6:04 AM PDTPt doing well. Pt VSS and remains in Aflutter wi th PVCs with HR in 50's. Pt had 6 beats V-tach at 0647. Pt denies any chest pain or pressure . Pt denies any dizziness or lightheadedness with ambulation. Pt able to ambulate with stead y gait. This RN spoke with Pt's Sangeetha ([phone]) regarding pt current medication list and current [...] | 01/09/ | Office | Cardiology | Jaun Merritt MD | | | 2019 | Visit | | [address] | | | | | | [place] [address] | | | | | | [phone] | | | | | | | [...] | Final Report Signed by: Pelon Bae, Cruz Sign | | | Date/Time: 12/11/2019 5:10 [...] AP OR MU | | | (12/07/2019); [facility] W CORONARY ANGIO W GRAFTS (03/20/2011); [...] Procedure Note | + + | Jerome, [id number] - 12/11/2019 5:14 PM PDT | | CHEST PA AND LATERAL | | | | CLINICAL INFORMATION: | | Pneumothorax. | | | | COMPARISON: | | XR CHEST PA AND LATERAL (12/11/2019); XR CHEST PA AND LATERAL | | (12/10/2019); CHEST AP OR MU (12/10/2019); CHEST AP OR MU (12/07/2019); CL | | [facility] W CORONARY ANGIO W GRAFTS (03/20/2011); [...] | Final Report Signed by: Pelon Bae, Cruz | | Sign Date/Time: 12/11/2019 5:10 PM [...] Procedure Note | + + | Jerome, [id number] - 12/11/2019 7:45 AM PDT | | [...] 45 | 10 - 65 U/L | [facility] | | | | | | LABORATORY | | + + + + + + | Estimated | >60Comment: GFR <60: | >60 | [facility] | | | GFR | CHRONIC KIDNEY [...] | | | | | performed at [facility], [address] | | | | | | [facility], | | | | | | [place] [address] | | | | + + + + + + + + | Specimen | + + | Blood | + + + + + + + | Performing | Address | City/State/Zipcode | Phone Number | | Organization | | | | + + + + + | [facility] | [address] | [place] [address] | [phone] | + + + + + CBC [...] LABORATORY | | | | performed at [facility], [address] | | | | | [address], | | | | | | [place] [address] | | | | + + + + + + + + | Specimen | + + | Blood | + + + + + + + | Performing | Address | City/State/Zipcode | Phone Number | | Organization | | | | + + + + + | [facility] | [address] | [place] [address] | [phone] | + + + + + XR [...] Procedure Note | + + | Jerome, [id number] - 12/10/2019 6:22 PM PDT | | [...] 0.03Comment: 0.04 | 0.00 - 0.04 | MC | | | | ng/mL or less [...] at | | | | | | [facility];[address];[place] [address] | | | | + + + + + + + + | Specimen | + + | Blood | + + + + + + + | Performing | Address | City/State/Zipcode | Phone Number | | Organization | | | | + + + + + | [facility] | [address] | [place] [address] | [phone] | + + + + + B Type Natriuretic Peptide (12/10/2019 5:57 AM PDT) + + + + + + | Component | Value | Ref Range | Performed | Pathologist | | | | | At | Signature | + + + + + + | BNP | 186.67 (H)Comment: | 0 - 100 pg/mL | [facility] | | | | Testing performed at | | LABORATORY | | | | [facility];[address];[place] [address] | | | | + + + + + + + + | Specimen | + + | Blood | + + + + + + + | Performing | Address | City/State/Zipcode | Phone Number | | Organization | | | | + + + + + | [facility] | [address] | [place] [address] | [phone] | + + + + + Lipid [...] HDL | 42 | >40 mg/dL | [facility] | | | | | | LABORATORY | | + + + + + + | LDL, | 81Comment: Testing | <100 mg/dL | [facility] | | | Calculated | performed at [facility], [address] | | LABORATORY | | | | [address], | | | | | | [place] [address] | | | | + + + + + + + + | Specimen | + + | Blood | + + + + + + + | Performing | Address | City/State/Zipcode | Phone Number | | Organization | | | | + + + + + | [facility] | [address] | [place] [address] | [phone] | + + + + + Troponin I (12/10/2019 5:55 AM PDT) + + + + + + | Component | Value | Ref Range | Performed | Pathologist | | | | | At | Signature | + + + + + + | Troponin I | 0.032Comment: 0.04 | 0.00 - 0.04 | [facility] [...] at | | | | | | [facility];[address] [place] [address] | | | | | | Bl;[place] [address] | | | | + + + + + + + + | Specimen | + + | Blood | + + + + + + + | Performing | Address | City/State/Zipcode | Phone Number | | Organization | | | | + + + + + | [facility] | [address] | [place] [address] | [phone] | + + + + + documented [...] | | +---+---+ + +-------+ +--------+---+---+ | fentaNYL (PF) injection ONCE | Given | 12/10/19 | 50 mcg | | | | PRN, Starting 12/10/19 at | | 20 3:40 | | | | | 1533, Intra-op | | PM PDT | | | | + +-------+ +--------+---+---+ +-------+ +--------+---+---+ | Given | 12/10/19 | 50 mcg | | | | | 20 3:33 | | | | | | PM PDT | | | | +-------+ +--------+---+---+ +---+---+ | | | +---+---+ + +-------+ +--------+---+ + | lidocaine 1% injection ONCE | Given | 12/10/19 | 20 mLs | | Surgical | | PRN, Starting 12/10/19 at | | 20 3:48 | | | Site | | 1506, Intra-op | | PM PDT | | | | + +-------+ +--------+---+ + +-------+ +--------+---+ + | Given | 12/10/19 | 20 mLs | | Surgical | | | 20 3:34 | | | Site | | | PM PDT | | | | +-------+ +--------+---+ + | Given | 12/10/19 | 5 mLs | | | | | 20 3:06 | | | | | | PM PDT | | | | +-------+ +--------+---+ + +---+---+ | | | +---+---+ + +-------+ [...] | | +---+---+ + +-------+ +--------+---+---+ | metoprolol tartrate (LOPRESSOR) | Given | 12/10/19 | 2.5 mg | | | | injection ONCE PRN, Starting | | 20 3:43 | | | | | Fri12/10/19 at 1539, Intra-op | | PM PDT | | | | + +-------+ +--------+---+---+ +-------+ +--------+---+---+ | Given | 12/10/19 | 2.5 mg | | | | | 20 3:39 | | | | | | PM PDT | | | | +-------+ +--------+---+---+ +---+---+ | | | +---+---+ + +-------+ +--------+---+---+ | midazolam (VERSED) 1 mg/mL | Given | 12/10/19 | 0.5 mg | | | | injection ONCE PRN, Starting Fri | | 20 3:44 | | | | | 12/10/19 at 1544, Intra-op | | PM PDT | | | | + +-------+ +--------+---+---+ +---+---+ | | | +---+---+ + +-------+ +------+---+---+ | ondansetron (ZOFRAN) injection | Given | 12/10/19 | 4 mg | | | | ONCE PRN, Starting 12/10/19 | | 20 3:33 | | | | | at 1533, Intra-op | | PM PDT | | | [...] AM PDT | | | | | 12/10/19 at 0730, Do not cut | | [...] PDT | | | | +-------+ +-------+---+---+ + +---+ | | | + +---+ | sodium chloride 0.9% (NS) | | | infusion at 10 mL/hr, | | | Intravenous, CLINICAL FELLOW, Starting | | | 12/12/19 at 0757, [...] +-------+ +--------+---+---+ +---+---+ | | | +---+---+ documented in this encounter
--- OUTSIDE RECORDS SUMMARY | ~2019-12-13 | XMS | Encounter Summary ---
Demographics + + + | Address | [address] [address] [facility] [address] | | | [place] [address] | + + + | Home Phone | | + + + | Preferred Language | Unknown | + + + | Marital Status | | + + + | Mu-Ism Affiliation | 1041 | + + + [...] + | Sangeetha Yeboah | ECON | [address] | | | | | [place] | | | | | [address] | | + + + + + Care Team Providers + +------+ + | Care Sap Architect Name | Role | Phone | + +------+ + PCP | Unavailable | + +------+ + Encounter Details +--------+ + + + + | Date | Type | Department | Care Team | Description | +--------+ + + + + | 01/05/ | Hospital | [facility] | | | | 1996 - | Encounter | MED CTR GENERIC OP | | | | | | CONV DEPT [address] | | | | 05/29/ | | [place], | | | | 1996 | | [place] [address] | | | | | | [phone] | | | +--------+ + + + [...] | | | | | [place] [address] | | | | | | [phone] | | | | | | | | +--------+ + + + + documented as of this encounter Visit Diagnoses Not on filedocumented in this encounter"
--- OUTSIDE RECORDS SUMMARY | ~2019-12-13 | XMS | Encounter Summary ---
Demographics + + + | Address | [address] [facility] | | | [place] [address] | + + + | Home Phone | | + + + | Preferred Language | Unknown | + + + | Marital Status | | + + + | Synagogue Affiliation | 1041 | + + + | Race | Unknown | + + + | Ethnic Group | Unknown | + + + Author + + + | Author | [facility] | | | and [place] | + + + | Organization | [facility] | | | [...] + | Sangeeth[place] Yeboah | ECON | [address] | | | | | [place] | | | | | [address] | | + + + + + Care Team Providers + +------+ + | Care Doctor Of Chiropractic Name | Role | Phone | + +------+ + PCP | Unavailable | + +------+ + Encounter Details +--------+ + + + + | Date | Type | Department | Care Team | Description | +--------+ + + + + | 08/02/ | Hospital | [facility] | Juan Ferreira MD | Other Chest Pain | | 2009 | Encounter | [facility] | [address] | | | | | CLINICAL DECISION | [place] [address] | | | | | [address] | [phone] | | | | | [place], [place] | | | | | | [address] | | | | | | [phone] | | | +--------+ + + + [...] | | | | | [place] [address] | | | | | | [phone] | | | | | | | [...] + + + | [facility] | | | [facility] [address] | | | , | | | [id number]/CARDIOLOGY Patient Name: GIOVANNI YEBOAH Date of : | | | 1945 Medical Record: [id number] Account: [id number] | | | ADITI/SERINA [id number]/ Exam Date/Time: 08/02/2009 | | | 11:30 [...] | | anesthetized with 1% lidocaine. A 6-Polish arterial sheath was placed | | | in the right femoral artery, and a 6-Polish JL4 catheter was | | | advanced under fluoroscopic guidance and engaged with the ostium of | | | the left main coronary artery, and multiple projections of the left | | | coronary system were done with the use of contrast injections. The | | | catheter was then exchanged for a 6-Polish JR4 catheter which was | | | engaged with the ostium of the right coronary artery, and multiple | | | projections of the right coronary system were obtained with the use of | | | contrast injections. The catheter was then exchanged for a 6-Polish | | | pigtail catheter which was [...] anterior descending artery had | | | vhal-pp-odzgvmat atherosclerosis proximally before the implanted | | [...] | | | 08/02/2009 03:50 P A GINA/evelina/[id number]/ cc: | | | MD SAVANNAH VACA MD | | + + + + + | Procedure Note | + + | Matthew Cano Conversion - 01/24/2019 7:51 PM PDT | | [facility] | | [facility] [address] | | , | | | | [id number]/CARDIOLOGY | | | | Patient Name: GIOVANNI YEBOAH | | Date of : 1945 | | Medical Record: [id number] | | Account: [id number] | | [facility]/CDU [address]/ | | | | | | Exam [...] groin was anesthetized with 1% lidocaine. A 6-Polish arterial | | sheath was placed in the right femoral artery, and a 6-Polish JL4 | | catheter was advanced under fluoroscopic guidance and engaged with the | | ostium of the left main coronary artery, and multiple projections of the | | left coronary system were done with the use of contrast injections. The | | catheter was then exchanged for a 6-Polish JR4 catheter which was | | engaged with the ostium of the right coronary artery, and multiple | | projections of the right coronary system were obtained with the use of | | contrast injections. The catheter was then exchanged for a 6-Polish | | pigtail catheter which was advanced [...] | 2. 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
--- OUTSIDE RECORDS SUMMARY | ~2019-12-13 | XMS | Encounter Summary ---
Demographics + + + | Address | [address] [address] | | | [place] [address] | + + + | Home Phone [...] + | Sangeetha Yeboah | ECON | [address] | | | | | [place] | | | | | [address] | | + + + + + Care Team Providers + +------+ + | Care Perfect Binder Feeder Offbearer Name | Role | Phone | + +------+ + | No, Physician | PCP | Unavailable | + +------+ + Encounter Details +--------+ + + + + | Date | Type | Department | Care Team | Description | +--------+ + + + + | 12/29/ | Orders Only | [facility] | Provider, | | | 2018 | | SYSTEM GENERIC OP | [address] | | | | | CONVERSION [address] | [place] | | | | | [address] [place], [place] | [place] [address] | | | | | [address] | | | | | | [phone] | | | +--------+ + + + [...] | | | | | [place] [address] | | | | | | [phone] | | | | | | | | +--------+ + + + + documented as of this encounter Visit Diagnoses Not on filedocumented in this encounter"
--- OUTSIDE RECORDS SUMMARY | ~2019-12-13 | XMS | Encounter Summary ---
Demographics + + + | Address | [address] | | | [place] [address] | + + + | Home Phone | | + + + | Preferred Language | Unknown | + + + | Marital Status | | + + + | Jainism Affiliation | 1041 | + + + | Race | Unknown | + + + | Ethnic Group | Unknown | + + + Author + + + | Author | [facility] | | | and [place] | + + + | Organization | [facility] | | | [...] + | Sangeetha [place]eboah | ECON | [address] | | | | | [place] | | | | | [address] | | + + + + + Care Team Providers + +------+ + | Care Sand Conditioner Machine Name | Role | Phone | + [...] + + | 02/19/ | Hospital | [facility] | Epi Gutierrez | | | 2018 | Encounter | MED CTR OR INTRA OP | J, DO [address] | | | | | [address] | [address] [place], [place] | | | | | [place], [place] | [address] | | | | | [address] | [phone] | | | | | [phone] | | | +--------+ + + + [...] have a follow-up appointment already scheduled at [facility]. You will need to have your sutures removed at that visit. Please call if you have any question s. When to Seek Medical Attention Call [phone] right awayif you have: Chest pain. Shortness [...] family members, friends, co-workers, clergy members, your cargo tank mechanic, Gertrude Bacon, Dr. Nuñez, sports heroes or any other [...] + + +---------+ + + | Saw [place] 450 | Take 2 capsules by | [...] signed by: Epi Gutierrez DO, 02/19/2018 8:13 [facility] E[facility] Gut[facility] DO at 0 02/19/2018 8:14 AM Matthew Davila PA-C - 02/17/2018 2:41 PM PDTSubjective F/u Right Knee; MRI Results [facility] History of Present Illness Giovanni is a 72 year old male,originally referred by the [facility], for right knee pain who I rece [...] images on a disk with him from [facility] and a bilateral flexion weight bearing view was obtained at [facility]. He is retired. Here to day to [...] Ascorbic Acid 500 MG Oral Tablet; Therapy: (Recorded:27Yqo9768) to Recorded Aspirin 81 MG TABS; Therapy: (Recorded:62Sog2137) to Recorded Atorvastatin Calcium 80 MG Oral Tablet; Therapy: (Recorded:35Hru7300) to Recorded Carvedilol 25 MG Oral Tablet; Therapy: (Recorded:17Apr2010) to Recorded Centrum Silver TABS; Therapy: (Recorded:94Hfd6472) to Recorded Clear Eyes for Dry Eyes SOLN; Therapy: (Recorded:33Bav5489) to Recorded Coenzyme Q-10 TABS; Therapy: (Recorded:64Qqt3458) to Recorded Eliquis 5 MG Oral Tablet; Therapy: (Recorded:20Slw9610) to Recorded Glucosamine Chondroitin TABS; Therapy: (Recorded:16Sua3193) to Recorded Krill Oil CAPS; Therapy: (Recorded:90Ynp4923) to Recorded Losartan Potassium 50 MG Oral Tablet; Therapy: (Recorded:52Abt7406) to Recorded Magnesium 500 MG Oral Tablet; Therapy: (Recorded:99Zku8556) to Recorded PreserVision AREDS CAPS; Therapy: (Recorded:29Bgz7468) to Recorded Turmeric CAPS; Therapy: (Recorded:84Ceu3882) to Recorded Vitamin B Complex CAPS; Therapy: (Recorded:58Ifm9993) to Recorded Vitamin D3 2000 UNIT Oral Tablet; Therapy: (Recorded:57Tsy0399) to Recorded Allergies No Known Drug Allergies [...] NEURO: Intact without lateralizing deficits. Results/Data Results [id number] 10:08AM MR - hip or knee or ankle w/o 63427 MR - Lower joint; hip or knee or ankle without: RADIOLOGY REPORT DATE OF EXAM: 02/10/2018 PATIENT NAME: GIOVANNI YEBOAH DATE OF : 1945 MR#: [id number] ORDERING PHYSICIAN: Epi Gutierrez CLINICAL INDICATION: Pain. [...] 24. Lateral compartment: Intact articular cartilage. [facility] [address] [facility] [place] [address] PH: 1 Other findings: None. IMPRESSION: Tear [...] DELFINO MARTINEZ MD 02/10/2018 05:[address] [facility] [address] [facility] [place] [address] PH: 2 [id number] 09:12AM X-ray - Sinuses landeros view 41929 X-ray - Sinuses-partial (landeros): CLINICAL DATA: Encounter for screening for other disorde r EXAMINATION: LANDEROS VW OF SINUSES TECHNIQUE: Landeros' view of the sinuses was performed. COMPARISON: None. FINDINGS: No metallic foreign bodies project over the orbits. Visualized paranasal sinuses are clear. Osseous structures are intact. IMPRESSION: Cleared for MRI. ELECTRONICALLY SIGNED BY DELFINO MARTINEZ MD 02/10/2018 09:[address] [facility] RADIOLOGY REPORT [address] [place] [address] Exam Date: 02/10/2018 09:00:00 AM Referring Physician: [...] Gutierrez DO - 02/19/2018 9:06 AM [facility] Epi Gutierrez Pt. Name/Age/: Giovanni Yeboah 72 y.o. 1945 CSN: [id number] DATE OF SURGERY: 02/19/2018 ATTENDING PHYSICIAN: Epi Gutierrez PERFORMED BY: Epi Gutierrez DO TONGUE BINDER: Matthew Castorena PA-C PREOPERATIVE DIAGNOSIS: right knee [...] Electronically Signed by: Epi Gutierrez, 02/19/2018 9:06 [facility] documented in this encounter Plan [...] | | | | | [place] [address] | | | | | | [phone] | | | | | | | [...] | | | | JULIO ULLOA MD ([id number]) | | | | | | on [...] | | | | | mg/dL | [facility] | | | | | | MEDICAL | | | | | | CENTER - | | | | | | LABORATORY | | + + + + + + | eGFR if not | >60Comment: GLOMERULAR | >=60 | [facility] | | | | FILTRATION | mL/min/1.73m2 | [facility] | | | IRISH | RATE,ESTIMATED | | MEDICAL | | | | mL/min/1.64e5Nkgh than | | CENTER - | | [...] | | | | | mg/dL | [facility] | | | | | | MEDICAL [...] | | Total | | | [facility] | | | | | | MEDICAL | | | | | | CENTER - | | | | | | LABORATORY | | + + + + + + | Total | 7.0 | 6.0 - 7.8 g/dL | [facility] | | | Protein | | | [facility] | | [...] + | [facility] | [address] | [place] | [phone] | | [facility] | | [address] | | | - LABORATORY | | [...] | | Cells | | | [facility] | | | | | | MEDICAL | | | | | | CENTER - | | | | | | LABORATORY | | + +-------+ + + + | Red Blood | 4.51 | 4.30 - 5.70 | [facility] | | | Cells | | M/uL | [facility] | | | | [...] | | | Eosinophils | | | [facility] | | [...] | | Neutrophils | | K/uL | [facility] | | | | | | MEDICAL | | | | | | CENTER - | | | | | | LABORATORY | | + +-------+ + + + | Absolute | 1.40 | 0.60 - 3.20 | [facility] | | | Lymphocytes | | K/uL | [facility] | | | | | | MEDICAL | | | | | | CENTER - | | | | | | LABORATORY | | + +-------+ + + + | Absolute | 0.60 | 0.00 - 1.00 | [facility] | | | Monocytes | | K/uL | [facility] | | | | [...] | Basophils | | K/uL | [facility] | [...] ST. | [address] | [place], [place] | [phone] | | [facility] | | [address] | | | - LABORATORY | | [...] ONCE PRN, Wheezing, | | | Starting [facility] 02/19/18 at 0908, | | | For [...] ONCE PRN, | | | Wheezing, Starting [facility] 02/19/18 at | | | 0745, For [...] glucose < 50, | | | Starting [facility] 02/19/18 at 0745, | | | Repeat [...]
--- OUTSIDE RECORDS SUMMARY | ~2019-12-13 | XMS | Encounter Summary ---
Demographics + + + | Address | [address] | | | [place] [address] | + + + | Home Phone | | + + + | Preferred Language | Unknown | + + + | Marital Status | | + + + | Pentecostal Affiliation | 1041 | + + + | Race | Unknown | + + + | Ethnic Group | Unknown | + + + Author + + + | Author | [facility] | | | and [place] | + + + | Organization | [facility] | | | [...] + | [place] | ECON | [address] | | | | | [place] | | | | | [address] | | + + + + + Care Team Providers + +------+ + | Care Wireless Network Engineer Name | Role | Phone | [...] | | | [address] [place] | [place] [address] | | | | | [place] [address] | | | | | | [phone] | | | +--------+ + + + [...] | | | | | [place] [address] | | | | | | [phone] | | | | | | | [...]
--- OUTSIDE RECORDS SUMMARY | ~2019-12-13 | XMS | Encounter Summary ---
Demographics + + + | Address | [address] | | | [place] [address] | + + + | Home Phone | | + + + | Preferred Language | Unknown | + + + | Marital Status | | + + + | Amish Affiliation | 1041 | + + + | Race | Unknown | + + + | Ethnic Group | Unknown | + + + Author + + + | Author | [facility] | | | and [place] | + + + | Organization | [facility] | | | and [...] + | Sangeetha [place] | ECON | [address] | | | | | [place] | | | | | [address] | | + + + + + Care Team Providers + +------+ + | Care Cableman Name | Role | Phone | + [...] + + | 02/08/ | Refill | [facility] | Sarah, | Medication Refill | | 2019 | | CARDIOLOGY [place] | [address] | | | | | [address] | [facility] | | | | | [place], [place] | [place], [place] | | | | | [address] | [id number] | | | | | [phone] | | | +--------+--------+ + + + [...] [address] | | | | | | [facility] [address] | | | | | | [phone] | | | | | | | | +--------+ + + + + documented as of this encounter Visit Diagnoses Not on filedocumented in this encounter"
--- OUTSIDE RECORDS SUMMARY | ~2019-12-13 | XMS | Clinical Summary ---
Demographics + + + | Address | [address] | | | [place] [address] | + + + | Home Phone | | + + + | Preferred Language | Unknown | + + + | Marital Status | | + + + | Sikhism Affiliation | 1041 | + + + | Race | Unknown | + + + | Ethnic Group | Unknown | + + + Author + + + | Author | [facility] | | | and [place] | + + + | Organization | [facility] | | [...] + + + + + | Sangeetha Yeobah | ECON | [address] | | | | | [place] | | | | | [address] | | + + + + + Care Team Providers + +------+ + | Care Rn Primary Care Name | Role | Phone | + +------+ + | No, Physician | PCP | Unavailable | + +------+ + Allergies + + + + + + | Active Allergy | Reactions | Severity | Noted | Comments | | | | | Date | | + + + + + + | Lisinopril | Shortness Of Breath | High | 12/10/19 | | | | | | 20 | | + + + + + + Medications + + + +---------+------+------+-------+ | Medication [...] e | + + + +---------+------+------+-------+ | cholecalciferol | Take 1,000 Units by | | 0 | | | Activ | | (CHOLECALCIFEROL) | mouth. | | | | | e | | 1000 units TABS | | | | | | | + + + +---------+------+------+-------+ | losartan (COZAAR) | Take 50 mg by mouth | | 0 | 09/0 | | Activ | | 50 mg tablet | Daily . | | | 6/20 | | e | | | | | | 18 | | | + + + +---------+------+------+-------+ | MAGNESIUM PO | Take 400 mg by mouth | | 0 | | | Activ | | | Daily . | | | | | e | + + + +---------+------+------+-------+ | nitroglycerin | Place 0.4 mg under | | 0 | 03/1 | | Activ | | (NITROSTAT) 0.4 mg | the tongue. | | | 3/20 | | e | | SL tablet | | | | 18 | | | + + + +---------+------+------+-------+ | | [...] | | | + + + +---------+------+------+-------+ +---+ + | | Additional | | | InformationPatient | | | not taking. Reported | | | on 12/10/2019 4:20 | | | AM | +---+ + + + +--------+---+------+------+-------+ | Multiple | multivitamin | | 0 | | | Activ | | Vitamins-Minerals | 1 daily | | | | | e | | (MULTIVITAMIN ADULT | | | | | | | | PO) | | | | | | | + + +--------+---+------+------+-------+ | [place]-3 Fatty | Take 1 capsule by | [...] | | | | | + + +--------+---+------+------+-------+ | atorvaSTATin | Take 80 mg by mouth | | 0 | | | Activ | | (LIPITOR) 80 MG | every evening . | | | | | e | | tablet | | | | | | | + + +--------+---+------+------+-------+ | apixaban (ELIQUIS) | Take 1 tablet by | 180 | 3 | 02/01 | | Activ | | 5 mg tablet | mouth 2 times daily. | tablet | | 5/20 | | e | | | | | | 19 | | | + + +--------+---+------+------+-------+ | sotalol (BETAPACE) | Take 1 tablet by | 60 | 0 | 07/1 | 08/1 | Activ | | 120 mg tablet | mouth every 12 hours | tablet | | 2/20 | 1/20 | e | | | for 30 days. | | | 20 | 20 | | + + +--------+---+------+------+-------+ | pantoprazole | Take 1 tablet by | 30 | 0 | 07/1 | 08/1 | Activ | | (PROTONIX) 40 mg | mouth every morning | tablet | | 3/20 | 2/20 | e | | tablet | (before breakfast) | | | 20 | 20 | | | | for 30 days. | | | | | | + + +--------+---+------+------+-------+ | atorvaSTATin | Take 80 mg by mouth. | | 0 | 09/0 | 07/1 | Disco | | (LIPITOR) 80 MG | | | | 6/20 | 0/20 | ntinu | | tablet | | | | 18 | 20 | ed | | | | | | | | (Erro | | | | | | | | r) | + + +--------+---+------+------+-------+ | B complex vitamins | Take 1 tablet by | | 0 | | 07/1 | Disco | | tablet | mouth. | | | | 2/20 | ntinu | | | | | | | 20 | ed | + + +--------+---+------+------+-------+ | carvedilol (COREG) | Take 25 mg by mouth. | | 0 | 09/0 | 07/1 | Disco | | 25 mg tablet | | | | 6/20 | 0/20 | ntinu | | | | | | 18 | 20 | ed | | | | | | | | (Erro | | | | | | | | r) | + + +--------+---+------+------+-------+ | Coenzyme Q10 | Take 2 capsules by | | 0 | | 07/1 | Disco | | (COQ-10) 100 MG CAPS | mouth . | | | | 2/20 | ntinu | | | | | | | 20 | ed | + + +--------+---+------+------+-------+ | | Take 1 capsule by | | 0 | | 07/1 | Disco | | Glucosamine-Chondroi | mouth. | | | | 2/20 | ntinu | | t-Vit C-Mn | | | | | 20 | ed | | (GLUCOSAMINE 1500 | | | | | | | | COMPLEX) CAPS | | | | | | | + + +--------+---+------+------+-------+ | Krill Oil 1000 MG | Take 1 capsule by | | 0 | | 07/1 | Disco | | CAPS | mouth. | | | | 2/20 | ntinu | | | | | | | 20 | ed | + + +--------+---+------+------+-------+ | Multiple Vitamin | Take 1 tablet by | | 0 | | 07/1 | Disco | | (MULTIVITAMIN) | mouth. | | | | 2/20 | ntinu | | tablet | | | | | 20 | ed | + + +--------+---+------+------+-------+ | Multiple | Take 1 tablet by | | 0 | | 07/1 | Disco | | Vitamins-Minerals | mouth. | | | | 2/20 | ntinu | | (OCUVITE EXTRA) TABS | | | | | 20 | ed | + + +--------+---+------+------+-------+ | Saw Alma 450 | Take 2 capsules by | | 0 | | 07/1 | Disco | | MG CAPS | mouth. | | | | 0/20 | ntinu | | | | | | | 20 | ed | | | | | | | | (Erro | | | | | | | | r) | + + +--------+---+------+------+-------+ | Turmeric Curcumin | Take 1 capsule by | | 0 | | 07/1 | Disco | | 500 MG CAPS | mouth. | | | | 2/20 | ntinu | | | | | | | 20 | ed | + + +--------+---+------+------+-------+ | aspirin 325 mg | Take 1 tablet by | | 0 | | 07/1 | Disco | | tablet | mouth daily (with | | | | 2/20 | ntinu | | | breakfast). | | | | 20 | ed | + + +--------+---+------+------+-------+ | Multiple | Ocuvite | | 0 | | 07/1 | Disco | | Vitamins-Minerals | 1 po daily | | | | 0/20 | ntinu | | (OCUVITE PO) | | | | | 20 | ed | | | | | | | | (Erro | | | | | | | | r) | + + +--------+---+------+------+-------+ | carvedilol (COREG) | Take 2 tablets by | | 0 | | 07/1 | Disco | | 25 mg tablet | mouth 2 times daily. | | | | 2/20 | ntinu | | | With meals | | | | 20 | ed | + + +--------+---+------+------+-------+ | Saw Alma 450 | 1 capsule Daily. | | 0 | | 07/1 | Disco | | MG CAPS | | | | | 2/20 | ntinu | | | | | | | 20 | ed | + + +--------+---+------+------+-------+ | SAW PALMETTO, | Take 1 capsule by | | 0 | | 07/1 | Disco | | SERENOA REPENS, PO | mouth 2 times daily. | | | | 0/20 | ntinu | | | | | | | 20 | ed | | | | | | | | (Erro | | | | | | | | r) | + + +--------+---+------+------+-------+ | dilTIAZem | Take 120 mg by mouth | | 0 | | 07/1 | Disco | | (CARDIZEM) 120 MG | Daily . | | | | 2/20 | ntinu | | tablet | | | | | 20 | ed | + + +--------+---+------+------+-------+ | isosorbide | Take 30 mg by mouth | | 0 | | 07/1 | Disco | | dinitrate (ISORDIL) | Daily. | | | | 0/20 | ntinu | | 30 MG tablet | | | | | 20 | ed | | | | | | | | (Erro | | | | | | | | r) | + + +--------+---+------+------+-------+ Active Problems + + + | Problem | Noted Date | + + + | Atrial flutter | 12/10/2019 | + + + | Class II obesity | 12/10/2019 | + + + + + | Overview: Weight loss is essential. He needs to lose at | | least 60 pounds and probably 75 pounds of weight. | + + + + + | Paroxysmal atrial fibrillation | 12/10/2019 | + + + + + | Overview: An ablation was performed by 10 years | | ago in [place] for what sounds like A. fib, but he has been in A. | | fib for many years. On carvedilol 50 mg twice daily and | | diltiazem 120 mg/day for rate control. Anticoagulated with | | apixaban. His chads 2 vascular score is 3. A rate control | | strategy has been employed. Left atrial enlargement seen on | | prior echo along with mild LV systolic dysfunction and he has | | been treated for sleep apnea with CPAP for the past 5 | | years.12/11/2019:Sinus rhythm was restored during the ICD implant | | yesterday. Sotalol was started at 120 mg twice per day and has | | maintained sinus rhythm with sinus bradycardia in the 50s. | | Hopefully he will tolerate this dose of sotalol but if he does | | not, it will be decreased to 80 mg twice per day or possibly | | switched to dofetilide or amiodarone.12/12/2019:Heart rate is in | | the low 50s. Feels okay. Apixaban will be resumed today. | | Continue current dose of sotalol. | + + + + + | Wide-complex tachycardia | 12/10/2019 | + + + + + | Overview: He has had several episodes of tachycardia, with | | very fast heart rates over 200 bpm lasting for up to 10 minutes, | | since August 2019. Scribes "extremely fast heart rates", and the | | heart rate 3 days ago was 203 bpm with a right bundle branch | | block left axis deviation morphology. He has underlying atrial | | fibrillation which has been present chronically. Frequent PVCs | | seen on telemetry. The ejection fraction was 45 to 50% on last | | echo and he has had 2 stents in the past. A nuclear stress test | | was negative for ischemia within the last year. Had no symptoms | | of angina. I think this is probably ventricular tachycardia and | | have therefore recommended an electrophysiology study followed by | | single-chamber ICD if in fact he has inducible VT. The risks | | benefits and rationale were discussed in detail with the patient | | and he is keen to proceed. The electrophysiology study will be | | performed via the right arm and if needed, the ICD will be placed | | via the left prepectoral route. | + + + + + | VT (ventricular tachycardia) | 12/10/2019 | + + + + + | Overview: Now on sotalol. Continue 120 mg twice daily for | | now. If the sinus node does not allow that dose, will probably | | recommend switching to amiodarone. Dofetilide is another option. | | The PVCs are much less since sotalol was added. He has had 2 | | doses now. | + + + + + | Coronary atherosclerosis | 12/29/2018 | + + + + + | Overview: Prior PCI to the circumflex and LAD 11 and 10 years | | ago. Dr. Suttonuclear stress test from October 2018 revealed the | | following:The RV function appears appears to be enlarged.6. The | | Anderson Treadmill Score is 5.7. Comparison with previous Nuclear | | stress test from 01/2011 showed that the function capacity has | | decreased however there is no significant perfusion defect. | | IMPRESSION: Overall this is a low-risk stress test.. | |Overall this is a low-risk stress test.. | + + + + + | Coronary arteriosclerosis | 12/29/2018 | + + + | Essential hypertension | 12/29/2018 | + + + + + | Overview: Chronic hypertension. The blood pressure has been | | controlled on current therapy. | + + + + + | History of hypertension | 12/29/2018 | + + + + + | Overview: The blood pressure is controlled on current | | therapy. | + + + + + | Hyperlipidemia | 12/29/2018 | + + + | Obesity | 12/29/2018 | + + + | Persistent atrial fibrillation | 11/27/2016 | + + + | Atrial tachycardia | 10/31/2014 | + + + | Sleep apnea | 10/14/2013 | + + + + + | Overview: Seekiya Ventura- wen cpap for 5 yrs | + + Encounters +--------+ + + + + | Date | Type | Specialty | Care Team | Description | +--------+ + + + + | 12/09/ Surgery | Cardiology | Kenroy Dalal, | CV EP ICD SYSTEM | | 2019 | | | MD | IMPLANT | +--------+ + + + + | 12/09/ | Hospital | Internal Medicine | Sallie Greco DO | VT (ventricular | | 2019 - | Encounter | | Starr Allen MD | tachycardia) ([facility]) | | | | | | (Primary Dx); Class | | 12/11/ | | | | II obesity; | | 2019 | | | | Paroxysmal atrial | | | | | | fibrillation ([facility]); | | | | | | Atherosclerosis of | | | | | | [place] coronary | | | | | | artery of [place] | | | | | | heart with stable | | | | | | angina pectoris | | | | | | ([facility]); Atypical | | | | | | atrial flutter | | | | | | ([facility]); VT | | | | | | (ventricular | | | | | | tachycardia) ([facility]) | +--------+ + + + + from Last 3 Months Family History + + +------+ + | [...] + + + + Plan of Treatment +--------+ + + + [...] | | | | | [place] [address] | | | | | | [phone] | | | | | | | | +--------+ + + + + + + + + + | Health Maintenance | Due Date | Last | Comments | | | | Done | | + + + + + | Hepatitis C | | | | | Screening | 7 | | | + + + + + | Colorectal Cancer | | | | | Screening | 7 | | | | (Colonoscopy) | | | | + + + + + | Vaccine: Zoster (2 | | 08/02/19 | | | of 3) | 9 | 09 | | + + + + + | Vaccine: | | | | | Pneumococcal 65+ (1 | 2 | | | | of 1 - PPSV23) | | | | + + + + + | Adult Annual | | | | | Wellness Visit | 9 | | | + + + + + | Vaccine: Influenza | | | | | (#1) | 0 | | | + + + + + | Vaccine: | | 04/07/20 | | | Dtap/Tdap/Td (2 - | 7 | 17 | | | Td) | | | | + + + + + Implants + +--------+------+ +--------+--------+--------+ | Implanted | Type | Area | Manufacture | Device | Shelf | Model | | | | | r | | Expira | / | | | | | | Identi | tion | Serial | | | | | | fier | Date | / Lot | + +--------+------+ +--------+--------+--------+ | Icd-D [employer] Vr Df4 | Implan | | [facility] [place] | [id number] | 08/30/ | [id number] | | Nxgen - [id number]: | table | | MEDICAL - | [id number] | 2021 | -[id number] | | Qty: 1 on 12/10/2019 by | Cardio | | STJU | 75 | | /[id number] | | Kenroy Dalal MD at [facility] | verter | | | | | 79 / | | [facility] | | | | | | | | CENTER | Defibr | | | | | | | | illato | | | | | | | | r | | | | | | + +--------+------+ +--------+--------+--------+ | Lead Icd Durata [id number] - | Lead | | [facility] | [id number] | 07/30/ | [id number]/ | | [id number]: Qty: 1 | | | MEDICAL - | [id number] | 3 | 65 | | on 12/10/2019 by Kenroy Dalal | | | STJU | 41 | | /[id number] | | MD Jeramy at [facility] | | | | | | 0644 / | | [facility] | | | | | | | + +--------+------+ +--------+--------+--------+ Procedures + +--------+ + + + | [...] | e | 4:15 PM | tachycardia) ([facility]) | | | | | PDT | [...] section. | + +--------+ + + + from Last 3 Months Results XR Chest PA and Lateral (12/11/2019 4:13 PM PDT)Only the most recent of 3 results within t he time period is included. + + | Specimen | + + [...] | Final Report Signed by: Pelon Bae, Pusharnoldoder Sign | | | Date/Time: 12/11/2019 5:10 [...] AP OR MU | | | (12/07/2019); [facility] W CORONARY ANGIO W GRAFTS (03/20/2011); [...] Procedure Note | + + | [place], [id number] - 12/11/2019 5:14 PM PDT | | CHEST PA AND LATERAL | | | | CLINICAL INFORMATION: | | Pneumothorax. | | | | COMPARISON: | | XR CHEST PA AND LATERAL (12/11/2019); XR CHEST PA AND LATERAL | | (12/10/2019); CHEST AP OR MU (12/10/2019); CHEST AP OR MU (12/07/2019); CL | | [facility] W CORONARY ANGIO W GRAFTS (03/20/2011); [...] | | | + +---------+ + + CBC no Differential (12/11/2019 5:17 [...] LABORATORY | | | | performed at [facility], [address] [place], | | | | | | [place] [address] | | | | + + + + + + + + | Specimen | + + | Blood | + + + + + + + | Performing | Address | City/State/Zipcode | Phone Number | | Organization | | | | + + + + + | [facility] | [address] | [place] [address] | [phone] | + + + + + Comprehensive Metabolic Panel (12/11/2019 5:17 [...] | | | | | performed at [facility], [address] | | | | | | [facility], | | | | | | [place] [address] | | | | + + + + + + + + | Specimen | + + | Blood | + + + + + + + | Performing | Address | City/State/Zipcode | Phone Number | | Organization | | | | + + + + + | [facility] | [address] | [place] [address] | [phone] | + + + + + Troponin I (12/10/2019 8:27 AM PDT)Only the most recent of 2 results within the time laure wahl is included. + + + + + + | Component | Value | Ref Range | Performed | Pathologist | | | | | At | Signature | + + + + + + | Troponin I | 0.03Comment: 0.04 | 0.00 - 0.04 | [facility] | | | | ng/mL or less [...] at | | | | | | [facility];[address] [place] [address] | | | | | | [facility];[place] [address] | | | | + + + + + + + + | Specimen | + + | Blood | + + + + + + + | Performing | Address | City/State/Zipcode | Phone Number | | Organization | | | | + + + + + | [facility] | [address] | [place] [address] | [phone] | + + + + + B Type Natriuretic Peptide (12/10/2019 5:57 AM PDT) + + + + + + | Component | Value | Ref Range | Performed | Pathologist | | | | | At | Signature | + + + + + + | BNP | 186.67 (H)Comment: | 0 - 100 pg/mL | [facility] | | | | Testing performed at | | LABORATORY | | | | [facility];[address];[place] [address] | | | | + + + + + + + + | Specimen | + + | Blood | + + + + + + + | Performing | Address | City/State/Zipcode | Phone Number | | Organization | | | | + + + + + | [facility] | [address] | [place] [address] | [phone] | + + + + + Lipid [...] | | | Calculated | performed at [facility], [address] | | LABORATORY | | | | [address], | | | | | | [place] [address] | | | | + + + + + + + + | Specimen | + + | Blood | + + + + + + + | Performing | Address | City/State/Zipcode | Phone Number | | Organization | | | | + + + + + | [facility] | [address] | [place] [address] | [phone] | + + + + + from Last 3 Months Insurance + +--------+ +--------+ [...] +---------+--------+ | [employer] [place] | [id number] | | | | Indemn | | | COMMUN | | 018-Pr | | | ity | | | ITY | | esent | | | | | | CARE | | | | | | + +--------+ +--------+ +---------+--------+ | MEDICARE | RAILRO | [id number] | 06/02/19 | [phone] | | Medica | | | AD | | 12-Pre | 5 | | re | | | MEDICA | | sent | | | | | | RE | | | | | | + +--------+ +--------+ +---------+--------+ | MEDICARE | [employer]ILRO | [id number] | 07/03/19 | [phone] | | Medica | | | AD | | 12-Pre | 5 | | re | | | MEDICA | | sent | | | | | | RE | | | | | | + +--------+ +--------+ +---------+--------+ | [employer] | MUTUAL | [id number] | 07/03/19 | [phone] | | Indemn | | | AND | | 18-Pre | 0 | | ity | | | [place] | | sent | | | | | | [place] | | | | | | | [...] Person | Self | [birth year] | [address] | | | al/Fam | | 1946 | [phone] | [place] | | | avin | | | 0 (Home) | [address] | + +--------+ +--------+ + + | Iain Yeboah | Person | Self | [birth year] | [address] | | | al/Fam | | 1946 | [phone] | [place] | | | avni | | | 7 ([place]) | [address] | + +--------+ +--------+ + + Advance Directives + + + + + | Type | Date Recorded | Patient | Explanation | | | | Large Engine Assembler | | + + + + + | Power of | | | | | Plant Assigner | | | | + + + + + | Advance | 02/19/2018 6:32 | | | | Directive | AM | | | + + + + + + + + + + | Code Status | Date | Date | Comments | | | Activated | Inactivated | | + + + + + | Full Code | 12/10/2019 | 12/12/2019 | | | | 4:24 AM | 2:05 PM | | + + + + + + + + +---+ | | | | | + + + +---+ | Full Code | 02/19/2018 | 02/19/2018 | | | | 10:32 AM | 1:44 PM | | + + + +---+
--- OUTSIDE RECORDS SUMMARY | ~2019-12-13 | XMS | Encounter Summary ---
Demographics + + + | Address | [address] | | | [place] [address] | + + + | Home Phone [...] + | Sangeetha Yebo[place] | ECON | [address] | | | | | [place] | | | | | [address] | | + + + + + Care Team Providers + +------+ + | Care Team Lead Name | Role | Phone | + [...] | | | [address] [place] | [place] [address] | | | | | [place] [address] | | | | | | [phone] | | | +--------+ + + + [...] | | | | | [place] [address] | | | | | | [phone] | | | | | | | [...]
--- OUTSIDE RECORDS SUMMARY | ~2019-12-13 | XMS | Encounter Summary ---
Demographics + + + | Address | [address] | | | [place] [address] | + + + | Home Phone | | + + + | Preferred Language | Unknown | + + + | Marital Status | | + + + | Roman Catholic Affiliation | 1041 | + + + | Race | Unknown | + + + | Ethnic Group | Unknown | + + + Author + + + | Author | [facility] | | | and [place] | + + + | Organization | [facility] | | | [...] + | [place] | ECON | [address] | | | | | [place] | | | | | [address] | | + + + + + Care Team Providers + +------+ + | Care Body Straightener Name | Role | Phone | + [...] | | | | | | | [facility] | | | | | | [...] | | | | | [address] | [address] | | | | | [place], [place] | [place], [place] | | | | | [address] | [address] | | | | | [phone] | | | | | | | Aubrey Shultz, | | | | | | [address] | | | | | | [place], [place] | | | | | | [address] | | | | | | | | +--------+ + + + + Anesthesia Record + + + + + | Procedure Name | Responsible | Anesthesia Start | Anesthesia Stop Time | | | Anesthesiologist | Time | | + + + + + | right knee | Eron L | 02/19/18 0836 | 02/19/18 0918 | | arthrocopy, medial [...] +----+---+ + + | | 0 | [place] | | | | 8 | 43-degrees [...] +----+---+ + + | | 0 | [place] off | | | | 9 | [...] 02/19/18 1120 by | | eral | [id number]-vqm-auxvry catheter system; | Sol Jack RN | [...] Placement Date: 02/19/18; | 02/19/18841 by | 02/19/18925 by | | | Placement Time: 841 [...] + + + | Read | 02/19/18; 08; Right; leg; | 02/19/18 0852 by | [...] EVALUATION Iain Yeboah 72 y.o. male 1945 [id number] Procedure(s) right knee arthrocopy, medial and lateral [...] signed by Eron Gann MD 02/19/2018 10:32 [facility] WITH [facility] nesthesia Procedure Notes - Eron Gann MD - 02/20/20 18 8:49 AM PDTAssociated Order(s): ANE AIRWAY NOTEAnesthesia [...] and equal bilateral breath sounds Performing provider: REON GANN Electronically Signed by: Eron Gann MD ESig date/t wilber: 02/19/2018 8:49 nesthesia Pre procedure Evaluation - Eron Gann MD - 02/18/2018 2:56 PM PDTFormatting of thi s note might be different from the original. ANESTHESIA PREANESTHESIA EVALUATION Iain Yeboah 72 y.o. male 1945 [id number] Procedure(s): Right Knee Scope, Medial Meniscectomy (Right [...] on eliquis . (+) hypertension, CAD, past MO(-) angina (+) Dysrhythmias: atrial fibrillation , Exercise [...] [address] | | | | | | [place] [address] | | | | | | [phone] | | | | | | | [...] and equal bilateral breath sounds Performing provider: SANJUANITA | | Adeel Temple Electronically Signed by: Eron Gann | | | ESig date/time: | | | 02/19/2018 8:49 [...] | | | | | | [facility] 02/19/18 at 0158, For | | | [...] 8:42 | | | | | [facility] 02/19/18 at 0842, | | AM PDT [...] mLs | | | | CONTINUOUS, [facility] 02/19/18 | | AM PDT | | [...]
--- OUTSIDE RECORDS SUMMARY | ~2019-12-13 | XMS | Encounter Summary ---
Demographics + + + | Address | [address] | | | [place] [address] | + + + | Home Phone | | + + + | Preferred Language | Unknown | + + + | Marital Status | | + + + | Voodoo Affiliation | 1041 | + + + | Race | Unknown | + + + | Ethnic Group | Unknown | + + + Author + + + | Author | [facility] | | | and [place] | + + + | Organization | [facility] | | | and [...] + | Sangeetha Yeboah | ECON | [address] | | | | | [place] | | | | | [address] | | + + + + + Care Team Providers + +------+ + | Care Fabric And Accessories Estimator Name | Role | Phone | + +------+ + | No, Physician | PCP | Unavailable | + +------+ + Encounter Details +--------+ + + + + | Date | Type | Department | Care Team | Description | +--------+ + + + + | 12/21/ | Orders Only | [facility] | Juan Merritt MD | | | 2014 | | CARDIOLOGY [place] | [address] | | | | | [address] | [place] [address] | | | | | [place], [place] | [phone] | | | | | [address] | | | | | | [phone] | | | +--------+ + + + [...] [address] | | | | | | [place] [address] | | | | | | [phone] | | | | | | | [...] | | Terrell: 0.02 m/s MV Dec [place]: 5.99 m/s2 MV DecT: 188.02 ms | [...] TR Vmax: 2.70 m/s | | | Spring Floor Service Worker: BABAR Authenticated by: Juan Merritt MD Report Date/Time: | | | 12-22-2014 17:02:08 | | + + + + + | Procedure Note | + + | Jerome, Rad Conversion - 01/21/2019 11:07 PM PDT Patient Name: Viviana YEBOAH of | | : 1945 Performing Physician: Juan Merritt | | MD INDICATIONS C | | AD with 2 [...] cmLVIDd: 5.38 cmLVPWd: 0.92 cmLVOT Area: 4.85 [id number] Diam: 2.48 cm%FS: 19.44 | | %EF(Teich): [...] (A-L): 27.68 ml/m2LAAs A2C: | | 19.62 kn9BPCOH A-L A2C: 63.90 mlLALs A2C: 5.11 cmLAAs A4C: 20.31 kt9TEZEI A-L A4C: | | 67.40 mlLALs A4C: 5.19 cmAo Diam: 3.64 cmLA Diam: 4.64 cmLA/Ao: 1.27AV maxPG: | | 7.14 mmHgAV meanP.51 mmHgAV Vmax: 1.33 m/Carrie Vmean: 0.87 m/Carrie VTI: 24.70 | | cmAVA Vmax: 3.03 cm2AVA (VTI): 2.76 oe0VMWI maxP.78 mmHgLVOT meanP.18 | | mmHgLVSI Dopp: 28.57 ml/m2LVSV Dopp: 68.29 mlLVOT Vmax: 0.83 m/sLVOT Vmean: 0.50 | | m/sLVOT VTI: 14.07 cmIVRT: 96.88 msMV A Terrell: 0.02 m/sMV Dec [place]: 5.99 m/s2MV | | DecT: 188.02 msMV E [place]rell: 1.12 m/sMV E/A Ratio: 48.40MV PHT: 54.52 msMVA By PHT: | | 4.03 hg6Hzynww e': 0.07 m/sSeptal E/e': 15.39Lateral e': 0.10 m/sLateral E/e': | | 11.23RAP: 5 mmHgRVSP: 34.29 mmHgTR maxP.29 mmHgTR Vmax: 2.70 m/s | | Spring Floor Service Worker: JAYESHuthenticated by: Juan VENCESepaviva Date/Time: 12-22-2014 17:02:08 | | IMPRESSION: 1. [...] A Terrell: 0.02 m/s | |MV Dec [place]: 5.99 m/s2 | |MV DecT: 188.02 ms [...] |TR Vmax: 2.70 m/s | | | |Spring Floor Service Worker: BABAR | |Authenticated by: Juan Merritt MD | [...]
--- OUTSIDE RECORDS SUMMARY | ~2019-12-13 | XMS | Encounter Summary ---
Demographics + + + | Address | [address] | | | [place] [address] | + + + | Home Phone | | + + + | Preferred Language | Unknown | + + + | Marital Status | | + + + | Methodist Affiliation | 1041 | + + + | Race | Unknown | + + + | Ethnic Group | Unknown | + + + Author + + + | Author | [facility] | | | and [place] | + + + | Organization | [facility] [...] + | Sangeetha Yeboah | ECON | [address] | | | | | [place] | | | | | [address] | | + + + + + Care Team Providers + +------+ + | Care Golf Ball Winder Name | Role | Phone | + +------+ + | No, Physician | PCP | Unavailable | + +------+ + Reason for Visit + +--------+ + | Reason | Onset | Comments | | | Date | | + +--------+ + | Medication Refill | 02/24/ | | | | 2018 | | + +--------+ + Encounter Details +--------+--------+ + + + | Date | Type | Department | Care Team | Description | +--------+--------+ + + + | 02/24/ | Refill | [facility] | Juan Merritt MD | Medication Refill | | 2019 | | CARDIOLOGY [place] | [address] | | | | | [address] | [place] [address] | | | | | [place], [place] | [phone] | | | | | [address] | | | | | | [phone] | | | +--------+--------+ + + + [...] [address] | | | | | | [place] [address] | | | | | | [phone] | | | | | | | | +--------+ + + + + documented as of this encounter Visit Diagnoses Not on filedocumented in this encounter"
--- OUTSIDE RECORDS SUMMARY | ~2019-12-13 | XMS | Encounter Summary ---
Demographics + + + | Address | [address] | | | [place] [address] | + + + | Home Phone | | + + + | Preferred Language | Unknown | + + + | Marital Status | | + + + | Caodaism Affiliation | 1041 | + + + | Race | Unknown | + + + | Ethnic Group | Unknown | + + + Author + + + | Author | [facility] | | | and [place] | + + + | Organization | [facility] | | | [...] + | Sangeetha Yeboah | ECON | [address] | | | | | [place] | | | | | [address] | | + + + + + Care Team Providers + +------+ + | Care Multi Spindle Operator Name | Role | Phone | + +------+ + | No, Physician | PCP | Unavailable | + +------+ + Encounter Details +--------+ + + + + | Date | Type | Department | Care Team | Description | +--------+ + + + + | 11/23/ | Orders Only | [facility] | Juan Merritt MD | | | 2019 | | CARDIOLOGY [place] | [address] | | | | | [address] | [place] [address] | | | | | [address] | [phone] | | | | | [place], [place] | | | | | | [address] | | | | | | [phone] | | | +--------+ + + + [...] [address] | | | | | | [place] [address] | | | | | | [phone] | | | | | | | [...] test.. Juan Merritt MD, | | | FACC | | + + + + + + | Narrative | Performed At | + + + | [facility] CARDIOLOGY [address], [place], [place] | | | [phone] NUCLEAR TREADMILL TEST WITH LEXISCAN INTERVENTION | | | TEST DATE: 11/23/2018 NAME: Iain Yeboah : 1945 MRN: | | | [id number] ORDERING MD: Juan Merritt MD INDICATION FOR [...] achieved: 129 bpm, Max BP: 126/64. RPP: 34817. METS: 7.00. Symptoms | | | none.The [...] + | Matthew Cano Conversion - 01/21/2019 12:45 PM PDT [facility] [id number] | | [address] , [place], [phone] NUCLEAR TREADMILL TEST WITH LEXISCAN | | INTERVENTIONTEST DATE: 11/23/2018NAME: Margaret YeboahB: 1945MRN: [id number] | | MD: Juan Merritt MD INDICATION [...] achieved: 129 bpm, Max BP: 126/64. RPP: 94552. METS: 7.00. Symptoms none.The test was | [...] from 01/2011 showed that the function [place] has decreased however there is no significant perfusion defect. | | | | | |IMPRESSION: | |Overall this is a low-risk stress test.. | | | | | |Juan Merritt MD, [facility] | | | | | + + documented in this encounter Visit Diagnoses Not on filedocumented in this encounter"
--- OUTSIDE RECORDS SUMMARY | ~2019-12-13 | XMS | Encounter Summary ---
Demographics + + + | Address | [address] | | | [place] [address] | + + + | Home Phone | | + + + | Preferred Language | Unknown | + + + | Marital Status | | + + + | Druze Affiliation | 1041 | + + + | Race | Unknown | + + + | Ethnic Group | Unknown | + + + Author + + + | Author | [facility] | | | and [place] | + + + | Organization | [facility] | | | [...] + | Sangeetha Yeboah | ECON | [address] | | | | | [place] | | | | | [address] | | + + + + + Care Team Providers + +------+ + | Care Hospitality Housekeeper Name | Role | Phone | + [...] | | | [address] | [place] [address] | | | | | [place] [address] | | | | | | [phone] | | | +--------+ + + + [...] | | | | | [place] [address] | | | | | | [phone] | | | | | | | [...]
--- OUTSIDE RECORDS SUMMARY | ~2019-12-13 | XMS | Encounter Summary ---
Demographics + + + | Address | [address] | | | [place] [address] | + + + | Home Phone | | + + + | Preferred Language | Unknown | + + + | Marital Status | | + + + | Latter Day Affiliation | 1041 | + + + [...] | + + + + + | Sagneetha Yeboah | ECON | [address] | | | | | [place] | | | | | [address] | | + + + + + Care Team Providers + +------+ + | Care Rap Artist Name | Role | Phone | + +------+ + PCP | Unavailable | + +------+ + Encounter Details +--------+ + + + + | Date | Type | Department | Care Team | Description | +--------+ + + + + | 05/05/ | Hospital | [facility] | Juan Ferreira MD | AMI NOS, Unspecified | | 2008 - | Encounter | [facility] | [address] | ([facility]) | | | | CARE FLOOR [address] | [place] [address] | | | 05/07/ | | [address] | [phone] | | | 2008 | | [place], [place] | | | | | | [address] | | | | | | [phone] | | | +--------+ + + + [...] | | | | | [place] [address] | | | | | | [phone] | | | | | | | [...] Performed At | + + + | [id number] | | | Page 1 CARDIOLOGY | | | INT [address]245/ | | | I/P [facility] | | | CENTER NAME: [place] [address] | | | | | | | | | DATE OF : 1945 ORDER NUMBER: | | | [id number] EXAM DATE/TIME: 05/05/2009 04:45 P ORDERING PHYSICIAN: | | | JUAN FERREIRA ORDER DETAIL: [id number] / / HCL EXAM DESCRIPTION: CCL | | | DE STENT INSERTION INITIAL | | | | | | INDICATIONS This is a 63-year-old gentleman who presented | | | to [facility] with substernal chest discomfort of 20 | | | to 30 minutes of duration. EKG suggested mild ST elevation in the | | | anterior wall. He was heparinized and transferred to [facility] | [facility] for further care. For details regarding his | | | presentation, kindly refer to my history and physical. PROCEDURES | | | 1. Left heart catheterization with left ventriculogram. 2. | | | Selective coronary angiography. 3. Percutaneous transluminal coronary | | | angioplasty of mid left anterior descending with 3.0 x 12 mm | | | [place] balloon. 4. Stenting of mid left anterior [...] | | | femoral artery and a 6-Turkish arterial sheath was placed. A 6-Turkish | | | JL4 catheter was then advanced under fluoroscopic guidance and | | | engaged with the ostium of the left main coronary artery, and | | | multiple projections of the left coronary system were obtained with | | | the use of contrast injections. The catheter was then exchanged to a | | | 6-Turkish JR4 catheter, which was advanced under fluoroscopic guidance | | | and engaged with the ostium of the right coronary artery, and | | | multiple projections of the right coronary artery were obtained with | | | the use of contrast injections. The catheter was then exchanged to a | | | 6-Turkish pigtail catheter which was advanced into the [...] | | presents with threatened acute anterior SD and, although he did have | | | MAMIE-3 flow at the time of presentation at [facility] | | | Center, he had [...] | | | 05/06/2009 07:44 A A GINA/mario/[id number]/ cc: | | | JUAN FERREIRA MD | | + + + + + | Procedure Note | + + | Matthew Cano - 01/24/2019 9:58 PM PDT | | [id number] Page 1 | | CARDIOLOGY INT 53811/ | | I/P | | [facility] NAME: GIOVANNI YEBOAH | | [place] [address] | | | | DATE OF : 1945 | | | | ORDER NUMBER: [id number] | | EXAM DATE/TIME: 05/05/2009 04:45 P | | ORDERING PHYSICIAN: JUAN FERREIRA | | ORDER DETAIL: [id number] / / HCL | | EXAM DESCRIPTION: CCL DE STENT INSERTION INITIAL | | | | INDICATIONS | | This is a 63-year-old gentleman who presented to [facility] | [facility] with substernal chest discomfort of 20 to 30 minutes of | | duration. EKG suggested mild ST elevation in the anterior wall. He was | | heparinized and transferred to [facility] for | | further care. For details regarding his presentation, kindly refer to my | | history and physical. | | | | PROCEDURES | | 1. Left heart catheterization with left ventriculogram. | | 2. Selective coronary angiography. | | 3. Percutaneous transluminal coronary angioplasty of mid left anterior | | descending with 3.0 x 12 mm [place] balloon. | | 4. Stenting of mid [...] obtained via right femoral artery and a 6-Turkish arterial sheath was | | placed. A 6-Turkish JL4 catheter was then advanced under fluoroscopic | | guidance and engaged with the ostium of the left main coronary artery, | | and multiple projections of the left coronary system were obtained with | | the use of contrast injections. The catheter was then exchanged to a | | 6-Turkish JR4 catheter, which was advanced under fluoroscopic guidance | | and engaged with the ostium of the right coronary artery, and multiple | | projections of the right coronary artery were obtained with the use of | | contrast injections. The catheter was then exchanged to a 6-Turkish | | pigtail catheter which was advanced [...] The patient presents with threatened acute anterior SD and, although he | | did have MAMIE-3 flow at the time of presentation at [facility], he had an unstable-looking lesion in the [...] | A | | A | | GINA/mario/[id number]/ | | cc: JUAN FERREIRA MD | + + CV CARDIAC PROCEDURE (05/05/2009 4:43 PM PST) + + | Specimen | + + | | + + + + + | Narrative | Performed At | + + + | [id number] | | | Page 1 CARDIOLOGY | | | INT 30446/ | | | I/P [facility] | | | CENTER NAME: [place] [address] | | | | | | | | | DATE OF : 1945 ORDER NUMBER: | | | [id number] EXAM DATE/TIME: 05/05/2009 03:57 P ORDERING PHYSICIAN: | | | JUAN FERREIRA ORDER DETAIL: [id number] / / HCL EXAM DESCRIPTION: CCL | | | HEART CATH LT RETRO PERC | | | | | | INDICATIONS This is a 63-year-old gentleman who presented | | | to [facility] with substernal chest discomfort of 20 | | | to 30 minutes of duration. EKG suggested mild ST elevation in the | | | anterior wall. He was heparinized and transferred to [facility] | | [facility] for further care. For details regarding his | | | presentation, kindly refer to my history and physical. PROCEDURES | | | 1. Left heart catheterization with left ventriculogram. 2. | | | Selective coronary angiography. 3. Percutaneous transluminal coronary | | | angioplasty of mid left anterior descending with 3.0 x 12 mm | | | [place] balloon. 4. Stenting of mid left anterior [...] | | | femoral artery and a 6-Turkish arterial sheath was placed. A 6-Turkish | | | JL4 catheter was then advanced under fluoroscopic guidance and | | | engaged with the ostium of the left main coronary artery, and | | | multiple projections of the left coronary system were obtained with | | | the use of contrast injections. The catheter was then exchanged to a | | | 6-Turkish JR4 catheter, which was advanced under fluoroscopic guidance | | | and engaged with the ostium of the right coronary artery, and | | | multiple projections of the right coronary artery were obtained with | | | the use of contrast injections. The catheter was then exchanged to a | | | 6-Turkish pigtail catheter which was advanced into the [...] | | presents with threatened acute anterior SD and, although he did have | | | MAMIE-3 flow at the time of presentation at [facility] | | | [place], he had an unstable-looking lesion in the [...] | | | 05/06/2009 07:44 A A GINA/mario/[id number]/ cc: | | | MD SAVANNAH VACA MD | | + + + + + | Procedure Note | + + | Matthew Cano - 01/24/2019 9:58 PM PDT | | [id number] Page 1 | | CARDIOLOGY INT 77353/ | | I/P | | [facility] NAME: GIOVANNI YEBOAH | | [place] [address] | | | | DATE OF : 1945 | | | | ORDER NUMBER: [id number] | | EXAM DATE/TIME: 05/05/2009 03:57 P | | ORDERING PHYSICIAN: JUAN FERREIRA | | ORDER DETAIL: [id number] / / HCL | | EXAM DESCRIPTION: CCL HEART CATH LT RETRO PERC | | | | INDICATIONS | | This is a 63-year-old gentleman who presented to [facility] | | [facility] with substernal chest discomfort of 20 to 30 minutes of | | duration. EKG suggested mild ST elevation in the anterior wall. He was | | heparinized and transferred to [facility] for | | further care. For details regarding his presentation, kindly refer to my | | history and physical. | | | | PROCEDURES | | 1. Left heart catheterization with left ventriculogram. | | 2. Selective coronary angiography. | | 3. Percutaneous transluminal coronary angioplasty of mid left anterior | | descending with 3.0 x 12 mm [place] balloon. | | 4. Stenting of mid [...] obtained via right femoral artery and a 6-Turkish arterial sheath was | | placed. A 6-Turkish JL4 catheter was then advanced under fluoroscopic | | guidance and engaged with the ostium of the left main coronary artery, | | and multiple projections of the left coronary system were obtained with | | the use of contrast injections. The catheter was then exchanged to a | | 6-Turkish JR4 catheter, which was advanced under fluoroscopic guidance | | and engaged with the ostium of the right coronary artery, and multiple | | projections of the right coronary artery were obtained with the use of | | contrast injections. The catheter was then exchanged to a 6-Turkish | | pigtail catheter which was advanced [...] The patient presents with threatened acute anterior SD and, although he | | did have MAMIE-3 flow at the time of presentation at [facility] | [facility], he had an unstable-looking lesion in the [...] | A | | A | | IJ/mario/[id number]/ | | cc: JUAN FERREIRA MD | | SAVANNAH TILLMAN MD | + + documented in this encounter Visit Diagnoses + + | Diagnosis | + + | Acute myocardial infarction, unspecified site, episode of care unspecified | + + documented in this encounter"
--- OUTSIDE RECORDS SUMMARY | ~2019-12-13 | XMS | Encounter Summary ---
Demographics + + + | Address | [address] | | | [place] [address] | + + + | Home Phone | | + + + | Preferred Language | Unknown | + + + | Marital Status | | + + + | Faith Affiliation | 1041 | + + + [...] + | [place]eth[place] | ECON | [address] | | | | | [place] | | | | | [address] | | + + + + + Care Team Providers + +------+ + | Care Youth Liaison Officer Name | Role | Phone | + [...] | | | 2019 | | [address] | [address] | | | | | [place], [place] | [place] [address] | | | | | [address] | [phone] | | | | | [phone] | | | +--------+ + + + [...] [address] | | | | | | [place] [address] | | | | | | [phone] | | | | | | | | +--------+ + + + + documented as of this encounter Procedures + +--------+ + + + | Procedure Name | Priori | Date/Time | Associated Diagnosis | Comments | | | ty | | | | + +--------+ + + + | EXTERNAL LAB: CBC | Routin | 11/10/2018 | | Results [...] documented in this encounter Results External Lab: CBC (11/10/2018 8:35 AM PDT) + + + [...]
--- OUTSIDE RECORDS SUMMARY | 2019-12-13 12:38 | XMS ---
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 Norma has no Care Guidelines for this patient. William VISIT COUNT (12 MO.) 3 [facility] TOTAL 3 NOTE: Visits indicate total known visits. ED/C VISIT TRACKING (12 MO.) 12/13/2019 12:35 [facility] [place] TYPE: Emergency COMPLAINT: - STROKE SYMPTOMS 12/10/2019 00:16 [facility] TYPE: Emergency COMPLAINT: - RAPID HEART RATE 12/07/2019 23:00 [facility] TYPE: Emergency COMPLAINT: - HIGH BP/ELEVATED HR DIAGNOSES: - Pure hypercholesterolemia, unspecified - Supraventricular tachycardia - Palpitations - Other retention representative (current) drug therapy - Essential (primary) hypertension - Allergy status to other drugs, medicaments and biological sub INPATIENT VISIT TRACKING (12 MO.) 12/10/2019 04:14 [facility] Carlos TOLBERT TYPE: Internal Medicine DIAGNOSES: - Ventricular tachycardia - Paroxysmal atrial fibrillation - Obesity, unspecified - Atherosclerotic heart disease of [place] coronary artery with - Atypical atrial flutter [email or web address]
[2019-12-13] MEDS ORDERED: PANTOPRAZOLE SO40 MG PO (19:32)
--- NOTE | 2019-12-14 09:08 | EKG ---
[facility] [address] [place] [address] Signed Sinus bradycardia with 1st degree AV block Low voltage QRS Borderline ECG When compared with ECG of 10-DEC-2019 00:20, Previous ECG has undetermined rhythm, needs review Nonspecific T wave abnormality now evident in Lateral leads Confirmed by ALEISHA ALEXANDER MD ([id number]) on 12/14/2019 9:08:16 AM Electronically Signed By: ALEISHA ALEXANDER MD 12/14/19 0908 PATIENT NAME: NUVIAGIOVANNI Electrocardiogram DATE OF : [birth year] PHYSICIAN: ALEISHA ALEXANDER MD REPORT #: [id number] REPORT IS CONFIDENTIAL AND NOT TO BE RELEASED WITHOUT AUTHORIZATION
== END 2019-12-13 15:03 | disposition short-term general hospital (02) ==
LOC: ED 12:35
DX: I63.9 Cerebral infarction, unspecified (principal); I10 Essential (primary) hypertension; Z88.8 Allergy status to other drugs, medicaments and biological substances; Z79.899 Other long term (current) drug therapy; Z79.82 Long term (current) use of aspirin; Z79.01 Long term (current) use of anticoagulants
CPT/HCPCS: 70450; 70496; 70498; 71045; 80053; 84484; 85025; 85610; 85730; 93005; 93010; 99285-25; Q3014

== ENCOUNTER 2023-02-15 19:09 | Emergency (ER) | payer MEDICARE, OTHER ==
[~2023-02-15] VITALS: Ht 177.8 cm; Wt 113.4 kg
[~2023-02-15 19:09] MED LIST changes: +PANTOPRAZOLE SO40 MG PO
[2023-02-15 19:26] LABS: BASOPHILS 0.6 % (0-2); EOSINOPHILS 1.1 % (0-6); HEMATOCRIT 42.6 % (35.0-50.0); HEMOGLOBIN 14.3 g/dL (12.0-18.0); LYMPHOCYTES 19.2 % (24-44); MCH 29.5 (27-36); MCHC 33.7 g/dl (30-36); MCV 87.5 fl (81-99); MONOCYTES 12.4 % (0-12); NEUTROPHILS 66.7 % (39-80); PLATELET COUNT 215 K/uL (140-440); RBC 4.87 M/ul (4.3-5.7); RDW 19.7 (10.5-15.0)
[2023-02-15 19:35] LABS: INR 1.15 (0.80-1.30); PROTIME 14.2 Sec (11.2-14.2)
[2023-02-15] MEDS ORDERED: INVOKANA100 MG PO (19:40)
[2023-02-15] MEDS ORDERED: MAGNESIUM400 M1 PO (19:41)
[2023-02-15] MEDS ORDERED: LASIX20 MG PO (19:42)
[2023-02-15] MEDS ORDERED: FLOMAX0.4 MG PO (19:43)
[2023-02-15 19:44] LABS: ALBUMIN 3.6 g/dL (3.4-5.0); ALBUMIN/GLOBULIN RATIO 0.97 (1.1-2.4); ANION GAP 10.6 (7-21); BILIRUBIN, TOTAL 0.6 ng/dL (0.2-1.0); BUN/CREATININE RATIO 13.98 (6.0-28.6); CALCIUM 8.6 mg/dL (8.5-10.1); CREATININE, SERUM 1.43 mg/dL (0.70-1.30); MAGNESIUM 1.9 mg/dL (1.8-2.4); POTASSIUM 3.6 mmol/L (3.5-5.1); PROTEIN, TOTAL 7.3 g/dL (6.4-8.2)
[2023-02-15] MEDS ORDERED: SPIRONOLACTONE1 EACH PO (19:44)
--- NOTE | 2023-02-15 22:16 | EKG ---
[facility] [address] [place] [address] Signed Sinus rhythm with AV dissociation and Accelerated Junctional rhythm with frequent and consecutive premature ventricular complexes Low voltage QRS Cannot rule out Anterior infarct , age undetermined Abnormal ECG When compared with ECG of 13-DEC-2019 12:51, Junctional rhythm has replaced Sinus rhythm Vent. rate has increased BY 28 BPM Questionable change in QRS axis Nonspecific T wave abnormality, improved in Lateral leads Confirmed by Rissa Hansen MD () on 02/15/2023 10:16:07 PM Electronically Signed By: RISSA HANSEN MD 02/15/23 2216 PATIENT NAME: GIOVANNI PEDERSEN Electrocardiogram DATE OF : [birth year] PHYSICIAN: RISSA HANSEN MD REPORT #: [id number] REPORT IS CONFIDENTIAL AND NOT TO BE RELEASED WITHOUT AUTHORIZATION
[2023-02-15 22:25] VITALS: BP 120/88
== END 2023-02-15 22:29 | disposition home or self-care (01) ==
LOC: ED 19:09
PROVIDERS: Emergency Medicine
DX: R07.89 Other chest pain (principal); Z45.018 Encounter for adjustment and management of other part of cardiac pacemaker; I49.9 Cardiac arrhythmia, unspecified; I25.2 Old myocardial infarction; I10 Essential (primary) hypertension; E78.00 Pure hypercholesterolemia, unspecified; Z95.5 Presence of coronary angioplasty implant and graft; Z95.810 Presence of automatic (implantable) cardiac defibrillator; Z88.8 Allergy status to other drugs, medicaments and biological substances; Z79.82 Long term (current) use of aspirin; Z79.01 Long term (current) use of anticoagulants; Z79.899 Other long term (current) drug therapy
CPT/HCPCS: 36415; 71045; 80053; 83735; 84484; 85025; 85610; 93005; 93010; 99285-25

== ENCOUNTER 2023-05-12 15:30 | Emergency (ER) | payer MEDICARE, OTHER ==
[~2023-05-12] VITALS: Ht 177.8 cm; Wt 113.4 kg
[~2023-05-12 15:30] MED LIST changes: +FLOMAX0.4 MG PO; +INVOKANA100 MG PO; +LASIX20 MG PO; +MAGNESIUM400 M1 PO; +SPIRONOLACTONE1 EACH PO
[2023-05-12] MEDS ORDERED: VITAMIN D350 MCG PO (15:47)
[2023-05-12] MEDS ORDERED: METOPROLOL SUC100 MG PO (15:49)
[2023-05-12] MEDS ORDERED: ENTRESTO 24 MG1 EACH PO (15:50)
[2023-05-12] MEDS ORDERED: SPIRONOLACTONE25 MG PO (15:51)
[2023-05-12 15:59] LABS: BASOPHILS 0.5 % (0-2); EOSINOPHILS 1.6 % (0-6); HEMATOCRIT 45.8 % (35.0-50.0); HEMOGLOBIN 14.9 g/dL (12.0-18.0); LYMPHOCYTES 18.4 % (24-44); MCH 30.2 (27-36); MCHC 32.5 g/dl (30-36); MCV 92.8 fl (81-99); MONOCYTES 8.2 % (0-12); NEUTROPHILS 71.3 % (39-80); PLATELET COUNT 209 K/uL (140-440); RBC 4.94 M/ul (4.3-5.7); RDW 15.5 (10.5-15.0)
[2023-05-12 16:09] LABS: ALBUMIN 3.8 g/dL (3.4-5.0); ALBUMIN/GLOBULIN RATIO 1.03 (1.1-2.4); ANION GAP 13.6 (7-21); BILIRUBIN, TOTAL 0.8 ng/dL (0.2-1.0); BUN/CREATININE RATIO 27.04 (6.0-28.6); CALCIUM 8.6 mg/dL (8.5-10.1); CREATININE, SERUM 1.22 mg/dL (0.70-1.30); MAGNESIUM 1.9 mg/dL (1.8-2.4); POTASSIUM 3.6 mmol/L (3.5-5.1); PROTEIN, TOTAL 7.5 g/dL (6.4-8.2)
[2023-05-12] MEDS ORDERED: BISOPROLOL FUMA10 MG PO (19:09)
[2023-05-12] MEDS ORDERED: LANOXIN125 MCG PO (19:09)
[2023-05-12 19:31] VITALS: BP 104/59
--- NOTE | 2023-05-13 06:04 | EKG ---
[facility] [address] [facility] [place] [address] Signed Atrial fibrillation with rapid ventricular response with premature ventricular or aberrantly conducted complexes Right bundle branch block T wave abnormality, consider inferolateral ischemia Abnormal ECG No previous ECGs available Confirmed by PASHA SHAW MD ([id number]) on 05/13/2023 6:04:02 AM Electronically Signed By: PASHA SHAW 05/13/23 0604 PATIENT NAME: NUVIAGIOVANNI Electrocardiogram DATE OF : [birth year] PHYSICIAN: PASHA SHAW REPORT #: [id number] REPORT IS CONFIDENTIAL AND NOT TO BE RELEASED WITHOUT AUTHORIZATION
== END 2023-05-12 19:33 | disposition home or self-care (01) ==
LOC: ED 15:30
PROVIDERS: Emergency Medicine
DX: I48.91 Unspecified atrial fibrillation (principal); I45.10 Unspecified right bundle-branch block; Z95.810 Presence of automatic (implantable) cardiac defibrillator; I10 Essential (primary) hypertension; I25.2 Old myocardial infarction; Z95.5 Presence of coronary angioplasty implant and graft; Z88.8 Allergy status to other drugs, medicaments and biological substances; Z79.899 Other long term (current) drug therapy; Z79.82 Long term (current) use of aspirin; Z79.01 Long term (current) use of anticoagulants
CPT/HCPCS: 36415; 71045; 80053; 83735; 83880; 84484; 85025; 93005; 93010; 96365; 96376; 99285-25; J3475; J3480